=== PATIENT | female | born 1950 | race Caucasian/White ===

== ENCOUNTER → 2017-02-19 | Outpatient (CLI) | payer MEDICARE, OTHER ==
[2017-02-19 11:15] LABS: ALT 27 U/L (9-52); AST 15 U/L (14-36); Alkaline Phosphatase 91 U/L (38-126); Anion Gap 8 mmol/L; Blood Urea Nitrogen 16 mg/dL (7-17); Carbon Dioxide 34 mmol/L (22-30); Chloride 97 mmol/L (98-107); Glucose 130 mg/dL (74-99); Non-African American GFR(MDRD) >60 (>60 ml/min/1.73 sqM); Potassium 4.4 mmol/L (3.5-5.1); Sodium 139 mmol/L (137-145); Total Bilirubin 0.5 mg/dL (0.2-1.3); Total Protein 6.1 g/dL (6.3-8.2)
[2017-02-19 12:09] LABS: Hemoglobin A1C 6.5 % (4.2-6.1)
--- NOTE | 2017-02-19 12:44 | XR ---
EXAMINATION TYPE: XR skull limited DATE OF EXAM ORDERED: 02/19/2017 11:13 AM HISTORY: H05.359 exostosis. COMPARISON: None. FINDINGS: There is a small enthesophyte arising from the occiput at the insertion site of the foundry tender ior longitudinal ligament. There is a 1.7 x 2.6 cm ovoid lesion involving the left occiput. This likely represents an osteoma. T he skull is otherwise normal. 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 A CT SCAN OF THE BRAIN WOULD BE SUGGESTED FOR FURTHER SESSMENT
== END | disposition home or self-care (01) ==
LOC: LABWHC1 10:24
PROVIDERS: ATTEND Family Medicine
DX: M89.9 Disorder of bone, unspecified (principal); E86.0 Dehydration; R53.83 Other fatigue
CPT/HCPCS: 36415; 70250; 80053; 83036

== ENCOUNTER → 2017-03-28 | Outpatient (CLI) | payer MEDICARE, OTHER ==
--- NOTE | 2017-03-30 18:26 | ECHOF ---
Referral Reason:Undiagnosed cardiac Murmurs R01.1 MEASUREMENTS -------- HEIGHT: 162.6 cm WEIGHT: 72.6 kg BP: 135/81 RVIDd: 3.0 cm (< 3.3) IVSd: 1.3 cm (0.6 - 1.1) LVIDd: 3.6 cm (3.9 - 5.3) LVPWd: 1.3 cm (0.6 - 1.1) IVSs: 2.1 cm LVIDs: 1.3 cm LVPWs: 2.0 cm LAESV Index (A-L): 24.20 ml/m Ao Diam: 3.4 cm (2.0 - 3.7) AV Cusp: 1.8 cm (1.5 - 2.6) LA Diam: 4.1 cm (2.7 - 3.8) MV E Dave: 0.93 m/s MV DecT: 417 ms MV A Dave: 1.38 m/s MV E/A Ratio: 0.67 RAP: 5.00 mmHg RVSP: 19.52 mmHg FINDINGS -------- Sinus rhythm. This was a technically adequate study. There is mild concentric left ventricular hypertrophy. Left ventricular systolic function is hyperdynamic with an estimated EF of >70%. The right ventricle is normal in size and function. Normal LA size by volume 22+/-6 ml/m2. The right atrium is normal in size. Aortic valve is trileaflet and is mildly thickened. There is no evidence of aortic regurgitation. There is no evidence of aortic stenosis. The mitral valve leaflets are mildly thickened. Moderate mitral annular calcification present. [id number] mitral regurgitation is present. Trace tricuspid regurgitation present. There is no evidence of pulmonary hypertension. The right ventricular systolic pressure, as measured by Doppler, is 19.52mmHg. The pulmonic valve is normal. The aortic root size is normal. Normal inferior vena cava with normal inspiratory collapse consistent with estimated right atrial pressure of 5 mmHg. The pericardium is normal. There is no pericardial effusion. CONCLUSIONS -------- 1. Sinus rhythm. 2. Trace tricuspid regurgitation present. 3. There is no evidence of pulmonary hypertension. 4. The right ventricular systolic pressure, as measured by Doppler, is 19.52mmHg. 5. The aortic root size is normal. 6. There is no pericardial effusion. 7. This was a technically adequate study. 8. There is mild concentric left ventricular hypertrophy. 9. Left ventricular systolic function is hyperdynamic with an estimated EF of >70%. 10. Normal LA size by volume 22+/-6 ml/m2. 11. Aortic valve is trileaflet and is mildly thickened. 12. The mitral valve leaflets are mildly thickened. 13. Moderate mitral annular calcification present. 14. Nmwu-im-[id number] mitral regurgitation is present. CORE PILER: Rohit Rolle RDCS
== END | disposition home or self-care (01) ==
LOC: RADECHMAIN 15:17
PROVIDERS: ATTEND Family Medicine
DX: I08.3 Combined rheumatic disorders of mitral, aortic and tricuspid valves (principal)
CPT/HCPCS: 93306

== ENCOUNTER → 2017-05-29 | Outpatient (CLI) | payer MEDICARE, OTHER ==
[2017-05-29 11:48] LABS: CH 29.6; CHCM 32.1; HCT 46.3 % (34.0-46.0); HDW 2.31; HGB 15.1 gm/dL (11.4-16.0); MCH 30.1 pg (25.0-35.0); MCHC 32.6 g/dL (31.0-37.0); MCV 92.6 fL (80.0-100.0); Mean Platelet Volume 7.2; RDW 15.7 % (11.5-15.5); WBC 8.3 k/uL (3.8-10.6)
[2017-05-29 12:08] LABS: Anion Gap 8 mmol/L; Blood Urea Nitrogen 15 mg/dL (7-17); Carbon Dioxide 29 mmol/L (22-30); Chloride 103 mmol/L (98-107); Non-African American GFR(MDRD) >60 (>60 ml/min/1.73 sqM); Potassium 4.1 mmol/L (3.5-5.1); Sodium 140 mmol/L (137-145)
== END | disposition home or self-care (01) ==
LOC: LABPAT 11:01
PROVIDERS: ATTEND Internal Medicine Cardiovascular Disease
DX: Z01.812 Encounter for preprocedural laboratory examination (principal); I34.0 Nonrheumatic mitral (valve) insufficiency
CPT/HCPCS: 80051; 82565; 84520; 85027

== ENCOUNTER → 2017-06-03 | Day surgery (SDC) | payer MEDICARE, OTHER ==
[2017-05-29 14:08] VITALS: BMI 25.7
[~2017-06-03] MED LIST: MIDAZOLAM 2 MG/2 ML VIAL IV ONE; SODIUM CHLORIDE 0.9% 1,000 ML IV SCH; SODIUM CHLORIDE 0.9% 250 ML IV ONE; fentaNYL (PF) 50 MCG/ML 2 ML AMP IV ONE
[2017-06-03] MEDS: BENZOCAINE SPRAY 1 SPRAY CAN MUCOUS MEM ONE ×2 (09:10→09:12)
[2017-06-03 09:31] VITALS: RESP 12
--- NOTE | 2017-06-03 09:34 | P.TEE ---
Indications for Procedure(s): Mitral regurgitation Preoperative Diagnosis: Mitral regurgitation Postoperative Diagnosis: Mild mitral regurgitation Procedure(s) Performed: Transesophageal Echocardiogram (FAVIAN) Progress Note: PROCEDURE: Transesophageal echocardiogram. INDICATION: Mitral regurgitation. PROCEDURE NOTE: After obtaining informed consent, transesophageal echocardiogram was performed in the left lateral position using an Omniplane probe. Local and IV sedation were obtained using Xylocaine spray, 2 mg of Versed and 25 mcg of fentanyl. The patient tolerated the procedure well without any obvious immediate complications. Patient's O2 saturations dropped hence we had to terminate the procedure relatively. Patient received conscious sedation total sedation time was 15 minutes. This test was incomplete and suboptimal but we obtained information we will looking far FINDINGS: Mitral valve: [Mild thickening of the mitral valve with mild mitral regurgitation]. Aortic valve: [3 leaflet valve without any evidence of stenosis or regurgitation ]. Tricuspid:valve: [Mild tricuspid regurgitation] Pulmonary valve: []. Left ventricle: [Normal size and systolic function] with an ejection fraction of 60% %. Left atrium: Mildly enlarged Right atrium normal. Left Artial Appendage: Normal Interatrial septum: [There is no evidence of fiege-oj-hqhr shunt by agitated saline contrast study- this was done by 2-D echo as we had to stop the test due to drop in O2 saturations]. Aorta: [Free of aneurysm, dissection or significant atherosclerosis]. CONCLUSIONS: 1. Normal LV function. 2. Mild mitral regurgitation. 3. No evidence of qdgxe-oo-bqud shunt. Description of Procedure(s):
[2017-06-03 10:02] VITALS: TEMP 98.2
[2017-06-03 11:25] VITALS: BP 148/76; PULSE 72
== END ==
LOC: CATHCVL 08:01
PROVIDERS: ATTEND Internal Medicine Cardiovascular Disease
DX: I34.0 Nonrheumatic mitral (valve) insufficiency (principal); I10 Essential (primary) hypertension; F17.210 Nicotine dependence, cigarettes, uncomplicated; R94.31 Abnormal electrocardiogram [ECG] [EKG]
CPT/HCPCS: 93312; 93320; 93325; 99152; J2250; J3010

== ENCOUNTER 2017-11-24 15:25 | Inpatient (IN) | payer MEDICARE, OTHER ==
--- NOTE | 2017-11-24 15:50 | ED ---
Chest Pain HPI - General Stated Complaint: chest/back/arm pain Time Seen by Provider: 11/24/17 15:32 Source: patient, RN notes reviewed Mode of arrival: ambulatory Limitations: no limitations - History of Present Illness Initial Comments: 67-year-old female presents emergency Department with chief complaint of chest pain. Patient states she had 3-4 episodes earlier today where she felt some pain in her lower chest epigastric region and radiated up towards her shoulder into her back. She states currently she is symptom-free she did take aspirin after second episode. She states is a full dose aspirin. She does have a history of mitral valve problems, hypertension. Patient states that she had FAVIAN within last year which forearm mitral valve insufficiency. Patient states that she's had no prior stenting of prior heart attacks. Patient denies any associated shortness of breath other than she does have COPD and current smoker. Patient has fever, chills, headache or dizziness patient has no abdominal pain at this time. - Related Data Home Medications Medication Instructions Recorded Confirmed Carvedilol [Coreg] 12.5 mg PO BID 10/28/14 06/03/17 Losartan Potassium [Cozaar] 100 mg PO DAILY 10/28/14 06/03/17 Focus Select 1 tab PO BID 10/04/15 06/03/17 amLODIPine [Norvasc] 10 mg PO DAILY 10/04/15 06/03/17 Allergies Allergy/AdvReac Type Severity Reaction Status Date / Time tramadol Allergy facial Verified 11/24/17 15:44 drooping Review of Systems ROS Statement: Those systems with pertinent positive or pertinent negative responses have been documented in the HPI. ROS Other: All systems not noted in ROS Statement are negative. 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 Absent: scleral icterus, conjunctival injection, periorbital swelling ENT exam: Present: normal exam, normal oropharynx, mucous membranes moist Neck exam: Present: normal inspection, full ROM. Absent: tenderness, meningismus, lymphadenopathy Respiratory exam: Present: normal lung sounds bilaterally. Absent: respiratory distress, wheezes, rales, rhonchi, stridor, chest wall tenderness Cardiovascular Exam: Present: regular rate, normal rhythm, normal heart sounds. Absent: systolic murmur, diastolic murmur, rubs, gallop, clicks GI/Abdominal exam: Present: soft, normal bowel sounds. Absent: distended, tenderness, guarding, rebound, rigid Course Vital Signs 11/24/17 11/24/17 11/24/17 15:44 16:15 17:15 Temperature 98.4 F Pulse Rate 80 76 76 Respiratory 16 16 18 Rate Blood Pressure 141/79 141/64 141/71 O2 Sat by Pulse 94 L 98 99 Oximetry Disposition Clinical Impression: Chest pain, Cholelithiasis Disposition: ADMITTED IP TO THIS [facility] Condition: Stable Referrals: Saeid Beaver DO [Primary Care Provider] - 1-2 days
[2017-11-24 16:02] LABS: Basophils # (A) 0.1 k/uL (0-0.2); Basophils % (A) 1 %; Eosinophils # (A) 0.4 k/uL (0-0.7); Eosinophils % (A) 4 %; HCT 47.4 % (34.0-46.0); Lymphocytes # (A) 2.9 k/uL (1.0-4.8); Lymphocytes % (A) 28 %; MCH 30.1 pg (25.0-35.0); MCHC 31.5 g/dL (31.0-37.0); MCV 95.7 fL (80.0-100.0); Mean Platelet Volume 7.2; Monocytes # (A) 0.8 k/uL (0-1.0); Monocytes % (A) 7 %; Neutrophils # (A) 6.2 k/uL (1.3-7.7); Neutrophils % (A) 59 %; Platelet Count 285 k/uL (150-450); RBC 4.96 m/uL (3.80-5.40); RDW 12.9 % (11.5-15.5); WBC 10.5 k/uL (3.8-10.6)
[2017-11-24 16:16] LABS: ALT 102 U/L (9-52); AST 242 U/L (14-36); Albumin 4.2 g/dL (3.5-5.0); Alkaline Phosphatase 125 U/L (38-126); Anion Gap 9 mmol/L; Blood Urea Nitrogen 15 mg/dL (7-17); Calcium 9.9 mg/dL (8.4-10.2); Carbon Dioxide 30 mmol/L (22-30); Chloride 102 mmol/L (98-107); Glucose 110 mg/dL (74-99); Lipase 126 U/L (23-300); Potassium 4.3 mmol/L (3.5-5.1); Sodium 141 mmol/L (137-145); Total Bilirubin 0.7 mg/dL (0.2-1.3); Total Protein 6.7 g/dL (6.3-8.2)
--- NOTE | 2017-11-24 16:22 | XR ---
EXAMINATION TYPE: XR chest 2V DATE OF EXAM: 11/24/2017 COMPARISON: Prior chest x-ray 05/12/2011 HISTORY: Chest pain TECHNIQUE: Frontal and lateral views of the chest are obtained. FINDINGS: There is no focal air space opacity, pleural effusion, or pneumothorax seen. The cardiac silhouette size is stable. There are overlying cardiac leads. The osseous structures are intact. IMPRESSION: No acute cardiopulmonary process.
[2017-11-24 16:24] LABS: Creatine Kinase 51 U/L (30-135)
[2017-11-24 16:26] LABS: INR 1.4 (<1.2); Prothrombin Time 13.1 sec (9.0-12.0)
[2017-11-24 16:33] LABS: Creatine Kinase MB 0.6 ng/mL (0.0-2.4)
[2017-11-24 16:37] LABS: Troponin I <0.012 ng/mL (0.000-0.034)
--- NOTE | 2017-11-24 17:26 | US ---
EXAMINATION TYPE: US abdomen limited DATE OF EXAM: 11/24/2017 COMPARISON: NONE CLINICAL HISTORY: Pain/transaminitis. Elevated enzymes, Patient is not NPO EXAM MEASUREMENTS: Liver Length: 15.0 cm Gallbladder Wall: 0.3 cm CHD: 0.3 cm Right Kidney: 11.2 x 3.8 x 4.2 cm Pancreas: Tail obscured by overlying bowel gas. Appears heterogenous. Main pancreatic duct = 1.0 mm Liver: wnl Gallbladder: Appears compacted with stone. Unable to see gallbladder lumen. Evidence for sonographic Hung's sign: neg CBD: Obscured by overlying bowel gas CHD: 0.3 cm Right Kidney: Medial anechoic lesion seen at hilum = 1.1 x 0.3 cm IMPRESSION: Contracted gallbladder with multiple gallstones. No dilated ducts.
[2017-11-24] MEDS ORDERED: HEPARIN SODIUM,PORCINE 5,000 UNIT/ML 1 ML VIAL IV ONE (18:06)
[2017-11-24] MEDS ORDERED: NITROGLYCERIN SL TABS 0.4 MG TAB SUBLINGUAL PRN (18:06)
[2017-11-24] MEDS ORDERED: HEPARIN SOD,PORK IN 0.45% NACL 25,000 UNIT in 0.45% NACL 1 500ML.BAG IV SCH (18:15)
[2017-11-24] MEDS ORDERED: traMADol 50 MG TAB PO PRN (19:51)
[2017-11-24] MEDS ORDERED: MORPHINE ORAL SOLN 10 MG/5 ML CUP PO PRN (19:51)
[2017-11-24] MEDS ORDERED: ONDANSETRON 4 MG/2 ML VIAL IVP PRN (19:51)
[2017-11-24] MEDS ORDERED: NALOXONE 0.4 MG/ML 1 ML VIAL IV PRN (19:51)
[2017-11-24] MEDS ORDERED: IBUPROFEN 400 MG TAB PO PRN (19:51)
--- NOTE | 2017-11-24 20:06 | P.HPIM ---
History of Present Illness H&P Date: 11/24/17 Chief Complaint: Epigastric discomfort Patient is a 67-year-old female with a known history of hypertension, mild to moderate mitral regurgitation, and prediabetes who presented to the ED brought in by her daughters after a one-day history of recurrent episodic epigastric pain radiating down to her abdomen and up to her bilateral shoulders more so on the right side. Patient states this first occurred while she was waiting for the elevator at her apartment, associated with some nausea and fatigue which made it difficult walking back to the apartment after getting off the elevator. These episodes recurred multiple times over the next couple of hours while sitting in a chair. Episodes were relieved on their own, no associated exacerbating factors. No prior history of such pain. Patient had no acute changes noted on ECG, 1 negative troponin. ED sent to the observation unit for chest pain workup. Patient states that she was evaluated last fall by Dr. Grady secondary to newly diagnosed mild to moderate mitral regurgitation, that workup included a pharmacological MPI, patient does not know the exact results but thinks it was normal. Workup in the ED also showed transaminitis and an ultrasound showing cholelithiasis without any ductal dilation. Review of Systems CONSTITUTIONAL: No weight loss, fever, chills HEENT: Eyes: No visual loss, blurred vision, double vision or yellow sclerae. Ears, Nose, Throat: No hearing loss, sneezing, congestion, runny nose or sore throat. SKIN: No rash or itching. CARDIOVASCULAR: No palpitations or edema. RESPIRATORY: No cough or sputum. GASTROINTESTINAL: No anorexia or diarrhea. NEUROLOGICAL: No headache, dizziness, syncope, paralysis, ataxia, numbness or tingling in the extremities. No change in bowel or bladder control. MUSCULOSKELETAL: No muscle, back pain, joint pain or stiffness. HEMATOLOGIC: No anemia, bleeding or bruising. LYMPHATICS: No enlarged nodes. No history of splenectomy. PSYCHIATRIC: No history of depression or anxiety. ENDOCRINOLOGIC: No reports of sweating, cold or heat intolerance. No polyuria or polydipsia. ALLERGIES: No history of asthma, hives, eczema or rhinitis Past Medical History Past Medical History: Eye Disorder, Hypertension, Osteoarthritis (OA) Additional Past Medical History / Comment(s): macular degeneration. 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, left hip replacement Past Anesthesia/Blood Transfusion Reactions: No Reported Reaction Past Psychological History: No Psychological Hx Reported Smoking Status: Light tobacco smoker Past Alcohol Use History: None Reported Past Drug Use History: None Reported - Past Family History Sister(s) Daughter(s) Family Medical History: Cancer Medications and Allergies Home Medications Medication Instructions Recorded Confirmed Type Carvedilol [Coreg] 12.5 mg PO BID 10/28/14 11/24/17 History Losartan Potassium [Cozaar] 100 mg PO DAILY 10/28/14 11/24/17 History amLODIPine [Norvasc] 10 mg PO DAILY 11/24/17 11/24/17 History buPROPion HCL [Wellbutrin SR] 150 mg PO BID 11/24/17 11/24/17 History Allergies Allergy/AdvReac Type Severity Reaction Status Date / Time tramadol Allergy facial Verified 11/24/17 18:43 drooping Physical Exam Vitals: Vital Signs Temp Pulse Pulse Resp BP BP Pulse Ox 11/24/17 19:43 98.3 F 71 18 142/78 92 L 11/24/17 18:48 99.1 F 75 16 134/67 95 11/24/17 17:15 76 18 141/71 99 11/24/17 16:15 76 16 141/64 98 11/24/17 15:44 98.4 F 80 16 141/79 94 L Intake and Output 11/24/17 11/24/17 11/24/17 06:59 14:59 22:59 Other: Weight 75.3 kg Patient Weight 11/25/17 06:59 Weight 75.3 kg GENERAL: Well-developed, well-nourished in no apparent distress. AAOx4 HEENT: Normocephalic and atraumatic. Extraocular muscles are intact. Pupils are equal, round, and reactive to light and accommodation.Mucous membranes are moist NECK: Supple. No JVD LUNGS: Bilateral air entry, no noted wheeze, rhonci. Normal respiratory effort, no accessory muscle use HEART: S1 and S2 of normal intensity, 2/6 systolic ejection murmur ABDOMEN: Soft, nontender, and nondistended. Positive bowel sounds. No hepatosplenomegaly was noted. EXTREMITIES: No noted edema. NEUROLOGIC: Cranial nerves II through XII are grossly intact. PSYCHIATRIC: Denies suicidal or homicidal ideations. Appropriate affect. SKIN: No ulceration noted. No rash noted. Results CBC & Chem 7: 11/24/17 15:40 11/24/17 15:40 Labs: Abnormal Lab Results - Last 24 Hours (Table) 11/24/17 11/24/17 11/24/17 Range/Units 15:40 15:40 15:40 Hct 47.4 H (34.0-46.0) % PT 13.1 H (9.0-12.0) sec INR 1.4 H (<1.2) Glucose 110 H (74-99) mg/dL AST 242 H (14-36) U/L ALT 102 H (9-52) U/L US - abdomen: report reviewed Thrombosis Risk Factor Assmnt - DVT/VTE Prophylaxis DVT/VTE Prophylaxis: Low risk, early ambulation encouraged Assessment and Plan (1) Transaminitis Current Visit: Yes Status: Acute Code(s): R74.0 - NONSPEC ELEV OF LEVELS OF TRANSAMNS & LACTIC ACID DEHYDRGNSE SNOMED Code(s): 385507575 (2) Epigastric pain Current Visit: Yes Status: Acute Code(s): R10.13 - EPIGASTRIC PAIN SNOMED Code(s): 99589653 (3) Cholelithiasis Current Visit: Yes Status: Acute Code(s): K80.20 - CALCULUS OF GALLBLADDER W /O CHOLECYSTITIS W/O OBSTRUCTION SNOMED Code(s): 428519146 Plan: Epigastric pain that radiates downward to abdomen and upper to bilateral shoulders more so on the right. The descending to the observation department for chest pain rule out. 1 negative troponin, we'll trend serial troponins and repeat ECG in the morning. Patient did have an MPI pharmacological stress test in the fall of last year at Dr. Grady's office, will obtain results in the morning. This pain is very atypical for chest pain, if all that is negative would attribute to that is causing the transaminitis. Does have a mild transaminitis with AST of 242 and ALT 102. Ultrasound showing cholelithiasis without distention. We'll trend liver enzymes.
[2017-11-24] MEDS: CARVEDILOL 12.5 MG TAB PO SCH (21:33)
[2017-11-24] MEDS: NICOTINE 14MG/24HR PATCH TRANSDERM SCH (21:33)
[2017-11-24] MEDS: buPROPion SR 150 MG TABLET.ER PO SCH (21:33)
[2017-11-24 22:30] LABS: Creatine Kinase 40 U/L (30-135)
[2017-11-24 22:59] LABS: Troponin I <0.012 ng/mL (0.000-0.034)
[2017-11-24 23:00] LABS: Creatine Kinase MB 0.7 ng/mL (0.0-2.4)
[2017-11-25] MEDS ORDERED: HEPARIN SODIUM,PORCINE 5,000 UNIT/ML 1 ML VIAL IV PRN (02:18)
[2017-11-25 04:05] LABS: ALT 304 U/L (9-52); AST 271 U/L (14-36); Cholesterol 139 mg/dL (<200); HDL Cholesterol 41 mg/dL (40-60); LDL Cholesterol,Calculated 85 mg/dL (0-99); Triglycerides 67 mg/dL (<150)
[2017-11-25 04:13] LABS: Creatine Kinase 35 U/L (30-135)
[2017-11-25 04:25] LABS: Creatine Kinase MB 0.5 ng/mL (0.0-2.4); Troponin I <0.012 ng/mL (0.000-0.034)
[2017-11-25] MEDS: NICOTINE 14MG/24HR PATCH TRANSDERM SCH (08:26)
[2017-11-25] MEDS ORDERED: ASPIRIN 325 MG TAB PO SCH (09:00)
--- NOTE | 2017-11-25 09:56 | P.PN ---
Subjective Progress Note Date: 11/25/17 Principal diagnosis: Biliary colic Patient is a 67-year-old female with a known history of hypertension, mild to moderate mitral regurgitation, and prediabetes who presented to the ED brought in by her daughters after a one-day history of recurrent episodic epigastric pain radiating down to her abdomen and up to her bilateral shoulders more so on the right side. In the ED, workup showed mild elevated transaminitis with an AST of 242 and an ALT of 102, ultrasound showing cholelithiasis without any biliary duct dilation seen, ECG showed no acute changes, troponin negative 1. ED sent the patient to the observation unit as a chest pain workup; overnight also had 2 more negative troponins. Patient reported having a negative pharmacological MPI last fall. Patient reports overnight felt like the abdominal pain was coming on again however never really fully recurred, now seeing this was in her abdomen only. Patient denies any other overnight events. No fever or chills. No shortness of breath or difficulty in breathing. No nausea or vomiting. Objective - Vital Signs Vital signs: Vital Signs Temp 99.1 F 11/25/17 07:33 Pulse 71 11/25/17 07:33 Resp 16 11/25/17 07:33 BP 132/84 11/25/17 07:33 Pulse Ox 92 L 11/25/17 07:33 Intake & Output 11/24/17 11/25/17 11/25/17 18:59 06:59 18:59 Intake Total 932.187 Balance 932.187 Weight 81.647 kg 75.3 kg Intake: IV 400 0.9@20 200 Heparin Sod,Pork in 0.45% 200 NaCl 25,000 unit In 0.45 % NaCl 1 500ml.bag @ 12 UNITS/KG/HR 19.59 mls/hr IV .Q24H HUONG Rx#: [id number] Intake, IV Titration 182.187 Amount Heparin Sod,Pork in 0.45% 182.187 NaCl 25,000 unit In 0.45 % NaCl 1 500ml.bag @ 12 UNITS/KG/HR 19.59 mls/hr IV .Q24H HUONG Rx#: [id number] Oral 350 Other: Voiding Method Toilet Toilet # Voids 3 - Exam GENERAL: Well-developed, well-nourished in no apparent distress. AAOx4 HEENT: Normocephalic and atraumatic. Extraocular muscles are intact. Pupils are equal, round, and reactive to light and accommodation.Mucous membranes are moist NECK: Supple. No JVD LUNGS: Bilateral air entry, no noted wheeze, rhonci. Normal respiratory effort, no accessory muscle use HEART: S1 and S2 of normal intensity, 2/6 systolic ejection murmur ABDOMEN: Soft, nontender, and nondistended. Positive bowel sounds. No hepatosplenomegaly was noted. EXTREMITIES: No noted edema. NEUROLOGIC: Cranial nerves II through XII are grossly intact. PSYCHIATRIC: Denies suicidal or homicidal ideations. Appropriate affect. SKIN: No ulceration noted. No rash noted. - Labs CBC & Chem 7: 11/24/17 15:40 11/24/17 15:40 Labs: Abnormal Lab Results - Last 24 Hours (Table) 11/24/17 11/24/17 11/24/17 Range/Units 15:40 15:40 15:40 Hct 47.4 H (34.0-46.0) % PT 13.1 H (9.0-12.0) sec INR 1.4 H (<1.2) APTT (22.0-30.0) sec Glucose 110 H (74-99) mg/dL AST 242 H (14-36) U/L ALT 102 H (9-52) U/L 11/25/17 11/25/17 Range/Units 03:10 03:10 Hct (34.0-46.0) % PT (9.0-12.0) sec INR (<1.2) APTT 41.6 H (22.0-30.0) sec Glucose (74-99) mg/dL AST 271 H (14-36) U/L ALT 304 H (9-52) U/L Assessment and Plan (1) Transaminitis Current Visit: Yes Status: Acute Code(s): R74.0 - NONSPEC ELEV OF LEVELS OF TRANSAMNS & LACTIC ACID DEHYDRGNSE SNOMED Code(s): 228070761 (2) Biliary colic Current Visit: Yes Status: Acute Code(s): K80.50 - CALCULUS OF BILE DUCT W/ O CHOLANGITIS OR CHOLECYST W/O OBST SNOMED Code(s): 06403532 (3) Cholelithiasis Current Visit: Yes Status: Acute Code(s): K80.20 - CALCULUS OF GALLBLADDER W /O CHOLECYSTITIS W/O OBSTRUCTION SNOMED Code(s): 472876971 Plan: Pain is likely biliary colic in nature. Does have a mild transaminitis with an AST of 242 and ALT of 102 on presentation, increased to 271 and 304 respectively. No other liver enzyme abnormalities noted, normal alkaline phosphatase, normal total and direct bilirubin. Patient reported having some similar symptoms overnight though much less severe. MRCP ordered. Emergency department send the patient to the observation unit for a chest pain workup, however this is not chest pain. Epigastric pain that radiates downward to abdomen and upper to bilateral shoulders more so on the right. Patient has had 3 negative troponins, no ECG changes and a recent negative pharmacological MPI stress test last fall as outpatient. After I saw the patient, apparently she was started on a heparin drip on the ED prior to transfer, discontinue now. Discontinue the cardiology consult.
[2017-11-25] MEDS: LOSARTAN 50 MG TAB PO SCH (10:32)
[2017-11-25] MEDS: CARVEDILOL 12.5 MG TAB PO SCH ×2 (10:33→18:44)
[2017-11-25] MEDS: amLODIPine 10 MG TAB PO SCH (10:33)
[2017-11-25] MEDS: buPROPion SR 150 MG TABLET.ER PO SCH ×2 (10:33→19:54)
--- NOTE | 2017-11-25 18:50 | MR ---
EXAMINATION TYPE: MR MRCP DATE OF EXAM: 11/25/2017 COMPARISON: NONE HISTORY: Biliary colic, transaminitis, gallstones on US Standard multiplanar, multisequence MRI departmental protocol Multiplanar, multisequence images of the were acquired. FINDINGS: Gallbladder appears to be filled with multiple low signal foci consistent with multiple gal lstones.. I see no focal liver defect. Intrahepatic bile ducts are not dilated. There is no evidence of pancreatic mass. Pancreatic duct has normal size. Spleen appears normal. The kidneys show no hydro nephrosis. The common bile duct measures 7 mm. There is incomplete signal within the distal common bile duct. Th is area measures 14 mm in length and appears to be intraluminal multiple filling defects. There is no adrenal mass. IMPRESSION: Multiple gallstones. No dilated ducts. There is incomplete bile signal within the distal common bile duct is suspicious for multiple small common duct stones and choledocholithiasis.
[2017-11-26 07:10] LABS: MCH 30.1 pg (25.0-35.0); MCHC 31.8 g/dL (31.0-37.0); MCV 94.6 fL (80.0-100.0); Mean Platelet Volume 7.8; Platelet Count 269 k/uL (150-450); RBC 4.66 m/uL (3.80-5.40); RDW 13.2 % (11.5-15.5); WBC 6.8 k/uL (3.8-10.6)
[2017-11-26 07:21] LABS: Bilirubin, Delta 0.2 mg/dL (0.0-0.2); Bilirubin,Unconjugated 0.2 mg/dL (0.0-1.1); Total Bilirubin 0.4 mg/dL (0.2-1.3)
[2017-11-26] MEDS: NICOTINE 14MG/24HR PATCH TRANSDERM SCH (07:59)
[2017-11-26] MEDS: CARVEDILOL 12.5 MG TAB PO SCH ×2 (08:00→18:22)
[2017-11-26] MEDS: amLODIPine 10 MG TAB PO SCH (08:00)
[2017-11-26] MEDS: LOSARTAN 50 MG TAB PO SCH (08:00)
--- NOTE | 2017-11-26 11:11 | P.CONS ---
History of Present Illness - Reason for Consult Consult date: 11/26/17 Abdominal pain possible choledocholithiasis Requesting physician: Molina Rodriguez - History of Present Illness 67-year-old female patient of Dr. Serrano with a past medical history of COPD, mitral valve insufficiency, hypertension, macular degeneration, osteoarthritis, and nicotine cigarette dependency. Patient presented with acute onset of epigastric pain radiating to her upper back after eating lunch on Friday associated with nausea. Denies fever chills. Unable to say if she's had changes in the color of urine or stool secondary to her history of macular degeneration. Presently her epigastric chest pain has improved. Ultrasound abdomen gallbladder wall 0.37 L. CBD 0.3 cm. Gallbladder appeared compacted with multiple stones. No dilated ducts. MRCP redemonstrated multiple gallstones no dilated ducts. Incomplete bile signal within the distal common bile duct suspicious for multiple small common bile duct stones choledocholithiasis. White count 10.5. Hemoglobin 15. INR 1.4. Liver function tests have improved since admission. Total bilirubin 0.4-0.7. AST 52-to 42. ALT 102-304. Alkaline phosphatase 117-125. Lipase 126. Review of Systems Constitutional: Denies fever, chills, sweats, weight gain, or loss. HEENT: Negative for migraines, history of macular degeneration, denies earaches , drainage, tinnitus, oral mucosal lesions, dysphagia, or odynophagia. CARDIAC: Mitral valve insufficiency. Negative for chest pain, arrhythmias, or palpitation. RESPIRATORY: COPD. Nicotine cigarette dependency. Negative for shortness of breath, hemoptysis, cough, or sputum production. GI: See HPI for pertinent findings. : Negative for hematuria, urgency, frequency, polyuria, or dysuria. GYNc: Denies possibility of . Negative vaginal discharge. MUSCULOSKELETAL: History of osteoarthritis. Negative for muscle aches, swelling , arthritis, and arthralgias. NEUROLOGIC: Negative for stroke or TIA. ENDOCRINE: Negative for thyroid problems. SKIN: Negative for rash or itching. PSYCHIATRIC: Negative history for depression and anxiety Past Medical History Past Medical History: COPD, Eye Disorder, Hypertension, Osteoarthritis (OA) Additional Past Medical History / Comment(s): macular degeneration, actinic keratosis. 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, left hip replacement, sevral benign moles removed, lisa cataracts, brandon Past Anesthesia/Blood Transfusion Reactions: No Reported Reaction Smoking Status: Current every day smoker - Past Family History Mother Family Medical History: CVA/TIA, Hypertension, Myocardial Infarction (ND) Father Family Medical History: AFIB, Hypertension, Myocardial Infarction (ND) Sister(s) Daughter(s) Family Medical History: Cancer Medications and Allergies Home Medications Medication Instructions Recorded Confirmed Type Carvedilol [Coreg] 12.5 mg PO BID 10/28/14 11/24/17 History Losartan Potassium [Cozaar] 100 mg PO DAILY 10/28/14 11/24/17 History Vit C/E/Zn/Coppr/Lutein/Zeaxan 1 BID 11/24/17 History [Preservision Areds 2 Softgel] amLODIPine [Norvasc] 10 mg PO DAILY 11/24/17 11/24/17 History buPROPion HCL [Wellbutrin SR] 150 mg PO BID 11/24/17 11/24/17 History Allergies Allergy/AdvReac Type Severity Reaction Status Date / Time tramadol Allergy facial Verified 11/24/17 18:43 drooping Physical Exam Vitals: Vital Signs Temp Pulse Resp BP Pulse Ox 11/26/17 06:52 98.2 F 69 16 125/81 93 L 11/26/17 03:42 16 11/25/17 23:57 98.6 F 68 16 125/71 95 11/25/17 23:37 18 11/25/17 19:48 18 11/25/17 19:47 97.7 F 70 18 143/87 91 L 11/25/17 14:57 98.4 F 65 16 135/82 92 L 11/25/17 11:40 99 F 69 16 124/73 92 L Intake and Output 11/25/17 11/26/17 11/26/17 22:59 06:59 14:59 Intake Total 350 300 Balance 350 300 Intake: Oral 350 300 Other: Voiding Method Toilet Toilet Toilet # Voids 2 2 General appearance: The patient is alert, oriented, in no acute distress. HET: Head is normocephalic and atraumatic. Pupils are equal and reactive. Oropharynx is clear without lesions. Neck: Supple without lymphadenopathy. Trachea midline. Heart: S1 S2. Regular rate and rhythm. Lungs: No crackles or wheezes are heard. Abdomen: Soft, mild midepigastric soreness, nondistended with bowel sounds. No peritoneal signs. No palpable organomegaly or masses. Extremities: Normal skin color and turgor. No cyanosis, rash, ulceration, clubbing, or edema. Radial and pedal pulses are 2/4 bilaterally. Neurological: No focal deficits. Strength and sensation are grossly intact. Results CBC & Chem 7: 11/26/17 06:28 11/24/17 15:40 Labs: Abnormal Lab Results - Last 24 Hours (Table) 11/26/17 Range/Units 06:28 AST 52 H (14-36) U/L ALT 170 H (9-52) U/L US - abdomen: report reviewed (Dr. Grady) MRI - abdomen: report reviewed (Dr. Grady) Assessment and Plan (1) Biliary colic Narrative/Plan: 67-year-old female admitted with acute epigastric pain with cholelithiasis. MRCP demonstrated distal common bile duct stones choledocholithiasis with improvement in liver function tests. Current Visit: Yes Status: Acute Code(s): K80.50 - CALCULUS OF BILE DUCT W/ O CHOLANGITIS OR CHOLECYST W/O OBST SNOMED Code(s): 12147080 (2) Choledocholithiasis Current Visit: Yes Status: Acute Code(s): K80.50 - CALCULUS OF BILE DUCT W/ O CHOLANGITIS OR CHOLECYST W/O OBST SNOMED Code(s): 766001537 (3) Transaminitis Current Visit: Yes Status: Acute Code(s): R74.0 - NONSPEC ELEV OF LEVELS OF TRANSAMNS & LACTIC ACID DEHYDRGNSE SNOMED Code(s): 851316830 Plan: 1. Recommend ERCP. Patient ate half a muffin, cup of orange juice and coffee with 4 bites of oatmeal therefore ERCP cannot be performed today. Case was discussed between Dr. Grady and general surgeon Dr. Faye; tentative plans to proceed with laparoscopic cholecystectomy today. Request for intraoperative cholangiogram. 2. Tentative ERCP tomorrow morning; pending surgical intervention and findings. 3. Continue supportive measures. CMP in a.m. Will follow closely with you. The tube closing machine operator has discussed the risks, benefits and alternative therapies for the above-mentioned procedure and for both sedation/analgesia as well as necessary blood product administration, if indicated, as they pertain to this patient. The patient has indicated understanding and acceptance of the risks and procedures discussed. Thank you for this kind referral and the opportunity to participate in the care of your patient. This consultation was discussed with Dr. Grady. The impression and plan of care have been directed as dictated.
--- NOTE | 2017-11-26 11:24 | P.PN ---
Subjective Progress Note Date: 11/26/17 Principal diagnosis: The patient is a 67-year-old female that presented with acute episodes of intermittent biliary colic found to have a transaminitis and ultrasonic evidence of cholelithiasis, MRCP performed consistent with multiple gallstones suggested in the common bile duct Patient feeling good today has been seen by general surgery and GI. Has no acute events transaminitis improving Objective - Vital Signs Vital signs: Vital Signs Temp 98.2 F 11/26/17 06:52 Pulse 69 11/26/17 06:52 Resp 16 11/26/17 06:52 BP 125/81 11/26/17 06:52 Pulse Ox 93 L 11/26/17 06:52 Intake & Output 11/25/17 11/26/17 11/26/17 18:59 06:59 18:59 Intake Total 350 350 300 Balance 350 350 300 Intake: Oral 350 350 300 Other: Voiding Method Toilet Toilet Toilet # Voids 2 2 - Exam Constitutional: No acute distress, conversant, pleasant Eyes: Anicteric sclerae, moist conjunctiva, no lid-lag, PERRLA ENMT: NC/AT,Oropharynx clear, no erythema, exudates Neck:Supple, FROM, no masses, or JVD, No carotid bruits; No thyromegaly Lungs: Clear to auscultation, Clear to percussion, Normal respiratory effort, no accessory muscle use Cardiovascular: Heart regular in rate and rhythm, No murmurs, gallops, or rubs no peripheral edema Abdominal: Negative Hung sign Soft Nontender, non distended, no guarding, no rebound or rigidity, Normoactive bowel sounds No hepatomegaly, No splenomegaly , No palpable mass No abdominal wall hernia noted Skin: Normal temperature, tone, texture, turgor, No induration No subcutaneous nodules, No rash, lesions, No ulcers Extremities:No digital cyanosis No clubbing, Pedal pulses intact and symmetrical Radial pulses intact and symmetrical Normal gait and station, No calf tenderness Psychiatric: Alert and oriented to person, place and time, Appropriate affect Intact judgement Neuro: Muscles Strength 5/5 in all 4 extremities, Sensation to light touch grossly present throughout, Cranial nerves II-XII grossly intact. No focal sensory deficits - Labs CBC & Chem 7: 11/26/17 06:28 11/24/17 15:40 Labs: Abnormal Lab Results - Last 24 Hours (Table) 11/26/17 Range/Units 06:28 AST 52 H (14-36) U/L ALT 170 H (9-52) U/L Assessment and Plan (1) Biliary colic Narrative/Plan: * Patient is improved will stop tramadol as a patient has a listed ALLERGY and will start [place] Current Visit: Yes Status: Acute Code(s): K80.50 - CALCULUS OF BILE DUCT W/ O CHOLANGITIS OR CHOLECYST W/O OBST SNOMED Code(s): 94504531 (2) Choledocholithiasis Narrative/Plan: * GI doctor tomorrow consulted for further recommendations possibly ERCP Current Visit: Yes Status: Acute Code(s): K80.50 - CALCULUS OF BILE DUCT W/ O CHOLANGITIS OR CHOLECYST W/O OBST SNOMED Code(s): 679459671 (3) Cholelithiasis Narrative/Plan: * Gen. surgery consulted to evaluate for lap cholecystectomy Current Visit: Yes Status: Acute Code(s): K80.20 - CALCULUS OF GALLBLADDER W /O CHOLECYSTITIS W/O OBSTRUCTION SNOMED Code(s): 756807752 (4) Transaminitis Current Visit: Yes Status: Acute Code(s): R74.0 - NONSPEC ELEV OF LEVELS OF TRANSAMNS & LACTIC ACID DEHYDRGNSE SNOMED Code(s): 876780885
--- NOTE | 2017-11-26 13:30 | P.GSCN ---
<Yanira Galaviz - Last Filed: 11/26/17 13:13> History of Present Illness Consult date: 11/26/17 Reason for Consult: Abdominal pain History of present illness: 67-year-old female being seen for a surgical eval at the request of the attending. Patient presented on the day of admission with episodes of acute epigastric discomfort radiating to the upper back. Patient stated that she was in her usual state of health until Friday this week after eating lunch developed intractable nausea no emesis no fever chills with epigastric pain that was intolerable radiated to the upper back. Patient stated that she was barely able to make back from the dining area to her room. Patient states she lives at the [facility] assisted[facility]. Patient states she cannot tolerate the pain came into the emergency room to be evaluated for the above- mentioned symptoms. A surgical eval has been requested. An ultrasound of the gallbladder wall appeared compacted with multiple stones no dilated ducts. The common bile duct 0.3 cm. Patient was seen by Dr. Saucedo GI service. Patient did have an MRCP reviewing the report it showed multiple gallstones no dilated ducts. The report indicated there was incomplete bile signal within the distal common bile duct suspicious for multiple small common bile duct stones cholelithiasis currently patient is indicating the epigastric discomfort has improved Currently is nothing by mouth with a tentative plan to have a lap cholecystectomy timing defer to Dr. faye. Patient states that she did have half of a muffin this morning, several bites of oatmeal, small cup of orange juice, a cup of coffee Past medical history COPD, hypertension, osteoarthritis Past surgical history tonsillectomy, right and left hip replacement, tubal ligation bilateral cataracts Review of Systems Essentially unremarkable except as mentioned in the present illness Past Medical History Past Medical History: COPD, Eye Disorder, Hypertension, Osteoarthritis (OA) Additional Past Medical History / Comment(s): macular degeneration, actinic keratosis. 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, left hip replacement, sevral benign moles removed, lisa cataracts, brandon Past Anesthesia/Blood Transfusion Reactions: No Reported Reaction Smoking Status: Current every day smoker - Past Family History Mother Family Medical History: CVA/TIA, Hypertension, Myocardial Infarction ([place]) Father Family Medical History: AFIB, Hypertension, Myocardial Infarction (ME) Sister(s) Daughter(s) Family Medical History: Cancer Medications and Allergies Home Medications Medication Instructions Recorded Confirmed Type Carvedilol [Coreg] 12.5 mg PO BID 10/28/14 11/24/17 History Losartan Potassium [Cozaar] 100 mg PO DAILY 10/28/14 11/24/17 History Vit C/E/Zn/Coppr/Lutein/Zeaxan 1 BID 11/24/17 History [Preservision Areds 2 Softgel] amLODIPine [Norvasc] 10 mg PO DAILY 11/24/17 11/24/17 History buPROPion HCL [Wellbutrin SR] 150 mg PO BID 11/24/17 11/24/17 History Allergies Allergy/AdvReac Type Severity Reaction Status Date / Time tramadol Allergy facial Verified 11/24/17 18:43 drooping Surgical - Exam Vital Signs Temp Pulse Resp BP Pulse Ox 98.4 F 80 16 141/79 94 L 11/24/17 15:44 11/24/17 15:44 11/24/17 15:44 11/24/17 15:44 11/24/17 15:44 GENERAL APPEARANCE: 67-year-old female patient is alert, oriented x 3 , in no acute distress. VITAL SIGNS: Reviewed HEENT: Head is normocephalic and atraumatic. Pupils are equal and reactive. The nares are patent. Oropharynx is clear without lesions. NECK: Supple without lymphadenopathy. Traches midline. HEART: S1, S2. Regular rate and rhythm. No murmur noted LUNGS: No crackles or wheezes are heard. On room air no shortness of breath ABDOMEN: Soft, mild tenderness epigastric area reports no nausea no vomiting nondistended with good bowel sounds. No peritoneal signs. No palpable organomegaly or masses. EXTREMITIES: Normal skin color and turgor. No cyanosis, rash, ulceration, clubbing or edema. Radial pedal pulses are 2/4 bilaterally. NEUROLOGICAL: No focal deficits. Strength and sensation are grossly intact. Results - Labs 11/26/17 06:28 11/24/17 15:40 Abnormal Lab Results - Last 24 Hours (Table) 11/26/17 Range/Units 06:28 AST 52 H (14-36) U/L ALT 170 H (9-52) U/L Diabetes panel 11/26/17 Range/Units 06:28 AST 52 H (14-36) U/L ALT 170 H (9-52) U/L Alkaline Phosphatase 117 (38-126) U/L Adrenal panel 11/26/17 Range/Units 06:28 Total Bilirubin 0.4 (0.2-1.3) mg/dL AST 52 H (14-36) U/L ALT 170 H (9-52) U/L Alkaline Phosphatase 117 (38-126) U/L Assessment and Plan Assessment: Impression Present on admission epigastric pain radiating to the back with cholelithiasis biliary colic Acute elevated transaminitis trending down Current every day smoker MRCP demonstrated distal common bile duct stones cholelithiasis Ultrasound show evidence of cholelithiasis Plan Scheduled today for a lap cholecystectomy per Dr. faye Repeat labs in the morning follow up on results Continue recommendations per gastroenterology service tentatively scheduled for an ERCP tomorrow Further recommendations pending Pain control IV fluid for hydration DVT and GI prophylaxis Will follow with you Surgical consultation note dictated for dr faye The above impression and plan of care have been discussed and directed by signing physician. Yanira Galaviz nurse practitioner acting as scribe for signing physician. <Dawson Faye - Last Filed: 11/26/17 14:41> Surgical - Exam Vital Signs Temp Pulse Resp BP Pulse Ox 98.4 F 80 16 141/79 94 L 11/24/17 15:44 11/24/17 15:44 11/24/17 15:44 11/24/17 15:44 11/24/17 15:44 Results - Labs 11/26/17 06:28 11/24/17 15:40 Abnormal Lab Results - Last 24 Hours (Table) 11/26/17 Range/Units 06:28 AST 52 H (14-36) U/L ALT 170 H (9-52) U/L Diabetes panel 11/26/17 Range/Units 06:28 AST 52 H (14-36) U/L ALT 170 H (9-52) U/L Alkaline Phosphatase 117 (38-126) U/L Adrenal panel 11/26/17 Range/Units 06:28 Total Bilirubin 0.4 (0.2-1.3) mg/dL AST 52 H (14-36) U/L ALT 170 H (9-52) U/L Alkaline Phosphatase 117 (38-126) U/L Assessment and Plan Plan: The MRI was reviewed. The patient may have passed a small common bile duct stone. Her LFTs a decreased this morning. The patient will undergo laparoscopic cholecystectomy with intraoperative cholangiogram.
[2017-11-26] MEDS ORDERED: IV FLUID CONTINUATION 1,000 ML IV ONE (14:59)
[2017-11-26] MEDS ORDERED: HEPARIN SODIUM,PORCINE 5,000 UNIT/ML 1 ML VIAL SQ ONE (15:14)
[2017-11-26] MEDS ORDERED: LIDOCAINE 1% INJ 10MG/ML (20 ML MDV) ONE (15:19)
[2017-11-26] MEDS ORDERED: ROCURONIUM BROMIDE 10 MG/ML 10 ML VIAL IV ONE (15:19)
[2017-11-26] MEDS ORDERED: SUCCINYLCHOLINE CHLORIDE 100 MG/5 ML SYR IV ONE (15:19)
[2017-11-26] MEDS ORDERED: ePHEDrine SULFATE/0.9% NACL/PF 50 MG/5 ML SYRINGE IV ONE (15:19)
[2017-11-26] MEDS ORDERED: fentaNYL (PF) 50 MCG/ML 2 ML AMP ONE (15:19)
[2017-11-26] MEDS ORDERED: NEOSTIGMINE 1 MG/ML 10 ML VIAL ONE (15:19)
[2017-11-26] MEDS ORDERED: SODIUM CHLORIDE 0.9% 50 ML with ceFAZolin 2,000 MG IV ONE ×2 (15:19)
[2017-11-26] MEDS ORDERED: GLYCOPYRROLATE 0.2 MG/ML 2 ML VIAL ONE ×2 (15:19)
[2017-11-26] MEDS ORDERED: MIDAZOLAM 2 MG/2 ML VIAL ONE (15:19)
[2017-11-26] MEDS ORDERED: PROPOFOL 10 MG/ML 20 ML VIAL IV ONE (15:19)
[2017-11-26] MEDS ORDERED: IOHEXOL 350 MG/ML 50ML BOTTLE IRRIGATION ONE ×2 (15:52)
[2017-11-26] MEDS ORDERED: BUPIVACAINE (PF) 0.25% 30 ML VIAL SQ ONE (15:53)
[2017-11-26] MEDS ORDERED: LACTATED RINGERS 1,000 ML IV ONE ×2 (16:32→16:33)
[2017-11-26] MEDS ORDERED: MORPHINE SULFATE 4 MG/ML SYRINGE IVP PRN (16:33)
[2017-11-26] MEDS ORDERED: ACETAMINOPHEN TAB 325 MG TAB PO PRN (16:33)
[2017-11-26] MEDS ORDERED: NALOXONE 0.4 MG/ML 1 ML VIAL IV PRN (16:33)
--- NOTE | 2017-11-26 16:41 | P.OP ---
Date of Procedure: 11/26/17 Preoperative Diagnosis: Cholelithiasis Postoperative Diagnosis: Cholelithiasis Choledocholithiasis Cholecystitis Procedure(s) Performed: Laparoscopic cholecystectomy with intraoperative cholangiogram Anesthesia: LUISA Surgeon: Dawson Faye Estimated Blood Loss (ml): 5 Pathology: other (Gallbladder) Condition: stable Disposition: PACU Indications for Procedure: This is a 67-year-old female with known choledocholithiasis. Patient had ultrasound performed which showed evidence of cholelithiasis, she also and MRCP performed which showed possibility of a common bile duct stone. Patient's pain had resolved and her liver enzymes are improving. Patient was taken the OR for laparoscopic ostectomy with the possibility of postoperative ERCP. Operative Findings: , Bile duct stone Description of Procedure: The patient was placed on the operating table. The patient received a general endotracheal tube anesthesia. The patients abdomen was prepped and draped in the usual sterile fashion. Through an infraumbilical stab incision, the fascia of the anterior abdominal wall was grasped with a pair of Kochers and then the Veress needle was placed in the peritoneal cavity. Position of the Veress needle was confirmed with positive drop test. The abdomen was then insufflated. After adequate insufflation, the 10 mm trocar was placed in the peritoneal cavity. Following this the laparoscope was placed in the peritoneal cavity. The patient was placed in the head-up, right side up position and then a 5 mm trocar was placed in the right lateral and right subcostal position under direct visualization. A 8 mm trocar was placed in the epigastric position. The gallbladder was grasped in the fundus and infundibulum. Traction on the gallbladder was placed in the lateral and the cephalad positions. The triangle of Calot was visualized.. The cystic duct was bluntly dissected until the union of the cystic duct and common bile duct was seen. The gallbladder had a smell opening made just proximal to the cystic duct. The Cholangiocath catheter was then placed in cystic duct. The catheter was clamped in position. And then the cholangiogram was performed. There was contrast seen in the common bile duct. The proximal bile ducts did not visualized. The the contrast was seen entering the duodenum. At the end of the distal common bile duct there appeared to be a filling defect. The cystic duct was then divided and sealed with the Harmonic scissors. A PDS Endoloop was then placed throughout the cystic duct stump. The cystic artery divided and sealed with the Harmonic scissors. The gallbladder was then removed from the liver bed using Harmonic scissors. The gallbladder was then extracted through the epigastric port site. Operative field was checked for any bleeding spots and Harmonic scissors was used to coagulate the liver bed. The abdomen was irrigated. The trocars were removed. The skin was closed using interrupted 3-0 Vicryl suture. Dermabond dressing were applied. The patient tolerated the procedure well.
[2017-11-26] MEDS ORDERED: KETOROLAC 30 MG/ML 1 ML VIAL IVP ONE (17:10)
[2017-11-26] MEDS ORDERED: MORPHINE SULFATE 4 MG/ML SYRINGE IVP ONE ×2 (17:13→17:33)
[2017-11-26] MEDS: DOCUSATE 100 MG CAP PO SCH (21:00)
[2017-11-26] MEDS: buPROPion SR 150 MG TABLET.ER PO SCH (21:00)
[2017-11-26] MEDS: HYDROcodone/APAP 5-325MG 1 EACH TAB PO PRN (21:46)
[2017-11-27 06:01] VITALS: RESP 18
[2017-11-27] MEDS ORDERED: LEVOFLOXACIN 500MG-D5W PMX 500 MG in DEXTROSE/WATER 1 100ML.BAG IVPB ONE (07:00)
[2017-11-27] MEDS ORDERED: INDOMETHACIN 50MG SUPPOSITORY RECTAL ONE (07:00)
[2017-11-27 07:02] LABS: ALT 130 U/L (9-52); AST 47 U/L (14-36); Albumin 3.2 g/dL (3.5-5.0); Alkaline Phosphatase 132 U/L (38-126); Anion Gap 6 mmol/L; Blood Urea Nitrogen 9 mg/dL (7-17); Calcium 8.9 mg/dL (8.4-10.2); Carbon Dioxide 29 mmol/L (22-30); Chloride 103 mmol/L (98-107); Glucose 94 mg/dL (74-99); Sodium 138 mmol/L (137-145); Total Bilirubin 0.5 mg/dL (0.2-1.3); Total Protein 5.4 g/dL (6.3-8.2)
[2017-11-27] MEDS ORDERED: ENOXAPARIN 40 MG/0.4 ML SYRINGE SQ SCH (09:00)
[2017-11-27] MEDS: NICOTINE 14MG/24HR PATCH TRANSDERM SCH (09:02)
[2017-11-27] MEDS: LOSARTAN 50 MG TAB PO SCH (09:02)
[2017-11-27] MEDS: HYDROcodone/APAP 5-325MG 1 EACH TAB PO PRN ×2 (09:03→17:22)
[2017-11-27] MEDS: amLODIPine 10 MG TAB PO SCH (09:03)
[2017-11-27] MEDS: CARVEDILOL 12.5 MG TAB PO SCH ×2 (09:04→17:21)
[2017-11-27] MEDS: DOCUSATE 100 MG CAP PO SCH ×2 (09:04→20:40)
--- NOTE | 2017-11-27 10:03 | FL ---
EXAMINATION TYPE: FL cholangiogram operative DATE OF EXAM: 11/26/2017 COMPARISON: NONE HISTORY: Cholelithiasis, choledocholithiasis Fluoroscopy support supplied to the referring clinician. See dictated report from general surgery, 6 intraoperative images, 11 seconds fluoroscopy time
--- NOTE | 2017-11-27 12:18 | P.PN ---
Subjective Progress Note Date: 11/27/17 Principal diagnosis: Symptomatic cholelithiasis choledocholithiasis Status post laparoscopic cholecystectomy yesterday with intraoperative findings of retained common bile duct stone. ERCP scheduled early this morning however canceled secondary to scheduling error. Presently feels well. Afebrile. LFTs improving. Total bilirubin 0.5. Objective - Vital Signs Vital signs: Vital Signs Temp 98.1 F 11/27/17 08:00 Pulse 71 11/27/17 08:00 Resp 18 11/27/17 08:00 BP 140/79 11/27/17 08:00 Pulse Ox 94 L 11/27/17 08:00 Intake & Output 11/26/17 11/27/17 11/27/17 18:59 06:59 18:59 Intake Total 1650 Output Total 10 Balance 1640 Intake: IV 1350 Oral 300 Output: Estimated Blood Loss 10 Other: Voiding Method Toilet Toilet Toilet - Exam General appearance: The patient is alert, oriented, in no acute distress. HET: Head is normocephalic and atraumatic. Pupils are equal and reactive. Oropharynx is clear without lesions. Neck: Supple without lymphadenopathy. Trachea midline. Heart: S1 S2. Regular rate and rhythm. Lungs: No crackles or wheezes are heard. Abdomen: Soft, nontender, nondistended with bowel sounds. No peritoneal signs. No palpable organomegaly or masses. Extremities: Normal skin color and turgor. No cyanosis, rash, ulceration, clubbing, or edema. Radial and pedal pulses are 2/4 bilaterally. Neurological: No focal deficits. Strength and sensation are grossly intact. - Labs CBC & Chem 7: 11/26/17 06:28 11/27/17 06:20 Labs: Abnormal Lab Results - Last 24 Hours (Table) 11/27/17 Range/Units 06:20 Creatinine 0.50 L (0.52-1.04) mg/dL AST 47 H (14-36) U/L ALT 130 H (9-52) U/L Alkaline Phosphatase 132 H (38-126) U/L Total Protein 5.4 L (6.3-8.2) g/dL Albumin 3.2 L (3.5-5.0) g/dL Assessment and Plan (1) Biliary colic Narrative/Plan: 67-year-old female admitted with acute epigastric pain with cholelithiasis status post laparoscopic cholecystectomy. MRCP and intraoperative findings demonstrated distal common bile duct stones choledocholithiasis with improvement in liver function tests. Current Visit: Yes Status: Acute Code(s): K80.50 - CALCULUS OF BILE DUCT W/ O CHOLANGITIS OR CHOLECYST W/O OBST SNOMED Code(s): 76076419 (2) Choledocholithiasis Current Visit: Yes Status: Acute Code(s): K80.50 - CALCULUS OF BILE DUCT W/ O CHOLANGITIS OR CHOLECYST W/O OBST SNOMED Code(s): 424169350 (3) Transaminitis Narrative/Plan: Improved Current Visit: Yes Status: Acute Code(s): R74.0 - NONSPEC ELEV OF LEVELS OF TRANSAMNS & LACTIC ACID DEHYDRGNSE SNOMED Code(s): 668809630 Plan: 1. ERCP rescheduled 7:30 tomorrow morning. 2. Nothing by mouth after midnight. Full liquid diet today. The balance wheel facer has discussed the risks, benefits and alternative therapies for the above-mentioned procedure and for both sedation/analgesia as well as necessary blood product administration, if indicated, as they pertain to this patient. The patient has indicated understanding and acceptance of the risks and procedures discussed. Assessment and plan a care discussed with Dr. Grady
--- NOTE | 2017-11-27 14:22 | P.PN ---
Subjective Progress Note Date: 11/27/17 67-year-old female being seen and examined this morning. Patient states pain medication effective for pain control. Surgical dressing sites dry. ERCP will be scheduled tomorrow. Patient is postop laparoscopic cholecystectomy with intraoperative findings of a retained common bile duct stone. Liver function test improving. Objective - Vital Signs Vital signs: Vital Signs Temp 98.1 F 11/27/17 08:00 Pulse 71 11/27/17 08:00 Resp 18 11/27/17 08:00 BP 140/79 11/27/17 08:00 Pulse Ox 94 L 11/27/17 08:00 Intake & Output 11/26/17 11/27/17 11/27/17 18:59 06:59 18:59 Intake Total 1650 360 Output Total 10 Balance 1640 360 Intake: IV 1350 Oral 300 360 Output: Estimated Blood Loss 10 Other: Voiding Method Toilet Toilet Toilet - Exam Exam Abdomen soft not distended surgical tenderness appropriate bowel tones present surgical dressing sites dry reports no nausea vomiting states is hungry passing gas no stool - Labs CBC & Chem 7: 11/26/17 06:28 11/27/17 06:20 Labs: Abnormal Lab Results - Last 24 Hours (Table) 11/27/17 Range/Units 06:20 Creatinine 0.50 L (0.52-1.04) mg/dL AST 47 H (14-36) U/L ALT 130 H (9-52) U/L Alkaline Phosphatase 132 H (38-126) U/L Total Protein 5.4 L (6.3-8.2) g/dL Albumin 3.2 L (3.5-5.0) g/dL Assessment and Plan Assessment: Impression Present on admission epigastric pain radiating to the back with cholelithiasis biliary colic Acute elevated transaminitis trending down Current every day smoker MRCP demonstrated distal common bile duct stones cholelithiasis Ultrasound show evidence of cholelithiasis Postop November 26 laparoscopic cholecystectomy intraoperative retained common bile duct stone Plan Scheduled ERCP tomorrow Dr. Trang Saucedo Repeat labs in the morning follow up on results Lovenox held Pain control IV fluid for hydration DVT and GI prophylaxis Will follow with you Surgical consultation note dictated for dr carlson The above impression and plan of care have been discussed and directed by signing physician. Yanira Gaalviz nurse practitioner acting as scribe for signing physician.
--- NOTE | 2017-11-27 14:36 | P.PN ---
Subjective Progress Note Date: 11/27/17 Principal diagnosis: The patient is a 67-year-old female that presented with acute episodes of intermittent biliary colic found to have a transaminitis and ultrasonic evidence of cholelithiasis, MRCP performed consistent with multiple gallstones suggested in the common bile duct Patient feeling good today has been seen by general surgery and GI. Has no acute events transaminitis improving. Patient had laparoscopic cholecystectomy yesterday by Dr. Faye. Patient doing well tolerating clear liquids, was supposed to have her ERCP done this morning however there is been some issue issues with scheduling and is been pushed back till tomorrow Objective - Vital Signs Vital signs: Vital Signs Temp 98.1 F 11/27/17 08:00 Pulse 71 11/27/17 08:00 Resp 18 11/27/17 08:00 BP 140/79 11/27/17 08:00 Pulse Ox 94 L 11/27/17 08:00 Intake & Output 11/26/17 11/27/17 11/27/17 18:59 06:59 18:59 Intake Total 1650 360 Output Total 10 Balance 1640 360 Intake: IV 1350 Oral 300 360 Output: Estimated Blood Loss 10 Other: Voiding Method Toilet Toilet Toilet - Exam Constitutional: No acute distress, conversant, pleasant Eyes: Anicteric sclerae, moist conjunctiva, no lid-lag, PERRLA ENMT: NC/AT,Oropharynx clear, no erythema, exudates Neck:Supple, FROM, no masses, or JVD, No carotid bruits; No thyromegaly Lungs: Clear to auscultation, Clear to percussion, Normal respiratory effort, no accessory muscle use Cardiovascular: Heart regular in rate and rhythm, No murmurs, gallops, or rubs no peripheral edema Abdominal: Negative Hung sign Soft Nontender, non distended, no guarding, no rebound or rigidity, Normoactive bowel sounds No hepatomegaly, No splenomegaly , No palpable mass No abdominal wall hernia noted Skin: Normal temperature, tone, texture, turgor, No induration No subcutaneous nodules, No rash, lesions, No ulcers Extremities:No digital cyanosis No clubbing, Pedal pulses intact and symmetrical Radial pulses intact and symmetrical Normal gait and station, No calf tenderness Psychiatric: Alert and oriented to person, place and time, Appropriate affect Intact judgement Neuro: Muscles Strength 5/5 in all 4 extremities, Sensation to light touch grossly present throughout, Cranial nerves II-XII grossly intact. No focal sensory deficits - Labs CBC & Chem 7: 11/26/17 06:28 11/27/17 06:20 Labs: Abnormal Lab Results - Last 24 Hours (Table) 11/27/17 Range/Units 06:20 Creatinine 0.50 L (0.52-1.04) mg/dL AST 47 H (14-36) U/L ALT 130 H (9-52) U/L Alkaline Phosphatase 132 H (38-126) U/L Total Protein 5.4 L (6.3-8.2) g/dL Albumin 3.2 L (3.5-5.0) g/dL Assessment and Plan (1) Biliary colic Narrative/Plan: * Continue with Cashion for pain * POD #1 s/p laparoscopic cystectomy Current Visit: Yes Status: Acute Code(s): K80.50 - CALCULUS OF BILE DUCT W/ O CHOLANGITIS OR CHOLECYST W/O OBST SNOMED Code(s): 82260147 (2) Choledocholithiasis Narrative/Plan: * Dr. ramirez scheduled to perform ERCP tomorrow Current Visit: Yes Status: Acute Code(s): K80.50 - CALCULUS OF BILE DUCT W/ O CHOLANGITIS OR CHOLECYST W/O OBST SNOMED Code(s): 476846781 (3) Cholelithiasis Narrative/Plan: * POD #1 s/p laparoscopic cystectomy with intraoperative findings of retained common bile duct stone. Current Visit: Yes Status: Acute Code(s): K80.20 - CALCULUS OF GALLBLADDER W /O CHOLECYSTITIS W/O OBSTRUCTION SNOMED Code(s): 704107385 (4) Transaminitis Current Visit: Yes Status: Acute Code(s): R74.0 - NONSPEC ELEV OF LEVELS OF TRANSAMNS & LACTIC ACID DEHYDRGNSE SNOMED Code(s): 163126415
[2017-11-27] MEDS: buPROPion SR 150 MG TABLET.ER PO SCH (20:40)
[2017-11-28] MEDS ORDERED: LEVOFLOXACIN 500MG-D5W PMX 500 MG in DEXTROSE/WATER 1 100ML.BAG IVPB ONE (06:30)
[2017-11-28] MEDS ORDERED: INDOMETHACIN 50MG SUPPOSITORY RECTAL ONE (06:30)
[2017-11-28] MEDS ORDERED: IV FLUID CONTINUATION 1,000 ML IV ONE (07:15)
[2017-11-28] MEDS ORDERED: PROPOFOL 10 MG/ML 20 ML VIAL IV ONE (07:24)
[2017-11-28] MEDS ORDERED: MIDAZOLAM 2 MG/2 ML VIAL ONE (07:24)
[2017-11-28] MEDS ORDERED: GLUCAGON 1 MG/ML VIAL ONE (07:24)
[2017-11-28] MEDS ORDERED: fentaNYL (PF) 50 MCG/ML 2 ML AMP ONE (07:24)
[2017-11-28 07:34] LABS: ALT 140 U/L (9-52); AST 53 U/L (14-36); Albumin 3.4 g/dL (3.5-5.0); Alkaline Phosphatase 175 U/L (38-126); Anion Gap 7 mmol/L; Blood Urea Nitrogen 6 mg/dL (7-17); Calcium 9.2 mg/dL (8.4-10.2); Carbon Dioxide 33 mmol/L (22-30); Chloride 101 mmol/L (98-107); Glucose 94 mg/dL (74-99); Potassium 4.1 mmol/L (3.5-5.1); Sodium 141 mmol/L (137-145); Total Bilirubin 0.3 mg/dL (0.2-1.3); Total Protein 5.7 g/dL (6.3-8.2)
[2017-11-28] MEDS ORDERED: IOHEXOL 300 MG/ML 50 ML BOTTLE MISCELLANE ONE (07:56)
--- NOTE | 2017-11-28 08:01 | P.PCN ---
Date of Procedure: 11/28/17 Procedure(s) Performed: Brief history: Patient is a 67 year-old pleasant lady scheduled for an ERCP as part of evaluation of abdominal pain and elevated serum transaminases for the last 2 days' duration. She was noted to have symptomatic gallstones also and underwent a cholecystectomy 2 days ago and an intraoperative cholangiogram revealed a CBD stone. Procedure performed: ERCP with biliary sphincterotomy and balloon stone extraction Preoperative diagnoses: Abdominal pain, elevated LFTs, and intraoperative cholangiogram showing CBD stone IV sedation per anesthesia: Procedure: After informed consent was obtained from the patient and after the risks benefits and complications including bleeding perforation and pancreatitis explained in detail the patient was brought into the endoscopy unit. The patient was placed in prone position and IV conscious sedation was administered by anesthesia under continuous monitoring. The Olympus side-viewing duodenoscope was then inserted into the mouth and esophagus intubated without any difficulty. The scope was gradually advanced into the stomach and duodenum. The major papilla was identified without any difficulty. Initial cannulation resulted in opacification of the common bile duct that appeared dilated measuring 1 cm in size with a 5-6 mm filling defect noted in the distal common bile duct. There was another filling defect noted in the proximal CBD. At this time the catheter was exchanged over a guidewire with a biliary sphincterotome and a biliary sphincterotomy was performed at 12 o'clock position and was extended to 1 cm. Following this a 9 mm balloon was passed over the guidewire into the proximal CBD and gently inflated and withdrawn. 2 stones were seen exiting the ampulla age measuring about 5-6 mm in size. The maneuver was repeated 2 more times and no other stones were seen exiting the ampulla. At this time an occlusion cholangiogram was performed and no other filling defects were identified. Procedure was terminated and the patient tolerated the procedure well. Pancreatic duct was intentionally not cannulated during the entire procedure. Impression: Dilated common bile duct with 2 filling defects age measuring 5 mm in size, status post biliary sphincterotomy and balloon stone extraction as described above Pancreatic duct intentionally not cannulated Recommendations: The findings of this examination were discussed with the patient.. She will be started on clear liquid diet today. She can be discharged home later today, if she remains symptomatic with a follow-up in 2 weeks in the office.
--- NOTE | 2017-11-28 08:45 | FL ---
EXAMINATION TYPE: FL ERCP biliary duct only DATE OF EXAM: 11/28/2017 HISTORY: Flouroscopy time 23 seconds of fluoroscopy provided. IMPRESSION: 1. Fluoroscopy time.
--- NOTE | 2017-11-28 09:50 | P.PN ---
Subjective Progress Note Date: 11/28/17 67-year-old female seen and examined. Patient just returned from having an ERCP with biliary sphincterotomy balloon stone extraction Reports no nausea vomiting denying abdominal pain surgical incision sites soft nondistended. Patient is asking for a couple coffee. Objective - Vital Signs Vital signs: Vital Signs Temp 97.8 F 11/28/17 08:15 Pulse 66 11/28/17 08:15 Resp 18 11/28/17 08:15 BP 177/86 11/28/17 08:15 Pulse Ox 94 L 11/28/17 08:15 Intake & Output 11/27/17 11/28/17 11/28/17 18:59 06:59 18:59 Intake Total 480 200 Balance 480 200 Intake: IV 200 Oral 480 Other: Voiding Method Toilet Toilet Toilet - Exam Exam Abdomen soft not distended surgical tenderness appropriate bowel tones present surgical dressing sites dry reports no nausea vomiting states is hungry passing gas no stool - Labs CBC & Chem 7: 11/26/17 06:28 11/28/17 06:25 Labs: Abnormal Lab Results - Last 24 Hours (Table) 11/28/17 Range/Units 06:25 Carbon Dioxide 33 H (22-30) mmol/L BUN 6 L (7-17) mg/dL AST 53 H (14-36) U/L ALT 140 H (9-52) U/L Alkaline Phosphatase 175 H (38-126) U/L Total Protein 5.7 L (6.3-8.2) g/dL Albumin 3.4 L (3.5-5.0) g/dL Assessment and Plan Assessment: Impression Present on admission epigastric pain radiating to the back with cholelithiasis biliary colic Acute elevated transaminitis trending down Current every day smoker MRCP demonstrated distal common bile duct stones cholelithiasis Ultrasound show evidence of cholelithiasis Postop November 26 laparoscopic cholecystectomy intraoperative retained common bile duct stone ERCP with biliary sphincterotomy and balloon stone extraction Plan From a surgical perspective patient is okay to be discharged defer to the timing of the discharge to the attendin Pain control IV fluid for hydration DVT and GI prophylaxis We'll sign off re-eval as needed progress note dictated for dr carlson The above impression and plan of care have been discussed and directed by signing physician. Yanira Galaviz nurse practitioner acting as scribe for signing physician.
[2017-11-28] MEDS: amLODIPine 10 MG TAB PO SCH (11:31)
[2017-11-28] MEDS: CARVEDILOL 12.5 MG TAB PO SCH (11:31)
[2017-11-28] MEDS: LOSARTAN 50 MG TAB PO SCH (11:32)
[2017-11-28] MEDS: DOCUSATE 100 MG CAP PO SCH (11:32)
[2017-11-28] MEDS: NICOTINE 14MG/24HR PATCH TRANSDERM SCH (11:32)
[2017-11-28 11:51] VITALS: BP 140/77; PULSE 69; TEMP 98.4
--- NOTE | 2017-11-28 12:25 | P.DS ---
Providers Date of admission: 11/27/17 07:48 Expected date of discharge: 11/28/17 Attending physician: Popeye Abad MD Consults: 11/26/17 07:39 Consult Physician Routine Consulting Provider: Bianca Grady Consult Reason/Comments: Choledocholiathiais Do you want consulting provider notified?: Yes 11/26/17 07:40 Consult Physician Routine Consulting Provider: Dawson Faye Consult Reason/Comments: eval for lap cholecystectomy Do you want consulting provider notified?: Yes Primary care physician: Saeid Beaver - Discharge Diagnosis(es) (1) Biliary colic Current Visit: Yes Status: Acute (2) Choledocholithiasis Current Visit: Yes Status: Acute (3) Cholelithiasis Current Visit: Yes Status: Acute (4) Transaminitis Current Visit: Yes Status: Acute Hospital Course: The patient is a 67-year-old female that was admitted for acute recurrent episodes of biliary colic after she presented with right upper quadrant pain with extension into her right shoulder, workup with a right upper quadrant ultrasound suggestive of contracted gallbladder with multiple gallstones contributing to her transaminitis on presentation. Subsequent MRCP suggested incomplete signal in the common bile duct suggestive of multiple small common duct stones and choledocholithiasis. Gen. surgery was consulted and Dr. Bourne performed an uncomplicated laparoscopic cholecystectomy. Dr. Grady GI was consulted for ERCP that showed Dilated common bile duct with 2 filling defects age measuring 5 mm in size, requiring biliary sphincterotomy and balloon stone extraction. The patient tolerated the procedure well and her diet was advanced to a regular diet by time of discharge. She was subsequently sent home with plans to follow-up with Dr. Faye in 1 week. This discharge process took approximately 30 minutes Patient Condition at Discharge: Stable Plan - Discharge Summary Discharge Rx Participant: Yes New Discharge Prescriptions: Continue Carvedilol [Coreg] 12.5 mg PO BID Losartan Potassium [Cozaar] 100 mg PO DAILY amLODIPine [Norvasc] 10 mg PO DAILY buPROPion HCL [Wellbutrin SR] 150 mg PO BID Vit C/E/Zn/Coppr/Lutein/Zeaxan [Preservision Areds 2 Softgel] 1 BID Discharge Medication List Carvedilol [Coreg] 12.5 mg PO BID 10/28/14 [History] Losartan Potassium [Cozaar] 100 mg PO DAILY 10/28/14 [History] Vit C/E/Zn/Coppr/Lutein/Zeaxan [Preservision Areds 2 Softgel] 1 BID 11/24/17 [ History] amLODIPine [Norvasc] 10 mg PO DAILY 11/24/17 [History] buPROPion HCL [Wellbutrin SR] 150 mg PO BID 11/24/17 [History] Follow up Appointment(s)/Referral(s): Saeid Beaver DO [Primary Care Provider] - 1-2 days Dawson Faye MD [STAFF PHYSICIAN] - 1 Week Activity/Diet/Wound Care/Special Instructions: No tub bath for six weeks. Shower daily. No lifting over 4 pounds for the next 6 weeks. May use ice packs to surgical site. No driving while taking narcotic for pain. Discharge Disposition: HOME SELF-CARE
== END 2017-11-28 13:10 | disposition home or self-care (01) | DRG 419 ==
LOC: EC 15:25 → 3OBS 18:10 → OBSVTOIN 11-27 07:48
PROVIDERS: ADMIT Internal Medicine; ATTEND Internal Medicine
PROC: BF141ZZ Fluoroscopy of Gallbladder, Bile Ducts and Pancreatic Ducts using Low Osmolar Contrast (ICD-10-PCS; 2017-11-26)
PROC: 0FT44ZZ Resection of Gallbladder, Percutaneous Endoscopic Approach (ICD-10-PCS; principal; 2017-11-26 11:00)
PROC: 0FC98ZZ Extirpation of Matter from Common Bile Duct, Via Natural or Artificial Opening Endoscopic (ICD-10-PCS; 2017-11-28 07:30)
DX: K80.64 Calculus of gallbladder and bile duct with chronic cholecystitis without obstruction (principal); J44.9 Chronic obstructive pulmonary disease, unspecified; F17.210 Nicotine dependence, cigarettes, uncomplicated; H26.9 Unspecified cataract; I34.0 Nonrheumatic mitral (valve) insufficiency; I10 Essential (primary) hypertension; R10.13 Epigastric pain; R73.03 Prediabetes; R74.0 Nonspecific elevation of levels of transaminase and lactic acid dehydrogenase [LDH]; M19.90 Unspecified osteoarthritis, unspecified site; R01.1 Cardiac murmur, unspecified; H35.30 Unspecified macular degeneration; Z96.643 Presence of artificial hip joint, bilateral; Z79.899 Other long term (current) drug therapy; Z90.49 Acquired absence of other specified parts of digestive tract; Z90.89 Acquired absence of other organs; Z80.9 Family history of malignant neoplasm, unspecified; Z88.8 Allergy status to other drugs, medicaments and biological substances; Z98.41 Cataract extraction status, right eye; Z98.42 Cataract extraction status, left eye; Z82.49 Family history of ischemic heart disease and other diseases of the circulatory system; Z98.51 Tubal ligation status
CPT/HCPCS: 36415; 43262; 43264; 43277; 71046; 74181; 74300; 74328; 76705; 80053; 80061; 82248; 82550; 82553; 83690; 83735; 84075; 84450; 84460; 84484; 85025; 85027; 85610; 85730; 88304; 93005; 96374; 99285

== ENCOUNTER 2019-02-13 11:57 | Emergency (ER) | payer MEDICARE, OTHER ==
[2019-02-13 12:29] VITALS: RESP 18; TEMP 98.2
--- NOTE | 2019-02-13 12:35 | ED ---
Fall HPI - General Chief Complaint: Fall Stated Complaint: Fall, hip and arm pain Time Seen by Provider: 02/13/19 12:31 Source: patient Mode of arrival: ambulatory - History of Present Illness Initial Comments: 68-year-old female presenting today for chief complaint fall, 3 days. Patient states she has pain in the muscle of her shoulders neck and right hip pain. Patient states she has had an on-and-off headache. Patient states yesterday as she was getting off an elevator she did not see a large she is legally blind. She states she stepped out with her right foot stumbled into an atrium-like structure grabbed a rail with both shoulders, she states she hit the atrium with her right hip, then slid down to the ground. Patient denies any back pain. Patient states she has had a mild headache since the fall. She states she did hit the right side of here face on the glass atrium. She denies loss of consciousness. Patient denies any nausea vomiting speech changes ambulatory changes she is able to weight-bear. Patient denies any muscle weakness of the upper or lower extremities. Patient states she has a history of frozen shoulder and has tension in her shoulders bilaterally from grabbing onto the rails. Patient denies any limitations in range of motion at the shoulders elbows or wrists. Patient denies any numbness tingling of the upper or lower extremities. Patient denies any bruising PATIENT has history of bilateral hip replacements. When patient was more sore today she presents emergency department for evaluation. Upon arrival patient's Mary Kay George she appears on the signs of acute distress. Pt states she has had a cough and congestion for the past week and her brother has pneumonia, pt denies SOB, or chest pain. Pt requesting CXR. Patient denies any recent fever, chills, upper or lower back pain, abdominal pain, nausea or vomiting, dysuria or hematuria, constipation or diarrhea, headaches or visual changes, or any other complaints. - Related Data Home Medications Medication Instructions Recorded Confirmed Carvedilol [Coreg] 12.5 mg PO BID 10/28/14 11/24/17 Losartan Potassium [Cozaar] 100 mg PO DAILY 10/28/14 11/24/17 Vit C/E/Zn/Coppr/Lutein/Zeaxan 1 BID 11/24/17 [Preservision Areds 2 Softgel] amLODIPine [Norvasc] 10 mg PO DAILY 11/24/17 11/24/17 buPROPion HCL [Wellbutrin SR] 150 mg PO BID 11/24/17 11/24/17 Previous Rx's Medication Instructions Recorded Cyclobenzaprine [Flexeril] 10 mg PO BID PRN 7 Days #14 tab 02/13/19 Allergies Allergy/AdvReac Type Severity Reaction Status Date / Time tramadol Allergy facial Verified 02/13/19 12:29 drooping Review of Systems ROS Statement: Those systems with pertinent positive or pertinent negative responses have been documented in the HPI. ROS Other: All systems not noted in ROS Statement are negative. Past Medical History Past Medical History: COPD, Eye Disorder, Hypertension, Osteoarthritis (OA) Additional Past Medical History / Comment(s): macular degeneration, actinic keratosis. 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, left hip replacement, sevral benign moles removed, lisa cataracts, brandon Past Anesthesia/Blood Transfusion Reactions: No Reported Reaction Past Psychological History: No Psychological Hx Reported Smoking Status: Current every day smoker Past Alcohol Use History: Rare Past Drug Use History: None Reported - Past Family History Mother Family Medical History: CVA/TIA, Hypertension, Myocardial Infarction ([place]) Father Family Medical History: AFIB, Hypertension, Myocardial Infarction ([place]) Sister(s) Daughter(s) Family Medical History: Cancer General Exam - General Exam Comments Initial Comments: General: The patient is awake and alert, in no distress, and does not appear acutely ill. Eye: Pupils are equal, round and reactive to light, extra-ocular movements are intact. No nystagmus. There is normal conjunctiva bilaterally. No signs of icterus. Ears, nose, mouth and throat: There are moist mucous membranes and no oral lesions. Neck: The neck is supple, there is no tenderness or JVD. Cardiovascular: There is a regular rate and rhythm. No murmur, rub or gallop is appreciated. Respiratory: Lungs are clear to auscultation, respirations are non-labored, breath sounds are equal. No wheezes, stridor, rales, or rhonchi. Gastrointestinal: [Soft, non-distended, non-tender abdomen without masses or organomegaly noted. There is no rebound or guarding present. No CVA tenderness. Bowel sounds are unremarkable.] Musculoskeletal: Normal ROM, no tenderness. Strength 5/5. Sensation intact. Pulses equal bilaterally 2+. Neurological: A&O x 3. CN II-XII intact, There are no obvious motor or sensory deficits. Coordination appears grossly intact. Speech is normal. Skin: Skin is warm and dry and no rashes or lesions are noted. Psychiatric: Cooperative, appropriate mood & affect, normal judgment. Limitations: no limitations Course Vital Signs 02/13/19 02/13/19 12:24 14:24 Temperature 98.2 F Pulse Rate 85 77 Respiratory 18 18 Rate Blood Pressure 153/93 134/96 O2 Sat by Pulse 92 L 92 L Oximetry Medical Decision Making - Medical Decision Making 68-year-old female presented for follow-up. Patient states she has a slight headache and mostly right hip pain. Patient states she does have some tenderness of the shoulders. She states it feels like she strained the muscles. Upon examination there is no limitations in range of motion or point localized tenderness of the shoulders. Patient does not complain of significant pain she states she does not feel they're broken. She states it feels muscular. Patient does have paravertebral cervical spine tenderness. There is no midline tenderness to palpation of the cervical spine. Patient is able to fully range at the right hip. I'm able to logroll extend and flex at the hips. Patient is neurovascularly intact. Patient is no tenderness along the mandible or maxilla. There is no swelling or evidence of injury to the facial bones. Patient is able to open and close the jaw without any difficulty. At this time feel patient's pain is most likely muscular, there is no evidence of osseous injury on imaging studies. No intracranial process. Patient may have concussion. Which protocols were discussed. I did recommend follow-up with primary care provider one to 2 days as well as use of Flexeril for muscle tension. Patient is to apply heat to be tense areas including the shoulders for 20 minutes 3 times a day for symptomatically relief. Patient is agreeable to this care plan as well as discharged today she appears well is ambulatory. Discussed case attending provider Dr. Morel prior to discharge Disposition Clinical Impression: Fall, Right hip pain, Cervical strain, Sprain of shoulder Disposition: HOME SELF-CARE Instructions (If sedation given, give patient instructions): Cervical Strain (ED) Additional Instructions: Please use medication as discussed. Please follow-up with family doctor in the next 2 days of symptoms have not improved. Please return to emergency room if the symptoms increase or worsen or for any other concerns. Prescriptions: Cyclobenzaprine [Flexeril] 10 mg PO BID PRN 7 Days #14 tab PRN Reason: Muscle Spasm Is patient prescribed a controlled substance at d/c from ED?: No Referrals: Saeid Beaver DO [Primary Care Provider] - 1-2 days Time of Disposition: 14:19
--- NOTE | 2019-02-13 13:34 | XR ---
EXAMINATION TYPE: XR chest 2V DATE OF EXAM: 02/13/2019 HISTORY: Pain. REFERENCE: Previous study dated 11/18 03/06.. FINDINGS: Lung volumes are prominent. Heart size upper limits of normal. The lungs are clear. Pleural spaces are clear. Heart size is upper limits of normal. Bony structures appear unremarkable. IMPRESSION: 1. PLEASE CORRELATE FOR COPD. 2. BORDERLINE CARDIOMEGALY.
--- NOTE | 2019-02-13 13:35 | XR ---
EXAMINATION TYPE: XR Hip RT and AP Pelvis , 3 VIEWS DATE OF EXAM ORDERED: 02/13/2019 HISTORY: Pain. COMPARISON: None. FINDINGS: Bilateral hip prostheses are in place. Prosthetic elements appear in good position. There are degenerative changes in the lower lumbar spine. Bony structures about the pelvis are unremarkable . No hip fracture is seen. No dislocation is identified. IMPRESSION: 1. NO ACUTE OSSEOUS LESION. 2. STATUS POST BILATERAL HIP PROSTHESES. 3. DEGENERATIVE CHANGE IN THE LUMBAR SPINE
--- NOTE | 2019-02-13 14:14 | CT ---
EXAMINATION TYPE: CT brain jillian tucker con DATE OF EXAM: 02/13/2019 COMPARISON: NONE HISTORY: Fall. Confusion. CT DLP: 1284.2 mGycm Automated exposure control for dose reduction was used. TECHNIQUE: CT scan of the head and cervical spine are performed without contrast. FINDINGS: BRAIN:Midline structures are midline. There is no evidence of hydrocephalus. No acute focal lesion, m ass effect or midline shift is seen. I do not see evidence of intracranial blood. There are vascular calcifications. There is a left occipital osteoma present. The bony calvarium is otherwise intact. There is chronic, bilateral ethmoidal and right maxillary sinus mucosal disease. IMPRESSION: 1. NO ACUTE INTRACRANIAL ABNORMALITY. 2. CHRONIC SINUS MUCOSAL DISEASE. 3. LEFT OCCIPITAL OSTEOMA. CERVICAL SPINE: There are mild emphysematous changes throughout the visualized portion of the lungs. There is some nonspecific adenopathy in the deep cervical triangle. None of these appear pathological ly enlarged. There is a mild reversal of the normal cervical lordosis. Alignment is normal. Atlantoaxial relations hips are normal. There is hypertrophic spondylosis and degenerative disc disease present at C4-5, C5-6 and C6-7 is unc overtebral joint disease present at these levels. There is facet arthropathy present on the left at C 2-3 and bilaterally at C3-4 no definite protrusion is seen. No fracture is seen. IMPRESSION: 1. NO ACUTE OSSEOUS LESION. 2. DEGENERATIVE CHANGE. 3. EMPHYSEMATOUS CHANGE. 4. NONSPECIFIC ADENOPATHY.
[2019-02-13 14:26] VITALS: BP 134/96; PULSE 77
== END 2019-02-13 14:39 | disposition home or self-care (01) ==
LOC: EC 11:57
DX: S16.1XXA Strain of muscle, fascia and tendon at neck level, initial encounter (principal); S43.401A Unspecified sprain of right shoulder joint, initial encounter; S43.402A Unspecified sprain of left shoulder joint, initial encounter; M25.551 Pain in right hip; R51 Headache; R05 Cough; R09.89 Other specified symptoms and signs involving the circulatory and respiratory systems; H54.8 Legal blindness, as defined in USA; I10 Essential (primary) hypertension; M19.90 Unspecified osteoarthritis, unspecified site; F17.200 Nicotine dependence, unspecified, uncomplicated; Z88.5 Allergy status to narcotic agent; Z79.899 Other long term (current) drug therapy; Z96.643 Presence of artificial hip joint, bilateral; Z98.890 Other specified postprocedural states; W01.198A Fall on same level from slipping, tripping and stumbling with subsequent striking against other object, initial encounter; Y93.89 Activity, other specified
CPT/HCPCS: 70450; 71046; 72125; 73502; 99284

== ENCOUNTER 2019-02-27 15:01 | Inpatient (IN) | payer MEDICARE, OTHER ==
[2019-02-27] MEDS ORDERED: IPRATROPIUM-ALBUTEROL 3 ML NEB INHALATION STA (15:13)
[2019-02-27] MEDS ORDERED: SODIUM CHLORIDE 0.9% 1,000 ML IV STA (15:13)
[2019-02-27] MEDS ORDERED: methylPREDNISolone SOD SUCCI 125 MG/2 ML VIAL IV STA (15:13)
--- NOTE | 2019-02-27 15:14 | ED ---
SOB HPI - General Chief Complaint: Shortness of Breath Stated Complaint: pneumonia Time Seen by Provider: 02/27/19 15:12 Source: patient, RN notes reviewed, old records reviewed Mode of arrival: ambulatory Limitations: no limitations - History of Present Illness Initial Comments: This is a 68-year-old female the ER for evaluation of shortness of breath and difficulty catching her breath, patient states pain is have increased cough and is occasionally coughing up blood. Patient has no prior history of similar significant disease but is recently diagnosed with pneumonia. Denies current chest pain. No recent travel history no known sick contacts. 's family is at bedside and states patient's been coughing up blood as well as having low oxygen levels at home MD Complaint: shortness of breath, cough -: days(s) Severity: mild Severity scale (1-10): 3 Consistency: constant Improves With: nothing Worsens With: nothing Known History Of: COPD, recurrent pneumonia Context: recent URI Associated Symptoms: fever, cough, sputum production - Related Data Home Medications Medication Instructions Recorded Confirmed Carvedilol [Coreg] 12.5 mg PO BID 10/28/14 02/27/19 Losartan Potassium [Cozaar] 100 mg PO DAILY 10/28/14 02/27/19 Vit C/E/Zn/Coppr/Lutein/Zeaxan 1 cap PO BID 11/24/17 02/27/19 [Preservision Areds 2 Softgel] amLODIPine [Norvasc] 10 mg PO DAILY 11/24/17 02/27/19 Albuterol Inhaler [Ventolin Hfa 1 - 2 puff INHALATION RT-Q6H PRN 02/27/19 02/27/19 Inhaler] Doxycycline Hyclate 100 mg PO BID 02/27/19 02/27/19 methylPREDNISolone [Medrol Dose See Taper PO DIRECTED 02/27/19 02/27/19 Pack] Allergies Allergy/AdvReac Type Severity Reaction Status Date / Time tramadol Allergy facial Verified 02/27/19 16:07 drooping Review of Systems ROS Statement: Those systems with pertinent positive or pertinent negative responses have been documented in the HPI. ROS Other: All systems not noted in ROS Statement are negative. Past Medical History Past Medical History: COPD, Eye Disorder, Hypertension, Osteoarthritis (OA) Additional Past Medical History / Comment(s): macular degeneration, actinic keratosis. 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, left hip replacement, sevral benign moles removed, lisa cataracts, brandon Past Anesthesia/Blood Transfusion Reactions: No Reported Reaction Past Psychological History: No Psychological Hx Reported Smoking Status: Current every day smoker Past Alcohol Use History: Rare Past Drug Use History: None Reported - Past Family History Mother Family Medical History: CVA/TIA, Hypertension, Myocardial Infarction (MS) Father Family Medical History: AFIB, Hypertension, Myocardial Infarction (MS) Sister(s) Daughter(s) Family Medical History: Cancer General Exam Limitations: no limitations General appearance: alert, in no apparent distress Head exam: Present: atraumatic, normocephalic, normal inspection Eye exam: Present: normal appearance, PERRL, EOMI. Absent: scleral icterus, conjunctival injection, periorbital swelling ENT exam: Present: normal exam, mucous membranes moist Neck exam: Present: normal inspection. Absent: tenderness, meningismus, lymphadenopathy Respiratory exam: Present: wheezes, accessory muscle use, decreased breath sounds, prolonged expiratory. Absent: respiratory distress, rales, rhonchi, stridor Cardiovascular Exam: Present: regular rate, normal rhythm, normal heart sounds. Absent: systolic murmur, diastolic murmur, rubs, gallop, clicks GI/Abdominal exam: Present: soft, normal bowel sounds. Absent: distended, tenderness, guarding, rebound, rigid Extremities exam: Present: normal inspection, full ROM, normal capillary refill. Absent: tenderness, pedal edema, joint swelling, calf tenderness Back exam: Present: normal inspection Neurological exam: Present: alert, oriented X3, CN II-XII intact Psychiatric exam: Present: normal affect, normal mood Skin exam: Present: warm, dry, intact, normal color. Absent: rash Course Vital Signs 02/27/19 02/27/19 02/27/19 15:08 15:37 15:40 Temperature 98.0 F Pulse Rate 84 Respiratory 18 22 22 Rate Blood Pressure 128/82 138/87 O2 Sat by Pulse 93 L 93 L Oximetry 02/27/19 02/27/19 02/27/19 16:32 16:41 17:33 Temperature Pulse Rate 80 88 88 Respiratory 16 14 22 Rate Blood Pressure 140/93 O2 Sat by Pulse 91 L Oximetry 02/27/19 02/27/19 02/27/19 19:38 20:06 20:15 Temperature Pulse Rate 85 80 84 Respiratory 16 16 Rate Blood Pressure 157/87 O2 Sat by Pulse 91 L Oximetry - Reevaluation(s) Reevaluation #1: Medical records reviewed Patient is improvement with breathing treatments here in the ER and placed on oxygen, oxygen still hovering low around 91% 90% Medical Decision Making - Medical Decision Making 68 female the ER for evaluation. Patient has recent diagnosis of pneumonia but severely short of breath hypoxia, pulse ox in the 70s at home 80s. Patient be admitted for monitoring of pulmonary status treatment of community acquired pneumonia - Lab Data Result diagrams: 02/27/19 15:51 02/27/19 15:51 Lab Results 02/27/19 02/27/19 02/27/19 Range/Units 15:51 15:51 15:51 WBC 15.4 H (3.8-10.6) k/uL RBC 4.53 (3.80-5.40) m/uL Hgb 13.1 (11.4-16.0) gm/dL Hct 41.9 (34.0-46.0) % MCV 92.5 (80.0-100.0) fL MCH 28.9 (25.0-35.0) pg MCHC 31.3 (31.0-37.0) g/dL RDW 13.9 (11.5-15.5) % Plt Count 527 H (150-450) k/uL Neutrophils % 85 % Lymphocytes % 7 % Monocytes % 5 % Eosinophils % 1 % Basophils % 0 % Neutrophils # 13.0 H (1.3-7.7) k/uL Lymphocytes # 1.1 (1.0-4.8) k/uL Monocytes # 0.8 (0-1.0) k/uL Eosinophils # 0.2 (0-0.7) k/uL Basophils # 0.1 (0-0.2) k/uL PT (9.0-12.0) sec INR (<1.2) APTT (22.0-30.0) sec Sodium 133 L (137-145) mmol/L Potassium 4.4 (3.5-5.1) mmol/L Chloride 97 L (98-107) mmol/L Carbon Dioxide 28 (22-30) mmol/L Anion Gap 8 mmol/L BUN 19 H (7-17) mg/dL Creatinine 0.52 (0.52-1.04) mg/dL Est GFR (CKD-EPI)AfAm >90 (>60 ml/min/1.73 sqM) Est GFR (CKD-EPI)NonAf >90 (>60 ml/min/1.73 sqM) Glucose 137 H (74-99) mg/dL Calcium 9.3 (8.4-10.2) mg/dL Magnesium 2.0 (1.6-2.3) mg/dL Total Bilirubin 0.4 (0.2-1.3) mg/dL AST 21 (14-36) U/L ALT 15 (9-52) U/L Alkaline Phosphatase 100 (38-126) U/L Troponin I (0.000-0.034) ng/mL NT-Pro-B Natriuret Pep 702 pg/mL Total Protein 6.1 L (6.3-8.2) g/dL Albumin 3.3 L (3.5-5.0) g/dL 02/27/19 02/27/19 Range/Units 15:51 15:51 WBC (3.8-10.6) k/uL RBC (3.80-5.40) m/uL Hgb (11.4-16.0) gm/dL Hct (34.0-46.0) % MCV (80.0-100.0) fL MCH (25.0-35.0) pg MCHC (31.0-37.0) g/dL RDW (11.5-15.5) % Plt Count (150-450) k/uL Neutrophils % % Lymphocytes % % Monocytes % % Eosinophils % % Basophils % % Neutrophils # (1.3-7.7) k/uL Lymphocytes # (1.0-4.8) k/uL Monocytes # (0-1.0) k/uL Eosinophils # (0-0.7) k/uL Basophils # (0-0.2) k/uL PT 13.1 H (9.0-12.0) sec INR 1.3 H (<1.2) APTT 24.9 (22.0-30.0) sec Sodium (137-145) mmol/L Potassium (3.5-5.1) mmol/L Chloride (98-107) mmol/L Carbon Dioxide (22-30) mmol/L Anion Gap mmol/L BUN (7-17) mg/dL Creatinine (0.52-1.04) mg/dL Est GFR (CKD-EPI)AfAm (>60 ml/min/1.73 sqM) Est GFR (CKD-EPI)NonAf (>60 ml/min/1.73 sqM) Glucose (74-99) mg/dL Calcium (8.4-10.2) mg/dL Magnesium (1.6-2.3) mg/dL Total Bilirubin (0.2-1.3) mg/dL AST (14-36) U/L ALT (9-52) U/L Alkaline Phosphatase (38-126) U/L Troponin I <0.012 (0.000-0.034) ng/mL NT-Pro-B Natriuret Pep pg/mL Total Protein (6.3-8.2) g/dL Albumin (3.5-5.0) g/dL - EKG Data -: EKG Interpreted by Me (EKG shows sinus rhythm rate of 79, TN 160, QRS 80, QTC 438) - Radiology Data Radiology results: report reviewed (Chest x-rays positive for pneumonia), image reviewed Critical Care Time Critical Care Time: Yes Total Critical Care Time: 31 Disposition Clinical Impression: Community acquired pneumonia, Acute exacerbation of chronic obstructive airways disease, Hypoxia Disposition: ADMITTED IP TO THIS HOSP Condition: Fair Is patient prescribed a controlled substance at d/c from ED?: No
[2019-02-27 16:04] LABS: Basophils # (A) 0.1 k/uL (0-0.2); Basophils % (A) 0 %; Eosinophils # (A) 0.2 k/uL (0-0.7); Eosinophils % (A) 1 %; HCT 41.9 % (34.0-46.0); HGB 13.1 gm/dL (11.4-16.0); Lymphocytes # (A) 1.1 k/uL (1.0-4.8); Lymphocytes % (A) 7 %; MCH 28.9 pg (25.0-35.0); MCHC 31.3 g/dL (31.0-37.0); MCV 92.5 fL (80.0-100.0); Monocytes # (A) 0.8 k/uL (0-1.0); Monocytes % (A) 5 %; Neutrophils % (A) 85 %; Platelet Count 527 k/uL (150-450); RBC 4.53 m/uL (3.80-5.40); RDW 13.9 % (11.5-15.5); WBC 15.4 k/uL (3.8-10.6)
[2019-02-27 16:11] LABS: ALT 15 U/L (9-52); AST 21 U/L (14-36); Albumin 3.3 g/dL (3.5-5.0); Alkaline Phosphatase 100 U/L (38-126); Anion Gap 8 mmol/L; Blood Urea Nitrogen 19 mg/dL (7-17); Calcium 9.3 mg/dL (8.4-10.2); Carbon Dioxide 28 mmol/L (22-30); Chloride 97 mmol/L (98-107); Glucose 137 mg/dL (74-99); Potassium 4.4 mmol/L (3.5-5.1); Sodium 133 mmol/L (137-145); Total Bilirubin 0.4 mg/dL (0.2-1.3); Total Protein 6.1 g/dL (6.3-8.2)
[2019-02-27 16:16] LABS: INR 1.3 (<1.2); Partial Thromboplastin Time 24.9 sec (22.0-30.0); Prothrombin Time 13.1 sec (9.0-12.0)
--- NOTE | 2019-02-27 16:23 | XR ---
EXAMINATION TYPE: XR chest 2V DATE OF EXAM: 02/27/2019 COMPARISON: Chest x-ray February 13, 2019. HISTORY: Cough, congestion, shortness of breath TECHNIQUE: Frontal and lateral views of the chest are obtained. FINDINGS: There is chronic parenchymal change with new small to tiny right pleural effusion as there is blunting of the posterior lateral costophrenic angle. Left lung remains clear. The cardiac silhou ette size is stable and upper limits of normal with atherosclerotic aorta. The osseous structures a re intact. IMPRESSION: Chronic changes with new small to tiny right pleural effusion.
--- NOTE | 2019-02-27 18:17 | CT ---
EXAMINATION TYPE: CT angio chest DATE OF EXAM: 02/27/2019 COMPARISON: Same day chest x-ray. HISTORY: Difficulty breathing. CT DLP: 303.6 mGycm. Automated Exposure Control for Dose Reduction was Utilized. CONTRAST: CTA scan of the thorax is performed with IV Contrast, patient injected with 68ml mL of Isovue 370, pu lmonary embolism protocol. MIP Images are created on CT scanner and reviewed. FINDINGS: LUNGS: Right basilar opacity corresponds to infiltrate and/or atelectasis just above the diaphragm. N o right-sided effusion is seen. There is lateral left basilar linear scarring and/or atelectasis. The re is mild central peribronchial wall thickening bilaterally. No left-sided effusion. No pneumothorax . No suspicious nodules or masses MEDIASTINUM: There is satisfactory enhancement of the pulmonary artery and its branches, there is no CT evidence for pulmonary embolism. There are no greater than 1 cm hilar or mediastinal lymph nodes. No cardiomegaly or pericardial effusion is seen. Main pulmonary artery measures 3.2 cm at bifurcat ion image 57, CT findings suggesting underlying pulmonary artery hypertension. Adjacent aorta measure s up to 4.0 cm in diameter. OTHER: There is multilevel moderate spurring in the thoracic spine with multilevel disc space narrowi ng and vacuum disc phenomenon. Underlying dextroconvex scoliosis is redemonstrated. IMPRESSION: 1. No CT evidence for acute pulmonary embolism. 2. New patchy right basilar atelectasis and/or infiltrate, correlate clinically.
[2019-02-27] MEDS ORDERED: diphenhydrAMINE 50 MG/ML 1 ML VIAL IVP PRN (18:44)
[2019-02-27] MEDS ORDERED: ALBUTEROL NEBULIZED 2.5 MG/3 ML INHALATION PRN (18:44)
[2019-02-27] MEDS ORDERED: MORPHINE SULFATE 4 MG/ML SYRINGE IV PRN (18:44)
[2019-02-27] MEDS ORDERED: HYDROmorphone 1 MG/ML 1 ML SYRINGE IVP STA (18:44)
[2019-02-27] MEDS ORDERED: HYDROmorphone 1 MG/ML 1 ML SYRINGE IVP PRN (18:44)
[2019-02-27] MEDS ORDERED: NICOTINE POLACRILEX 2 MG GUM BUCCAL PRN (18:44)
[2019-02-27] MEDS ORDERED: AZITHROMYCIN 500 MG in SODIUM CHLORIDE 0.9% 250 ML IVPB STA (18:59)
[2019-02-27] MEDS: SODIUM CHLORIDE 0.9% 1,000 ML IV SCH (19:24)
[2019-02-27] MEDS: IPRATROPIUM-ALBUTEROL 3 ML NEB INHALATION SCH (20:04)
[2019-02-27 22:43] VITALS: BMI 28.3
--- NOTE | 2019-02-27 22:47 | P.HPIM ---
History of Present Illness H&P Date: 02/27/19 Chief Complaint: Hypoxemia and shortness of breath 68-year-old female with history of COPD, hypertension, legally blind due to macular degeneration. Jemma lives in independent [facility] with medical [place]. She doesn't use any home oxygen. Over the past week she's been having upper respiratory infection like symptoms with runny nose and ear fullness and coughing productive of whitish sputum daughter also noticed streaks of blood. She also notices that her mother's oxygen has been dropping with the home pulse ox and she's been having generalized weakness and fatigue with shortness of breath on walking short distances which normally she is able to manage. She went and saw her primary care doctor who gave her a tapering dose of steroids and doxycycline however patient didn't notice any benefit from this still reports subjective fevers and chills and her oxygen continued to be dropping today she with the setting down to the low 70s at home she was getting more shortness of breath worsening of her coughing and decided to come to the hospital for further care based on her PCP recommendations. She denies any associated chest pain she denies any sick contacts or recent traveling. She denies using home oxygen. She denies any history of intubation. She doesn't use any inhalers at home but she's been using the nebulizer that her daughter has for her kids. With no much benefit. Otherwise she denies any urinary symptoms or bowel changes denies any abdominal pain nausea vomiting denies any chest pain. In the ER chest x-ray showed chronic changes with new small right pleural effusion CT angios the chest showed no PE but did suggest right lower lobe inf iltrates. Patient with diagnosed with pneumonia and admitted for treatment of acute COPD exacerbation secondary to community-acquired pneumonia failed outpatient therapy Past Medical History Past Medical History: COPD, Eye Disorder, Hypertension, Osteoarthritis (OA) Additional Past Medical History / Comment(s): macular degeneration, actinic keratosis. 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, left hip replacement, sevral benign moles removed, lisa cataracts, brandon Past Anesthesia/Blood Transfusion Reactions: No Reported Reaction Past Psychological History: No Psychological Hx Reported Smoking Status: Current every day smoker Past Alcohol Use History: Rare Past Drug Use History: None Reported - Past Family History Mother Family Medical History: CVA/TIA, Hypertension, Myocardial Infarction (ME) Father Family Medical History: AFIB, Hypertension, Myocardial Infarction (ME) Sister(s) Daughter(s) Family Medical History: Cancer Medications and Allergies Home Medications Medication Instructions Recorded Confirmed Type Carvedilol [Coreg] 12.5 mg PO BID 10/28/14 02/27/19 History Losartan Potassium [Cozaar] 100 mg PO DAILY 10/28/14 02/27/19 History Vit C/E/Zn/Coppr/Lutein/Zeaxan 1 cap PO BID 11/24/17 02/27/19 History [Preservision Areds 2 Softgel] amLODIPine [Norvasc] 10 mg PO DAILY 11/24/17 02/27/19 History Albuterol Inhaler [Ventolin Hfa 1 - 2 puff INHALATION RT-Q6H PRN 02/27/1910/17 History Inhaler] Doxycycline Hyclate 100 mg PO BID 02/27/19 02/27/19 History methylPREDNISolone [Medrol Dose See Taper PO DIRECTED 02/27/19 02/27/19 History Pack] Allergies Allergy/AdvReac Type Severity Reaction Status Date / Time tramadol Allergy facial Verified 02/27/19 16:07 drooping Physical Exam Vitals: Vital Signs Temp Pulse Resp BP Pulse Ox 02/27/19 17:33 88 22 140/93 91 L 02/27/19 16:41 88 14 02/27/19 16:32 80 16 02/27/19 15:40 22 138/87 93 L 02/27/19 15:37 22 02/27/19 15:08 98.0 F 84 18 128/82 93 L Intake and Output 02/27/19 02/27/19 02/27/19 06:59 14:59 22:59 Other: Weight 77.111 kg Results CBC & Chem 7: 02/27/19 15:51 02/27/19 15:51 Labs: Abnormal Lab Results - Last 24 Hours (Table) 02/27/19 02/27/19 02/27/19 Range/Units 15:51 15:51 15:51 WBC 15.4 H (3.8-10.6) k/uL Plt Count 527 H (150-450) k/uL Neutrophils # 13.0 H (1.3-7.7) k/uL PT 13.1 H (9.0-12.0) sec INR 1.3 H (<1.2) Sodium 133 L (137-145) mmol/L Chloride 97 L (98-107) mmol/L BUN 19 H (7-17) mg/dL Glucose 137 H (74-99) mg/dL Total Protein 6.1 L (6.3-8.2) g/dL Albumin 3.3 L (3.5-5.0) g/dL Assessment and Plan Assessment: 68 year old fmale with history of COPD, and hypertension admitted as inpatient with anticipated length of stay >48 hours for acute copd exacerbation secondary to community acquired pneumonia failed outpatient therapy Plan: acute copd exacerbation secondary to pneumonia community acquired pneumonia failed outpatient therapy hypertension Plan Patient started on IV steroids Insulin sliding scale due to history of borderline prediabetes DuoNeb's when necessary Assess home oxygen prior to discharge Azithromycin and Rocephin Supportive care IV fluid hydration Counseled to quit smoking, nicotine replacement therapy offered Continue home blood pressure meds Heparin subcu 3 times a day for DVT prophylaxis Surrogate decision-maker: Patient daughter CODE STATUS: Full code Discussed with: Patient, ER, Anticipated discharge: 48-[address]: Home A total of 60 minutes was spent on the care of this complex patient more than 50% of the time was spent in counseling and care coordination.
[2019-02-27] MEDS: methylPREDNISolone SOD SUCCI 125 MG/2 ML VIAL IV SCH (23:00)
[2019-02-27] MEDS: NICOTINE 21MG/24HR PATCH TRANSDERM SCH (23:01)
[2019-02-27] MEDS: HEPARIN SODIUM,PORCINE 5,000 UNIT/ML 1 ML VIAL SQ SCH (23:01)
[2019-02-27] MEDS: CARVEDILOL 12.5 MG TAB PO SCH (23:01)
[2019-02-27] MEDS: HYDROcodone/APAP 5-325MG 1 EACH TAB PO PRN (23:07)
[2019-02-28] MEDS: methylPREDNISolone SOD SUCCI 125 MG/2 ML VIAL IV SCH ×3 (05:12→17:52)
[2019-02-28 08:06] LABS: Basophils # (A) 0.1 k/uL (0-0.2); Basophils % (A) 0 %; Eosinophils # (A) 0.1 k/uL (0-0.7); Eosinophils % (A) 1 %; HCT 39.3 % (34.0-46.0); HGB 12.4 gm/dL (11.4-16.0); Lymphocytes # (A) 1.1 k/uL (1.0-4.8); Lymphocytes % (A) 8 %; MCH 29.6 pg (25.0-35.0); MCHC 31.6 g/dL (31.0-37.0); MCV 93.5 fL (80.0-100.0); Mean Platelet Volume 7.3; Monocytes # (A) 0.2 k/uL (0-1.0); Monocytes % (A) 1 %; Neutrophils # (A) 11.5 k/uL (1.3-7.7); Neutrophils % (A) 88 %; Platelet Count 497 k/uL (150-450); RDW 14.3 % (11.5-15.5)
[2019-02-28] MEDS: INSULIN ASPART (NovoLOG) 100 UNIT/ML VIAL SQ SCH ×4 (08:08→20:53)
[2019-02-28 08:14] LABS: Anion Gap 8 mmol/L; Blood Urea Nitrogen 13 mg/dL (7-17); Calcium 8.8 mg/dL (8.4-10.2); Carbon Dioxide 30 mmol/L (22-30); Chloride 102 mmol/L (98-107); Glucose 174 mg/dL (74-99); Potassium 4.1 mmol/L (3.5-5.1); Sodium 140 mmol/L (137-145)
[2019-02-28] MEDS: CARVEDILOL 12.5 MG TAB PO SCH ×2 (08:15→17:22)
[2019-02-28] MEDS: HEPARIN SODIUM,PORCINE 5,000 UNIT/ML 1 ML VIAL SQ SCH ×2 (08:15→17:22)
[2019-02-28] MEDS: NICOTINE 21MG/24HR PATCH TRANSDERM SCH (08:15)
[2019-02-28] MEDS: amLODIPine 10 MG TAB PO SCH (08:15)
[2019-02-28] MEDS: LOSARTAN 50 MG TAB PO SCH (08:15)
[2019-02-28] MEDS: HYDROcodone/APAP 5-325MG 1 EACH TAB PO PRN ×3 (08:20→19:46)
[2019-02-28] MEDS: VIT A,C & E-LUTEIN-MINERALS 1 EACH TAB PO SCH ×2 (08:47→20:53)
[2019-02-28] MEDS: IPRATROPIUM-ALBUTEROL 3 ML NEB INHALATION SCH ×4 (08:53→20:23)
[2019-02-28] MEDS ORDERED: AZITHROMYCIN 500 MG in SODIUM CHLORIDE 0.9% 250 ML IVPB SCH (09:00)
[2019-02-28] MEDS ORDERED: ASPIRIN 325 MG TAB PO SCH (09:00)
[2019-02-28] MEDS: SODIUM CHLORIDE 0.9% 1,000 ML IV SCH ×3 (10:10→20:52)
[2019-02-28 11:21] LABS: Glucose,Whole Blood 153 mg/dL (75-99)
[2019-02-28] MEDS ORDERED: IPRATROPIUM-ALBUTEROL 3 ML NEB INHALATION PRN (11:32)
--- NOTE | 2019-02-28 11:52 | P.PN ---
Subjective Progress Note Date: 02/28/19 Principal diagnosis: COPD exacerbation Patient was seen and examined. No acute events overnight. Patient reports significant improvement in her breathing since admission. Continues to complain of cough, productive of sputum which she is unable to describe. Currently on 2 L nasal cannula saturating low 90s. She denies any chest pain or palpitations. No nausea or vomiting. No fever or chills. Objective - Vital Signs Vital signs: Vital Signs Temp 97.4 F L 02/28/19 04:26 Pulse 80 02/28/19 09:04 Resp 16 02/28/19 04:26 BP 149/81 02/28/19 04:26 Pulse Ox 94 L 02/28/19 04:26 Intake & Output 02/27/19 02/28/19 02/28/19 18:59 06:59 18:59 Weight 77.111 kg Other: Voiding Method Toilet Toilet # Voids 1 2 - Exam General: [non toxic], [no distress], [appears at stated age] Derm: [warm], [dry] Head: [atraumatic], [normocephalic], [symmetric] Eyes: [EOMI], [no lid lag], [anicteric sclera] Mouth: [no lip lesion], [mucus membranes moist] Cardiovascular: [S1S2 reg], [no murmur], [positive posterior tibial pulse bilateral], Lungs: [Decreased breath sounds bilateral], [end expiratory wheezing] , [no accessory muscle use] Abdominal: [soft], [ nontender to palpation], [no guarding], [no appreciable organomegaly] Ext: [no gross muscle atrophy], [no edema], [no contractures] Neuro: [no focal neuro deficits] Psych: [Alert], [oriented], [appropriate affect] - Labs CBC & Chem 7: 02/28/19 07:50 02/28/19 07:50 Labs: Abnormal Lab Results - Last 24 Hours (Table) 02/27/19 02/27/19 02/27/19 Range/Units 15:51 15:51 15:51 WBC 15.4 H (3.8-10.6) k/uL Plt Count 527 H (150-450) k/uL Neutrophils # 13.0 H (1.3-7.7) k/uL PT 13.1 H (9.0-12.0) sec INR 1.3 H (<1.2) Sodium 133 L (137-145) mmol/L Chloride 97 L (98-107) mmol/L BUN 19 H (7-17) mg/dL Creatinine (0.52-1.04) mg/dL Glucose 137 H (74-99) mg/dL POC Glucose (mg/dL) (75-99) mg/dL Total Protein 6.1 L (6.3-8.2) g/dL Albumin 3.3 L (3.5-5.0) g/dL 02/28/19 02/28/19 02/28/19 Range/Units 07:50 07:50 11:20 WBC 13.0 H (3.8-10.6) k/uL Plt Count 497 H (150-450) k/uL Neutrophils # 11.5 H (1.3-7.7) k/uL PT (9.0-12.0) sec INR (<1.2) Sodium (137-145) mmol/L Chloride (98-107) mmol/L BUN (7-17) mg/dL Creatinine 0.49 L (0.52-1.04) mg/dL Glucose 174 H (74-99) mg/dL POC Glucose (mg/dL) 153 H (75-99) mg/dL Total Protein (6.3-8.2) g/dL Albumin (3.5-5.0) g/dL Assessment and Plan Assessment: Assessment and Plan Acute COPD exacerbation secondary to community acquired pneumonia Community acquired pneumonia, failed outpatient therapy Hypertension Likely secondary to CAP. Patient is afebrile with leukocytosis of 15.4. Chest x-ray showing chronic changes with small to tiny right pleural effusion. Chest CTA excluded PE but shows right basilar infiltrate. Plans: Continue IV antibiotics. DuoNeb every 4 hours scheduled and as needed for shortness of breath and wheezing. Continue Solu-Medrol. O2 per NC to maintain O2 saturation greater than 92%. As seen on chest x-ray. As seen on CTA chest. Plans: Continue Rocephin IV and azithromycin by mouth. Treatment as above. Follow sputum culture. Follow blood culture. BP 149/81. Plans: Continue amlodipine, Coreg, losartan. Monitor vitals, adjust medications as necessary. Patient admitted for acute COPD exacerbation secondary to community-acquired pneumonia. She is pending clinical improvement. Likely DC in 2-3 days.
[2019-02-28] MEDS ORDERED: diphenhydrAMINE 25 MG CAP PO PRN (13:20)
[2019-02-28 17:15] LABS: Glucose,Whole Blood 166 mg/dL (75-99)
[2019-02-28 20:22] LABS: Glucose,Whole Blood 202 mg/dL (75-99)
[2019-03-01] MEDS: HEPARIN SODIUM,PORCINE 5,000 UNIT/ML 1 ML VIAL SQ SCH ×3 (00:09→16:52)
[2019-03-01] MEDS: methylPREDNISolone SOD SUCCI 125 MG/2 ML VIAL IV SCH ×4 (00:09→17:39)
[2019-03-01] MEDS: HYDROcodone/APAP 5-325MG 1 EACH TAB PO PRN ×2 (00:21→22:02)
[2019-03-01 06:46] LABS: Glucose,Whole Blood 139 mg/dL (75-99)
[2019-03-01] MEDS: NICOTINE 21MG/24HR PATCH TRANSDERM SCH (07:42)
[2019-03-01] MEDS: CARVEDILOL 12.5 MG TAB PO SCH ×2 (07:42→17:38)
[2019-03-01] MEDS: INSULIN ASPART (NovoLOG) 100 UNIT/ML VIAL SQ SCH ×4 (07:43→22:02)
[2019-03-01] MEDS: amLODIPine 10 MG TAB PO SCH (07:44)
[2019-03-01] MEDS: AZITHROMYCIN 500 MG TAB PO SCH (07:44)
[2019-03-01] MEDS: LOSARTAN 50 MG TAB PO SCH (07:45)
[2019-03-01] MEDS: CEFDINIR 300 MG CAP PO SCH ×2 (07:45→22:03)
[2019-03-01] MEDS: VIT A,C & E-LUTEIN-MINERALS 1 EACH TAB PO SCH ×2 (07:47→22:03)
--- NOTE | 2019-03-01 08:28 | P.PN ---
Subjective Progress Note Date: 03/01/19 Principal diagnosis: COPD exacerbation, community-acquired pneumonia Patient was seen and examined. No acute events overnight. Patient continues to saturate low 90s on 3 L nasal cannula. Patient reports significant improvement in her breathing but continues to complain of shortness of breath especially with exertion. She denies any chest pain or palpitations. No nausea or vomiting. No fever or chills. Objective - Vital Signs Vital signs: Vital Signs Temp 97.8 F 03/01/19 06:05 Pulse 66 03/01/19 06:05 Resp 16 03/01/19 06:05 BP 145/74 03/01/19 06:05 Pulse Ox 90 L 03/01/19 06:05 Intake & Output 02/28/19 03/01/19 03/01/19 18:59 06:59 18:59 Intake Total 1150 400 Balance 1150 400 Intake: Intake, IV Titration 1150 50 Amount Azithromycin 500 mg In 250 Sodium Chloride 0.9% 250 ml @ 250 mls/hr IVPB DAILY HUONG Rx#:[id number] Sodium Chloride 0.9% 1, 800 000 ml @ 100 mls/hr IV . Q10H [facility] Rx#:[id number] cefTRIAXone 1 gm In 100 50 Sodium Chloride 0.9% 50 ml @ 100 mls/hr IVPB Q24HR [facility]ONG Rx#:[id number] Oral 350 Other: Voiding Method Toilet Toilet # Voids 2 1 - Exam General: [non toxic], [no distress], [appears at stated age] Derm: [warm], [dry] Head: [atraumatic], [normocephalic], [symmetric] Eyes: [EOMI], [no lid lag], [anicteric sclera] Mouth: [no lip lesion], [mucus membranes moist] Cardiovascular: [S1S2 reg], [no murmur], [positive posterior tibial pulse bilateral], Lungs: [Decreased breath sounds bilateral], [no wheezing] , [no accessory muscle use] Abdominal: [soft], [ nontender to palpation], [no guarding], [no appreciable organomegaly] Ext: [no gross muscle atrophy], [no edema], [no contractures] Neuro: [no focal neuro deficits] Psych: [Alert], [oriented], [appropriate affect] - Labs CBC & Chem 7: 02/28/19 07:50 02/28/19 07:50 Labs: Abnormal Lab Results - Last 24 Hours (Table) 02/28/19 02/28/19 02/28/19 Range/Units 07:50 07:50 11:20 WBC 13.0 H (3.8-10.6) k/uL Plt Count 497 H (150-450) k/uL Neutrophils # 11.5 H (1.3-7.7) k/uL Creatinine 0.49 L (0.52-1.04) mg/dL Glucose 174 H (74-99) mg/dL POC Glucose (mg/dL) 153 H (75-99) mg/dL 02/28/19 02/28/19 03/01/19 Range/Units 17:14 20:20 06:44 WBC (3.8-10.6) k/uL Plt Count (150-450) k/uL Neutrophils # (1.3-7.7) k/uL Creatinine (0.52-1.04) mg/dL Glucose (74-99) mg/dL POC Glucose (mg/dL) 166 H 202 H 139 H (75-99) mg/dL Microbiology - Last 24 Hours (Table) 02/28/19 14:20 Gram Stain - Preliminary Sputum 02/27/19 15:51 Blood Culture - Preliminary Blood No Growth after 24 hours Assessment and Plan Assessment: Assessment and Plan Acute COPD exacerbation secondary to community acquired pneumonia Community acquired pneumonia, failed outpatient therapy Hypertension Likely secondary to CAP. Patient is afebrile with leukocytosis of 15.4. Chest x-ray showing chronic changes with small to tiny right pleural effusion. Chest CTA excluded PE but shows right basilar infiltrate. Plans: Continue IV antibiotics. DuoNeb every 4 hours scheduled and as needed for shortness of breath and wheezing. Continue Solu-Medrol. O2 per NC to maintain O2 saturation greater than 92%. Follow chest x-ray in the morning. As seen on chest x-ray. As seen on CTA chest. Sputum culture prelim negative. Blood culture preliminary negative at 24 hours. Plans: Continue Rocephin IV and azithromycin by mouth. Treatment as above. Follow sputum culture. Follow bloo d culture. Follow chest x-ray in the morning. BP 145/74. Plans: Continue amlodipine, Coreg, losartan. Monitor vitals, adjust medications as necessary. Patient admitted for acute COPD exacerbation secondary to community-acquired pneumonia. She is pending clinical improvement. Attempt to wean down oxygen. Likely DC in 2-3 days.
[2019-03-01] MEDS: IPRATROPIUM-ALBUTEROL 3 ML NEB INHALATION SCH ×4 (08:38→19:28)
[2019-03-01 11:18] LABS: Glucose,Whole Blood 157 mg/dL (75-99)
[2019-03-01] MEDS: SODIUM CHLORIDE 0.9% 1,000 ML IV SCH ×2 (14:01→22:03)
[2019-03-01] MEDS ORDERED: ACETAMINOPHEN TAB 325 MG TAB PO PRN (16:16)
[2019-03-01 17:01] LABS: Glucose,Whole Blood 158 mg/dL (75-99)
[2019-03-01 20:23] LABS: Glucose,Whole Blood 260 mg/dL (75-99)
[2019-03-02] MEDS: methylPREDNISolone SOD SUCCI 125 MG/2 ML VIAL IV SCH ×2 (00:10→06:19)
[2019-03-02] MEDS: HEPARIN SODIUM,PORCINE 5,000 UNIT/ML 1 ML VIAL SQ SCH ×4 (00:11→23:20)
[2019-03-02] MEDS: SODIUM CHLORIDE 0.9% 1,000 ML IV SCH (06:21)
[2019-03-02 06:54] LABS: Glucose,Whole Blood 141 mg/dL (75-99)
[2019-03-02] MEDS: IPRATROPIUM-ALBUTEROL 3 ML NEB INHALATION SCH ×4 (07:12→19:24)
--- NOTE | 2019-03-02 08:00 | P.PN ---
Subjective Progress Note Date: 03/02/19 Principal diagnosis: Pneumonia Patient was seen and examined. No acute events overnight. Patient reports improvement in her breathing but short of breath with exertion. Per RN, patient needs 2-3 L at rest to saturating over 90%. She desaturates into the 80s without any oxygen with exertion. Patient complains of right upper quadrant pain, cramping in nature, worsened with movement. She has a history cholecystectomy in the past. She denies any chest pain or palpitations. No fever or chills. No nausea or vomiting. Objective - Vital Signs Vital signs: Vital Signs Temp 97.7 F 03/02/19 04:01 Pulse 84 03/02/19 07:26 Resp 16 03/02/19 04:01 BP 157/84 03/02/19 04:01 Pulse Ox 98 03/02/19 07:13 Intake & Output 03/01/19 03/02/19 03/02/19 18:59 06:59 18:59 Intake Total 700 1490 Balance 700 1490 Intake: Intake, IV Titration 700 900 Amount Sodium Chloride 0.9% 1, 700 900 000 ml @ 100 mls/hr IV . Q10H [facility] Rx#:[id number] Oral 590 Other: Voiding Method Toilet Toilet # Voids 1 1 - Exam General: [non toxic], [no distress], [appears at stated age] Derm: [warm], [dry] Head: [atraumatic], [normocephalic], [symmetric] Eyes: [EOMI], [no lid lag], [anicteric sclera] Mouth: [no lip lesion], [mucus membranes moist] Cardiovascular: [S1S2 reg], [no murmur], [positive posterior tibial pulse bilateral], Lungs: [End expiratory wheezing bilaterally], [no rales or rhonchi] , [no accessory muscle use] Abdominal: [soft], [ nontender to palpation], [no guarding], [no appreciable organomegaly] Ext: [no gross muscle atrophy], [no edema], [no contractures] Neuro: [no focal neuro deficits] Psych: [Alert], [oriented], [appropriate affect] - Labs CBC & Chem 7: 02/28/19 07:50 02/28/19 07:50 Labs: Abnormal Lab Results - Last 24 Hours (Table) 03/01/19 03/01/19 03/01/19 Range/Units 11:15 16:59 20:21 POC Glucose (mg/dL) 157 H 158 H 260 H (75-99) mg/dL 03/02/19 Range/Units 06:53 POC Glucose (mg/dL) 141 H (75-99) mg/dL Microbiology - Last 24 Hours (Table) 02/27/19 15:51 Blood Culture - Preliminary Blood No Growth after 48 hours 02/28/19 14:20 Gram Stain - Preliminary Sputum Assessment and Plan Assessment: Assessment and Plan Acute COPD exacerbation secondary to community acquired pneumonia Right upper quadrant pain Community acquired pneumonia, failed outpatient therapy Hypertension Likely secondary to CAP. Patient is afebrile with leukocytosis of 15.4. Chest x-ray showing chronic changes with small to tiny right pleural effusion. Chest CTA excluded PE but shows right basilar infiltrate. Plans: Continue IV antibiotics. DuoNeb every 4 hours scheduled and as needed for shortness of breath and wheezing. Change Solu-Medrol to prednisone. O2 per NC to maintain O2 saturation greater than 92%. Follow chest x-ray in the morning. History of cholecystectomy. Likely muscular skeletal. Plans: Follow abdominal ultrasound. As seen on chest x-ray. As seen on CTA chest. Sputum culture prelim negative. Blood culture preliminary negative at 48 hours. Plans: Continue Rocephin IV and azithromycin by mouth. Treatment as above. Follow sputum culture. Follow blood culture. Follow chest x-ray in the morning. BP 157/84. Plans: Continue amlodipine, Coreg, losartan. Monitor vitals, adjust medications as necessary. Patient admitted for acute COPD exacerbation secondary to community-acquired pneumonia. She is pending clinical improvement. Attempt to wean down oxygen. Likely DC in 2 days.
[2019-03-02 08:46] LABS: Anion Gap 6 mmol/L; Blood Urea Nitrogen 13 mg/dL (7-17); Calcium 8.6 mg/dL (8.4-10.2); Carbon Dioxide 35 mmol/L (22-30); Chloride 98 mmol/L (98-107); Glucose 155 mg/dL (74-99); Potassium 3.8 mmol/L (3.5-5.1); Sodium 139 mmol/L (137-145)
[2019-03-02 08:55] LABS: HCT 43.6 % (34.0-46.0); HGB 13.4 gm/dL (11.4-16.0); MCH 28.5 pg (25.0-35.0); MCHC 30.6 g/dL (31.0-37.0); Mean Platelet Volume 7.2; Platelet Count 615 k/uL (150-450); RBC 4.69 m/uL (3.80-5.40); RDW 14.3 % (11.5-15.5); WBC 21.1 k/uL (3.8-10.6)
--- NOTE | 2019-03-02 08:57 | XR ---
EXAMINATION TYPE: XR chest 2V DATE OF EXAM: 03/02/2019 COMPARISON: 02/27/2019 TECHNIQUE: PA and lateral views submitted. HISTORY: Shortness of breath FINDINGS: Bilateral consolidation and pleural effusion. Atherosclerotic change aorta. Arthropathy of the should ers. IMPRESSION: 1. Bilateral consolidation and small effusion. Correlate for pneumonia otherwise consider mild centra l venous congestion.
[2019-03-02] MEDS: CARVEDILOL 12.5 MG TAB PO SCH ×2 (09:23→18:18)
[2019-03-02] MEDS: INSULIN ASPART (NovoLOG) 100 UNIT/ML VIAL SQ SCH ×4 (09:23→21:12)
[2019-03-02] MEDS: CEFDINIR 300 MG CAP PO SCH ×2 (09:24→21:12)
[2019-03-02] MEDS: amLODIPine 10 MG TAB PO SCH (09:24)
[2019-03-02] MEDS: AZITHROMYCIN 500 MG TAB PO SCH (09:24)
[2019-03-02] MEDS: VIT A,C & E-LUTEIN-MINERALS 1 EACH TAB PO SCH ×2 (09:25→23:19)
[2019-03-02] MEDS: LOSARTAN 50 MG TAB PO SCH (09:25)
[2019-03-02] MEDS: NICOTINE 21MG/24HR PATCH TRANSDERM SCH (09:33)
[2019-03-02 11:14] LABS: Glucose,Whole Blood 171 mg/dL (75-99)
--- NOTE | 2019-03-02 11:26 | US ---
EXAMINATION TYPE: US abdomen limited DATE OF EXAM: 03/02/2019 COMPARISON: NONE CLINICAL HISTORY: gall bladder and liver eval. Abdominal pain, cholecystectomy EXAM MEASUREMENTS: Liver Length: 13.8 cm Gallbladder Wall: Surgically absent CBD: 0.5 cm Right Kidney: 13.0 x 4.3 x 5.2 cm Pancreas: Tail obscured by overlying bowel gas, appears heterogeneous Liver: appears wnl Gallbladder: Surgically absent Evidence for sonographic Hung's sign: no CBD: visualized portion appears wnl Right Kidney: no evidence of hydronephrosis IMPRESSION: 1. Pancreas is limited assessment appears somewhat heterogeneous as visualized. Correlate with pancre atic enzymes to assess for pancreatitis. 2. Postcholecystectomy changes.
[2019-03-02 17:04] LABS: Glucose,Whole Blood 118 mg/dL (75-99)
[2019-03-02 20:07] LABS: Glucose,Whole Blood 197 mg/dL (75-99)
[2019-03-02] MEDS: HYDROcodone/APAP 5-325MG 1 EACH TAB PO PRN (21:12)
[2019-03-03 07:01] LABS: Glucose,Whole Blood 99 mg/dL (75-99)
--- NOTE | 2019-03-03 08:11 | P.PN ---
Subjective Progress Note Date: 03/03/19 Principal diagnosis: Pneumonia, COPD exacerbation Patient reports improvement in her breathing. She denies any cough today. She denies any chest pain or palpitations. Saturating 89% on room air, low 90s on 2 L nasal cannula. Objective - Vital Signs Vital signs: Vital Signs Temp 98.0 F 03/03/19 04:54 Pulse 85 03/03/19 04:54 Resp 16 03/03/19 04:54 BP 147/86 03/03/19 04:54 Pulse Ox 91 L 03/03/19 04:54 Intake & Output 03/02/19 03/03/19 03/03/19 18:59 06:59 18:59 Intake Total 590 Balance 590 Intake: Oral 590 Other: Voiding Method Toilet Toilet # Voids 2 2 - Exam General: [non toxic], [no distress], [appears at stated age] Derm: [warm], [dry] Head: [atraumatic], [normocephalic], [symmetric] Eyes: [EOMI], [no lid lag], [anicteric sclera] Mouth: [no lip lesion], [mucus membranes moist] Cardiovascular: [S1S2 reg], [tachycardia], [positive DP pulse bilateral] Lungs: [End expiratory wheezing bilaterally with good air entry], [no rales or rhonchi] , [no accessory muscle use] Abdominal: [soft], [ nontender to palpation], [no guarding], [no appreciable organomegaly] Ext: [no gross muscle atrophy], [no edema], [no contractures] Neuro: [no focal neuro deficits] Psych: [Alert], [oriented], [appropriate affect] - Labs CBC & Chem 7: 03/02/19 08:20 03/02/19 08:20 Labs: Abnormal Lab Results - Last 24 Hours (Table) 03/02/19 03/02/19 03/02/19 Range/Units 08:20 08:20 11:13 WBC 21.1 H (3.8-10.6) k/uL MCHC 30.6 L (31.0-37.0) g/dL Plt Count 615 H (150-450) k/uL Carbon Dioxide 35 H (22-30) mmol/L Creatinine 0.44 L (0.52-1.04) mg/dL Glucose 155 H (74-99) mg/dL POC Glucose (mg/dL) 171 H (75-99) mg/dL 03/02/19 03/02/19 Range/Units 17:02 20:05 WBC (3.8-10.6) k/uL MCHC (31.0-37.0) g/dL Plt Count (150-450) k/uL Carbon Dioxide (22-30) mmol/L Creatinine (0.52-1.04) mg/dL Glucose (74-99) mg/dL POC Glucose (mg/dL) 118 H 197 H (75-99) mg/dL Microbiology - Last 24 Hours (Table) 02/27/19 15:51 Blood Culture - Preliminary Blood No Growth after 72 hours 02/28/19 14:20 Gram Stain - Final Sputum Sputum Culture - Final Mona albicans Assessment and Plan Assessment: Assessment and Plan 1. Acute COPD exacerbation secondary to community acquired pneumonia 2. Leukocytosis 3. Right upper quadrant pain 4. Community acquired pneumonia, failed outpatient therapy 5. Hypertension 1. Likely secondary to CAP. Patient is afebrile with leukocytosis of 21.1. Chest x-ray showing chronic changes with small to tiny right pleural effusion. Chest CTA excluded PE but shows right basilar infiltrate. Plans: Continue IV antibiotics. DuoNeb every 4 hours scheduled and as needed for shortness of breath and wheezing. Change Solu-Medrol to prednisone. O2 per NC to maintain O2 saturation greater than 92%. Follow echocardiogram to evaluate cardiac function. 2. Increasing leukocytosis of 21.1. Likely secondary to steroids. Plan: Daily CBC. 3. History of cholecystectomy. Likely muscular skeletal. Abdominal ultrasound is within normal limits. Plans: Adequate pain management. 4. As seen on chest x-ray. Repeat chest x-ray shows bilateral consolidation. As seen on CTA chest. Sputum culture shows Mona albicans, likely colonization. Blood culture preliminary negative at 72 hours. Plans: Continue Rocephin IV and azithromycin by mouth. Treatment as above. Follow blood cultur e. Follow chest x-ray in the morning. Add Robitussin. 5. BP 157/84. Plans: Continue amlodipine, Coreg, losartan. Monitor vitals, adjust medications as necessary. Patient admitted for acute COPD exacerbation secondary to community-acquired pneumonia. She is pending clinical improvement. Chest x-ray tomorrow, 89% on room air at rest today, follow 6 minute walk test tomorrow. Likely DC in 1-2 days.
[2019-03-03] MEDS: LOSARTAN 50 MG TAB PO SCH (08:26)
[2019-03-03] MEDS: NICOTINE 21MG/24HR PATCH TRANSDERM SCH (08:27)
[2019-03-03] MEDS: CARVEDILOL 12.5 MG TAB PO SCH ×2 (08:27→17:57)
[2019-03-03] MEDS: amLODIPine 10 MG TAB PO SCH (08:27)
[2019-03-03] MEDS: predniSONE 20 MG TAB PO SCH (08:27)
[2019-03-03] MEDS: IPRATROPIUM-ALBUTEROL 3 ML NEB INHALATION SCH ×4 (08:27→20:06)
[2019-03-03] MEDS: HEPARIN SODIUM,PORCINE 5,000 UNIT/ML 1 ML VIAL SQ SCH ×3 (08:27→23:36)
[2019-03-03] MEDS: INSULIN ASPART (NovoLOG) 100 UNIT/ML VIAL SQ SCH ×4 (08:28→22:03)
[2019-03-03] MEDS: CEFDINIR 300 MG CAP PO SCH ×2 (08:29→22:02)
[2019-03-03] MEDS: AZITHROMYCIN 500 MG TAB PO SCH (08:29)
[2019-03-03] MEDS: VIT A,C & E-LUTEIN-MINERALS 1 EACH TAB PO SCH ×2 (08:30→22:02)
[2019-03-03] MEDS: guaiFENesin 600 MG TABLET.ER PO SCH ×2 (08:32→22:02)
[2019-03-03 11:20] LABS: Glucose,Whole Blood 105 mg/dL (75-99)
[2019-03-03 17:08] LABS: Glucose,Whole Blood 173 mg/dL (75-99)
[2019-03-03 17:47] LABS: Glucose,Whole Blood 163 mg/dL (75-99)
[2019-03-03 20:43] LABS: Glucose,Whole Blood 149 mg/dL (75-99)
[2019-03-04 06:55] LABS: Glucose,Whole Blood 100 mg/dL (75-99)
[2019-03-04] MEDS: INSULIN ASPART (NovoLOG) 100 UNIT/ML VIAL SQ SCH ×2 (06:58→12:53)
[2019-03-04] MEDS: IPRATROPIUM-ALBUTEROL 3 ML NEB INHALATION SCH ×3 (07:43→15:59)
[2019-03-04 08:21] LABS: HCT 45.5 % (34.0-46.0); HGB 14.4 gm/dL (11.4-16.0); MCH 29.1 pg (25.0-35.0); MCHC 31.7 g/dL (31.0-37.0); MCV 91.9 fL (80.0-100.0); Platelet Count 572 k/uL (150-450); RBC 4.95 m/uL (3.80-5.40); RDW 14.7 % (11.5-15.5); WBC 22.9 k/uL (3.8-10.6)
[2019-03-04 08:23] LABS: Blood Urea Nitrogen 15 mg/dL (7-17); Calcium 8.3 mg/dL (8.4-10.2); Chloride 94 mmol/L (98-107); Glucose 95 mg/dL (74-99); Potassium 4.1 mmol/L (3.5-5.1); Sodium 137 mmol/L (137-145)
[2019-03-04 08:30] LABS: Anion Gap 0 mmol/L
[2019-03-04 08:34] LABS: Carbon Dioxide 43 mmol/L (22-30)
--- NOTE | 2019-03-04 08:46 | XR ---
EXAMINATION TYPE: XR chest 2V DATE OF EXAM: 03/04/2019 COMPARISON: 03/02/2019 TECHNIQUE: PA and lateral views submitted. HISTORY: Follow-up pneumonia FINDINGS: Hyperinflation lungs. Hypertrophic and degenerative change of the spine. Chronic arthropathy of the s houlders greater on the left. Bilateral consolidation and pleural effusion is stable. Atherosclerotic change aorta. Heart size stable. Underlying CHF not excluded. IMPRESSION: Persistent bilateral consolidation and pleural effusion are stable and unchanged from the prior exam.
[2019-03-04] MEDS: NICOTINE 21MG/24HR PATCH TRANSDERM SCH ×2 (10:04→10:07)
[2019-03-04] MEDS: AZITHROMYCIN 500 MG TAB PO SCH (10:05)
[2019-03-04] MEDS: CARVEDILOL 12.5 MG TAB PO SCH ×2 (10:05→16:31)
[2019-03-04] MEDS: HEPARIN SODIUM,PORCINE 5,000 UNIT/ML 1 ML VIAL SQ SCH ×2 (10:05→15:32)
[2019-03-04] MEDS: amLODIPine 10 MG TAB PO SCH (10:05)
--- NOTE | 2019-03-04 10:05 | ECHOF ---
Referral Reason:SOB MEASUREMENTS -------- HEIGHT: 165.1 cm WEIGHT: 77.1 kg BP: 147/86 RVIDd: 3.1 cm (< 3.3) IVSd: 1.5 cm (0.6 - 1.1) LVIDd: 3.0 cm (3.9 - 5.3) LVPWd: 1.4 cm (0.6 - 1.1) IVSs: 1.4 cm LVIDs: 1.9 cm LVPWs: 1.3 cm LAESV Index (A-L): 27.65 ml/m Ao Diam: 3.5 cm (2.0 - 3.7) AV Cusp: 1.8 cm (1.5 - 2.6) LA Diam: 4.7 cm (2.7 - 3.8) MV E Dave: 0.48 m/s MV DecT: 214 ms MV A Dave: 1.22 m/s MV E/A Ratio: 0.39 RAP: 5.00 mmHg RVSP: 28.32 mmHg MV EF SLOPE: 0.00 mm/s (70 - 150) MV EXCURSION: 1.29 cm (> 18.000) FINDINGS -------- Sinus rhythm with extra systolic beats. This was a technically difficult study with suboptimal views. The left ventricular size is normal. There is moderate concentric left ventricular hypertrophy. O verall left ventricular systolic function is normal with, an EF between 55 - 60 %. The right ventricle is normal in size. Left atrium is normal size by volume. The right atrial size is normal. Lumason used Interatrial and interventricular septum intact. Aortic valve is trileaflet and is mildly thickened. There is moderate aortic valve sclerosis withou t stenosis. The mitral valve leaflets are mildly thickened. Moderate mitral annular calcification present. Mi ld mitral regurgitation is present. Mild tricuspid regurgitation present. There is no evidence of pulmonary hypertension. The right v entricular systolic pressure, as measured by Doppler, is 28.32mmHg. There is no pulmonic regurgitation present. The aortic root size is normal. The inferior vena cava was not well visualized. Echo free space may represent effusion or a pericardial fat pad. CONCLUSIONS -------- 1. Sinus rhythm with extra systolic beats. 2. This was a technically difficult study with suboptimal views. 3. The left ventricular size is normal. 4. There is moderate concentric left ventricular hypertrophy. 5. Overall left ventricular systolic function is normal with, an EF between 55 - 60 %. 6. The right ventricle is normal in size. 7. Left atrium is normal size by volume. 8. The right atrial size is normal. 9. Lumason used 10. Interatrial and interventricular septum intact. 11. Aortic valve is trileaflet and is mildly thickened. 12. There is moderate aortic valve sclerosis without stenosis. 13. The mitral valve leaflets are mildly thickened. 14. Moderate mitral annular calcification present. 15. Mild mitral regurgitation is present. 16. Mild tricuspid regurgitation present. 17. There is no evidence of pulmonary hypertension. 18. The right ventricular systolic pressure, as measured by Doppler, is 28.32mmHg. 19. There is no pulmonic regurgitation present. 20. The aortic root size is normal. 21. The inferior vena cava was not well visualized. 22. Echo free space may represent effusion or a pericardial fat pad. PANTOGRAPH SETTER: Yola Mascorro RDCS
[2019-03-04] MEDS: VIT A,C & E-LUTEIN-MINERALS 1 EACH TAB PO SCH (10:06)
[2019-03-04] MEDS: LOSARTAN 50 MG TAB PO SCH (10:06)
[2019-03-04] MEDS: CEFDINIR 300 MG CAP PO SCH (10:06)
[2019-03-04] MEDS: predniSONE 20 MG TAB PO SCH (10:06)
[2019-03-04] MEDS: guaiFENesin 600 MG TABLET.ER PO SCH (10:06)
[2019-03-04 11:22] LABS: Glucose,Whole Blood 101 mg/dL (75-99)
[2019-03-04 12:16] VITALS: BP 131/87; RESP 17; TEMP 98
--- NOTE | 2019-03-04 14:41 | P.DS ---
Providers Date of admission: 02/27/19 18:46 Expected date of discharge: 03/04/19 Attending physician: Steve Diaz MD Primary care physician: Saeid Beaver [facility] Course: Discharge Diagnosis: Community-acquired pneumonia, failed outpatient treatment Probable COPD with acute exacerbation Acute hypoxic respiratory failure Leukocytosis, due to IV steroids Right upper quadrant pain, resolved Hypertension Macular degeneration with legal blindness Hyponatremia Clinical dehydration Thrombocytosis Hospital Course: Patient is a 68-year-old female with a past medical history of hypertension, osteoarthritis, mitral regurgitation, and tobacco abuse who presented to the emergency department secondary to low oxygen at home. She initially had gone her PCPs office and was diagnosed with COPD exacerbation, probable and this was a new diagnosis as well as community-acquired pneumonia. She was started on doxycycline and is tapering dose of steroids. When her oxygen remained low he directed her to come to the ER. On arrival to the emergency department her vital signs were within normal limits. Initial laboratory analysis showed an elevated white blood cell count at 15.4, mild dehydration with a sodium of 133, an elevated glucose of 137. She was started on Rocephin, Zithromax, and IV Solu-Medrol. She was admitted for further monitoring. She progressed well. Her hospitalization. She underwent a CTA of the chest which showed right-sided infiltrate or atelectasis but no signs of pulmonary embolism. Chest x-ray showed probable fluid that was not confirmed on CTA. Her white blood cell count elevated but she is afebrile. This was felt to be secondary to IV steroids. She underwent an echocardiogram which showed preserved ejection fraction with ejection fraction 55-60%, moderate LVH, and no significant pulmonary hypertension. She was found to have moderate mitral annular calcification with mild mitral regurg. She underwent an abdominal ultrasound which showed heterogeneous pancreas but no other abnormalities. She was evaluated for home oxygen. Her oxygen at rest was 93% on 2 L. Her room air post exercise was 89%, and her room air with exercise was 88%. She will therefore be discharged with 2 L of oxygen. She will complete a steroid course as well as a seven-day course of Zithromax and Vantin. This course was extended from 5 days as she had some complications of COPD and failed outpatient treatment with Doxy. She was offered home health, however declined she will go home with her daughter. [facility] will follow-up with Dr. Serrano in 1-2 days, consider pulmonology evaluation as outpatient, and have repeat chest x-ray completed after course of antibiotics. Recommend repeat CBC when see by Dr. Serrano to ensure WBC decreasing Patient seen and examined at bedside. Feeling better, shortness of breath resolved, cough much improved. Vital signs reviewed and stable. General: non toxic, no distress, appears at stated age Derm: warm, dry Head: atraumatic, normocephalic, symmetric Eyes: EOMI, no lid lag, anicteric sclera Mouth: no lip lesion, mucus membranes moist Cardiovascular: S1S2 reg, no murmur, positive posterior tibial pulse bilateral, Lungs: CTA bilateral, no rhonchi, no rales , no accessory muscle use Abdominal: soft, nontender to palpation, no guarding, no appreciable organomegaly Ext: no gross muscle atrophy, no edema, no contractures Neuro: CN II-XI grossly intact, no focal neuro deficits Psych: Alert, oriented, appropriate affect A total of 37 minutes of time were spent preparing this complex discharge summary . Pertinent Studies: Echo-ejection fraction 55-60%, moderate LVH CTA [id number] infiltrate versus atelectasis, no pulmonary embolism Chest x-ray-right sided infiltrate with possible pleural effusion Abdominal ultrasound-heterogeneous pancreas Patient Condition at Discharge: Stable Plan - Discharge Summary Discharge Rx Participant: Yes New Discharge Prescriptions: New guaiFENesin [Mucinex] 600 mg PO Q12HR PRN #30 tablet.er PRN Reason: Cough Cefdinir [Omnicef] 300 mg PO BID #6 cap predniSONE 40 mg PO DAILY #8 tab Azithromycin [Zithromax] 500 mg PO DAILY #3 tab Continue Carvedilol [Coreg] 12.5 mg PO BID Losartan Potassium [Cozaar] 100 mg PO DAILY amLODIPine [Norvasc] 10 mg PO DAILY Vit C/E/Zn/Coppr/Lutein/Zeaxan [Preservision Areds 2 Softgel] 1 cap PO BID Albuterol Inhaler [Ventolin Hfa Inhaler] 1 - 2 puff INHALATION RT-Q6H PRN PRN Reason: Shortness Of Breath Discontinued methylPREDNISolone [Medrol Dose Pack] See Taper PO DIRECTED Doxycycline Hyclate 100 mg PO BID Discharge Medication List Carvedilol [Coreg] 12.5 mg PO BID 10/28/14 [History] Losartan Potassium [Cozaar] 100 mg PO DAILY 10/28/14 [History] Vit C/E/Zn/Coppr/Lutein/Zeaxan [Preservision Areds 2 Softgel] 1 cap PO BID 11/24/17 [History] amLODIPine [Norvasc] 10 mg PO DAILY 11/24/17 [History] Albuterol Inhaler [Ventolin Hfa Inhaler] 1 - 2 puff INHALATION RT-Q6H PRN 02/27/19 [History] Azithromycin [Zithromax] 500 mg PO DAILY #3 tab 03/04/19 [Rx] Cefdinir [Omnicef] 300 mg PO BID #6 cap 03/04/19 [Rx] guaiFENesin [Mucinex] 600 mg PO Q12HR PRN #30 tablet.er 03/04/19 [Rx] predniSONE 40 mg PO DAILY #8 tab 03/04/19 [Rx] Follow up Appointment(s)/Referral(s): [facility] [NON-STAFF] - 1 Week Saeid Beaver DO [Primary Care Provider] - 1-2 days Activity/Diet/Wound Care/Special Instructions: pt will be sent home with oxygen s/t COPD
[2019-03-04 15:27] VITALS: PULSE 80
== END 2019-03-04 17:15 | disposition home or self-care (01) | DRG 193 ==
LOC: EC 15:01 → 3NMEDONC 18:46
PROVIDERS: ADMIT Internal Medicine; ATTEND Internal Medicine
DX: J18.9 Pneumonia, unspecified organism (principal); J96.01 Acute respiratory failure with hypoxia; J44.0 Chronic obstructive pulmonary disease with (acute) lower respiratory infection; J44.1 Chronic obstructive pulmonary disease with (acute) exacerbation; J98.11 Atelectasis; E87.1 Hypo-osmolality and hyponatremia; T38.0X5A Adverse effect of glucocorticoids and synthetic analogues, initial encounter; Z79.899 Other long term (current) drug therapy; I34.0 Nonrheumatic mitral (valve) insufficiency; Z82.49 Family history of ischemic heart disease and other diseases of the circulatory system; E86.0 Dehydration; F17.210 Nicotine dependence, cigarettes, uncomplicated; H35.30 Unspecified macular degeneration; H54.8 Legal blindness, as defined in USA; I10 Essential (primary) hypertension; Z87.01 Personal history of pneumonia (recurrent); Z90.49 Acquired absence of other specified parts of digestive tract; Z96.643 Presence of artificial hip joint, bilateral; Z99.81 Dependence on supplemental oxygen; D69.6 Thrombocytopenia, unspecified; D72.829 Elevated white blood cell count, unspecified; R10.11 Right upper quadrant pain; Z82.3 Family history of stroke; Z80.9 Family history of malignant neoplasm, unspecified
CPT/HCPCS: 36415; 71046; 71275; 76705; 80048; 80053; 83735; 83880; 84484; 85025; 85027; 85610; 85730; 87040; 87070; 87205; 93005; 93306; 94640; 94760; 96361; 96365; 96375; 99291

== ENCOUNTER 2020-06-28 17:35 | Emergency (ER) | payer MEDICARE, OTHER ==
[2020-06-28 17:46] VITALS: BP 128/81; PULSE 90; RESP 16; TEMP 98.7
[2020-06-28] MEDS ORDERED: LIDOCAINE 1% INJ 10MG/ML (20 ML MDV) SQ ONE (18:07)
--- NOTE | 2020-06-28 18:08 | ED ---
ENT HPI - General Chief complaint: Dental/Oral Stated complaint: dental pain Time Seen by Provider: 06/28/20 17:46 Source: patient, family Mode of arrival: ambulatory Limitations: no limitations - History of Present Illness Initial comments: Patient is 69-year-old female presenting to the emergency department with a chief complaint of a dental abscess. Patient states 2 days ago she was seen at another facility and had a CT of the face performed after she developed right- sided facial swelling and pain. Patient was started on Augmentin. So far she took 4 doses of the Augmentin and still has 16 doses left. Patient reports the swelling is decreased and today she went to her primary care physician who told her that she has a dental abscess and she needs to have incision and drainage. Patient was able to make an appointment with the dentist but it was not until next week. Since starting the medication, patient does report improvement in her symptoms and swelling in the face. She denies any night sweats fevers or chills. - Related Data Home Medications Medication Instructions Recorded Confirmed Carvedilol [Coreg] 12.5 mg PO BID 10/28/14 02/27/19 Losartan Potassium [Cozaar] 100 mg PO DAILY 10/28/14 02/27/19 Vit C/E/Zn/Coppr/Lutein/Zeaxan 1 cap PO BID 11/24/17 02/27/19 [Preservision Areds 2 Softgel] amLODIPine [Norvasc] 10 mg PO DAILY 11/24/17 02/27/19 Albuterol Inhaler (Mhu) [Ventolin 1 - 2 puff INHALATION RT-Q6H PRN 02/27/19 02/27/19 Hfa Inhaler (Mhu)] Previous Rx's Medication Instructions Recorded Azithromycin [Zithromax] 500 mg PO DAILY #3 tab 03/04/19 Cefdinir [Omnicef] 300 mg PO BID #6 cap 03/04/19 Fluticasone/Salmeterol [Advair 1 inhalation PO BID #1 inhaler 03/04/19 250-50 Diskus] guaiFENesin [Mucinex] 600 mg PO Q12HR PRN #30 tablet.er 03/04/19 predniSONE [Deltasone] 40 mg PO DAILY #8 tab 03/04/19 Allergies Allergy/AdvReac Type Severity Reaction Status Date / Time Iodinated Contrast Media Allergy Rash/Hives Verified 06/28/20 17:40 tramadol Allergy facial Verified 06/28/20 17:40 drooping Review of Systems ROS Statement: Those systems with pertinent positive or pertinent negative responses have been documented in the HPI. ROS Other: All systems not noted in ROS Statement are negative. Past Medical History Past Medical History: COPD, Eye Disorder, Hypertension, Osteoarthritis (OA) Additional Past Medical History / Comment(s): macular degeneration, actinic keratosis. 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, left hip replacement, sevral benign moles removed, lisa cataracts, brandon Past Anesthesia/Blood Transfusion Reactions: No Reported Reaction Past Psychological History: No Psychological Hx Reported Smoking Status: Former smoker Past Alcohol Use History: Rare Past Drug Use History: None Reported - Past Family History Mother Family Medical History: CVA/TIA, Hypertension, Myocardial Infarction ([place]) Father Family Medical History: AFIB, Hypertension, Myocardial Infarction ([place]) Sister(s) Daughter(s) Family Medical History: Cancer General Exam Limitations: no limitations General appearance: alert, in no apparent distress, obese Head exam: Present: atraumatic, normocephalic, normal inspection Eye exam: Present: normal appearance, PERRL, EOMI Pupils: Present: normal accommodation ENT exam: Present: normal exam, mucous membranes moist. Absent: normal oropharynx (Periapical abscess noted near tooth #3.) Neck exam: Present: normal inspection, full ROM. Absent: tenderness Respiratory exam: Present: normal lung sounds bilaterally. Absent: respiratory distress Cardiovascular Exam: Present: regular rate, normal rhythm, normal heart sounds Extremities exam: Present: normal inspection, full ROM, normal capillary refill. Absent: tenderness Back exam: Present: normal inspection, full ROM. Absent: tenderness, CVA tenderness (R), CVA tenderness (L) Neurological exam: Present: alert, oriented X3, normal gait Psychiatric exam: Present: normal affect, normal mood Skin exam: Present: warm, dry, intact, normal color Course Vital Signs 06/28/20 17:41 Temperature 98.7 F Pulse Rate 90 Respiratory 16 Rate Blood Pressure 128/81 O2 Sat by Pulse 95 Oximetry Procedures - Incision & Drainage Consent Obtained: verbal consent Indication: Periapical abscess Site: oral Size (cm): 1 Anesthetic Used: lidocaine 1% Amount (mLs): 1 Needle Aspiration Performed?: Yes Irrigation Performed?: No I&D Drainage Obtained: Pus, Blood Culture Obtained?: No Complications: pain, bleeding Patient Tolerated Procedure: well, no complications Medical Decision Making - Medical Decision Making patient is 69-year-old female presenting to the emergency department with chief complaint of dental abscess. On physical examination, patient does have a periapical abscess near tooth #3. Incision and drainage was performed. Patient tolerated the procedure well. Patient has a days left of the Augmentin. Advised to continue taking the medication. Her vitals are stable. She has an appointment with the dentist next week. No signs of Lauro's angina Strict return parameters were thoroughly discussed the patient was or standing agreeable. Case discussed with physician. Disposition Clinical Impression: Dental abscess, Pain, dental Disposition: HOME SELF-CARE Condition: Stable Instructions (If sedation given, give patient instructions): Dental Abscess (ED) Additional Instructions: Continue taking Augmentin. Return to emergency department if symptoms worsen. Is patient prescribed a controlled substance at d/c from ED?: No Referrals: Saeid Beaver DO [Primary Care Provider] - 1-2 days Time of Disposition: 18:21
== END 2020-06-28 18:26 | disposition home or self-care (01) ==
LOC: EC 17:35
DX: K04.7 Periapical abscess without sinus (principal); K08.89 Other specified disorders of teeth and supporting structures; I10 Essential (primary) hypertension; J44.9 Chronic obstructive pulmonary disease, unspecified; M19.90 Unspecified osteoarthritis, unspecified site; Z79.02 Long term (current) use of antithrombotics/antiplatelets; Z79.899 Other long term (current) drug therapy; Z88.5 Allergy status to narcotic agent; Z91.041 Radiographic dye allergy status; Z96.643 Presence of artificial hip joint, bilateral; Z87.891 Personal history of nicotine dependence
CPT/HCPCS: 99282; 41800; J2001

== ENCOUNTER 2024-07-14 02:14 | Inpatient (IN) | payer MEDICARE, OTHER ==
[2024-07-14 02:46] LABS: Basophils % (A) 0 %; Eosinophils # (A) 0.7 k/uL (0-0.7); Eosinophils % (A) 6 %; HCT 38.4 % (34.0-46.0); Hypochromasia Slight; Lymphocytes # (A) 2.6 k/uL (1.0-4.8); Lymphocytes % (A) 23 %; MCH 28.3 pg (25.0-35.0); MCHC 31.2 g/dL (31.0-37.0); MCV 90.8 fL (80.0-100.0); Mean Platelet Volume 7.6; Monocytes # (A) 0.7 k/uL (0-1.0); Monocytes % (A) 6 %; Neutrophils % (A) 63 %; Platelet Count 355 k/uL (150-450); RBC 4.23 m/uL (3.80-5.40); RDW 15.4 % (11.5-15.5); WBC 11.2 k/uL (3.8-10.6)
[2024-07-14 02:54] LABS: INR 1.3 (<1.2); Partial Thromboplastin Time 25.4 sec (22.0-30.0); Prothrombin Time 13.9 sec (10.0-12.5)
[2024-07-14 02:56] LABS: ALT 16 U/L (4-34); AST 20 U/L (14-36); African American GFR (CKD) >90 (>60 ml/min/1.73 sqM); Albumin 3.4 g/dL (3.5-5.0); Alkaline Phosphatase 92 U/L (38-126); Anion Gap 2 mmol/L; Blood Urea Nitrogen 19 mg/dL (7-17); Calcium 9.2 mg/dL (8.4-10.2); Carbon Dioxide 31 mmol/L (22-30); Chloride 105 mmol/L (98-107); Glucose 122 mg/dL (74-99); Magnesium 1.9 mg/dL (1.6-2.3); Non-African American GFR(CKD) >90 (>60 ml/min/1.73 sqM); Potassium 4.3 mmol/L (3.5-5.1); Sodium 138 mmol/L (137-145); Total Bilirubin 0.5 mg/dL (0.2-1.3); Total Protein 5.7 g/dL (6.3-8.2)
--- NOTE | 2024-07-14 03:02 | ED ---
General Adult HPI - General Chief complaint: Chest Pain Stated complaint: Neck Pain Time Seen by Provider: 07/14/24 02:16 Source: patient, RN notes reviewed, old records reviewed Mode of arrival: EMS Limitations: no limitations - History of Present Illness Initial comments: 73-year-old female presenting for evaluation of jaw pain, and dyspnea. patient s ymptoms began just prior to arrival. Patient was concerned because she felt that this pain may have traveled into her chest. She has a history of COPD. No known history of CAD. She denied associated vomiting or diaphoresis. She states she does have some upper shoulder pain which she admits is chronic in nature. no Central chest pain. - Related Data Home Medications Medication Instructions Recorded Confirmed Carvedilol [Coreg] 12.5 mg PO BID 10/28/14 02/27/19 Losartan Potassium [Cozaar] 100 mg PO DAILY 10/28/14 02/27/19 Vit C/E/Zn/Coppr/Lutein/Zeaxan 1 cap PO BID 11/24/17 02/27/19 [Preservision Areds 2 Softgel] amLODIPine [Norvasc] 10 mg PO DAILY 11/24/17 02/27/19 Albuterol Inhaler [Ventolin Hfa 1 - 2 puff INHALATION RT-Q6H PRN 02/27/19 02/27/19 Inhaler] Previous Rx's Medication Instructions Recorded Azithromycin [Zithromax] 500 mg PO DAILY #3 tab 03/04/19 Cefdinir [Omnicef] 300 mg PO BID #6 cap 03/04/19 Fluticasone Propion/Salmeterol 1 inhalation PO BID #1 inhaler 03/04/19 [Advair 250-50 Diskus] guaiFENesin [Mucinex] 600 mg PO Q12HR PRN #30 tablet.er 03/04/19 predniSONE [Deltasone] 40 mg PO DAILY #8 tab 03/04/19 Allergies Allergy/AdvReac Type Severity Reaction Status Date / Time Iodinated Contrast Media Allergy Rash/Hives Verified 07/14/24 02:28 tramadol Allergy facial Verified 07/14/24 02:28 drooping Review of Systems ROS Statement: Those systems with pertinent positive or pertinent negative responses have been documented in the HPI. ROS Other: All systems not noted in ROS Statement are negative. Past Medical History Past Medical History: COPD, Eye Disorder, Hypertension, Osteoarthritis (OA) Additional Past Medical History / Comment(s): macular degeneration, actinic keratosis. 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, left hip replacement, sevral benign moles removed, lisa cataracts, brandon Past Anesthesia/Blood Transfusion Reactions: No Reported Reaction Past Psychological History: No Psychological Hx Reported Smoking Status: Former smoker Past Alcohol Use History: Rare Past Drug Use History: None Reported - Past Family History Mother Family Medical History: CVA/TIA, Hypertension, Myocardial Infarction ([place]) Father Family Medical History: AFIB, Hypertension, Myocardial Infarction ([place]) Sister(s) Daughter(s) Family Medical History: Cancer General Exam Limitations: no limitations General appearance: alert, in no apparent distress Head exam: Present: atraumatic, normocephalic Eye exam: Present: normal appearance, PERRL ENT exam: Present: normal exam Neck exam: Present: normal inspection Respiratory exam: Present: rales, decreased breath sounds. Absent: respiratory distress, wheezes Cardiovascular Exam: Present: regular rate, normal rhythm GI/Abdominal exam: Present: soft. Absent: distended, tenderness, guarding Extremities exam: Present: normal inspection, normal capillary refill. Absent: calf tenderness Neurological exam: Present: alert, oriented X3 Psychiatric exam: Present: normal affect, normal mood Skin exam: Present: warm, dry, intact Course Vital Signs 07/14/24 02:21 Temperature 97.6 F Pulse Rate 62 Respiratory 18 Rate Blood Pressure 129/63 O2 Sat by Pulse 94 L Oximetry Medical Decision Making - Medical Decision Making Was pt. sent in by a medical professional or institution (, PA, PUBLIC POLICY MANAGER, urgent care, hospital, or shelter...) When possible be specific @ -No Did you speak to anyone other than the patient for history (EMS, parent, family, police, friend...)? What history was obtained from this source @ -No Did you review nursing and triage notes (agree or disagree)? Why? @ -I reviewed and agree with nursing and triage notes Were old charts reviewed (outside hosp., previous admission, EMS record, old EKG, old radiological studies, urgent care reports/EKG's, shelter records)? Report findings @ -No old charts were reviewed Differential Chest Pain: Stable Angina, Unstable Angina, STEMI, NSTEMI Aortic Dissection, Pneumothorax, Musculoskeletal, Esophageal Spasm GERD, Cholecystitis, Pancreatitis, Zoster, this is not meant to be an all-inclusive list. EKG interpreted by me (3pts min.). @Sinus rhythm rate of 64, MN interval 176, QRS duration 94, QTc [address] segment elevation. X-rays interpreted by me (1pt min.). @ -Chest x-ray showing cardiomegaly and pulmonary vascular congestion CT interpreted by me (1pt min.). @ -None done U/S interpreted by me (1pt. min.). @ -None done What testing was considered but not performed or refused? (CT, X-rays, U/S, labs)? Why? @ -None What meds were considered but not given or refused? Why? @ -None Did you discuss the management of the patient with other professionals (professionals i.e. , PA, PUBLIC POLICY MANAGER, lab, RT, psych nurse, school social worker, die storage worker, teacher, nursing officer, child welfare caseworker)? Give summary @EM Was smoking cessation discussed for >3mins.? @ -No Was critical care preformed (if so, how long)? @ -No Were there social determinants of health that impacted care today? How? (Homelessness, low income, unemployed, alcoholism, drug addiction, transportation, low edu. Level, literacy, decrease access to med. care, care home, rehab)? @ -No Was there de-escalation of care discussed even if they declined (Discuss DNR or withdrawal of care, Hospice)? DNR status @ -No What co-morbidities impacted this encounter? (DM, HTN, Smoking, COPD, CAD, Cancer, CVA, ARF, Chemo, Hep., AIDS, mental health diagnosis, sleep apnea, morbid obesity)? @ -COPD Was patient admitted / discharged? Hospital course, mention meds given and route, prescriptions, significant lab abnormalities, going to OR and other pertinent info. @ -23-year-old female with jaw pain, dyspnea. Concern for anginal equivalent. Chest x-ray showing cardiomegaly and pulmonary vascular congestion. Initial laboratory testing is unremarkable. Including negative troponin. Patient will be observed for diuresis, serial cardiac enzymes, echocardiogram. Cardiology will be placed on consult. Undiagnosed new problem with uncertain prognosis? @ -No Drug Therapy requiring intensive monitoring for toxicity (Heparin, Nitro, Insulin, Cardizem)? @ -No Were any procedures done? @ -No Diagnosis/symptom? @CHF, possible anginal equivalent Acute, or Chronic, or Acute on Chronic? @ -Acute Uncomplicated (without systemic symptoms) or Complicated (systemic symptoms)? @ -Default Side effects of treatment? @ -No Exacerbation, Progression, or Severe Exacerbation? @ -No Poses a threat to life or bodily function? How? (Chest pain, [place], [place], pneumonia, PE, COPD, DKA, ARF, appy, cholecystitis, CVA, Diverticulitis, Homicidal, Suicidal, threat to staff... and all critical care pts) @ -Yes, CHF, ACS - Lab Data Result diagrams: 07/14/24 02:31 07/14/24 02:31 Lab Results 07/14/24 07/14/24 07/14/24 Range/Units 02:31 02:31 02:31 WBC 11.2 H (3.8-10.6) k/uL RBC 4.23 (3.80-5.40) m/uL Hgb 12.0 (11.4-16.0) gm/dL Hct 38.4 (34.0-46.0) % MCV 90.8 (80.0-100.0) fL MCH 28.3 (25.0-35.0) pg MCHC 31.2 (31.0-37.0) g/dL RDW 15.4 (11.5-15.5) % Plt Count 355 (150-450) k/uL MPV 7.6 Neutrophils % 63 % Lymphocytes % 23 % Monocytes % 6 % Eosinophils % 6 % Basophils % 0 % Neutrophils # 7.0 (1.3-7.7) k/uL Lymphocytes # 2.6 (1.0-4.8) k/uL Monocytes # 0.7 (0-1.0) k/uL Eosinophils # 0.7 (0-0.7) k/uL Basophils # 0.0 (0-0.2) k/uL Hypochromasia Slight PT 13.9 H (10.0-12.5) sec INR 1.3 H (<1.2) APTT 25.4 (22.0-30.0) sec Sodium 138 (137-145) mmol/L Potassium 4.3 (3.5-5.1) mmol/L Chloride 105 (98-107) mmol/L Carbon Dioxide 31 H (22-30) mmol/L Anion Gap 2 mmol/L BUN 19 H (7-17) mg/dL Creatinine 0.50 L (0.52-1.04) mg/dL Est GFR (CKD-EPI)AfAm >90 (>60 ml/min/1.73 sqM) Est GFR (CKD-EPI)NonAf >90 (>60 ml/min/1.73 sqM) Glucose 122 H (74-99) mg/dL Calcium 9.2 (8.4-10.2) mg/dL Magnesium 1.9 (1.6-2.3) mg/dL Total Bilirubin 0.5 (0.2-1.3) mg/dL AST 20 (14-36) U/L ALT 16 (4-34) U/L Alkaline Phosphatase 92 (38-126) U/L Troponin I (0.000-0.034) ng/mL NT-Pro-B Natriuret Pep pg/mL Total Protein 5.7 L (6.3-8.2) g/dL Albumin 3.4 L (3.5-5.0) g/dL 07/14/24 07/14/24 Range/Units 02:31 02:38 WBC (3.8-10.6) k/uL RBC (3.80-5.40) m/uL Hgb (11.4-16.0) gm/dL Hct (34.0-46.0) % MCV (80.0-100.0) fL MCH (25.0-35.0) pg MCHC (31.0-37.0) g/dL RDW (11.5-15.5) % Plt Count (150-450) k/uL MPV Neutrophils % % Lymphocytes % % Monocytes % % Eosinophils % % Basophils % % Neutrophils # (1.3-7.7) k/uL Lymphocytes # (1.0-4.8) k/uL Monocytes # (0-1.0) k/uL Eosinophils # (0-0.7) k/uL Basophils # (0-0.2) k/uL Hypochromasia PT (10.0-12.5) sec INR (<1.2) APTT (22.0-30.0) sec Sodium (137-145) mmol/L Potassium (3.5-5.1) mmol/L Chloride (98-107) mmol/L Carbon Dioxide (22-30) mmol/L Anion Gap mmol/L BUN (7-17) mg/dL Creatinine (0.52-1.04) mg/dL Est GFR (CKD-EPI)AfAm (>60 ml/min/1.73 sqM) Est GFR (CKD-EPI)NonAf (>60 ml/min/1.73 sqM) Glucose (74-99) mg/dL Calcium (8.4-10.2) mg/dL Magnesium (1.6-2.3) mg/dL Total Bilirubin (0.2-1.3) mg/dL AST (14-36) U/L ALT (4-34) U/L Alkaline Phosphatase (38-126) U/L Troponin I <0.012 (0.000-0.034) ng/mL NT-Pro-B Natriuret Pep 730 pg/mL Total Protein (6.3-8.2) g/dL Albumin (3.5-5.0) g/dL Disposition Clinical Impression: Chest pain, CHF (congestive heart failure) Disposition: ADMITTED IP TO THIS HOSP Condition: Stable Is patient prescribed a controlled substance at d/c from ED?: No Referrals: Saeid Beaver DO [Primary Care Provider] - 1-2 days Time of Disposition: 03:35
--- NOTE | 2024-07-14 03:21 | XR ---
EXAM: XR Chest, 2 Views CLINICAL HISTORY: Chest Pain TECHNIQUE: Frontal and lateral views of the chest. COMPARISON: 03/04/19 FINDINGS: Lungs: Mild diffuse interstitial opacities in both lungs. Lungs are slightly underinflated. Pleural space: Unremarkable. Heart: Cardiomegaly. Mediastinum: Unremarkable. Normal mediastinal contour. Bones/joints: No acute findings. IMPRESSION: Suspect mild CHF
[2024-07-14] MEDS: ASPIRIN 325 MG TAB PO STA (03:24)
[2024-07-14] MEDS: MORPHINE SULFATE 2 MG/ML SYRINGE IVP STA (03:28)
[2024-07-14] MEDS: FUROSEMIDE 10 MG/ML 2 ML VIAL IV STA (03:30)
[2024-07-14] MEDS ORDERED: ONDANSETRON 4 MG/2 ML VIAL IVP PRN (03:31)
[2024-07-14] MEDS ORDERED: NALOXONE 0.4 MG/ML 1 ML VIAL IV PRN (03:31)
[2024-07-14] MEDS: ACETAMINOPHEN TAB 325 MG TAB PO PRN (04:56)
[2024-07-14] MEDS: NAPROXEN 250 MG TAB PO PRN (08:48)
[2024-07-14] MEDS: MORPHINE SULFATE 4 MG/ML SYRINGE IV PRN (08:51)
[2024-07-14] MEDS: GABAPENTIN 300 MG CAP PO SCH (08:51)
[2024-07-14] MEDS: carvediloL 12.5 MG TAB PO SCH (08:51)
[2024-07-14] MEDS: FUROSEMIDE 10 MG/ML 2 ML VIAL IV SCH (08:52)
--- NOTE | 2024-07-14 08:53 | P.HPIM ---
History of Present Illness Chief complaint: Dyspnea History of present illness; 73-year-old female with a past medical history of hypertension, type 2 diabetes, COPD, and diastolic CHF presents with complaints of jaw pain and dyspnea. Patient reports yesterday she went to bed and woke up around 1 AM to go to the bathroom which she reports is normal for her. She reports when she mated to the bathroom she started having bilateral jaw pain that radiated down the neck and into the chest. At this point time patient was very scared and decided to call EMS. Patient characterizes the chest pain as more so pressure but denies it being dull or sharp. Patient reports nothing seems to worsen the pain but the morphine she received when she arrived to the hospital helped the pain. Initial lab work from the ER was significant for WBC 11.2, hemoglobin 12, MCV 90.8, PT 13.9, INR 1.3, sodium 138, potassium 4.3, creatinine 0.5, glucose 122, troponin less than 0.012, BNP 730. EKG done in the ER showed heart rate of 64 bpm, no ST segment elevation or de pression seen, no T-wave inversions seen. Sinus rhythm with sinus arrhythmia ER CXR: Suspect mild CHF Patient admitted to internal medicine service REVIEW OF SYSTEMS: CONSTITUTIONAL: No fever, no malaise, no fatigue. HEENT: No recent visual problems or hearing problems. Denied any sore throat. CARDIOVASCULAR: No chest pain, orthopnea, PND, no palpitations, no syncope. PULMONARY: No shortness of breath, no cough, no hemoptysis. GASTROINTESTINAL: No diarrhea, no nausea, no vomiting, no abdominal pain. NEUROLOGICAL: No headaches, no weakness, no numbness. HEMATOLOGICAL: Denies any bleeding or petechiae. GENITOURINARY: Denies any burning micturition, frequency, or urgency. MUSCULOSKELETAL/RHEUMATOLOGICAL: Denies any joint pain, swelling, or any muscle pain. ENDOCRINE: Denies any polyuria or polydipsia. The rest of the 14-point review of systems is negative. PHYSICAL EXAMINATION: GENERAL: The patient is alert and oriented x3, not in any acute distress. Well developed, well nourished. HEENT: Pupils are round and equally reacting to light. EOMI. No scleral icterus. No conjunctival pallor. Normocephalic, atraumatic. No pharyngeal erythema. No thyromegaly. CARDIOVASCULAR: S1 and S2 present. No murmurs, rubs, or gallops. PULMONARY: Chest is clear to auscultation b/l, no wheezing or crackles. ABDOMEN: Soft, nontender, nondistended, normoactive bowel sounds. No palpable or ganomegaly. MUSCULOSKELETAL: No joint swelling or deformity. EXTREMITIES: No cyanosis, clubbing, or pedal edema. NEUROLOGICAL: Gross neurological examination did not reveal any focal deficits. SKIN: No rashes. Assessment & Plan: Acute: #Dyspnea/diastolic CHF exacerbation: Started on Lasix 20 mg IV twice daily Cardio on consult, appreciate further recommendations Echo from 2019 shows EF between 55 to 60% with normal left ventricular systolic function Repeat echo ordered Pending results of stress test Chronic: #Type 2 diabetes: Continued home metformin 500 mg p.o. with dinner #Hypertension: Continued home carvedilol 12.5 mg p.o. twice daily #Diabetic neuropathy: Continued home gabapentin 30 mg p.o. 3 times daily #COPD F: None E: None N: Heart healthy diet A: Normally ambulates at home unassisted DVT ppx: Lovenox 40 SQ daily GI ppx: Protonix 40 mg p.o. daily Dispo: Pending clinical course Vaughn Flower MD PGY-1 FM Dictation was produced using [email or web address] dictation software. please excuse any grammatical, word or spelling errors. Past Medical History Past Medical History: COPD, Eye Disorder, Hypertension, Osteoarthritis (OA) Additional Past Medical History / Comment(s): macular degeneration, actinic keratosis. 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 patient states she quit smoing 3-4 years ago. Past Drug Use History: None Reported - Past Family History Mother Family Medical History: CVA/TIA, Hypertension, Myocardial Infarction ([place]) Father Family Medical History: AFIB, Hypertension, Myocardial Infarction ([place]) Sister(s) Daughter(s) Family Medical History: Cancer Medications and Allergies Home Medications Medication Instructions Recorded Confirmed Type Carvedilol [Coreg] 12.5 mg PO BID 10/28/14 07/14/24 History Vit C/E/Zn/Coppr/Lutein/Zeaxan 1 cap PO BID 11/24/17 07/14/24 History [Preservision Areds 2 Softgel] Gabapentin [Neurontin] 300 mg PO TID 07/14/24 07/14/24 History Naproxen Sodium [Aleve] 220 mg PO BID PRN 07/14/24 07/14/24 History metFORMIN HCL 500 mg PO W/SUPPER 07/14/24 07/14/24 History Allergies Allergy/AdvReac Type Severity Reaction Status Date / Time Iodinated Contrast Media Allergy Rash/Hives Verified 07/14/24 07:41 tramadol AdvReac facial Verified 07/14/24 07:41 drooping Physical Exam Vitals: Vital Signs Temp Pulse Pulse Resp BP BP Pulse Ox 07/14/24 07:00 97.8 F 63 15 132/77 84 L 07/14/24 04:14 97.7 F 62 18 112/63 95 07/14/24 03:59 67 18 131/80 93 L 07/14/24 02:21 97.6 F 62 18 129/63 94 L Intake and Output 07/13/24 07/14/24 07/14/24 22:59 06:59 14:59 Other: # Voids 0 Weight 90.718 kg Results CBC & Chem 7: 07/14/24 02:31 07/14/24 02:31 Labs: Abnormal Lab Results - Last 24 Hours (Table) 07/14/24 07/14/24 07/14/24 Range/Units 02:31 02:31 02:31 WBC 11.2 H (3.8-10.6) k/uL PT 13.9 H (10.0-12.5) sec INR 1.3 H (<1.2) Carbon Dioxide 31 H (22-30) mmol/L BUN 19 H (7-17) mg/dL Creatinine 0.50 L (0.52-1.04) mg/dL Glucose 122 H (74-99) mg/dL Total Protein 5.7 L (6.3-8.2) g/dL Albumin 3.4 L (3.5-5.0) g/dL
[2024-07-14] MEDS ORDERED: AMINOPHYLLINE 500 MG/20 ML VIAL IV PRN (10:03)
[2024-07-14] MEDS ORDERED: CAFFEINE CITRATE 60 MG/3 ML VIAL IV PRN (10:03)
[2024-07-14] MEDS ORDERED: REGADENOSON 0.4 MG/5 ML SYRINGE IV PRN (10:03)
--- NOTE | 2024-07-14 12:04 | P.CRDCN ---
History of Present Illness Consult date: 07/14/24 Reason for Consult (text): CHF and CP History of present illness: This is a 73-year-old female patient of Dr. Gwendolyn Grady with past medical history of hypertension, pre-diabetes, mild COPD, mitral regurgitation, macular degneration, remote history of smoking. We have been asked to evaluate the patient for CHF and chest pain. Patient states that she developed jaw aching that went into her neck and her head was throbbing. It was sudden onset and lasted all night until this morning. She received morphine which seemed to help a little bit but only temporarily. She received nitroglycerin by EMS which did not help. She states she was a little nauseated with a headache. No fever or chills, no cough, no sweats, no shortness of breath. Patient was last seen in the office on 06/09/2024 and patient was started on amlodipine and losartan was discontinued. Blood pressure 132/77, heart rate 63. Patient has been started on IV Lasix 20 mg every 12 hours and morphine as needed. She states t her neck pain is starting to hurt. She denies any difficulty swallowing. Discussed recommendations of stress testing which patient is agreeable to move forward with today. EKG: Sinus rhythm, sinus arrhythmia no acute ST-T wave changes. Chest x-ray: Suspected mild heart failure Laboratory studies: WBC 11.2, hemoglobin 12. BUN 19 creatinine 0.5. Potassium 4.3. Troponin negative x 2. proBNP 730. Home cardiac medications: Coreg 12.5 mg twice daily. Echocardiogram performed 2018 revealed EF of 55 to 60%, moderate concentric left ventricular hypertrophy, moderate aortic valve sclerosis without stenosis, mild MR, mild TR, no pulmonary hypertension. Lexiscan Cardiolite stress test performed in the office in 2016 was a negative stress test by EKG criteria and normal myocardial perfusion and function. BRANDON performed 06/03/2017 to evaluate mitral regurgitation revealed normal LV function, mild MR, no evidence of [id number] shunt. Review Of Systems: At the time of my exam: CONSTITUTIONAL: Denies fever or chills. HEENT: Denies blurred vision, vision changes, or eye pain. Denies hemoptysis CARDIOVASCULAR: Reports chest pain. Denies orthopnea. Denies PND. Denies palpitations RESPIRATORY: Denies shortness of breath. GASTROINTESTINAL: Denies abdominal pain. Denies nausea or vomiting. HEMATOLOGIC: Denies bleeding disorders. GENITOURINARY: Denies any blood in urine. SKIN: Denies puritis. Denies rash. Physical examination: Gen: This is a 73-year-old female in no acute distress VS: reviewed HEENT: Head is atraumatic, normocephalic. Pupils equal, round. Sclerae is anicteric. NECK: Supple. No JVD. LUNGS: Clear to auscultation. No wheezes or rhonchi. No intercostal retractions. HEART: Regular rate and rhythm. No murmur. ABDOMEN: Soft No tenderness. EXTREMITIES: No pedal edema. No calf tenderness. NEUROLOGICAL: Patient is awake, alert and oriented x3. Assessment: Neck pain, acute coronary syndrome ruled out Hypertension Prediabetes COPD Mitral regurgitation Macular degeneration Remote history of tobacco use Plan: Resume patient's home cardiac medications Schedule patient for Lexiscan stress test today Obtain 2-D echocardiogram and Doppler study to assess cardiac structure and function If testing is unremarkable, patient is cleared for discharge from cardiology and may follow-up with Dr. Gwendolyn Grady in 2 weeks. Thank you kindly for this consultation. Nurse practitioner note has been reviewed, I agree with documented findings and plan of care. Patient was seen and examined. Past Medical History Past Medical History: COPD, Eye Disorder, Hypertension, Osteoarthritis (OA) Additional Past Medical History / Comment(s): macular degeneration, actinic keratosis. 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 patient states she quit smoing 3-4 years ago. Past Drug Use History: None Reported - Past Family History Mother Family Medical History: CVA/TIA, Hypertension, Myocardial Infarction ([place]) Father Family Medical History: AFIB, Hypertension, Myocardial Infarction ([place]) Sister(s) Daughter(s) Family Medical History: Cancer Medications and Allergies Home Medications Medication Instructions Recorded Confirmed Type Carvedilol [Coreg] 12.5 mg PO BID 10/28/14 07/14/24 History Vit C/E/Zn/Coppr/Lutein/Zeaxan 1 cap PO BID 11/24/17 07/14/24 History [Preservision Areds 2 Softgel] Gabapentin [Neurontin] 300 mg PO TID 07/14/24 07/14/24 History Naproxen Sodium [Aleve] 220 mg PO BID PRN 07/14/24 07/14/24 History metFORMIN HCL 500 mg PO W/SUPPER 07/14/24 07/14/24 History Allergies Allergy/AdvReac Type Severity Reaction Status Date / Time Iodinated Contrast Media Allergy Rash/Hives Verified 07/14/24 07:41 tramadol AdvReac facial Verified 07/14/24 07:41 drooping Physical Exam Vitals: Vital Signs Temp Pulse Pulse Resp BP BP Pulse Ox 07/14/24 07:00 97.8 F 63 15 132/77 84 L 07/14/24 04:14 97.7 F 62 18 112/63 95 07/14/24 03:59 67 18 131/80 93 L 07/14/24 02:21 97.6 F 62 18 129/63 94 L Intake and Output 07/13/24 07/14/24 07/14/24 22:59 06:59 14:59 Other: # Voids 0 Weight 90.718 kg Results 07/14/24 02:31 07/14/24 02:31 Cardiac Enzymes 07/14/24 07/14/24 07/14/24 Range/Units 02:31 02:31 04:27 AST 20 (14-36) U/L Troponin I <0.012 <0.012 (0.000-0.034) ng/mL Coagulation 07/14/24 Range/Units 02:31 PT 13.9 H (10.0-12.5) sec APTT 25.4 (22.0-30.0) sec CBC 07/14/24 Range/Units 02:31 WBC 11.2 H (3.8-10.6) k/uL RBC 4.23 (3.80-5.40) m/uL Hgb 12.0 (11.4-16.0) gm/dL Hct 38.4 (34.0-46.0) % Plt Count 355 (150-450) k/uL Comprehensive Metabolic Panel 07/14/24 Range/Units 02:31 Sodium 138 (137-145) mmol/L Potassium 4.3 (3.5-5.1) mmol/L Chloride 105 (98-107) mmol/L Carbon Dioxide 31 H (22-30) mmol/L BUN 19 H (7-17) mg/dL Creatinine 0.50 L (0.52-1.04) mg/dL Glucose 122 H (74-99) mg/dL Calcium 9.2 (8.4-10.2) mg/dL AST 20 (14-36) U/L ALT 16 (4-34) U/L Alkaline Phosphatase 92 (38-126) U/L Total Protein 5.7 L (6.3-8.2) g/dL Albumin 3.4 L (3.5-5.0) g/dL Current Medications Generic Name Dose Route Start Last Admin Trade Name Freq PRN Reason Stop Dose Admin Acetaminophen 650 mg 07/14/24 03:31 07/14/24 04:56 Acetaminophen Tab 325 Mg Tab PO 650 mg Q6HR PRN Administration Mild Pain or Fever > 100.5 Furosemide 20 mg 07/14/24 09:00 Furosemide 10 Mg/Ml 2 Ml Vial IV Q12HR HUONG Morphine Sulfate 4 mg 07/14/24 03:31 Morphine Sulfate 4 Mg/Ml Syringe IV Q4HR PRN Severe Pain (Scale 7 to 10) Naloxone HCl 0.2 mg 07/14/24 03:31 Naloxone 0.4 Mg/Ml 1 Ml Vial IV Q2M PRN Opioid Reversal Ondansetron HCl 4 mg 07/14/24 03:31 Ondansetron 4 Mg/2 Ml Vial IVP Q8HR PRN Nausea And Vomiting Intake and Output 07/13/24 07/14/24 07/14/24 22:59 06:59 14:59 Other: # Voids 0 Weight 90.718 kg 07/14/24 02:31 07/14/24 02:31
--- NOTE | 2024-07-14 12:50 | CA ---
Lexiscan Nuclear Stress Test Report Name: Jemma Izaguirre Exam Date: 07/14/2024 11:39 Exam Location: [facility] Stress Ht (in): 65 Wt (lb): 200 BSA: 1.98 Ordering Phys: Eliana Kessler Referring Phys: MYRON Technologist: Saeid Thomas Age: 73 Gender: F : 1950 Procedure CPT: Indications: Reflex order-Stress test ICD-10 Codes: Patient History: Medications: SEE CHART Meds past 24 hrs: Pretest Chest Pain: STRESS TEST Lexiscan Protocol Exercise Duration (min:sec): 01:[address] Depressions (mm): Angina Score: Villeda Score: Resting HR (bpm): 65 Peak HR (bpm): 88 Resting BP (mmHg): 113 / 69 Peak BP (mmHg): 116 / 70 MPHR: 146 Target HR: 124 % MPHR: 60 METS: 1.0 Total Dose: Peak Dose: Atropine: Double Product: 91196 BP Response: Stress Termination: INFUSION COMPLETE Stress Symptoms: NAUSEA Stress Summary: ECG ANALYSIS Resting ECG: Stress ECG: CONCLUSIONS At baseline EKG showed normal sinus rhythm, normal axis, no significant ST or T wave abnormalities. Patient recieved IV infusion of Lexiscan 0.4mg and at peak infusion EKG showed no significant change from baseline. Conclusions: 1. Normal EKG response to Lexiscan infusion 2. Nuclear imaging to be reported separately. Dr. Chano Erwin DO (Electronically Signed) Final Date: 14 July 2024 12:49
--- NOTE | 2024-07-14 13:07 | NM ---
EXAMINATION TYPE: NM stress lexiscan cardiolite DATE OF EXAM: 07/14/2024 COMPARISON: NONE CLINICAL INDICATION: Female, 73 years old with history of neck and jaw pain, chest pain; TECHNIQUE: After the intravenous administration of 10.8 mCi Tc 99m Sestamibi - Cardiolite resting SP ECT images acquired 45 minutes post injection. The patient received 0.4mg Lexiscan, 24.2 mCi Tc 99m Sestamibi - Stress images obtained [address] injection FINDINGS: Review of stress and rest SPECT images demonstrates no distinct perfusion abnormality. Gated analysi s shows reduced wall motion involving the apex and myocardium septum on gated rest image. I possibly artifactual. Estimated left ventricular ejection fraction of 65 %. IMPRESSION: No scintigraphic evidence for reversible ischemia. [facility], , 07/14/2024 1:05 PM
[2024-07-14] MEDS: VIT A,C & E-LUTEIN-MINERALS 1 EACH TAB PO SCH (13:15)
[2024-07-14] MEDS: ENOXAPARIN 40 MG/0.4 ML SYRINGE SQ SCH (13:51)
[2024-07-14] MEDS: PANTOPRAZOLE 40 MG TABLET PO SCH (17:55)
[2024-07-14] MEDS: metFORMIN 500 MG TAB PO SCH (17:55)
[2024-07-14] MEDS ORDERED: ALBUTEROL NEBULIZED 2.5 MG/3 ML INHALATION PRN (19:52)
[2024-07-14] MEDS: IPRATROPIUM 0.5 MG/2.5 ML NEBU INHALATION SCH (20:14)
[2024-07-14] MEDS: SYMBICORT 160-4.5 MCG INHALER INHALATION SCH (20:14)
[2024-07-15 08:41] LABS: ALT 14 U/L (8-44); AST 10 U/L (13-35); Albumin 3.6 g/dL (3.8-4.9); Albumin/Globulin Ratio 1.89 Ratio (1.60-3.17); Alkaline Phosphatase 80 U/L (41-126); BUN/Creat Ratio 23.91 Ratio (12.00-20.00); Blood Urea Nitrogen 26.3 mg/dL (9.0-27.0); Calcium 8.8 mg/dL (8.7-10.3); Carbon Dioxide 30.1 mmol/L (21.6-31.8); Chloride 102 mmol/L (96-109); Globulin 1.9 g/dL (1.6-3.3); Glucose 158 mg/dL (70-110); Potassium 4.5 mmol/L (3.5-5.5); Sodium 140 mmol/L (135-145); Total Bilirubin 0.3 mg/dL (0.3-1.2); Total Protein 5.5 g/dL (6.2-8.2)
[2024-07-15 08:45] LABS: HCT 36.4 % (37.2-46.3); HGB 11.1 g/dL (12.0-15.0); MCH 27.8 pg (27.0-32.0); MCHC 30.5 g/dL (32.0-37.0); MCV 91.2 FL (80.0-97.0); Mean Platelet Volume 10.8 FL (9.5-12.2); NRBC Per 100 WBC 0 X 10*3/uL (0.00-0.01); Platelet Count 312 X 10*3/uL (140-440); RBC 3.99 X 10*6/uL (4.10-5.20); RDW 16.2 % (11.5-14.5); WBC 12.46 X 10*3/uL (4.50-10.00)
[2024-07-15 09:41] LABS: Basophils # (A) 0.06 X 10*3/uL (0.00-0.10); Basophils % (A) 0.5 %; Eosinophils # (A) 0.24 X 10*3/uL (0.04-0.35); Eosinophils % (A) 1.9 %; Lymphocytes # (A) 2.06 X 10*3/uL (0.90-5.00); Lymphocytes % (A) 16.5 %; Monocytes # (A) 1.51 X 10*3/uL (0.20-1.00); Monocytes % (A) 12.1 %; Neutrophils # (A) 8.52 X 10*3/uL (1.80-7.70); Neutrophils % (A) 68.4 %
--- NOTE | 2024-07-15 10:05 | P.PN ---
Subjective This is a 73-year-old female patient of Dr. Gwendolyn Grady with past medical history of hypertension, pre-diabetes, mild COPD, mitral regurgitation, macular degneration, remote history of smoking. We have been asked to evaluate the patient for CHF and chest pain. Patient states that she developed jaw aching that went into her neck and her head was throbbing. It was sudden onset and lasted all night until this morning. She received morphine which seemed to help a little bit but only temporarily. She received nitroglycerin by EMS which did not help. She states she was a little nauseated with a headache. No fever or chills, no cough, no sweats, no shortness of breath. Patient was last seen in the office on 06/09/2024 and patient was started on amlodipine and losartan was discontinued. Blood pressure 132/77, heart rate 63. Patient has been started on IV Lasix 20 mg every 12 hours and morphine as needed. She states t her neck pain is starting to hurt. She denies any difficulty swallowing. Discussed recommendations of stress testing which patient is agreeable to move forward with today. EKG: Sinus rhythm, sinus arrhythmia no acute ST-T wave changes. Chest x-ray: Suspected mild heart failure Laboratory studies: WBC 11.2, hemoglobin 12. BUN 19 creatinine 0.5. Potassium 4.3. Troponin negative x 2. proBNP 730. Home cardiac medications: Coreg 12.5 mg twice daily. Echocardiogram performed 2018 revealed EF of 55 to 60%, moderate concentric left ventricular hypertrophy, moderate aortic valve sclerosis without stenosis, mild MR, mild TR, no pulmonary hypertension. Lexiscan Cardiolite stress test performed in the office in 2016 was a negative stress test by EKG criteria and normal myocardial perfusion and function. FAVIAN performed 06/03/2017 to evaluate mitral regurgitation revealed normal LV function, mild MR, no evidence of grsnu-rn-kuvn shunt. 07/15 Patient has been doing fairly well. She denies any further chest pain or neck pain. Lexiscan stress test performed which showed no inducible ischemia. Echo showed EF 55% with mild aortic stenosis and mild mitral regurgitation. Low- grade fever 100.2. Physical examination: Gen: This is a 73-year-old female in no acute distress VS: reviewed HEENT: Head is atraumatic, normocephalic. Pupils equal, round. Sclerae is anicteric. NECK: Supple. No JVD. LUNGS: Clear to auscultation. No wheezes or rhonchi. No intercostal retractions. HEART: Regular rate and rhythm. No murmur. ABDOMEN: Soft No tenderness. EXTREMITIES: No pedal edema. No calf tenderness. NEUROLOGICAL: Patient is awake, alert and oriented x3. Assessment: Neck pain, acute coronary syndrome ruled out Hypertension Prediabetes COPD Mitral regurgitation Macular degeneration Remote history of tobacco use Plan: Lexiscan stress that show no inducible ischemia and echo unrevealing. Symptoms have improved. Continue current regimen and stable for discharge home with outpatient follow-up. Objective - Vital Signs Vital signs: Vital Signs Temp 97.6 F 07/15/24 06:27 Pulse 84 07/15/24 08:33 Resp 18 07/15/24 08:00 BP 109/64 07/15/24 06:27 Pulse Ox 92 L 07/15/24 08:25 FiO2 Intake & Output 07/14/24 07/15/24 07/15/24 18:59 06:59 18:59 Intake Total 240 100 Balance 240 100 Intake: Oral 240 100 Other: Voiding Method Toilet Toilet # Voids 0 1 # Bowel Movements 0 - Labs CBC & Chem 7: 07/15/24 05:05 07/15/24 05:05 Labs: Abnormal Lab Results - Last 24 Hours (Table) 07/15/24 07/15/24 Range/Units 05:05 05:05 WBC 12.46 H (4.50-10.00) X 10*3/uL RBC 3.99 L (4.10-5.20) X 10*6/uL Hgb 11.1 L (12.0-15.0) g/dL Hct 36.4 L (37.2-46.3) % MCHC 30.5 L (32.0-37.0) g/dL RDW 16.2 H (11.5-14.5) % Immature Gran # 0.07 H (0.00-0.04) X 10*3/uL Neutrophils # 8.52 H (1.80-7.70) X 10*3/uL Monocytes # 1.51 H (0.20-1.00) X 10*3/uL Est GFR (CKD-EPI) 53 L (>=60) BUN/Creatinine Ratio 23.91 H (12.00-20.00) Ratio Glucose 158 H (70-110) mg/dL AST 10 L (13-35) U/L Total Protein 5.5 L (6.2-8.2) g/dL Albumin 3.6 L (3.8-4.9) g/dL
--- NOTE | 2024-07-15 11:13 | XR ---
EXAMINATION TYPE: XR chest 1V portable DATE OF EXAM: 07/15/2024 COMPARISON: 1016 HISTORY: Shortness of breath TECHNIQUE: Single frontal view of the chest is obtained. FINDINGS: The heart is enlarged and there is ectasia or aneurysmal dilation thoracic aorta. Tiny lisa ateral effusion and subsegmental basilar atelectasis. Arthropathy of the shoulders, diffuse osteopeni a and curvature of the spine with degenerative change. No pneumothorax cannot excluded some 1 cm nodu le along the medial margin of the left lung apex. IMPRESSION: 1. Basilar atelectasis versus early infiltrate. Tiny right effusion. 2. Question a 1 cm medial left upper lobe lung nodule. Recommend follow-up PA and lateral views of th e chest. [facility], , 07/15/2024 11:10 AM
[2024-07-15] MEDS: diphenhydrAMINE 50 MG/ML 1 ML VIAL IVP ONE (12:49)
[2024-07-15] MEDS: methylPREDNISolone SOD SUCCI 125 MG/2 ML VIAL IV ONE (12:49)
[2024-07-15] MEDS: FAMOTIDINE 20 MG/2 ML VIAL IV ONE (12:52)
[2024-07-15 14:11] VITALS: TEMP 98.4
--- NOTE | 2024-07-15 14:14 | CA ---
Transthoracic Echo Report Name: Jemma Izaguirre Age: 73 Gender: F : 1950 Exam Date: 07/14/2024 11:53 Exam Location: [facility] Ht (in): 64 Wt (lb): 200 Ordering Physician: Wei Tsang MD Attending/Referring Phys: [id number], Sharan Programmer Analyst Consultant Yola Mascorro RDCS Procedure CPT: Indications: chf Cardiac Hx: Technical Quality: Fair Contrast 1: Total Dose (mL): Contrast 2: Total Dose (mL): MEASUREMENTS (Male / Female) Normal Values 2D ECHO LV Diastolic Diameter PLAX 3.8 cm 4.2 - 5.9 / 3.9 - 5.3 cm LV Systolic Diameter PLAX 2.6 cm IVS Diastolic Thickness 1.3 cm 0.6 - 1.0 / 0.6 - 0.9 cm LVPW Diastolic Thickness 1.2 cm 0.6 - 1.0 / 0.6 - 0.9 cm LV Relative Wall Thickness 0.7 RV Internal Dim ED PLAX 3.0 cm LA Volume 104.2 cm??? 18 - 58 / 22 - 52 cm??? LA Volume Index 50.5 cm???/m??? 16 - 28 cm???/m??? M-MODE Aortic Root Diameter MM 3.6 cm LA Systolic Diameter MM 5.1 cm LA Ao Ratio MM 1.4 AV Cusp Separation MM 1.9 cm DOPPLER AV Peak Velocity 201.3 cm/s AV Peak Gradient 16.2 mmHg AV Mean Velocity 142.0 cm/s AV Mean Gradient 9.1 mmHg AV Velocity Time Integral 38.4 cm LVOT Peak Velocity 220.8 cm/s LVOT Peak Gradient 19.5 mmHg LVOT Velocity Time Integral 42.7 cm MV Peak Velocity 175.4 cm/s MV Peak Gradient 12.3 mmHg MV Mean Velocity 95.3 cm/s MV Mean Gradient 4.1 mmHg MV Velocity Time Integral 42.4 cm MV Area PHT 1.7 cm??? Mitral E Point Velocity 92.7 cm/s Mitral A Point Velocity 151.7 cm/s Mitral E to A Ratio 0.6 MV Deceleration Time 452.9 ms TR Peak Velocity 329.2 cm/s TR Peak Gradient 43.3 mmHg Right Ventricular Systolic Press 48.3 mmHg FINDINGS Left Ventricle Moderately increased left ventricular wall thickness. Left ventricular cavity size normal. Normal left ventricular systolic function with no obvious regional wall motion abnormalities. Left ventricular ejection fraction is estimated at 60-65 %. Right Ventricle Normal right ventricular size and function. Moderate pulmonary hypertension. Right Atrium Normal right atrial size. Left Atrium Severely increased left atrial volume. Mildly increased left atrial area. Mitral Valve Mitral valve thickened. Moderate mitral annular calcification. Mild mitral stenosis. Mild mitral regurgitation. Aortic Valve Mild aortic stenosis with a peak gradient of 16 mmHg and a mean gradient of 9 mmHg. No aortic regurgitation. LVOT obstruction noted LVOT peak velocity 2 m/s with valsalva increased to 3 m/s. Tricuspid Valve Structurally normal tricuspid valve. [id number] tricuspid regurgitation. Pulmonic Valve Structurally normal pulmonic valve. Pericardium No pericardial effusion. Aorta Normal size aortic root and proximal ascending aorta. CONCLUSIONS Left ventricular ejection fraction 60-65% Moderate increased left ventricular wall thickness RVSP 48 Moderately dilated left atrium Moderate mitral annular calcification Mild mitral regurgitation Mild aortic stenosis Mild LVOT gradient Mild to moderate tricuspid regurgitation Previewed by: Dr. Chano Erwin DO (Electronically Signed) Final Date: 15 July 2024 14:13
--- NOTE | 2024-07-15 14:56 | CT ---
EXAMINATION TYPE: CT chest angio for PE CT DLP: 493.30 mGycm, Automated exposure control for dose reduction was used. DATE OF EXAM: 07/15/2024 1:36 PM COMPARISON: . Chest radiograph from same day. CTA chest 02/27/2019. CLINICAL INDICATION:Female, 73 years old with history of Dyspnea; Dyspnea r/o PE/ TECHNIQUE/CONTRAST: CTA scan of the thorax is performed with IV Contrast, patient injected with 68ml mL of Isovue 370, pu lmonary embolism protocol. MIP images are created and reviewed. FINDINGS: Pulmonary Artery: There is no evidence for a central filling defect within the pulmonary vasculature to suggest acute pulmonary embolism. Limited evaluation of the segmental and subsegmental branches se condary to bolus timing. The pulmonary artery is of normal size. Reflux of contrast into the IVC and hepatic veins. Lungs/Pleura: No pleural effusion or pneumothorax. Scattered regions of linear atelectasis. No suspic ious pulmonary nodule or mass. No significant focal consolidation. Airway: Large airways are patent. Heart: Mildly enlarged. Trace pericardial effusion. Moderate coronary arterial calcification. Small a ortic valvular calcification. Mitral annulus calcification. Vasculature: Conventional three-vessel aortic arch. Ascending thoracic aortic aneurysm beginning at t he aortic root with peripheral low density heterogenous eccentric attenuation. Measures up to 4.9 cm (series 4, image 72). There is increased density along the anterior aspect of the aorta extending int o this low density (series 4, image 73). This is most consistent with intramural hematoma extends to the level of the mid descending thoracic aorta. Appears to begin near the origin of the right coronar y artery. Moderate atherosclerotic calcification of the aorta and its branches. The descending thorac ic aorta measures up to 3.2 cm in diameter. Mediastinum: No gross evidence of adenopathy. Musculoskeletal: No acute osseous abnormalities. Multilevel degenerative disc disease. Bilateral shou lder arthropathy. Bilateral shoulder bursal distention with the right containing calcification. Soft Tissues: Unremarkable. Lower neck: No significant findings. Upper Abdomen: No significant findings. IMPRESSION: 1. Ascending thoracic aortic aneurysm with acute intramural hematoma beginning at the aortic root and extending to the mid descending thoracic aorta with active bleeding into the hematoma. Vascular surg ical consultation is recommended. 2. No evidence of central pulmonary embolism. Limited evaluation of the segmental and subsegmental br anches. Findings called to and discussed with Dr. Vaughn Flower at 1:53 PM on 07/15/2024. [facility], , 07/15/2024 1:54 PM
[2024-07-15 16:29] VITALS: BP 142/75; PULSE 80; RESP 16
--- NOTE | 2024-07-15 17:53 | P.DS ---
Providers Date of admission: 07/14/24 03:31 Attending physician: William Gates Consults: 07/14/24 03:31 Consult Physician Routine Consulting Provider: Skyler Grady Consult Reason/Comments: CHF, CP Do you want consulting provider notified?: Yes Primary care physician: Saeid [facility] Course: Discharge Diagnosis: Hypertension Prediabetes COPD Mitral regurgitation Macular degeneration Remote history of tobacco use Diastolic CHF Type 2 diabetes Hospital Course: Chief complaint: Dyspnea History of present illness; 73-year-old female with a past medical history of hypertension, type 2 diabetes, COPD, and diastolic CHF presents with complaints of jaw pain and dyspnea. Patient reports yesterday she went to bed and woke up around 1 AM to go to the bathroom which she reports is normal for her. She reports when she mated to the bathroom she started having bilateral jaw pain that radiated down the neck and into the chest. At this point time patient was very scared and decided to call EMS. Patient characterizes the chest pain as more so pressure but denies it being dull or sharp. Patient reports nothing seems to worsen the pain but the morphine she received when she arrived to the hospital helped the pain. Initial lab work from the ER was significant for WBC 11.2, hemoglobin 12, MCV 90.8, PT 13.9, INR 1.3, sodium 138, potassium 4.3, creatinine 0.5, glucose 122, troponin less than 0.012, BNP 730. EKG done in the ER showed heart rate of 64 bpm, no ST segment elevation or depression seen, no T-wave inversions seen. Sinus rhythm with sinus arrhythmia. ER CXR: Suspect mild CHF While admitted to the hospital the patient was seen by cardiology who performed a Lexiscan stress test which showed no scintigraphic evidence of reversible ischemia. Patient also underwent a stress test which showed a normal EKG response to Lexiscan infusion. Patient also received an echocardiogram Doppler which showed left ventricular ejection fraction of 60 to 65%, moderate increased left ventricular wall thickness, RVSP 48, moderately dilated left atrium, moderate mitral annular calcification, mild mitral regurgitation, mild aortic stenosis, mild LVOT gradient, and mild to moderate tricuspid regurgitation. Patient was requiring 3 L of oxygen while inpatient, that paired with a one-time low-grade fever prompted us to get a D-dimer to rule out PE. The D-dimer was elevated so a chest CTA was ordered which did not show a PE but did reveal an ascending thoracic aortic aneurysm with acute intramural hematoma beginning at the aortic root and extending to the mid descending thoracic aorta with active bleeding into the hematoma. At this time CT surgery was consulted at [facility], they declined the case after seeing the imaging and recommended transferring to a different hospital. You will them was contacted and the cardiothoracic fellow there accepted the patient as a transfer. Vitals at time of transfer included heart rate 80, respiratory rate 16, blood pressure 142/75, and O2 saturation of 94 on 3 L nasal cannula. After procurement of a bed at [facility] the patient was helicoptered to the facility from [facility]. Pt seen and examined at bedside: Patient did not report any jaw pain and dyspnea when she was seen in the morning. Vital signs reveiwed and stable: General: non toxic, no distress, appears at stated age, normal weight Derm: no unusual rashes/lesions, warm Head: atraumatic, normocephalic, symmetric Eyes: EOMI, no lid lag, anicteric sclera, pupils equal round reactive to light ENT: Nose and ears atraumatic Neck: No cervical lymphadenopathy, trachea midline, supple Mouth: no lip lesion, mucus membranes moist Cardiovascular: S1S2 reg, no murmur, positive dorsalis pedis pulse bilateral, no edema Lungs: Decreased air entry bilaterally, no rhonchi, no rales, no accessory muscle use Abdominal: soft, nontender to palpation, no guarding Ext: muscle strength 5 out of 5 in all 4 extremities grossly, no gross muscle atrophy, no contractures, Neuro: CN II-XI grossly intact, no gross focal neuro deficits Psych: Alert, oriented, appropriate affect A total of greater than 30 minutes were spent preparing this complex discarge summary. Patient was discharged on []. Patient Condition at Discharge: Stable Plan - Discharge Summary Discharge Rx Participant: No New Discharge Prescriptions: No Action Carvedilol [Coreg] 12.5 mg PO BID Vit C/E/Zn/Coppr/Lutein/Zeaxan [Preservision Areds 2 Softgel] 1 cap PO BID Naproxen Sodium [Aleve] 220 mg PO BID PRN PRN Reason: Pain metFORMIN HCL 500 mg PO W/SUPPER Gabapentin [Neurontin] 300 mg PO TID Discharge Medication List Carvedilol [Coreg] 12.5 mg PO BID 10/28/14 [History] Vit C/E/Zn/Coppr/Lutein/Zeaxan [Preservision Areds 2 Softgel] 1 cap PO BID 11/24/17 [History] Gabapentin [Neurontin] 300 mg PO TID 07/14/24 [History] Naproxen Sodium [Aleve] 220 mg PO BID PRN 07/14/24 [History] metFORMIN HCL 500 mg PO W/SUPPER 07/14/24 [History] Follow up Appointment(s)/Referral(s): Saeid Beaver DO [Primary Care Provider] - 1-2 days Skyler Grady MD [STAFF PHYSICIAN] - 2 Weeks
[2024-07-15 18:19] LABS: Appearance,Urine Cloudy (Clear); Bacteria,Urine Occasional /hpf; Bilirubin,Urine Negative (Negative); Blood,Urine Negative (Negative); Color,Urine Yellow; Glucose,Urine (UA) Negative (Negative); Hyaline Casts,Urine 45 /lpf (0-2); Ketones,Urine Negative (Negative); Leukocyte Esterase,Urine Trace (Negative); Mucus,Urine Occasional /hpf; Nitrite,Urine Negative (Negative); Protein,Urine Trace (Negative); RBC,Urine 1 /hpf (0-5); Specific Gravity,Urine 1.026 (1.001-1.035); Squamous Epithelial Cell,Urine 3 /hpf (0-4); Urobilinogen,Urine <2.0 mg/dL (<2.0); WBC,Urine 6 /hpf (0-5)
== END 2024-07-15 17:58 | disposition short-term general hospital (02) | DRG 291 ==
LOC: EC 02:14 → OBSVTOIN 03:31 → 6NMEDSUR 03:31
PROVIDERS: ADMIT Hospitalist; ATTEND Hospitalist
DX: I11.0 Hypertensive heart disease with heart failure (principal); I50.33 Acute on chronic diastolic (congestive) heart failure; I74.11 Embolism and thrombosis of thoracic aorta; J44.9 Chronic obstructive pulmonary disease, unspecified; I71.21 Aneurysm of the ascending aorta, without rupture; E11.40 Type 2 diabetes mellitus with diabetic neuropathy, unspecified; Z79.4 Long term (current) use of insulin; I08.3 Combined rheumatic disorders of mitral, aortic and tricuspid valves; H35.30 Unspecified macular degeneration; H54.8 Legal blindness, as defined in USA; Z96.643 Presence of artificial hip joint, bilateral; Z79.84 Long term (current) use of oral hypoglycemic drugs; Z79.899 Other long term (current) drug therapy; Z87.891 Personal history of nicotine dependence; Z82.49 Family history of ischemic heart disease and other diseases of the circulatory system
CPT/HCPCS: 36415; 71045; 71046; 71275; 78452; 80053; 81001; 83735; 83880; 84145; 84484; 85025; 85379; 85610; 85730; 87086; 87636; 93005; 93017; 93306; 94640; 94760; 96374; 96375; 99285

== ENCOUNTER 2024-10-26 02:20 | Inpatient (IN) | payer MEDICARE, OTHER ==
--- NOTE | 2024-10-26 02:50 | ED ---
General Adult HPI - General Chief complaint: Chest Pain Stated complaint: Chest Pain/Heart burn Time Seen by Provider: 10/26/24 02:22 Source: patient, EMS, RN notes reviewed, old records reviewed Mode of arrival: EMS - History of Present Illness Initial comments: 74-year-old female presenting for evaluation of heartburn. Symptom began just prior to arrival. Patient states that she had lower chest and upper abdominal heartburn which was relieved by sitting up. This occurred while she was sleeping. No increased dyspnea from baseline. Patient wears 4 L normally. Patient had aortic dissection in June 2024. Patient denies any current chest or back pain. No neck pain. She denies prior history of CAD. - Related Data Home Medications Medication Instructions Recorded Confirmed Carvedilol [Coreg] 12.5 mg PO BID 10/28/14 07/14/24 Vit C/E/Zn/Coppr/Lutein/Zeaxan 1 cap PO BID 11/24/17 07/14/24 [Preservision Areds 2 Softgel] Gabapentin [Neurontin] 300 mg PO TID 07/14/24 07/14/24 Naproxen Sodium [Aleve] 220 mg PO BID PRN 07/14/24 07/14/24 metFORMIN HCL 500 mg PO W/SUPPER 07/14/24 07/14/24 Allergies Allergy/AdvReac Type Severity Reaction Status Date / Time Iodinated Contrast Media Allergy Rash/Hives Verified 07/14/24 07:41 lidocaine Allergy Itching Verified 10/26/24 02:29 Penicillins Allergy Rash/Hives Verified 10/26/24 02:29 tramadol AdvReac facial Verified 07/14/24 07:41 drooping Review of Systems ROS Statement: Those systems with pertinent positive or pertinent negative responses have been documented in the HPI. ROS Other: All systems not noted in ROS Statement are negative. Past Medical History Past Medical History: COPD, Eye Disorder, Hypertension, Osteoarthritis (OA) Additional Past Medical History / Comment(s): macular degeneration, actinic keratosis. 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, left hip replacement, sevral benign moles removed, lisa cataracts, brandon Past Anesthesia/Blood Transfusion Reactions: No Reported Reaction Past Psychological History: No Psychological Hx Reported Smoking Status: Former smoker Past Alcohol Use History: Rare Past Drug Use History: None Reported - Past Family History Mother Family Medical History: CVA/TIA, Hypertension, Myocardial Infarction ([place]) Father Family Medical History: AFIB, Hypertension, Myocardial Infarction ([place]) Sister(s) Daughter(s) Family Medical History: Cancer General Exam General appearance: alert, in no apparent distress Head exam: Present: atraumatic, normocephalic Eye exam: Present: normal appearance, PERRL ENT exam: Present: normal exam Neck exam: Present: normal inspection. Absent: tenderness, meningismus Respiratory exam: Present: rhonchi, decreased breath sounds. Absent: respirator y distress Cardiovascular Exam: Present: regular rate, normal rhythm, systolic murmur GI/Abdominal exam: Present: soft. Absent: distended, tenderness, guarding Extremities exam: Present: normal inspection, normal capillary refill Neurological exam: Present: alert, oriented X3 Psychiatric exam: Present: normal affect, normal mood Skin exam: Present: warm, dry, intact Course Vital Signs 10/26/24 10/26/24 02:22 04:28 Temperature 97.8 F Pulse Rate 67 71 Respiratory 16 18 Rate Blood Pressure 134/69 134/70 O2 Sat by Pulse 94 L 95 Oximetry Medical Decision Making - Medical Decision Making Was pt. sent in by a medical professional or institution (Dr. PA, MULTI SITE LEASING CONSULTANT, urgent care, hospital, or snf...) When possible be specific @ -No Did you speak to anyone other than the patient for history (EMS, parent, family, police, friend...)? What history was obtained from this source @ -No Did you review nursing and triage notes (agree or disagree)? Why? @ -I reviewed and agree with nursing and triage notes Were old charts reviewed (outside hosp., previous admission, EMS record, old EKG, old radiological studies, urgent care reports/EKG's, snf records)? Report findings @ -No old charts were reviewed Differential Diagnosis (chest pain, altered mental status, abdominal pain women, abdominal pain men, vaginal bleeding, weakness, fever, dyspnea, syncope, headache, dizziness, GI bleed, back pain, seizure, CVA, palpatations, mental health, musculoskeletal)? @ -Not applicable EKG interpreted by me (3pts min.). @ -[Sinus rhythm with left bundle branch block, rate of 67, TN interval 198, QRS duration 162, QTc 494 X-rays interpreted by me (1pt min.). @ -Chest x-ray showing possible left lower lobe infiltrate. CT interpreted by me (1pt min.). @ -[None done U/S interpreted by me (1pt. min.). @ -None done What testing was considered but not performed or refused? (CT, X-rays, U/S, labs)? Why? @ -None What meds were considered but not given or refused? Why? @ -None Did you discuss the management of the patient with other professionals (professionals i.e. , PA, MULTI SITE LEASING CONSULTANT, lab, RT, psych nurse, social media community manager, book publisher, teacher, conservation enforcement officer, case technician)? Give summary @[facility] Was smoking cessation discussed for >3mins.? @ -No Was critical care preformed (if so, how long)? @ -No Were there social determinants of health that impacted care today? How? (Homelessness, low income, unemployed, alcoholism, drug addiction, transportation, low edu. Level, literacy, decrease access to med. care, fpc, rehab)? @ -No Was there de-escalation of care discussed even if they declined (Discuss DNR or withdrawal of care, Hospice)? DNR status @ -No What co-morbidities impacted this encounter? (DM, HTN, Smoking, COPD, CAD, Cancer, CVA, ARF, Chemo, Hep., AIDS, mental health diagnosis, sleep apnea, morbid obesity)? @ -[Oxygen dependent COPD, history of aortic dissection status post repair Was patient admitted / discharged? Hospital course, mention meds given and route, prescriptions, significant lab abnormalities, going to OR and other pertinent info. @74-year-old female with an episode of heartburn which was resolved at the time of arrival. Patient had taken aspirin prior to arrival. She had recent history of aortic dissection status postrepair. She did not have any persistent chest pain or back pain. Patient is not hypertensive upon arrival. Her EKG shows a left bundle branch block. She has chronic stable lab abnormalities. Negative troponin. Patient will be observed, repeat cardiac enzymes have been ordered. Undiagnosed new problem with uncertain prognosis? @ -No Drug Therapy requiring intensive monitoring for toxicity (Heparin, Nitro, Insulin, Cardizem)? @ -No Were any procedures done? @ -No Diagnosis/symptom? @ -[Chest pain rule out Acute, or Chronic, or Acute on Chronic? @ -Acute Uncomplicated (without systemic symptoms) or Complicated (systemic symptoms)? @ -[default Side effects of treatment? @ -No Exacerbation, Progression, or Severe Exacerbation? @ -No Poses a threat to life or bodily function? How? (Chest pain, [place], [place], pneumonia, PE, COPD, DKA, ARF, appy, cholecystitis, CVA, Diverticulitis, Homicidal, Suicidal, threat to staff... and all critical care pts) @ -[Yes, chest pain, ACS - Lab Data Result diagrams: 10/26/24 02:55 10/26/24 02:55 Lab Results 10/26/24 10/26/24 10/26/24 Range/Units 02:55 02:55 02:55 WBC 12.0 H (3.8-10.6) k/uL RBC 3.53 L (3.80-5.40) m/uL Hgb 10.2 L (11.4-16.0) gm/dL Hct 32.3 L (34.0-46.0) % MCV 91.6 (80.0-100.0) fL MCH 28.9 (25.0-35.0) pg MCHC 31.6 (31.0-37.0) g/dL RDW 15.7 H (11.5-15.5) % Plt Count 264 (150-450) k/uL MPV 7.2 Neutrophils % 80 % Lymphocytes % 14 % Monocytes % 5 % Eosinophils % 1 % Basophils % 0 % Neutrophils # 9.6 H (1.3-7.7) k/uL Lymphocytes # 1.6 (1.0-4.8) k/uL Monocytes # 0.5 (0-1.0) k/uL Eosinophils # 0.1 (0-0.7) k/uL Basophils # 0.0 (0-0.2) k/uL Hypochromasia Moderate PT 14.3 H (10.0-12.5) sec INR 1.4 H (<1.2) APTT 25.7 (22.0-30.0) sec Sodium 135 L (137-145) mmol/L Potassium 3.7 (3.5-5.1) mmol/L Chloride 94 L (98-107) mmol/L Carbon Dioxide 39 H (22-30) mmol/L Anion Gap 2 mmol/L BUN 32 H (7-17) mg/dL Creatinine 0.81 (0.52-1.04) mg/dL Est GFR (CKD-EPI)AfAm 83 (>60 ml/min/1.73 sqM) Est GFR (CKD-EPI)NonAf 72 (>60 ml/min/1.73 sqM) Glucose 158 H (74-99) mg/dL Calcium 8.4 (8.4-10.2) mg/dL Magnesium 2.1 (1.6-2.3) mg/dL Total Bilirubin 0.4 (0.2-1.3) mg/dL AST 15 (14-36) U/L ALT 20 (4-34) U/L Alkaline Phosphatase 82 (38-126) U/L Troponin I (0.000-0.034) ng/mL Total Protein 4.8 L (6.3-8.2) g/dL Albumin 2.6 L (3.5-5.0) g/dL 10/26/24 Range/Units 02:55 WBC (3.8-10.6) k/uL RBC (3.80-5.40) m/uL Hgb (11.4-16.0) gm/dL Hct (34.0-46.0) % MCV (80.0-100.0) fL MCH (25.0-35.0) pg MCHC (31.0-37.0) g/dL RDW (11.5-15.5) % Plt Count (150-450) k/uL MPV Neutrophils % % Lymphocytes % % Monocytes % % Eosinophils % % Basophils % % Neutrophils # (1.3-7.7) k/uL Lymphocytes # (1.0-4.8) k/uL Monocytes # (0-1.0) k/uL Eosinophils # (0-0.7) k/uL Basophils # (0-0.2) k/uL Hypochromasia PT (10.0-12.5) sec INR (<1.2) APTT (22.0-30.0) sec Sodium (137-145) mmol/L Potassium (3.5-5.1) mmol/L Chloride (98-107) mmol/L Carbon Dioxide (22-30) mmol/L Anion Gap mmol/L BUN (7-17) mg/dL Creatinine (0.52-1.04) mg/dL Est GFR (CKD-EPI)AfAm (>60 ml/min/1.73 sqM) Est GFR (CKD-EPI)NonAf (>60 ml/min/1.73 sqM) Glucose (74-99) mg/dL Calcium (8.4-10.2) mg/dL Magnesium (1.6-2.3) mg/dL Total Bilirubin (0.2-1.3) mg/dL AST (14-36) U/L ALT (4-34) U/L Alkaline Phosphatase (38-126) U/L Troponin I 0.025 (0.000-0.034) ng/mL Total Protein (6.3-8.2) g/dL Albumin (3.5-5.0) g/dL Disposition Clinical Impression: Chest pain Disposition: ADMITTED IP TO THIS HOSP Condition: Stable Is patient prescribed a controlled substance at d/c from ED?: No Referrals: Saeid Beaver DO [Primary Care Provider] - 1-2 days Time of Disposition: 05:14
[2024-10-26 03:21] LABS: Basophils % (A) 0 %; Eosinophils # (A) 0.1 k/uL (0-0.7); Eosinophils % (A) 1 %; HCT 32.3 % (34.0-46.0); HGB 10.2 gm/dL (11.4-16.0); Hypochromasia Moderate; Lymphocytes # (A) 1.6 k/uL (1.0-4.8); Lymphocytes % (A) 14 %; MCH 28.9 pg (25.0-35.0); MCHC 31.6 g/dL (31.0-37.0); MCV 91.6 fL (80.0-100.0); Mean Platelet Volume 7.2; Monocytes # (A) 0.5 k/uL (0-1.0); Monocytes % (A) 5 %; Neutrophils # (A) 9.6 k/uL (1.3-7.7); Neutrophils % (A) 80 %; Platelet Count 264 k/uL (150-450); RBC 3.53 m/uL (3.80-5.40); RDW 15.7 % (11.5-15.5)
[2024-10-26 03:27] LABS: INR 1.4 (<1.2); Partial Thromboplastin Time 25.7 sec (22.0-30.0); Prothrombin Time 14.3 sec (10.0-12.5)
[2024-10-26 03:44] LABS: ALT 20 U/L (4-34); AST 15 U/L (14-36); African American GFR (CKD) 83 (>60 ml/min/1.73 sqM); Albumin 2.6 g/dL (3.5-5.0); Alkaline Phosphatase 82 U/L (38-126); Blood Urea Nitrogen 32 mg/dL (7-17); Calcium 8.4 mg/dL (8.4-10.2); Chloride 94 mmol/L (98-107); Glucose 158 mg/dL (74-99); Magnesium 2.1 mg/dL (1.6-2.3); Non-African American GFR(CKD) 72 (>60 ml/min/1.73 sqM); Potassium 3.7 mmol/L (3.5-5.1); Sodium 135 mmol/L (137-145); Total Bilirubin 0.4 mg/dL (0.2-1.3); Total Protein 4.8 g/dL (6.3-8.2)
[2024-10-26 03:50] LABS: Anion Gap 2 mmol/L
[2024-10-26 03:52] LABS: Carbon Dioxide 39 mmol/L (22-30)
--- NOTE | 2024-10-26 04:10 | XR ---
EXAM: XR Chest, 2 Views CLINICAL HISTORY: ITS.REASON XR Reason: Chest Pain TECHNIQUE: Frontal and lateral views of the chest. COMPARISON: No relevant prior studies available. FINDINGS: Lungs: Confluent left lower lobe airspace opacity. The right lung is clear. Elevation the right hemidiaphragm. Pleural space: Unremarkable. No pneumothorax. Heart: Moderate enlargement of the cardiac silhouette. Mediastinum: Unremarkable. Normal mediastinal contour. Bones/joints: Sternotomy wires are in place. Degenerative changes are seen in the spine and shoulders. No acute fracture. Vasculature: Calcifications overlie the aorta. IMPRESSION: Left lower lobe pneumonia.
[2024-10-26] MEDS ORDERED: NALOXONE 0.4 MG/ML 1 ML VIAL IV PRN (05:09)
[2024-10-26] MEDS ORDERED: ACETAMINOPHEN TAB 325 MG TAB PO PRN (05:09)
[2024-10-26] MEDS: FUROSEMIDE 20 MG TAB PO SCH (09:35)
[2024-10-26] MEDS: carvediloL 12.5 MG TAB PO SCH (09:36)
[2024-10-26] MEDS: APIXABAN 5 MG TAB PO SCH (09:37)
[2024-10-26] MEDS ORDERED: CALCIUM CARBONATE 500 MG CHEWABLE PO PRN (11:26)
--- NOTE | 2024-10-26 11:38 | P.CRDCN ---
History of Present Illness History of present illness: HISTORY OF PRESENT ILLNESS: This is a 74-year-old female with a past medical history significant for atrial fibrillation, hypertension, COPD with home oxygen use, and thoracic aortic diss ection status post surgery [facility]. Patient follows in the office with Dr. Grady. We have been asked to see the patient in consultation for chest pain. Patient examined at the bedside in the emergency room. [facility]-up appointment. Patient states she was feeling well at the time and had no symptoms. She states yesterday evening after eating dinner she began to feel congested. She reports having some wheezing as well. She reports shortness of breath when she was laying flat. She currently denies having any chest pain or pressure. DIAGNOSTICS: - EKG reveals sinus mechanism with left bundle branch block. - Chest xray left lower lobe pneumonia - Laboratory data: WBC 12.0. Hemoglobin 10.2. Platelet count 264. Sodium 135. Potassium 3.7. BUN 32. Creatinine 0.81. Troponin negative x 3. - Current home cardiac medications include amiodarone 200 mg daily, carvedilol 25 mg twice a day, Lasix 20 mg daily, Eliquis 5 mg twice a day. - Most recent echocardiogram obtained in June 2024 revealed ejection fraction 60 to 65%, mild MR, mild aortic stenosis, mild LVOT gradient, mild to moderate tricuspid regurgitation - Patient underwent Lexiscan stress test in June 2024 which was negative for ischemia - Cardiac catheterization history: Unknown REVIEW OF SYSTEMS: At the time of my exam: CONSTITUTIONAL: Denies fever or chills. HEENT: Denies blurred vision, vision changes, or eye pain. Denies hemoptysis CARDIOVASCULAR: Denies chest pain. Denies orthopnea. Denies PND. Denies palpitations RESPIRATORY: Denies shortness of breath. GASTROINTESTINAL: Denies abdominal pain. Denies nausea or vomiting. HEMATOLOGIC: Denies bleeding disorders. GENITOURINARY: Denies any blood in urine. SKIN: Denies pruitis. Denies rash. PHYSICAL EXAM: VITAL SIGNS: Reviewed. GENERAL: Well-developed in no acute distress. HEENT: Head is normocephalic. Pupils are equal, round. Sclerae anicteric. Mucous membranes of the mouth are moist. Neck supple. No JVD or thyromegaly LUNGS: Respirations even and unlabored. Lungs essentially clear to auscultation bilaterally. HEART: Regular rate and rhythm. S1 and S2 heard. ABDOMEN: Soft. Nondistended. Nontender. EXTREMITIES: Normal range of motion. No clubbing or cyanosis. Peripheral pulses intact. No lower extremity edema NEUROLOGIC: Awake and alert. Oriented x 3. ASSESSMENT: Left lower lobe pneumonia, per chest x-ray Leukocytosis Chest pain, ruled out, patient denies having chest pain or pressure Paroxysmal atrial fibrillation History of thoracic aortic dissection status post surgery [facility] Chronic hypoxic respiratory failure on home oxygen COPD Hypertension Obesity: BMI 32.3 PLAN: An acute coronary but has been ruled out Resume home cardiac medications Add BNP Obtain records from previous hospitalization at [facility] No plans for stress testing or cardiac catheterization Patient to follow-up postdischarge with Dr. Grady Nurse practitioner note has been reviewed by physician. Signing provider agrees with the documented findings, assessment, and plan of care documented by MILKING SYSTEM INSTALLER as a scribe. Past Medical History Past Medical History: COPD, Eye Disorder, Hypertension, Osteoarthritis (OA) Additional Past Medical History / Comment(s): macular degeneration, actinic keratosis. 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, left hip replacement, sevral benign moles removed, lisa cataracts, brandon Past Anesthesia/Blood Transfusion Reactions: No Reported Reaction Past Psychological History: No Psychological Hx Reported Smoking Status: Former smoker Past Alcohol Use History: Rare Past Drug Use History: None Reported - Past Family History Mother Family Medical History: CVA/TIA, Hypertension, Myocardial Infarction ([place]) Father Family Medical History: AFIB, Hypertension, Myocardial Infarction ([place]) Sister(s) Daughter(s) Family Medical History: Cancer Medications and Allergies Home Medications Medication Instructions Recorded Confirmed Type Vit C/E/Zn/Coppr/Lutein/Zeaxan 1 cap PO BID 11/24/17 10/26/24 History [Preservision Areds 2 Softgel] Naproxen Sodium [Aleve] 220 mg PO BID PRN 07/14/24 10/26/24 History Amiodarone [Cordarone] 200 mg PO DAILY 10/26/24 10/26/24 History Apixaban [Eliquis] 5 mg PO BID 10/26/24 10/26/24 History Budesonide [Pulmicort] 0.5 mg INHALATION RT-BID 10/26/24 10/26/24 History Calcium Carb-Vit D 500Mg-5Mcg 1 tab PO TID 10/26/24 10/26/24 History [Oscal 500+D 5 Mcg (200 Iu)] Folic Acid 1 mg PO DAILY 10/26/24 10/26/24 History Furosemide [Lasix] 20 mg PO DAILY 10/26/24 10/26/24 History Gabapentin [Neurontin] 100 mg PO TID 10/26/24 10/26/24 History HYDROcodone/APAP 5-325MG [Pioneer 1 tab PO Q6HR PRN 10/26/24 10/26/24 History 5-325] Ipratropium-Albuterol Nebulize 3 ml INHALATION RT-Q6H PRN 10/26/24 10/26/24 History [Duoneb 0.5 mg-3 mg/3 ml Soln] Levothyroxine Sodium [Synthroid] 50 mcg PO DAILY 10/26/24 10/26/24 History Magnesium Glycinate 325 mg PO HS 10/26/24 10/26/24 History Multivitamins, Thera [Multivitamin 1 tab PO DAILY 10/26/24 10/26/24 History (formulary)] Oxybutynin Xl [Ditropan XL] 5 mg PO HS 10/26/24 10/26/24 History Pantoprazole Sodium [Protonix] 40 mg PO DAILY 10/26/24 10/26/24 History Potassium Chloride [Klor-Con M10] 10 meq PO DAILY 10/26/24 10/26/24 History Thiamine [Vitamin B-1] 100 mg PO DAILY 10/26/24 10/26/24 History carvediloL [Coreg] 25 mg PO BID 10/26/24 10/26/24 History predniSONE [Deltasone] 20 mg PO BID 10/26/24 10/26/24 History Allergies Allergy/AdvReac Type Severity Reaction Status Date / Time Iodinated Contrast Media Allergy Rash/Hives Verified 10/26/24 09:18 lidocaine Allergy Itching Verified 10/26/24 09:18 Penicillins Allergy Rash/Hives Verified 10/26/24 09:18 tramadol AdvReac facial Verified 10/26/24 09:18 drooping Physical Exam Vitals: Vital Signs Temp Pulse Resp BP Pulse Ox 10/26/24 08:00 20 10/26/24 07:02 67 18 114/74 97 10/26/24 05:24 68 18 132/78 100 10/26/24 04:28 71 18 134/70 95 10/26/24 02:22 97.8 F 67 16 134/69 94 L Intake and Output 10/25/24 10/26/24 10/26/24 22:59 06:59 14:59 Other: Weight 87.997 kg Results 10/26/24 02:55 10/26/24 02:55 Cardiac Enzymes 10/26/24 10/26/24 10/26/24 Range/Units 02:55 02:55 07:39 AST 15 (14-36) U/L Troponin I 0.025 0.023 (0.000-0.034) ng/mL 10/26/24 Range/Units 10:15 AST (14-36) U/L Troponin I 0.020 (0.000-0.034) ng/mL Coagulation 10/26/24 Range/Units 02:55 PT 14.3 H (10.0-12.5) sec APTT 25.7 (22.0-30.0) sec CBC 10/26/24 Range/Units 02:55 WBC 12.0 H (3.8-10.6) k/uL RBC 3.53 L (3.80-5.40) m/uL Hgb 10.2 L (11.4-16.0) gm/dL Hct 32.3 L (34.0-46.0) % Plt Count 264 (150-450) k/uL Comprehensive Metabolic Panel 10/26/24 Range/Units 02:55 Sodium 135 L (137-145) mmol/L Potassium 3.7 (3.5-5.1) mmol/L Chloride 94 L (98-107) mmol/L Carbon Dioxide 39 H (22-30) mmol/L BUN 32 H (7-17) mg/dL Creatinine 0.81 (0.52-1.04) mg/dL Glucose 158 H (74-99) mg/dL Calcium 8.4 (8.4-10.2) mg/dL AST 15 (14-36) U/L ALT 20 (4-34) U/L Alkaline Phosphatase 82 (38-126) U/L Total Protein 4.8 L (6.3-8.2) g/dL Albumin 2.6 L (3.5-5.0) g/dL Current Medications Generic Name Dose Route Start Last Admin Trade Name Freq PRN Reason Stop Dose Admin Acetaminophen 650 mg 10/26/24 05:09 Acetaminophen Tab 325 Mg Tab PO Q6HR PRN Mild Pain or Fever > 100.5 Amiodarone HCl 200 mg 10/27/24 09:00 Amiodarone 200 Mg Tab PO DAILY HUONG Apixaban 5 mg 10/26/24 09:30 10/26/24 09:37 Apixaban 5 Mg Tab PO 5 mg BID HUONG Administration Protocol Calcium Carbonate/Glycine 1,000 mg 10/26/24 11:26 Calcium Carbonate 500 Mg Chewable PO QID PRN Heartburn Calcium Carbonate/Glycine 1,000 mg 10/26/24 11:33 Calcium Carbonate 500 Mg Chewable PO 10/26/24 11:34 ONCE ONE Carvedilol 25 mg 10/26/24 09:30 10/26/24 09:36 Carvedilol 12.5 Mg Tab PO 25 mg BID-W/MEALS HUONG Administration Furosemide 20 mg 10/26/24 09:30 10/26/24 09:35 Furosemide 20 Mg Tab PO 20 mg DAILY HUONG Administration Naloxone HCl 0.2 mg 10/26/24 05:09 Naloxone 0.4 Mg/Ml 1 Ml Vial IV Q2M PRN Opioid Reversal Pantoprazole Sodium 40 mg 10/26/24 11:30 Pantoprazole 40 Mg/10 Ml Vial IVP BID HUONG Intake and Output 10/25/24 10/26/24 10/26/24 22:59 06:59 14:59 Other: Weight 87.997 kg 10/26/24 02:55 10/26/24 02:55
--- NOTE | 2024-10-26 11:41 | P.HPIM ---
History of Present Illness This is a pleasant 74 years old female. PCP is Dr. Carrizales Presents because of indigestion and heartburn started yesterday. Also been complaining from bilateral shoulder pain that started last night, pain radiating to the neck stating it is about 10/10, nonspecific in character with no known precipitating or relieving factors felt like squeezing No new weakness tingling or numbness but she has limitation of moving her arms above her head because of her shoulder pain Patient also complaining from indigestion and heartburn started yesterday. [place] better after she ate food Today However patient denies dyspnea or coughing. Abdominal pain vomiting or diarrhea Patient complains from frequent urination but no dysuria. No abdominal pain She denies dizziness. She had headache earlier but is gone now. She denies specific weakness or numbness She denies smoking alcohol or illicit drugs. Patient is afebrile, vitals look stable CBC is reviewed, WBC is 12 but patient has chronic mild leukocytosis Hemoglobin 10.2, which is close to baseline between 8.8-11 over the last few months. Before 06/2024 her hemoglobin was 12-15 Rest of BMP, LFT, INR were unremarkable Troponin x 3 is -0.0 25, 0.0 23, 0.0 20 Chest x-ray showing left lower lobe pneumonia per radiologist EKG showing sinus rhythm with no significant ST-T changes Review of Systems Review of systems CONSTITUTIONAL: No fever, no malaise, no fatigue. HEENT: No recent visual problems or hearing problems. Denied any sore throat. CARDIOVASCULAR: No orthopnea, PND, no palpitations, no syncope. PULMONARY: No shortness of breath, no cough, no hemoptysis. GASTROINTESTINAL: No diarrhea, no nausea, no vomiting, no abdominal pain. N ormoactive bowel sounds. NEUROLOGICAL: No headaches, no weakness, no numbness. HEMATOLOGICAL: Denies any bleeding or petechiae. GENITOURINARY: Denies any burning micturition, frequency, or urgency. MUSCULOSKELETAL/RHEUMATOLOGICAL: Denies any joint pain, swelling, or any muscle pain. ENDOCRINE: Denies any polyuria or polydipsia. Past Medical History Past Medical History: COPD, Eye Disorder, Hypertension, Osteoarthritis (OA) Additional Past Medical History / Comment(s): macular degeneration, actinic keratosis. 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, left hip replacement, sevral benign moles removed, lisa cataracts, brandon Past Anesthesia/Blood Transfusion Reactions: No Reported Reaction Past Psychological History: No Psychological Hx Reported Smoking Status: Former smoker Past Alcohol Use History: Rare Past Drug Use History: None Reported - Past Family History Mother Family Medical History: CVA/TIA, Hypertension, Myocardial Infarction ([place]) Father Family Medical History: AFIB, Hypertension, Myocardial Infarction ([place]) Sister(s) Daughter(s) Family Medical History: Cancer Medications and Allergies Home Medications Medication Instructions Recorded Confirmed Type Vit C/E/Zn/Coppr/Lutein/Zeaxan 1 cap PO BID 11/24/17 10/26/24 History [Preservision Areds 2 Softgel] Naproxen Sodium [Aleve] 220 mg PO BID PRN 07/14/24 10/26/24 History Amiodarone [Cordarone] 200 mg PO DAILY 10/26/24 10/26/24 History Apixaban [Eliquis] 5 mg PO BID 10/26/24 10/26/24 History Budesonide [Pulmicort] 0.5 mg INHALATION RT-BID 10/26/24 10/26/24 History Calcium Carb-Vit D 500Mg-5Mcg 1 tab PO TID 10/26/24 10/26/24 History [Oscal 500+D 5 Mcg (200 Iu)] Folic Acid 1 mg PO DAILY 10/26/24 10/26/24 History Furosemide [Lasix] 20 mg PO DAILY 10/26/24 10/26/24 History Gabapentin [Neurontin] 100 mg PO TID 10/26/24 10/26/24 History HYDROcodone/APAP 5-325MG [[place] 1 tab PO Q6HR PRN 10/26/24 10/26/24 History 5-325] Ipratropium-Albuterol Nebulize 3 ml INHALATION RT-Q6H PRN 10/26/24 10/26/24 History [Duoneb 0.5 mg-3 mg/3 ml Soln] Levothyroxine Sodium [Synthroid] 50 mcg PO DAILY 10/26/24 10/26/24 History Magnesium Glycinate 325 mg PO HS 10/26/24 10/26/24 History Multivitamins, Thera [Multivitamin 1 tab PO DAILY 10/26/24 10/26/24 History (formulary)] Oxybutynin Xl [Ditropan XL] 5 mg PO HS 10/26/24 10/26/24 History Pantoprazole Sodium [Protonix] 40 mg PO DAILY 10/26/24 10/26/24 History Potassium Chloride [Klor-Con M10] 10 meq PO DAILY 10/26/24 10/26/24 History Thiamine [Vitamin B-1] 100 mg PO DAILY 10/26/24 10/26/24 History carvediloL [Coreg] 25 mg PO BID 10/26/24 10/26/24 History predniSONE [Deltasone] 20 mg PO BID 10/26/24 10/26/24 History Allergies Allergy/AdvReac Type Severity Reaction Status Date / Time Iodinated Contrast Media Allergy Rash/Hives Verified 10/26/24 09:18 lidocaine Allergy Itching Verified 10/26/24 09:18 Penicillins Allergy Rash/Hives Verified 10/26/24 09:18 tramadol AdvReac facial Verified 10/26/24 09:18 drooping Physical Exam Vitals: Vital Signs Temp Pulse Resp BP Pulse Ox 10/26/24 08:00 20 10/26/24 07:02 67 18 114/74 97 10/26/24 05:24 68 18 132/78 100 10/26/24 04:28 71 18 134/70 95 10/26/24 02:22 97.8 F 67 16 134/69 94 L Intake and Output 10/25/24 10/26/24 10/26/24 22:59 06:59 14:59 Other: Weight 87.997 kg -GENERAL: The patient is alert and oriented x3, n patient is in distress due to pain in her both shoulders. Well developed, well nourished. HEENT: Pupils are round and equally reacting to light. EOMI. No scleral icterus. No conjunctival pallor. Normocephalic, atraumatic. No pharyngeal erythema. No thyromegaly. CARDIOVASCULAR: S1 and S2 present. No murmurs, rubs, or gallops. PULMONARY: Chest is clear to auscultation, no wheezing , no crackles. ABDOMEN: Soft, nontender, nondistended, normoactive bowel sounds. No palpable organomegaly. -MUSCULOSKELETAL: No joint swelling or deformity. Patient complains from bilateral shoulder and neck pain, tenderness is minimal, however patient has limitation in moving her arms above her head bilaterally EXTREMITIES: No cyanosis, clubbing, or pedal edema. NEUROLOGICAL: Gross neurological examination did not reveal any focal deficits. SKIN: No rashes. no petechiae. Results CBC & Chem 7: 10/26/24 02:55 10/26/24 02:55 Labs: Abnormal Lab Results - Last 24 Hours (Table) 10/26/24 10/26/24 10/26/24 Range/Units 02:55 02:55 02:55 WBC 12.0 H (3.8-10.6) k/uL RBC 3.53 L (3.80-5.40) m/uL Hgb 10.2 L (11.4-16.0) gm/dL Hct 32.3 L (34.0-46.0) % RDW 15.7 H (11.5-15.5) % Neutrophils # 9.6 H (1.3-7.7) k/uL PT 14.3 H (10.0-12.5) sec INR 1.4 H (<1.2) Sodium 135 L (137-145) mmol/L Chloride 94 L (98-107) mmol/L Carbon Dioxide 39 H (22-30) mmol/L BUN 32 H (7-17) mg/dL Glucose 158 H (74-99) mg/dL Total Protein 4.8 L (6.3-8.2) g/dL Albumin 2.6 L (3.5-5.0) g/dL Assessment and Plan Assessment: Indigestion, with bilateral shoulder pain. Differential diagnosis cardiac. Versus GI. Rule out spine disease Left lower lobe pneumonia on the chest x-ray. Patient has no fever or leukocytosis Increased frequency of urination, rule out UTI. Patient already on antibiotic Obesity with BMI of 32.36 Plan: Patient continued on home dose of Eliquis We will add Augmentin for possible pneumonia and check pro- Calcitonin. If negative antibiotic may be discontinued Will add IV Protonix Check urine analysis Check cervical spine x-ray and call orthopedic consult Cardiology team already on the case Pain management Labs and medication were reviewed.. Continue same treatment. Continue with symptomatic treatment. Resume home medication. Monitor labs and vitals. DVT and GI prophylaxis. Further recommendations as per clinical course of the patient DVT prophylaxis: Eliquis GI Prophylaxis: Ppi PT/OT: Pending Prognosis is guarded
--- NOTE | 2024-10-26 11:53 | XR ---
EXAMINATION TYPE: XR cervical spine limited DATE OF EXAM: 10/26/2024 11:48 AM INDICATION: Patient age:Female; 74 years old; Reason for study: neck and b/l shoulder pain; PHH, pain COMPARISON: CT brain C-spine 02/13/2019 TECHNIQUE: The cervical spine was imaged in AP, lateral, and odontoid projections. FINDINGS: No acute fracture. Reversal of normal cervical lordosis. Minimal grade 1 anterolisthesis of C3 on C4 and C4 on C5. There are osteophytes noted throughout the cervical spine on the anterior and lateral a spects of the vertebral bodies. Multilevel endplate sclerosis with disc space narrowing. Facet arthro asia at C3-C4 and C4-C5. Pedicles are intact. Partial visualization of sternotomy wires. Soft tissu es are within normal limits. The odontoid appears intact. IMPRESSION: 1. No fracture or dislocation. 2. Moderate to severe degenerative disc disease changes of the cervical spine. [facility], , 10/26/2024 11:50 AM
[2024-10-26] MEDS: AMOXIC-POT CLAV 875-125MG 1 EACH TAB PO SCH (12:26)
[2024-10-26] MEDS: CALCIUM CARBONATE 500 MG CHEWABLE PO ONE (12:27)
[2024-10-26] MEDS: PANTOPRAZOLE 40 MG/10 ML VIAL IVP SCH (12:27)
[2024-10-26] MEDS: HYDROcodone/APAP 5-325MG 1 EACH TAB PO STA (12:28)
--- NOTE | 2024-10-26 13:14 | P.CNOR ---
History of Present Illness - [facility] Consult date: 10/26/24 Consult reason: other (Neck/shoulder pain) History of present illness: Patient is a 74-year-old female who presented to [facility] with regards to heartburn/chest pain type symptoms. Patient has a relatively detailed cardiac history. During the admission, she complained of pain that radiated up into her shoulders and also her neck. Patient is being followed by internal medicine and cardiology at this time. Our orthopedic team was also consulted. At bedside in the ER today, patient is resting comfortably, she appears to be in no acute distress. Currently she is having no pain in the shoulders or neck. Patient denies any numbness or tingling to the bilateral upper or lower extremities, she denies any diego loss of strength in the bilateral upper or lower extremities. She denies any loss of bowel or bladder function at this time. She denies any genital or perineal numbness or tingling. Patient has history of bilateral total hip arthroplasties. She denies any previous surgery to the bilateral shoulders or cervical spine. Patient denies any acute trauma, this to include falls over the last few weeks. Patient normally utilizes a walker for ambulation. She does live with a daughter and her grandsons. Patient states that she is not very active, she spends a lot of her time resting in the chair. Like stated above, her cardiothoracic history is quite detailed, she has a his tory of both COPD and congestive heart failure. Patient was diagnosed and underwent surgery for a thoracic aortic dissection in June 2024 at the [facility]. Patient does follow with the cardiology group in [facility]. Patient did have notes present at bedside today that was a detailed history of present illness and her medical history. It did state that she presented with similar symptoms back in June when she was diagnosed with the thoracic aortic dissection. Review of Systems Constitutional: Reports as per HPI Past Medical History Past Medical History: COPD, Eye Disorder, Hypertension, Osteoarthritis (OA) Additional Past Medical History / Comment(s): macular degeneration, actinic keratosis. 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, left hip replacement, sevral benign moles removed, lisa cataracts, brandon Past Anesthesia/Blood Transfusion Reactions: No Reported Reaction Past Psychological History: No Psychological Hx Reported Smoking Status: Former smoker Past Alcohol Use History: Rare Past Drug Use History: None Reported - Past Family History Mother Family Medical History: CVA/TIA, Hypertension, Myocardial Infarction ([place]) Father Family Medical History: AFIB, Hypertension, Myocardial Infarction ([place]) Sister(s) Daughter(s) Family Medical History: Cancer Medications and Allergies Home Medications Medication Instructions Recorded Confirmed Type Vit C/E/Zn/Coppr/Lutein/Zeaxan 1 cap PO BID 11/24/17 10/26/24 History [Preservision Areds 2 Softgel] Naproxen Sodium [Aleve] 220 mg PO BID PRN 07/14/24 10/26/24 History Amiodarone [Cordarone] 200 mg PO DAILY 10/26/24 10/26/24 History Apixaban [Eliquis] 5 mg PO BID 10/26/24 10/26/24 History Budesonide [Pulmicort] 0.5 mg INHALATION RT-BID 10/26/24 10/26/24 History Calcium Carb-Vit D 500Mg-5Mcg 1 tab PO TID 10/26/24 10/26/24 History [Oscal 500+D 5 Mcg (200 Iu)] Folic Acid 1 mg PO DAILY 10/26/24 10/26/24 History Furosemide [Lasix] 20 mg PO DAILY 10/26/24 10/26/24 History Gabapentin [Neurontin] 100 mg PO TID 10/26/24 10/26/24 History HYDROcodone/APAP 5-325MG [[place] 1 tab PO Q6HR PRN 10/26/24 10/26/24 History 5-325] Ipratropium-Albuterol Nebulize 3 ml INHALATION RT-Q6H PRN 10/26/24 10/26/24 History [Duoneb 0.5 mg-3 mg/3 ml Soln] Levothyroxine Sodium [Synthroid] 50 mcg PO DAILY 10/26/24 10/26/24 History Magnesium Glycinate 325 mg PO HS 10/26/24 10/26/24 History Multivitamins, Thera [Multivitamin 1 tab PO DAILY 10/26/24 10/26/24 History (formulary)] Oxybutynin Xl [Ditropan XL] 5 mg PO HS 10/26/24 10/26/24 History Pantoprazole Sodium [Protonix] 40 mg PO DAILY 10/26/24 10/26/24 History Potassium Chloride [Klor-Con M10] 10 meq PO DAILY 10/26/24 10/26/24 History Thiamine [Vitamin B-1] 100 mg PO DAILY 10/26/24 10/26/24 History carvediloL [Coreg] 25 mg PO BID 10/26/24 10/26/24 History predniSONE [Deltasone] 20 mg PO BID 10/26/24 10/26/24 History Allergies Allergy/AdvReac Type Severity Reaction Status Date / Time Iodinated Contrast Media Allergy Rash/Hives Verified 10/26/24 09:18 lidocaine Allergy Itching Verified 10/26/24 09:18 Penicillins Allergy Rash/Hives Verified 10/26/24 09:18 tramadol AdvReac facial Verified 10/26/24 09:18 drooping Physical Examination Gen: AOx3, NAD VSS stable at this time Integument: No open lesions or sores are visualized throughout the cervical, thoracic or lumbar spine Palpation: Patient is nontender with palpation to the paraspinal and midline cervical spine. She demonstrates no generalized pain with palpation to the bilateral shoulders ROM: Adequate range of motion in all major muscle groups of the bilateral upper and lower extremities, there are no focal deficits present Sensory Exam: Senory exam to light touch is intact C5-T1 Senosry exam to light touch is intact L2-S1 Motor: 4+/5 strength appreciated the bilateral upper extremities with shoulder elevation, shoulder abduction, elbow extension, elbow flexion, wrist extension, wrist flexion, director of sales marketing 4+/5 strength appreciated the bilateral lower extremities with hip flexion, knee extension, knee flexion, plantarflexion, dorsiflexion, EHL, FHL Reflexes: 2/4 in all UE and LE Negative Marie's bilaterally Clonus bilaterally Results - Labs Labs: Abnormal Lab Results - Last 24 Hours (Table) 10/26/24 10/26/24 10/26/24 Range/Units 02:55 02:55 02:55 WBC 12.0 H (3.8-10.6) k/uL RBC 3.53 L (3.80-5.40) m/uL Hgb 10.2 L (11.4-16.0) gm/dL Hct 32.3 L (34.0-46.0) % RDW 15.7 H (11.5-15.5) % Neutrophils # 9.6 H (1.3-7.7) k/uL PT 14.3 H (10.0-12.5) sec INR 1.4 H (<1.2) Sodium 135 L (137-145) mmol/L Chloride 94 L (98-107) mmol/L Carbon Dioxide 39 H (22-30) mmol/L BUN 32 H (7-17) mg/dL Glucose 158 H (74-99) mg/dL Total Protein 4.8 L (6.3-8.2) g/dL Albumin 2.6 L (3.5-5.0) g/dL H & H 10/26/24 Range/Units 02:55 Hgb 10.2 L (11.4-16.0) gm/dL Hct 32.3 L (34.0-46.0) % Coagulation 10/26/24 Range/Units 02:55 INR 1.4 H (<1.2) Result Diagrams: 10/26/24 02:55 10/26/24 02:55 - Diagnostic results Cervical AP/lateral x-ray: report reviewed, image reviewed (3 views of the cervical spine were reviewed, along with reports. No acute fractures or dislocations present. There is multilevel cervical spondylosis with varying degrees of facet arthropathy) Assessment and Plan Assessment: Neck pain Bilateral shoulder pain Multilevel cervical spondylosis Multiple medical comorbidities Plan: I will review the case, this to include physical exam findings and imaging studies my attending Dr. Ch. No emergent orthopedic spine surgery recommended at this time Patient seems very stable at bedside currently. When asking her more about her symptoms, she states that she feels when she becomes anxious or flustered that the symptoms do present. When she is able to calm down, the pain does subside. She is demonstrated no acute neuropathic signs at this time Conservative measures to consider for generalized discomfort, Tylenol and anti- inflammatories. Patient already takes [place] and gabapentin GI DVT prophylaxis per primary medical service Other medical specialty recommendations appreciated Will follow-up with patient during hospital stay Time with Patient: Less than 30
[2024-10-26 21:10] LABS: Appearance,Urine Cloudy (Clear); Bacteria,Urine Many /hpf; Bilirubin,Urine Negative (Negative); Blood,Urine Negative (Negative); Color,Urine Yellow; Glucose,Urine (UA) Negative (Negative); Ketones,Urine Negative (Negative); Leukocyte Esterase,Urine Large (Negative); Mucus,Urine Occasional /hpf; Nitrite,Urine Positive (Negative); PH, Urine 5.5 (5.0-8.0); Protein,Urine Trace (Negative); RBC,Urine 9 /hpf (0-5); Specific Gravity,Urine 1.016 (1.001-1.035); Squamous Epithelial Cell,Urine 5 /hpf (0-4); Urobilinogen,Urine <2.0 mg/dL (<2.0); WBC,Urine >182 /hpf (0-5)
--- NOTE | 2024-10-27 09:03 | CA ---
Transthoracic Echo Report Name: Jemma Izaguirre Age: 74 Gender: F : 1950 Exam Date: 10/26/2024 14:30 Exam Location: [facility] Ht (in): 65 Wt (lb): 194 Ordering Physician: Mi Tiwari Attending/Referring Phys: [id number], Karie Hose Stripper Rachna Boyle RDCS Procedure CPT: Indications: LV function, SOB Cardiac Hx: Technical Quality: Good Contrast 1: Total Dose (mL): Contrast 2: Total Dose (mL): MEASUREMENTS (Male / Female) Normal Values 2D ECHO LV Diastolic Diameter PLAX 4.0 cm 4.2 - 5.9 / 3.9 - 5.3 cm LV Systolic Diameter PLAX 3.1 cm IVS Diastolic Thickness 1.8 cm 0.6 - 1.0 / 0.6 - 0.9 cm LVPW Diastolic Thickness 1.2 cm 0.6 - 1.0 / 0.6 - 0.9 cm LV Relative Wall Thickness 0.8 RV Internal Dim ED PLAX 3.4 cm LA Systolic Diameter LX 4.3 cm 3.0 - 4.0 / 2.7 - 3.8 cm LV Diastolic Volume MOD BP 101.6 cm??? 67 - 155 / 56 - 104 cm??? LV Systolic Volume MOD BP 33.3 cm??? 22 - 58 / 19 - 49 cm??? LV Ejection Fraction MOD BP 67.2 % >= 55 % LV Cardiac Index MOD BP 2209.7 cm???/min???m??? LV Diastolic Volume MOD 4C 100.5 cm??? LV Systolic Volume MOD 4C 37.2 cm??? LV Ejection Fraction MOD 4C 63.0 % LV Cardiac Index MOD 4C 2047.6 cm???/min???m??? LV Diastolic Length 4C 8.8 cm LV Systolic Length 4C 7.1 cm LV Diastolic Volume MOD 2C 81.5 cm??? LV Systolic Volume MOD 2C 29.7 cm??? LV Ejection Fraction MOD 2C 63.6 % LV Cardiac Index MOD 2C 1675.8 cm???/min???m??? LV Diastolic Length 2C 7.9 cm LV Systolic Length 2C 6.9 cm LA Volume 69.4 cm??? 18 - 58 / 22 - 52 cm??? LA Volume Index 34.0 cm???/m??? 16 - 28 cm???/m??? DOPPLER AV Peak Velocity 187.9 cm/s AV Peak Gradient 14.1 mmHg AV Mean Velocity 127.7 cm/s AV Mean Gradient 7.4 mmHg AV Velocity Time Integral 34.0 cm LVOT Peak Velocity 128.9 cm/s LVOT Peak Gradient 6.6 mmHg LVOT Velocity Time Integral 28.9 cm MV Area PHT 2.7 cm??? Mitral E Point Velocity 97.1 cm/s Mitral A Point Velocity 111.6 cm/s Mitral E to A Ratio 0.9 MV Deceleration Time 278.0 ms TR Peak Velocity 211.7 cm/s TR Peak Gradient 17.9 mmHg FINDINGS Left Ventricle Left ventricular ejection fraction is estimated at 55-60 %. Severely increased septal wall thickness. Mildly increased posterior wall thickness. No obvious regional wall motion abnormalities. Right Ventricle Mild right ventricular dilatation. Right ventricular systolic pressure within normal limits. Right Atrium Normal right atrial size. Left Atrium Moderately increased left atrial diameter. Moderately increased left atrial volume. Mildly increased left atrial area. Mitral Valve Moderate mitral annular calcification. No mitral stenosis. Trace mitral regurgitation. Aortic Valve Trileaflet aortic valve. Aortic valve sclerosis. No aortic stenosis. No aortic regurgitation. Tricuspid Valve Structurally normal tricuspid valve. Trace tricuspid regurgitation. Pulmonic Valve Structurally normal pulmonic valve. Trace pulmonic regurgitation. Pericardium Trace pericardial or No pleural effusion. Aorta Aortic root repair evident mild dilatation of proximal ascending aorta CONCLUSIONS Normal LV size and systolic function with concentric LVH. Enlarged left atrium. Atypical septal motion noted. Mild mitral regurgitation. Aortic valve has sclerosis mild calcification stable no significant regurgitation. Aortic root repair is evident slightly prominent. Trace pericardial effusion Previewed by: Dr. Helen Mendez MD (Electronically Signed) Final Date: 27 October 2024 09:02
[2024-10-27] MEDS: DAPAGLIFLOZIN PROPANEDIOL 5 MG TABLET PO SCH (09:16)
[2024-10-27] MEDS: AMIODARONE 200 MG TAB PO SCH (09:17)
--- NOTE | 2024-10-27 09:46 | P.PN ---
Subjective Progress Note Date: 10/27/24 Principal diagnosis: Cervical pain Bilateral shoulder pain Patient seen and examined this morning. Patient is sitting up in chair at bedside. She currently denies any neck or shoulder pain. She continues to deny any numbness or tingling to the upper extremities. Discussed cervical x-ray results with patient, she verbalizes understanding. Informed patient that we will place our office information in the discharge plan for follow-up as needed. Patient is cleared from a orthopedic standpoint for discharge, no further recommendations. Objective - Vital Signs Vital signs: Vital Signs Temp 98 F 10/27/24 07:00 Pulse 69 10/27/24 07:00 Resp 16 10/27/24 07:00 BP 118/68 10/27/24 07:00 Pulse Ox 98 10/27/24 07:00 FiO2 Intake & Output 10/26/24 10/27/24 10/27/24 18:59 06:59 18:59 Intake Total 118 Balance 118 Weight 87.997 kg Intake: Oral 118 Other: # Voids 2 - Exam Physical Examination General: The patient is awake and alert, in no acute distress Skin: Skin is warm and dry with no obvious rashes or lesions. Neck: The neck is supple, there is no tenderness and ROM intact. Respiratory: Respirations are non-labored, breath sounds are equal. Gastrointestinal: Soft, non-distended, non-tender abdomen. Back: There is no tenderness to palpation in the midline, paralumbar, parathora cic or buttocks region. There is no obvious deformity . Musculoskeletal: FROM Right: Shoulder abduction 4/5, elbow flexors 4/5, wrist dorsiflexors 4+/5. finger abductor 4/5, med dir 4/5, hip flexor 5/5, knee flexor 5/5, ankle dorsiflexor 5/5, ankle plantarflexion 5/5 and extensor hallucis 5/5. Left: Shoulder abduction 4/5, elbow flexors 4/5, wrist dorsiflexors 4+/5. finger abductor 4/5, med dir 4/5, hip flexor 5/5, knee flexor 5/5, ankle dorsiflexor 5/5, ankle plantarflexion 5/5 and extensor hallucis 5/5. Neurological: CN 2-12 intact. There are no obvious motor or sensory deficits. Movement and coordination equal and intact. Sensory exam to light touch intact C5-T1 and intact from L2-S1. Reflexes 2/4 in bilateral upper and lower extremiti es. Negative Hoffmans, babinski, and clonus signs. Psychiatric: Cooperative, appropriate mood & affect, normal judgment. - Labs CBC & Chem 7: 10/26/24 02:55 10/26/24 02:55 Labs: Abnormal Lab Results - Last 24 Hours (Table) 10/26/24 10/26/24 Range/Units 10:15 20:46 NT-Pro-B Natriuret Pep 1432 H (0-450) pg/mL Urine Appearance Cloudy H (Clear) Urine Protein Trace H (Negative) Urine Nitrite Positive H (Negative) Ur Leukocyte Esterase Large H (Negative) Urine RBC 9 H (0-5) /hpf Urine WBC >182 H (0-5) /hpf Urine WBC Clumps Many H (None) /hpf Ur Squamous Epith Cells 5 H (0-4) /hpf Urine Bacteria Many H (None) /hpf Urine Mucus Occasional H (None) /hpf Assessment and Plan Assessment: Cervical spondylosis with stenosis Cervicalgia Bilateral shoulder pain Plan: -Appreciate interventional sale consultant and team management. -Activity: Ambulate QID, OOB all meals, up and about, limit lifting bending twisting to less than 5 lbs. Use walker or cane if needed for stability. -Daily PT/OT, increase ambulation strength and balance. -Encourage IS 10x/hr -Dispo: Patient is cleared from an orthopedic standpoint for discharge, no further recommendations. Patient may follow-up in our office as needed. *I reviewed and discussed this case with my attending Dr. Ch, whom has reviewed this chart and films and is in agreement with assessment and plan of care as outlined above. I have personally seen and examined the patient, performed the documentation and the assessment and plan as written. Number of minutes spent on the visit: 15m.
--- NOTE | 2024-10-27 10:45 | P.PN ---
Subjective HISTORY OF PRESENT ILLNESS: This is a 74-year-old female with a past medical history significant for atrial fibrillation, hypertension, COPD with home oxygen use, and thoracic aortic dissection status post surgery [facility]. Patient follows in the office with Dr. Grady. We have been asked to see the patient in consultation for chest pain. Patient examined at the bedside in the emergency room. [facility] a [facility]-up appointment. Patient states she was feeling well at the time and had no symptoms. She states yesterday evening after eating dinner she began to feel congested. She reports having some wheezing as well. She reports shortness of breath when she was laying flat. She currently denies having any chest pain or pressure. DIAGNOSTICS: - EKG reveals sinus mechanism with left bundle branch block. - Chest xray left lower lobe pneumonia - Laboratory data: WBC 12.0. Hemoglobin 10.2. Platelet count 264. Sodium 135. Potassium 3.7. BUN 32. Creatinine 0.81. Troponin negative x 3. - Current home cardiac medications include amiodarone 200 mg daily, carvedilol 2 5 mg twice a day, Lasix 20 mg daily, Eliquis 5 mg twice a day. - Most recent echocardiogram obtained in June 2024 revealed ejection fraction 60 to 65%, mild MR, mild aortic stenosis, mild LVOT gradient, mild to moderate tricuspid regurgitation - Patient underwent Lexiscan stress test in June 2024 which was negative for ischemia - Cardiac catheterization history: Unknown 10/27/2024 Patient examined this morning at the bedside. Patient currently denies chest pain or pressure. She reports improvement in her shortness of breath. Vital signs are stable. proBNP resulted at 1432. Procalcitonin 0.06. Vital signs are stable. PHYSICAL EXAM: VITAL SIGNS: Reviewed. GENERAL: Well-developed in no acute distress. HEENT: Head is normocephalic. Pupils are equal, round. Sclerae anicteric. Mucous membranes of the mouth are moist. Neck supple. No JVD or thyromegaly LUNGS: Respirations even and unlabored. Lungs essentially clear to auscultation bilaterally. HEART: Regular rate and rhythm. S1 and S2 heard. ABDOMEN: Soft. Nondistended. Nontender. EXTREMITIES: Normal range of motion. No clubbing or cyanosis. Peripheral pulses intact. No lower extremity edema NEUROLOGIC: Awake and alert. Oriented x 3. ASSESSMENT: Left lower lobe pneumonia, per chest x-ray, procalcitonin normal Leukocytosis Chest pain, ruled out, patient denies having chest pain or pressure Paroxysmal atrial fibrillation History of thoracic aortic dissection status post surgery [facility] Chronic hypoxic respiratory failure on home oxygen COPD Hypertension Obesity: BMI 32.3 PLAN: An acute coronary event has been ruled out Continue current cardiac medications Add Farxiga [address] Mendez, consult pulmonary for evaluation No plans for stress testing or cardiac catheterization Patient is currently stable from a cardiac perspective Patient to follow-up postdischarge with Dr. Grady Nurse practitioner note has been reviewed by physician. Signing provider agrees with the documented findings, assessment, and plan of care documented by [employer] as a scribe. Objective - Vital Signs Vital signs: Vital Signs Temp 98 F 10/27/24 07:00 Pulse 69 10/27/24 07:00 Resp 16 10/27/24 07:00 BP 118/68 10/27/24 07:00 Pulse Ox 98 10/27/24 07:00 FiO2 Intake & Output 10/26/24 10/27/24 10/27/24 18:59 06:59 18:59 Intake Total 118 Balance 118 Weight 87.997 kg Intake: Oral 118 Other: # Voids 2 - Labs CBC & Chem 7: 10/26/24 02:55 10/26/24 02:55 Labs: Abnormal Lab Results - Last 24 Hours (Table) 10/26/24 10/26/24 Range/Units 10:15 20:46 NT-Pro-B Natriuret Pep 1432 H (0-450) pg/mL Urine Appearance Cloudy H (Clear) Urine Protein Trace H (Negative) Urine Nitrite Positive H (Negative) Ur Leukocyte Esterase Large H (Negative) Urine RBC 9 H (0-5) /hpf Urine WBC >182 H (0-5) /hpf Urine WBC Clumps Many H (None) /hpf Ur Squamous Epith Cells 5 H (0-4) /hpf Urine Bacteria Many H (None) /hpf Urine Mucus Occasional H (None) /hpf
[2024-10-27] MEDS ORDERED: IPRATROPIUM-ALBUTEROL 3 ML NEB INHALATION PRN (12:15)
[2024-10-27] MEDS: methylPREDNISolone SOD SUCCI 125 MG/2 ML VIAL IV SCH (13:31)
[2024-10-27] MEDS: IPRATROPIUM-ALBUTEROL 3 ML NEB INHALATION SCH (15:17)
[2024-10-27] MEDS: HYDROcodone/APAP 5-325MG 1 EACH TAB PO PRN (18:02)
--- NOTE | 2024-10-27 18:41 | P.CNPUL ---
History of Present Illness Consult date: 10/27/24 Reason for consult: dyspnea History of present illness: This is a 74-year-old female patient who is being seen for shortness of breath. The patient is known to have COPD with home O2 dependence for several years. The patient also has a thoracic aortic dissection for which she has undergone surgery at [facility]. She is known to have chronic A-fib and hypertension. Her EKG showing a normal sinus mechanism. Chest x-ray shows no acute abnormalities. Her most recent cardiac stress test from June 2024 was within normal limits. She is a previous smoker. Body mass index is 32.3. The white cell count of 12 with a heme of 10.2 and a platelet count of 264. BUN 32 with a creatinine of 0.8 and sodium levels at 135. UA is abnormal. proBNP level is 1432. 3 sets of troponins are negative. Echocardiogram was done on 10/26/2024 that showed normal LV function, concentric LVH, mild mitral regurgitation, aortic root repair is evident and is slightly prominent. Review of Systems All systems: negative (Shortness of breath) Past Medical History Past Medical History: COPD, Eye Disorder, Hypertension, Osteoarthritis (OA) Additional Past Medical History / Comment(s): macular degeneration, actinic keratosis. Mild to moderate mitral regurgitation, murmur, legally blind. 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 no driving d/t vision Smoking Status: Former smoker Past Alcohol Use History: Rare Additional Past Alcohol Use History / Comment(s): started smoking at age 21 smokes 1/2 ppd. patient states she quit smoing 3-4 years ago. Past Drug Use History: None Reported - Past Family History Mother Family Medical History: CVA/TIA, Hypertension, Myocardial Infarction (AL) Father Family Medical History: AFIB, Hypertension, Myocardial Infarction (AL) Sister(s) Daughter(s) Family Medical History: Cancer Medications and Allergies Home Medications Medication Instructions Recorded Confirmed Type Vit C/E/Zn/Coppr/Lutein/Zeaxan 1 cap PO BID 11/24/17 10/26/24 History [Preservision Areds 2 Softgel] Naproxen Sodium [Aleve] 220 mg PO BID PRN 07/14/24 10/26/24 History Amiodarone [Cordarone] 200 mg PO DAILY 10/26/24 10/26/24 History Apixaban [Eliquis] 5 mg PO BID 10/26/24 10/26/24 History Budesonide [Pulmicort] 0.5 mg INHALATION RT-BID 10/26/24 10/26/24 History Calcium Carb-Vit D 500Mg-5Mcg 1 tab PO TID 10/26/24 10/26/24 History [Oscal 500+D 5 Mcg (200 Iu)] Folic Acid 1 mg PO DAILY 10/26/24 10/26/24 History Furosemide [Lasix] 20 mg PO DAILY 10/26/24 10/26/24 History Gabapentin [Neurontin] 100 mg PO TID 10/26/24 10/26/24 History HYDROcodone/APAP 5-325MG [Bayard 1 tab PO Q6HR PRN 10/26/24 10/26/24 History 5-325] Ipratropium-Albuterol Nebulize 3 ml INHALATION RT-Q6H PRN 10/26/24 10/26/24 History [Duoneb 0.5 mg-3 mg/3 ml Soln] Levothyroxine Sodium [Synthroid] 50 mcg PO DAILY 10/26/24 10/26/24 History Magnesium Glycinate 325 mg PO HS 10/26/24 10/26/24 History Multivitamins, Thera [Multivitamin 1 tab PO DAILY 10/26/24 10/26/24 History (formulary)] Oxybutynin Xl [Ditropan XL] 5 mg PO HS 10/26/24 10/26/24 History Pantoprazole Sodium [Protonix] 40 mg PO DAILY 10/26/24 10/26/24 History Potassium Chloride [Klor-Con M10] 10 meq PO DAILY 10/26/24 10/26/24 History Thiamine [Vitamin B-1] 100 mg PO DAILY 10/26/24 10/26/24 History carvediloL [Coreg] 25 mg PO BID 10/26/24 10/26/24 History predniSONE [Deltasone] 20 mg PO BID 10/26/24 10/26/24 History Allergies Allergy/AdvReac Type Severity Reaction Status Date / Time Iodinated Contrast Media Allergy Rash/Hives Verified 10/26/24 09:18 lidocaine Allergy Itching Verified 10/26/24 09:18 Penicillins Allergy Rash/Hives Verified 10/26/24 09:18 tramadol AdvReac facial Verified 10/26/24 09:18 drooping Physical Exam Vitals: Vital Signs Temp Pulse Pulse Resp BP BP Pulse Ox 10/27/24 07:00 98 F 69 16 118/68 98 10/27/24 02:00 20 10/27/24 01:03 97.7 F 71 18 143/79 97 10/26/24 20:00 20 10/26/24 19:42 97.5 F L 66 16 135/79 97 10/26/24 19:30 105/68 10/26/24 19:00 63 12 97 10/26/24 18:30 68 16 144/80 98 10/26/24 18:00 67 19 98 10/26/24 17:30 68 12 98 10/26/24 17:09 68 14 123/72 96 Intake and Output 10/26/24 10/27/24 10/27/24 22:59 06:59 14:59 Intake Total 118 Balance 118 Intake: Oral 118 Other: Voiding Method Toilet # Voids 2 Weight 87.997 kg The patient appeared well nourished and normally developed. Vital signs as documented. Head exam is unremarkable. No scleral icterus or corneal arcus noted. Neck is without jugular venous distension, thyromegaly, or carotid bruits. Carotid upstrokes are brisk bilaterally. Lungs are diminished breath sounds along with scattered expiratory wheezes throughout the lung calderon bilaterally. Cardiac exam reveals the PMI to be normally sized and situated. Rhythm is regular. First and second heart sounds normal. No murmurs, rubs or gallops. Abdominal exam reveals normal bowel sounds, no masses, no organomegaly and no aortic enlargement. Extremities are nonedematous and both femoral and pedal pulses are normal. Examination of the skin revealed no evidence of significant rashes, suspicious appearing nevi or other concerning lesions. Neurologically, the patient is awake and alert and the patient does not have any focal neurological deficit. Cranial nerves are essentially intact. Results - Laboratory Findings CBC and BMP: 10/26/24 02:55 10/26/24 02:55 PT/INR, D-dimer PT 14.3 sec (10.0-12.5) H 10/26/24 02:55 INR 1.4 (<1.2) H 10/26/24 02:55 Abnormal lab findings: Abnormal Labs 10/26/24 10/26/24 10/26/24 02:55 02:55 02:55 WBC 12.0 H RBC 3.53 L Hgb 10.2 L Hct 32.3 L RDW 15.7 H Neutrophils # 9.6 H PT 14.3 H INR 1.4 H Sodium 135 L Chloride 94 L Carbon Dioxide 39 H BUN 32 H Glucose 158 H NT-Pro-B Natriuret Pep Total Protein 4.8 L Albumin 2.6 L Urine Appearance Urine Protein Urine Nitrite Ur Leukocyte Esterase Urine RBC Urine WBC Urine WBC Clumps Ur Squamous Epith Cells Urine Bacteria Urine Mucus 10/26/24 10/26/24 10:15 20:46 WBC RBC Hgb Hct RDW Neutrophils # PT INR Sodium Chloride Carbon Dioxide BUN Glucose NT-Pro-B Natriuret Pep 1432 H Total Protein Albumin Urine Appearance Cloudy H Urine Protein Trace H Urine Nitrite Positive H Ur Leukocyte Esterase Large H Urine RBC 9 H Urine WBC >182 H Urine WBC Clumps Many H Ur Squamous Epith Cells 5 H Urine Bacteria Many H Urine Mucus Occasional H Assessment and Plan Plan: Dyspnea, multifactorial, with an obvious contribution from underlying COPD. Chest x-ray was reviewed and shows no evidence of any acute pneumonia. COPD with chronic hypoxic respiratory failure, maintained on oxygen at 2 to 4 L/min nasal cannula on outpatient basis. History of aortic dissection involving the thoracic aorta for which the patient has undergone surgical repair 3 [facility]. Atrial fibrillation, paroxysm,, current rhythm is sinus with a left bundle branch block pattern and maintained on a combination of Coreg, amiodarone and anticoagulation with Eliquis. Macular degeneration Hypertension Osteoarthritis Obesity with a BMI of 32.3 Plan Start the patient on DuoNeb nebulized treatments 4 times a day Will start the patient IV Solu-Medrol Titrate O2 Cardiology consultation has been appreciated Echocardiogram noted Will continue to follow
--- NOTE | 2024-10-28 01:39 | P.PN ---
Subjective Progress Note Date: 10/27/24 This is a pleasant 74 years old female. PCP is Dr. Beaver Presents because of indigestion and heartburn started yesterday. Also been complaining from bilateral shoulder pain that started last night, pain radiating to the neck stating it is about 10/10, nonspecific in character with no known precipitating or relieving factors felt like squeezing No new weakness tingling or numbness but she has limitation of moving her arms above her head because of her shoulder pain Patient also complaining from indigestion and heartburn started yesterday. [place] better after she ate food Today However patient denies dyspnea or coughing. Abdominal pain vomiting or diarrhea Patient complains from frequent urination but no dysuria. No abdominal pain She denies dizziness. She had headache earlier but is gone now. She denies specific weakness or numbness She denies smoking alcohol or illicit drugs. Patient is afebrile, vitals look stable CBC is reviewed, WBC is 12 but patient has chronic mild leukocytosis Hemoglobin 10.2, which is close to baseline between 8.8-11 over the last few months. Before 06/2024 her hemoglobin was 12-15 Rest of BMP, LFT, INR were unremarkable Troponin x 3 is -0.0 25, 0.0 23, 0.0 20 Chest x-ray showing left lower lobe pneumonia per radiologist EKG showing sinus rhythm with no significant ST-T changes 10/27/2024 Patient is seen in follow-up today with cardiology following and has cleared the patient for discharge recommending outpatient follow-up. Patient was started on Augmentin pending procalcitonin which was negative and will discontinue as there is no obvious sign of pneumonia. Likely acute COPD exacerbation and will initiate breathing treatments. Pulmonary has been consulted and pending. Patient is afebrile reports to feeling unwell with generalized weakness with multiple complaints including frequency of urination at night with no pain or dysuria, upper back and shoulder pain which was evaluated by orthopedics and cleared for discharge and intermittent chest pain which was also evaluated by cardiology and discharge. Patient will likely be monitored overnight and appreciate input recommendations from pulmonary. Patient chronically wears oxygen outpatient and is maintained on her 2 L via nasal cannula. Review of systems: Constitutional: reports of fatigue, fever, or chills Cardiovascular: No reports of chest pain or palpitations Respiratory: reports of shortness of breath with occasional cough GI: No reports of nausea, vomiting, or diarrhea : No reports of dysuria or retention, reports frequency of urination at night with no burning or pain Neurovascular: No reports of weakness or numbness All medications have been reviewed Physical exam: GENERAL: The patient is alert and oriented x3, anxious, elderly appearing, obese. Well developed, well nourished. Ill-appearing HEENT: Pupils are round and equally reacting to light. EOMI. No scleral icterus. No conjunctival pallor. Normocephalic, atraumatic. No pharyngeal erythema. No thyromegaly. CARDIOVASCULAR: S1 and S2 present. No murmurs, rubs, or gallops. PULMONARY: Diminished breath sounds bilaterally with some expiratory wheezing noted at the bases ABDOMEN: Soft, nontender, nondistended, normoactive bowel sounds. No palpable organomegaly. MUSCULOSKELETAL: No joint swelling or deformity. Patient complains from bilateral shoulder and neck pain, tenderness is minimal, however patient has limitation in moving her arms above her head bilaterally, showing some improvem ents in shoulder pain EXTREMITIES: No cyanosis, clubbing, or pedal edema. NEUROLOGICAL: Gross neurological examination did not reveal any focal deficits. Diffusely weak SKIN: No rashes. no petechiae. Assessment: Indigestion, secondary to dyspepsia Bilateral shoulder pain, nonspecific, orthopedics evaluated recommending outpatient follow-up as needed, improved Chest pain, ruled out ACS, noncardiac in nature per cardiology and has cleared for discharge Hypertension history Chronic hypoxic respiratory failure secondary to COPD COPD, acute exacerbation Possible left lower lobe pneumonia on the chest x-ray. Ruled out. Procalcitonin 0.07. Patient has no fever or leukocytosis Increased frequency of urination, ruled out UTI. Patient denies any pain with urination History of aortic dissection involving the thoracic aorta status post surgical intervention at [facility] History of A-fib, paroxysmal Obesity with BMI of 32.36 GI prophylaxis DVT prophylaxis Full code Plan: Patient continued on home dose of Eliquis and other home medications reviewed and resumed as appropriate Procalcitonin negative with no obvious signs of pneumonia. Will discontinue antibiotic Patient is reporting frequency of urination at night and up at least every hour, no signs of infection and patient denies any burning or pain with urination. Will refer to urology outpatient Patient evaluated by orthopedics for bilateral upper shoulder pain which has improved recommending conservative management and outpatient follow-up as needed Patient was evaluated by cardiology recommending to continue with current regimen and outpatient follow-up. Signing off Pulmonary evaluated the patient with concerns of COPD exacerbation, starting steroids along with DuoNebs recommend monitoring over the next 24 hours Reevaluation in the a.m. and consider possible discharge planning in 24 hours The impression and plan of care has been dictated by Beatrice Eli, Nurse Practitioner as directed. Dr. Tania MD I have performed a history and examination and MDM of this patient, discussed t he same with the dictator, and agree with the dictator's assessment and plan as written ,documented as a scribe. Based on total visit time, I have performed more than 50% of the visit. Objective - Vital Signs Vital signs: Vital Signs Temp 98 F 10/27/24 07:00 Pulse 69 10/27/24 07:00 Resp 16 10/27/24 07:00 BP 118/68 10/27/24 07:00 Pulse Ox 98 10/27/24 07:00 FiO2 Intake & Output 10/26/24 10/27/24 10/27/24 18:59 06:59 18:59 Intake Total 118 Balance 118 Weight 87.997 kg Intake: Oral 118 Other: # Voids 2 - Labs CBC & Chem 7: 10/26/24 02:55 10/26/24 02:55 Labs: Abnormal Lab Results - Last 24 Hours (Table) 10/26/24 10/26/24 Range/Units 10:15 20:46 NT-Pro-B Natriuret Pep 1432 H (0-450) pg/mL Urine Appearance Cloudy H (Clear) Urine Protein Trace H (Negative) Urine Nitrite Positive H (Negative) Ur Leukocyte Esterase Large H (Negative) Urine RBC 9 H (0-5) /hpf Urine WBC >182 H (0-5) /hpf Urine WBC Clumps Many H (None) /hpf Ur Squamous Epith Cells 5 H (0-4) /hpf Urine Bacteria Many H (None) /hpf Urine Mucus Occasional H (None) /hpf
[2024-10-28 06:55] VITALS: BP 177/88; RESP 17; TEMP 98.4
[2024-10-28 12:19] VITALS: PULSE 80
== END 2024-10-28 15:10 | disposition home health service (06) | DRG 191 ==
LOC: EC 02:20 → 6NMEDSUR 05:11 → OBSVTOIN 10-28 06:42
PROVIDERS: ADMIT Hospitalist; ATTEND Hospitalist
DX: J44.1 Chronic obstructive pulmonary disease with (acute) exacerbation (principal); J96.11 Chronic respiratory failure with hypoxia; I11.0 Hypertensive heart disease with heart failure; I50.9 Heart failure, unspecified; E66.9 Obesity, unspecified; I34.0 Nonrheumatic mitral (valve) insufficiency; M19.90 Unspecified osteoarthritis, unspecified site; M25.512 Pain in left shoulder; M25.511 Pain in right shoulder; M48.02 Spinal stenosis, cervical region; M47.892 Other spondylosis, cervical region; Z99.81 Dependence on supplemental oxygen; I48.0 Paroxysmal atrial fibrillation; H54.8 Legal blindness, as defined in USA; I44.7 Left bundle-branch block, unspecified; M47.812 Spondylosis without myelopathy or radiculopathy, cervical region; Z68.32 Body mass index [BMI] 32.0-32.9, adult; Z79.01 Long term (current) use of anticoagulants; Z79.84 Long term (current) use of oral hypoglycemic drugs; Z79.890 Hormone replacement therapy; Z79.899 Other long term (current) drug therapy; Z82.49 Family history of ischemic heart disease and other diseases of the circulatory system; Z87.891 Personal history of nicotine dependence; Z96.643 Presence of artificial hip joint, bilateral; Z88.0 Allergy status to penicillin; Z91.041 Radiographic dye allergy status; Z88.5 Allergy status to narcotic agent
CPT/HCPCS: 36415; 71046; 72040; 80053; 81001; 83735; 83880; 84145; 84484; 85025; 85610; 85730; 93005; 93306; 94640; 96374; 99285

== ENCOUNTER 2024-12-08 04:52 | Inpatient (IN) | payer MEDICARE, OTHER ==
--- NOTE | 2024-12-08 04:59 | ED ---
SOB HPI - General Stated Complaint: SOB Time Seen by Provider: 12/08/24 04:57 Source: RN notes reviewed, old records reviewed Mode of arrival: EMS Limitations: no limitations - History of Present Illness Initial Comments: This is a 74-year-old female to the ER for evaluation of shortness of breath from [facility] with significant low oxygenation. Oxygenation in the 70s, supposed to wear CPAP not wearing CPAP at night. Weakness no chest pain history of COPD no history of CHF history of hypertension again no chest pain. No known fevers cough or congestion currently MD Complaint: shortness of breath, "asthma attack" -: hour(s) Severity: severe Severity scale (1-10): 10 Quality: aching Consistency: constant Improves With: oxygen, rest, bronchodilators Worsens With: exertion, movement Known History Of: COPD, congestive heart failure, recurrent pneumonia Context: recent URI, anxiety, recent illness - Related Data Home Medications Medication Instructions Recorded Confirmed Amiodarone [Cordarone] 200 mg PO DAILY 10/26/24 12/08/24 Apixaban [Eliquis] 5 mg PO BID 10/26/24 12/08/24 Folic Acid 1 mg PO DAILY 10/26/24 12/08/24 Gabapentin [Neurontin] 100 mg PO TID 10/26/24 12/08/24 Ipratropium-Albuterol Nebulize 3 ml INHALATION RT-Q6H PRN 10/26/24 12/08/24 [Duoneb 0.5 mg-3 mg/3 ml Soln] Multivitamins, Thera [Multivitamin 1 tab PO DAILY 10/26/24 12/08/24 (formulary)] Pantoprazole Sodium [Protonix] 40 mg PO DAILY 10/26/24 12/08/24 Thiamine [Vitamin B-1] 100 mg PO DAILY 10/26/24 12/08/24 carvediloL [Coreg] 25 mg PO BID 10/26/24 12/08/24 Calcium Carbonate [Tums] 500 mg PO Q6H PRN 12/08/24 12/08/24 Calcium Carbonate/Vitamin D3 1 tab PO DAILY 12/08/24 12/08/24 [Calcium 600 mg-Vit D3 10 mcg (400 Unit)] Dextrose Gel [Glucose Gel] 13 ml PO Q15M PRN 12/08/24 12/08/24 Docusate [Colace] 100 mg PO BID 12/08/24 12/08/24 Empagliflozin [Jardiance] 10 mg PO DAILY 12/08/24 12/08/24 Ferrous Sulfate [Iron (65 MG 325 mg PO DAILY 12/08/24 12/08/24 Elemental)] Furosemide [Lasix] 40 mg PO BID@0800,1400 12/08/24 12/08/24 Glucagon Emergency Kit 1 mg SQ DIRECTED PRN 12/08/24 12/08/24 INSULIN LISPRO (humaLOG) [humaLOG] See Protocol SQ ACHS 12/08/24 12/08/24 Levothyroxine Sodium [Synthroid] 112 mcg PO DAILY 12/08/24 12/08/24 Losartan Potassium [Cozaar] 100 mg PO DAILY 12/08/24 12/08/24 Ondansetron [Zofran] 4 mg PO Q6H PRN 12/08/24 12/08/24 Sennosides [Senokot] 8.6 mg PO DAILY PRN 12/08/24 12/08/24 polyethylene glycoL 3350 [Miralax] 17 gm PO Q24H PRN 12/08/24 12/08/24 Previous Rx's Medication Instructions Recorded Acetaminophen Tab [Tylenol] 650 mg PO Q6HR PRN tab 10/28/24 Atorvastatin [Lipitor] 40 mg PO HS tab 12/11/24 Budesonide [Pulmicort] 1 mg INHALATION RT-BID ml 12/11/24 Formoterol Fumarate [Perforomist] 20 mcg INHALATION RT-BID ml 12/11/24 predniSONE 10 mg PO DIRECTED 6 Days #18 tab 12/11/24 Allergies Allergy/AdvReac Type Severity Reaction Status Date / Time Iodinated Contrast Media Allergy Rash/Hives Verified 12/08/24 07:37 lidocaine Allergy Itching Verified 12/08/24 07:37 Penicillins Allergy Rash/Hives Verified 12/08/24 07:37 tramadol AdvReac facial Verified 12/08/24 07:37 drooping Review of Systems ROS Statement: Those systems with pertinent positive or pertinent negative responses have been documented in the HPI. ROS Other: All systems not noted in ROS Statement are negative. Past Medical History Past Medical History: COPD, Eye Disorder, Hypertension, Osteoarthritis (OA) Additional Past Medical History / Comment(s): macular degeneration, actinic k eratosis. Mild to moderate mitral regurgitation, murmur, legally blind. 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 no driving d/t vision Smoking Status: Former smoker Past Alcohol Use History: Rare Additional Past Alcohol Use History / Comment(s): started smoking at age 21 smokes 1/2 ppd. patient states she quit smoing 3-4 years ago. Past Drug Use History: None Reported - Past Family History Mother Family Medical History: CVA/TIA, Hypertension, Myocardial Infarction (RI) Father Family Medical History: AFIB, Hypertension, Myocardial Infarction (RI) Sister(s) Daughter(s) Family Medical History: Cancer General Exam General appearance: alert, anxious Head exam: Present: atraumatic, normocephalic, normal inspection Eye exam: Present: normal appearance, PERRL, EOMI. Absent: scleral icterus, conjunctival injection, periorbital swelling ENT exam: Present: normal exam, mucous membranes moist Neck exam: Present: normal inspection. Absent: tenderness, meningismus, lymphad enopathy Respiratory exam: Present: respiratory distress, wheezes, rhonchi, decreased breath sounds, prolonged expiratory. Absent: rales, stridor Cardiovascular Exam: Present: normal rhythm, tachycardia, normal heart sounds. Absent: systolic murmur, diastolic murmur, rubs, gallop, clicks GI/Abdominal exam: Present: soft, normal bowel sounds. Absent: distended, tenderness, guarding, rebound, rigid Extremities exam: Present: normal inspection, full ROM, normal capillary refill. Absent: tenderness, pedal edema, joint swelling, calf tenderness Back exam: Present: normal inspection Neurological exam: Present: alert, oriented X3, CN II-XII intact Psychiatric exam: Present: normal affect, normal mood Skin exam: Present: warm, dry, intact, normal color. Absent: rash Course Vital Signs 12/08/24 12/08/24 12/08/24 04:55 05:09 05:18 Temperature 98.7 F Pulse Rate 105 H 103 H Pulse Rate [ Pulse Oximetery ] Respiratory 22 Rate Blood Pressure 129/78 Blood Pressure [Right Arm] O2 Sat by Pulse 75 L 95 Oximetry 12/08/24 12/08/24 12/08/24 05:30 05:34 06:17 Temperature Pulse Rate 95 102 H 101 H Pulse Rate [ Pulse Oximetery ] Respiratory 18 20 Rate Blood Pressure 129/70 140/78 Blood Pressure [Right Arm] O2 Sat by Pulse 99 90 L Oximetry 12/08/24 07:00 Temperature 98.9 F Pulse Rate Pulse Rate [ 94 Pulse Oximetery ] Respiratory 18 Rate Blood Pressure Blood Pressure 123/73 [Right Arm] O2 Sat by Pulse 92 L Oximetry - Reevaluation(s) Reevaluation #1: Records reviewed Reevaluation #2: Patient symptoms unchanged here in the ER Patient showing mild improvement in oxygenation with nasal cannula Breathing treatments and helping work of breathing Reevaluation #3: Patient for results questions answered Reevaluation #4: Was pt. sent in by a medical professional or institution (, PA, SPORTS TEAM MARKETING INTERN, urgent care, hospital, or correction...) When possible be specific @ -no Did you speak to anyone other than the patient for history (EMS, parent, family, police, friend...)? What history was obtained from this source @ -no Did you review nursing and triage notes (agree or disagree)? Why? @ -agree Are old charts reviewed (outside hosp., previous admission, EMS record, old EKG, old radiological studies, urgent care reports/EKG's, correction records)? Report findings @ -yes Differential Diagnosis (chest pain, altered mental status, abdominal pain women, abdominal pain men, vaginal bleeding, weakness, fever, dyspnea, syncope, headache, dizziness, GI bleed, back pain, seizure, CVA, palpatations, mental health, musculoskeletal)? @ -prior EKG interpreted by me (3pts min.). @ -yes X-rays interpreted by me (1pt min.). @ -yes for CHF CT interpreted by me (1pt min.). @ -no U/S interpreted by me (1pt. min.). @ -no What testing was considered but not performed or refused? (CT, X-rays, U/S, labs)? Why? @ -none What meds were considered but not given or refused? Why? @ -none Did you discuss the management of the patient with other professionals (professionals i.e. , PA, SPORTS TEAM MARKETING INTERN, lab, RT, psych nurse, social media project manager, body finisher, teacher, protective officer, clinical case manager)? Give summary @ -no Was smoking cessation discussed for >3mins.? @ -no Was critical care preformed (if so, how long)? @ -yes31 Were there social determinants of health that impacted care today? How? (Homeles sness, low income, unemployed, alcoholism, drug addiction, transportation, low edu. Level, literacy, decrease access to med. care, penitentiary, rehab)? @ -none Was there de-escalation of care discussed even if they declined (Discuss DNR or withdrawal of care, Hospice)? DNR status @ -no What co-morbidities impacted this encounter? (DM, HTN, Smoking, COPD, CAD, Cancer, CVA, ARF, Chemo, Hep., AIDS, mental health diagnosis, sleep apnea, morbid obesity)? @ -none Was patient admitted / discharged? Hospital course, mention meds given and route, prescriptions, significant lab abnormalities, going to OR and other pertinent info. @ - 74 female to be admitted for CHF pulmonary edema COPD exacerbation with hypoxia Admitted Undiagnosed new problem with uncertain prognosis? @ -no Drug Therapy requiring intensive monitoring for toxicity (Heparin, Nitro, Insulin, Cardizem)? @ -no Were any procedures done? @ -no Diagnosis/symptom? @ -Hypoxic respiratory failure CHF and COPD Acute, or Chronic, or Acute on Chronic? @ -Acute Uncomplicated (without systemic symptoms) or Complicated (systemic symptoms)? @ -Complicated Side effects of treatment? @ -no Exacerbation, Progression, or Severe Exacerbation? @ -exacerbation Poses a threat to life or bodily function? How? (Chest pain, [place], [place], pneumonia, PE, COPD, DKA, ARF, appy, cholecystitis, CVA, Diverticulitis, Homicidal, Suicidal, threat to staff... and all critical care pts) @ -yes hypoxic respiratory failure Reevaluation #5: Differential Dyspnea: Coronary syndrome, arrhythmia, tamponade, asthma, COPD, pulmonary embolism, pneumonia, pneumothorax, pulmonary effusion, anaphylaxis, diabetic ketoacidosis, flailed chest, pulmonary contusion, diaphragmatic rupture, anemia, neuromuscular, this is not meant to be an all-inclusive list. Medical Decision Making - Medical Decision Making 74 female to be admitted for CHF pulmonary edema COPD exacerbation with hypoxia - Lab Data Result diagrams: 12/09/24 07:40 12/11/24 03:21 Lab Results 12/08/24 12/08/24 12/08/24 Range/Units 05:07 05:08 05:08 WBC 20.4 H (3.8-10.6) k/uL RBC 3.62 L (3.80-5.40) m/uL Hgb 10.1 L (11.4-16.0) gm/dL Hct 34.5 (34.0-46.0) % MCV 95.5 (80.0-100.0) fL MCH 27.8 (25.0-35.0) pg MCHC 29.1 L (31.0-37.0) g/dL RDW 17.8 H (11.5-15.5) % Plt Count 260 (150-450) k/uL MPV 7.4 Neutrophils % 87 % Lymphocytes % 6 % Monocytes % 4 % Eosinophils % 2 % Basophils % 0 % Neutrophils # 17.8 H (1.3-7.7) k/uL Lymphocytes # 1.3 (1.0-4.8) k/uL Monocytes # 0.9 (0-1.0) k/uL Eosinophils # 0.3 (0-0.7) k/uL Basophils # 0.0 (0-0.2) k/uL Hypochromasia Marked Anisocytosis Slight Macrocytosis Slight PT 13.5 H (10.0-12.5) sec INR 1.3 H (<1.2) APTT 23.3 (22.0-30.0) sec Sample Site ABG pH (7.35-7.45) ABG pCO2 (35-45) mmHg ABG pO2 (83-108) mmHg ABG HCO3 (21-25) mmol/L ABG Total CO2 (19-24) mmol/L ABG O2 Saturation (94-97) % ABG Base Excess mmol/L Chauncey Test VBG pH 7.35 (7.31-7.41) VBG pCO2 83 H* (37-51) mmHg VBG HCO3 46 H (24-28) mmol/L Hemoglobin (11.4-16.0) gm/dL FiO2 % Sodium (137-145) mmol/L Potassium (3.5-5.1) mmol/L Chloride (98-107) mmol/L Carbon Dioxide (22-30) mmol/L Anion Gap mmol/L BUN (7-17) mg/dL Creatinine (0.52-1.04) mg/dL Est GFR (CKD-EPI)AfAm (>60 ml/min/1.73 sqM) Est GFR (CKD-EPI)NonAf (>60 ml/min/1.73 sqM) Glucose (74-99) mg/dL POC Glucose (mg/dL) (70-110) mg/dL POC Glu Crab Fisherman ID Plasma Lactic Acid Garret (0.7-2.0) mmol/L Calcium (8.4-10.2) mg/dL Magnesium (1.6-2.3) mg/dL Total Bilirubin (0.2-1.3) mg/dL AST (14-36) U/L ALT (4-34) U/L Alkaline Phosphatase (38-126) U/L Troponin I (0.000-0.034) ng/mL NT-Pro-B Natriuret Pep pg/mL Total Protein (6.3-8.2) g/dL Albumin (3.5-5.0) g/dL Influenza Type A (PCR) (Not Detectd) Influenza Type B (PCR) (Not Detectd) RSV (PCR) (Not Detectd) SARS-CoV-2 (PCR) (Not Detectd) 12/08/24 12/08/24 12/08/24 Range/Units 05:08 05:08 05:08 WBC (3.8-10.6) k/uL RBC (3.80-5.40) m/uL Hgb (11.4-16.0) gm/dL Hct (34.0-46.0) % MCV (80.0-100.0) fL MCH (25.0-35.0) pg MCHC (31.0-37.0) g/dL RDW (11.5-15.5) % Plt Count (150-450) k/uL MPV Neutrophils % % Lymphocytes % % Monocytes % % Eosinophils % % Basophils % % Neutrophils # (1.3-7.7) k/uL Lymphocytes # (1.0-4.8) k/uL Monocytes # (0-1.0) k/uL Eosinophils # (0-0.7) k/uL Basophils # (0-0.2) k/uL Hypochromasia Anisocytosis Macrocytosis PT (10.0-12.5) sec INR (<1.2) APTT (22.0-30.0) sec Sample Site ABG pH (7.35-7.45) ABG pCO2 (35-45) mmHg ABG pO2 (83-108) mmHg ABG HCO3 (21-25) mmol/L ABG Total CO2 (19-24) mmol/L ABG O2 Saturation (94-97) % ABG Base Excess mmol/L Chauncey Test VBG pH (7.31-7.41) VBG pCO2 (37-51) mmHg VBG HCO3 (24-28) mmol/L Hemoglobin (11.4-16.0) gm/dL FiO2 % Sodium 136 L (137-145) mmol/L Potassium 3.9 (3.5-5.1) mmol/L Chloride 89 L (98-107) mmol/L Carbon Dioxide 44 H* (22-30) mmol/L Anion Gap 3 mmol/L BUN 30 H (7-17) mg/dL Creatinine 0.95 (0.52-1.04) mg/dL Est GFR (CKD-EPI)AfAm 68 (>60 ml/min/1.73 sqM) Est GFR (CKD-EPI)NonAf 59 (>60 ml/min/1.73 sqM) Glucose 139 H (74-99) mg/dL POC Glucose (mg/dL) (70-110) mg/dL POC Glu Crab Fisherman ID Plasma Lactic Acid Garret 1.2 (0.7-2.0) mmol/L Calcium 8.3 L (8.4-10.2) mg/dL Magnesium 1.9 (1.6-2.3) mg/dL Total Bilirubin 0.8 (0.2-1.3) mg/dL AST 20 (14-36) U/L ALT 25 (4-34) U/L Alkaline Phosphatase 90 (38-126) U/L Troponin I 0.027 (0.000-0.034) ng/mL NT-Pro-B Natriuret Pep 2230 pg/mL Total Protein 5.3 L (6.3-8.2) g/dL Albumin 3.0 L (3.5-5.0) g/dL Influenza Type A (PCR) (Not Detectd) Influenza Type B (PCR) (Not Detectd) RSV (PCR) (Not Detectd) SARS-CoV-2 (PCR) (Not Detectd) 12/08/24 12/08/24 12/08/24 Range/Units 07:48 08:17 08:37 WBC (3.8-10.6) k/uL RBC (3.80-5.40) m/uL Hgb (11.4-16.0) gm/dL Hct (34.0-46.0) % MCV (80.0-100.0) fL MCH (25.0-35.0) pg MCHC (31.0-37.0) g/dL RDW (11.5-15.5) % Plt Count (150-450) k/uL MPV Neutrophils % % Lymphocytes % % Monocytes % % Eosinophils % % Basophils % % Neutrophils # (1.3-7.7) k/uL Lymphocytes # (1.0-4.8) k/uL Monocytes # (0-1.0) k/uL Eosinophils # (0-0.7) k/uL Basophils # (0-0.2) k/uL Hypochromasia Anisocytosis Macrocytosis PT (10.0-12.5) sec INR (<1.2) APTT (22.0-30.0) sec Sample Site Left Radial ABG pH 7.38 (7.35-7.45) ABG pCO2 75 H* (35-45) mmHg ABG pO2 49 L* (83-108) mmHg ABG HCO3 44 H* (21-25) mmol/L ABG Total CO2 46 H (19-24) mmol/L ABG O2 Saturation 81.9 L (94-97) % ABG Base Excess 16.2 mmol/L Chauncey Test Yes VBG pH (7.31-7.41) VBG pCO2 (37-51) mmHg VBG HCO3 (24-28) mmol/L Hemoglobin 9.4 L (11.4-16.0) gm/dL FiO2 35 % Sodium (137-145) mmol/L Potassium (3.5-5.1) mmol/L Chloride (98-107) mmol/L Carbon Dioxide (22-30) mmol/L Anion Gap mmol/L BUN (7-17) mg/dL Creatinine (0.52-1.04) mg/dL Est GFR (CKD-EPI)AfAm (>60 ml/min/1.73 sqM) Est GFR (CKD-EPI)NonAf (>60 ml/min/1.73 sqM) Glucose (74-99) mg/dL POC Glucose (mg/dL) (70-110) mg/dL POC Glu Crab Fisherman ID Plasma Lactic Acid Garret (0.7-2.0) mmol/L Calcium (8.4-10.2) mg/dL Magnesium (1.6-2.3) mg/dL Total Bilirubin (0.2-1.3) mg/dL AST (14-36) U/L ALT (4-34) U/L Alkaline Phosphatase (38-126) U/L Troponin I 0.044 H* (0.000-0.034) ng/mL NT-Pro-B Natriuret Pep pg/mL Total Protein (6.3-8.2) g/dL Albumin (3.5-5.0) g/dL Influenza Type A (PCR) Not Detected (Not Detectd) Influenza Type B (PCR) Not Detected (Not Detectd) RSV (PCR) Not Detected (Not Detectd) SARS-CoV-2 (PCR) Not Detected (Not Detectd) 12/08/24 12/08/24 12/08/24 Range/Units 12:16 16:45 20:26 WBC (3.8-10.6) k/uL RBC (3.80-5.40) m/uL Hgb (11.4-16.0) gm/dL Hct (34.0-46.0) % MCV (80.0-100.0) fL MCH (25.0-35.0) pg MCHC (31.0-37.0) g/dL RDW (11.5-15.5) % Plt Count (150-450) k/uL MPV Neutrophils % % Lymphocytes % % Monocytes % % Eosinophils % % Basophils % % Neutrophils # (1.3-7.7) k/uL Lymphocytes # (1.0-4.8) k/uL Monocytes # (0-1.0) k/uL Eosinophils # (0-0.7) k/uL Basophils # (0-0.2) k/uL Hypochromasia Anisocytosis Macrocytosis PT (10.0-12.5) sec INR (<1.2) APTT (22.0-30.0) sec Sample Site ABG pH (7.35-7.45) ABG pCO2 (35-45) mmHg ABG pO2 (83-108) mmHg ABG HCO3 (21-25) mmol/L ABG Total CO2 (19-24) mmol/L ABG O2 Saturation (94-97) % ABG Base Excess mmol/L Chauncey Test VBG pH (7.31-7.41) VBG pCO2 (37-51) mmHg VBG HCO3 (24-28) mmol/L Hemoglobin (11.4-16.0) gm/dL FiO2 % Sodium (137-145) mmol/L Potassium (3.5-5.1) mmol/L Chloride (98-107) mmol/L Carbon Dioxide (22-30) mmol/L Anion Gap mmol/L BUN (7-17) mg/dL Creatinine (0.52-1.04) mg/dL Est GFR (CKD-EPI)AfAm (>60 ml/min/1.73 sqM) Est GFR (CKD-EPI)NonAf (>60 ml/min/1.73 sqM) Glucose (74-99) mg/dL POC Glucose (mg/dL) 202 H 161 H 220 H (70-110) mg/dL POC Glu Crab Fisherman ID Kurt Armendariz [facility] Plasma Lactic Acid Garret (0.7-2.0) mmol/L Calcium (8.4-10.2) mg/dL Magnesium (1.6-2.3) mg/dL Total Bilirubin (0.2-1.3) mg/dL AST (14-36) U/L ALT (4-34) U/L Alkaline Phosphatase (38-126) U/L Troponin I (0.000-0.034) ng/mL NT-Pro-B Natriuret Pep pg/mL Total Protein (6.3-8.2) g/dL Albumin (3.5-5.0) g/dL Influenza Type A (PCR) (Not Detectd) Influenza Type B (PCR) (Not Detectd) RSV (PCR) (Not Detectd) SARS-CoV-2 (PCR) (Not Detectd) 12/09/24 12/09/24 12/09/24 Range/Units 05:29 06:32 07:40 WBC (3.8-10.6) k/uL RBC (3.80-5.40) m/uL Hgb (11.4-16.0) gm/dL Hct (34.0-46.0) % MCV (80.0-100.0) fL MCH (25.0-35.0) pg MCHC (31.0-37.0) g/dL RDW (11.5-15.5) % Plt Count (150-450) k/uL MPV Neutrophils % % Lymphocytes % % Monocytes % % Eosinophils % % Basophils % % Neutrophils # (1.3-7.7) k/uL Lymphocytes # (1.0-4.8) k/uL Monocytes # (0-1.0) k/uL Eosinophils # (0-0.7) k/uL Basophils # (0-0.2) k/uL Hypochromasia Anisocytosis Macrocytosis PT (10.0-12.5) sec INR (<1.2) APTT (22.0-30.0) sec Sample Site lrad ABG pH 7.46 H (7.35-7.45) ABG pCO2 65 H (35-45) mmHg ABG pO2 52 L* (83-108) mmHg ABG HCO3 46 H* (21-25) mmol/L ABG Total CO2 48 H (19-24) mmol/L ABG O2 Saturation 88.4 L (94-97) % ABG Base Excess 19.6 mmol/L Chauncey Test Yes VBG pH (7.31-7.41) VBG pCO2 (37-51) mmHg VBG HCO3 (24-28) mmol/L Hemoglobin 8.4 L (11.4-16.0) gm/dL FiO2 35 % Sodium 136 L (137-145) mmol/L Potassium 4.0 (3.5-5.1) mmol/L Chloride 89 L (98-107) mmol/L Carbon Dioxide 46 H* (22-30) mmol/L Anion Gap 1 mmol/L BUN 37 H (7-17) mg/dL Creatinine 1.00 (0.52-1.04) mg/dL Est GFR (CKD-EPI)AfAm 64 (>60 ml/min/1.73 sqM) Est GFR (CKD-EPI)NonAf 56 (>60 ml/min/1.73 sqM) Glucose 273 H (74-99) mg/dL POC Glucose (mg/dL) 265 H (70-110) mg/dL POC Glu Crab Fisherman ID Karen Trejo Plasma Lactic Acid Garret (0.7-2.0) mmol/L Calcium 8.0 L (8.4-10.2) mg/dL Magnesium 2.2 (1.6-2.3) mg/dL Total Bilirubin (0.2-1.3) mg/dL AST (14-36) U/L ALT (4-34) U/L Alkaline Phosphatase (38-126) U/L Troponin I (0.000-0.034) ng/mL NT-Pro-B Natriuret Pep pg/mL Total Protein (6.3-8.2) g/dL Albumin (3.5-5.0) g/dL Influenza Type A (PCR) (Not Detectd) Influenza Type B (PCR) (Not Detectd) RSV (PCR) (Not Detectd) SARS-CoV-2 (PCR) (Not Detectd) 12/09/24 12/09/24 12/09/24 Range/Units 07:40 11:19 16:14 WBC 9.9 (3.8-10.6) k/uL RBC 3.12 L (3.80-5.40) m/uL Hgb 9.1 L (11.4-16.0) gm/dL Hct 30.5 L (34.0-46.0) % MCV 97.8 (80.0-100.0) fL MCH 29.2 (25.0-35.0) pg MCHC 29.8 L (31.0-37.0) g/dL RDW 17.6 H (11.5-15.5) % Plt Count 193 (150-450) k/uL MPV 7.7 Neutrophils % % Lymphocytes % % Monocytes % % Eosinophils % % Basophils % % Neutrophils # (1.3-7.7) k/uL Lymphocytes # (1.0-4.8) k/uL Monocytes # (0-1.0) k/uL Eosinophils # (0-0.7) k/uL Basophils # (0-0.2) k/uL Hypochromasia Marked Anisocytosis Slight Macrocytosis Slight PT (10.0-12.5) sec INR (<1.2) APTT (22.0-30.0) sec Sample Site ABG pH (7.35-7.45) ABG pCO2 (35-45) mmHg ABG pO2 (83-108) mmHg ABG HCO3 (21-25) mmol/L ABG Total CO2 (19-24) mmol/L ABG O2 Saturation (94-97) % ABG Base Excess mmol/L Chauncey Test VBG pH (7.31-7.41) VBG pCO2 (37-51) mmHg VBG HCO3 (24-28) mmol/L Hemoglobin (11.4-16.0) gm/dL FiO2 % Sodium (137-145) mmol/L Potassium (3.5-5.1) mmol/L Chloride (98-107) mmol/L Carbon Dioxide (22-30) mmol/L Anion Gap mmol/L BUN (7-17) mg/dL Creatinine (0.52-1.04) mg/dL Est GFR (CKD-EPI)AfAm (>60 ml/min/1.73 sqM) Est GFR (CKD-EPI)NonAf (>60 ml/min/1.73 sqM) Glucose (74-99) mg/dL POC Glucose (mg/dL) 240 H 214 H (70-110) mg/dL POC Glu Crab Fisherman ID [facility] Plasma Lactic Acid Garret (0.7-2.0) mmol/L Calcium (8.4-10.2) mg/dL Magnesium (1.6-2.3) mg/dL Total Bilirubin (0.2-1.3) mg/dL AST (14-36) U/L ALT (4-34) U/L Alkaline Phosphatase (38-126) U/L Troponin I (0.000-0.034) ng/mL NT-Pro-B Natriuret Pep pg/mL Total Protein (6.3-8.2) g/dL Albumin (3.5-5.0) g/dL Influenza Type A (PCR) (Not Detectd) Influenza Type B (PCR) (Not Detectd) RSV (PCR) (Not Detectd) SARS-CoV-2 (PCR) (Not Detectd) 12/09/24 12/10/24 12/10/24 Range/Units 20:49 06:12 07:04 WBC (3.8-10.6) k/uL RBC (3.80-5.40) m/uL Hgb (11.4-16.0) gm/dL Hct (34.0-46.0) % MCV (80.0-100.0) fL MCH (25.0-35.0) pg MCHC (31.0-37.0) g/dL RDW (11.5-15.5) % Plt Count (150-450) k/uL MPV Neutrophils % % Lymphocytes % % Monocytes % % Eosinophils % % Basophils % % Neutrophils # (1.3-7.7) k/uL Lymphocytes # (1.0-4.8) k/uL Monocytes # (0-1.0) k/uL Eosinophils # (0-0.7) k/uL Basophils # (0-0.2) k/uL Hypochromasia Anisocytosis Macrocytosis PT (10.0-12.5) sec INR (<1.2) APTT (22.0-30.0) sec Sample Site ABG pH (7.35-7.45) ABG pCO2 (35-45) mmHg ABG pO2 (83-108) mmHg ABG HCO3 (21-25) mmol/L ABG Total CO2 (19-24) mmol/L ABG O2 Saturation (94-97) % ABG Base Excess mmol/L Chauncey Test VBG pH (7.31-7.41) VBG pCO2 (37-51) mmHg VBG HCO3 (24-28) mmol/L Hemoglobin (11.4-16.0) gm/dL FiO2 % Sodium 136 L (137-145) mmol/L Potassium 4.4 (3.5-5.1) mmol/L Chloride 89 L (98-107) mmol/L Carbon Dioxide 44 H* (22-30) mmol/L Anion Gap 3 mmol/L BUN 35 H (7-17) mg/dL Creatinine 1.08 H (0.52-1.04) mg/dL Est GFR (CKD-EPI)AfAm 58 (>60 ml/min/1.73 sqM) Est GFR (CKD-EPI)NonAf 50 (>60 ml/min/1.73 sqM) Glucose 206 H (74-99) mg/dL POC Glucose (mg/dL) 224 H 217 H (70-110) mg/dL POC Glu Crab Fisherman ID Bryce Murphy Plasma Lactic Acid Garret (0.7-2.0) mmol/L Calcium 8.4 (8.4-10.2) mg/dL Magnesium (1.6-2.3) mg/dL Total Bilirubin (0.2-1.3) mg/dL AST (14-36) U/L ALT (4-34) U/L Alkaline Phosphatase (38-126) U/L Troponin I (0.000-0.034) ng/mL NT-Pro-B Natriuret Pep pg/mL Total Protein (6.3-8.2) g/dL Albumin (3.5-5.0) g/dL Influenza Type A (PCR) (Not Detectd) Influenza Type B (PCR) (Not Detectd) RSV (PCR) (Not Detectd) SARS-CoV-2 (PCR) (Not Detectd) - EKG Data -: EKG Interpreted by Me (EKG is sinus tachycardia 104 AR 161 QRS 165 QTc 461) - Radiology Data Radiology results: report reviewed (Chest x-ray positive CHF), image reviewed Critical Care Time Critical Care Time: Yes Total Critical Care Time: 31 Disposition Clinical Impression: Community acquired pneumonia, Acute exacerbation of chronic obstructive airways disease, Chest pain, CHF (congestive heart failure), Transaminitis, Status post hip replacement, Hypoxia, Acute exacerbation of chronic obstructive pulmonary disease, Acute pulmonary edema Disposition: ADMITTED IP TO THIS HOSP Condition: Serious Is patient prescribed a controlled substance at d/c from ED?: No Time of Disposition: 05:00
[2024-12-08] MEDS: IPRATROPIUM-ALBUTEROL 3 ML NEB INHALATION STA (05:14)
[2024-12-08 05:22] LABS: Anisocytosis Slight; Basophils % (A) 0 %; Eosinophils # (A) 0.3 k/uL (0-0.7); Eosinophils % (A) 2 %; HCT 34.5 % (34.0-46.0); HGB 10.1 gm/dL (11.4-16.0); Hypochromasia Marked; Lymphocytes # (A) 1.3 k/uL (1.0-4.8); Lymphocytes % (A) 6 %; MCH 27.8 pg (25.0-35.0); MCHC 29.1 g/dL (31.0-37.0); MCV 95.5 fL (80.0-100.0); Macrocytosis Slight; Mean Platelet Volume 7.4; Monocytes # (A) 0.9 k/uL (0-1.0); Monocytes % (A) 4 %; Neutrophils # (A) 17.8 k/uL (1.3-7.7); Neutrophils % (A) 87 %; Platelet Count 260 k/uL (150-450); RBC 3.62 m/uL (3.80-5.40); RDW 17.8 % (11.5-15.5); WBC 20.4 k/uL (3.8-10.6)
[2024-12-08] MEDS: SODIUM CHLORIDE 0.9% 1,000 ML IV ONE (05:32)
[2024-12-08 05:33] LABS: ALT 25 U/L (4-34); AST 20 U/L (14-36); African American GFR (CKD) 68 (>60 ml/min/1.73 sqM); Alkaline Phosphatase 90 U/L (38-126); Blood Urea Nitrogen 30 mg/dL (7-17); Calcium 8.3 mg/dL (8.4-10.2); Chloride 89 mmol/L (98-107); Glucose 139 mg/dL (74-99); Magnesium 1.9 mg/dL (1.6-2.3); Non-African American GFR(CKD) 59 (>60 ml/min/1.73 sqM); Potassium 3.9 mmol/L (3.5-5.1); Sodium 136 mmol/L (137-145); Total Bilirubin 0.8 mg/dL (0.2-1.3); Total Protein 5.3 g/dL (6.3-8.2)
[2024-12-08] MEDS: methylPREDNISolone SOD SUCCI 125 MG/2 ML VIAL IV STA (05:33)
[2024-12-08 05:39] LABS: Anion Gap 3 mmol/L
[2024-12-08 05:42] LABS: NT-Pro-B-Type Natriuretic Pept 2230 pg/mL
--- NOTE | 2024-12-08 05:43 | XR ---
EXAMINATION TYPE: XR chest 1V portable DATE OF EXAM: 12/08/2024 COMPARISON: Chest x-ray October 18, 2024 CLINICAL INDICATION: Female, 74 years old with history of sob; TECHNIQUE: Single frontal view of the chest is obtained. FINDINGS: Redemonstration of overlying sternal wires and left atrial appendage. Persistent cardiomeg domingo with central vascular congestion and likely small bilateral pleural effusions. Osseous structures are intact.. IMPRESSION: Findings consistent with CHF exacerbation/fluid overload state. [facility], , 12/08/2024 5:41 AM
[2024-12-08 05:45] LABS: VBG PH 7.35 (7.31-7.41)
[2024-12-08 05:49] LABS: Carbon Dioxide 44 mmol/L (22-30)
[2024-12-08] MEDS ORDERED: NALOXONE 0.4 MG/ML 1 ML VIAL IVP PRN (05:53)
[2024-12-08] MEDS: methylPREDNISolone SOD SUCCI 125 MG/2 ML VIAL IV SCH (06:06)
[2024-12-08] MEDS: FUROSEMIDE 10 MG/ML 4 ML VIAL IV SCH (06:10)
[2024-12-08] MEDS: NITROGLYCERIN OINT 1 INCH/GM PACKET TOPICAL SCH (06:10)
[2024-12-08 06:35] LABS: INR 1.3 (<1.2); Partial Thromboplastin Time 23.3 sec (22.0-30.0); Prothrombin Time 13.5 sec (10.0-12.5)
--- NOTE | 2024-12-08 07:18 | P.CNPUL ---
History of Present Illness Consult date: 12/08/24 Requesting physician: Martin Martínez Reason for consult: COPD Chief complaint: Shortness of breath History of present illness: Patient is a 74-year-old female with past medical history significant for oxygen dependant COPD, thoracic aortic dissection with repair, atrial fibrillation, hypertension, hypothyroidism, heart failure, pleural effusion with previous thoracentesis. Patient brought in by EMS from [facility] for increased work of breathing over the last 24 to 48 hours. Workup in the emergency department occluding a chest x-ray showing cardiomegaly, with central vascular congestion. NT proBNP elevated 2230. Echocardiogram from 10/26/2024 estimating preserved left ventricular ejection fraction of 55 to 60%. Started on IV Lasix 40 mg twice daily. CBC: WBC count 20.4, hemoglobin 10.1, platelets 260. CMP: Sodium 136, potassium 3.9, chloride 80, serum bicarb 44, BUN 30, creatinine 0.95, glucose 139. Lactic 1.2. Troponin 0.027. Patient currently being evalu ated emergency department, currently on 6 L high flow nasal cannula. Breathing is nonlabored. SpO2 reading 99%. VBG done earlier with a pCO2 of 83 and pH of 7.35. Lethargic, but does awaken and answer questions appropriately. She is oriented x 3. She has had increased oxygen demands, with associated lower extremity swelling at the correction. Denies any chest pain. Denies any infectious symptoms. Her daughter and designated power of spiral tube winder helper is present at bedside. States that her mother has been in and out of hospitals and nursing homes since June, after having a repair of a thoracic aortic aneurysm dissection at [facility]. Actually, was just recently discharged from [facility] on Friday to [facility]. She was hospitalized for heart failure exacerbation per the daughter. Review of Systems Constitutional: Reports fatigue, Reports weakness, Reports weight gain, Denies chills, Denies fever, Denies poor appetite, Denies sweats, Denies weight loss Ears, nose, mouth and throat: Denies headache, Denies nasal congestion, Denies nasal discharge, Denies post-nasal drip, Denies sinus pain, Denies sinus pressure, Denies sore throat Cardiovascular: Reports dyspnea on exertion, Reports leg edema, Reports orthopnea, Denies chest pain, Denies lightheadedness, Denies palpitations, Denies paroxysmal nocturnal dyspnea, Denies shortness of breath, Denies syncope Respiratory: Reports congestion, Reports cough, Reports dyspnea, Reports home oxygen, Reports wheezing, Denies cough with sputum, Denies hemoptysis, Denies pain on inspiration Gastrointestinal: Denies abdominal pain, Denies change in bowel habits, Denies diarrhea, Denies nausea, Denies vomiting Genitourinary: Denies dysuria Musculoskeletal: Denies limitation of motion Integumentary: Denies rash Neurological: Reports confusion, Denies head injury, Denies seizures, Denies syncope Psychiatric: Denies anxiety, Denies depression Past Medical History Past Medical History: COPD, Eye Disorder, Hypertension, Osteoarthritis (OA) Additional Past Medical History / Comment(s): macular degeneration, actinic keratosis. Mild to moderate mitral regurgitation, murmur, legally blind. 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 no driving d/t vision Smoking Status: Former smoker Past Alcohol Use History: Rare Additional Past Alcohol Use History / Comment(s): started smoking at age 21 smokes 1/2 ppd. patient states she quit smoing 3-4 years ago. Past Drug Use History: None Reported - Past Family History Mother Family Medical History: CVA/TIA, Hypertension, Myocardial Infarction ([place]) Father Family Medical History: AFIB, Hypertension, Myocardial Infarction ([place]) Sister(s) Daughter(s) Family Medical History: Cancer Medications and Allergies Home Medications Medication Instructions Recorded Confirmed Type Amiodarone [Cordarone] 200 mg PO DAILY 10/26/24 12/08/24 History Apixaban [Eliquis] 5 mg PO BID 10/26/24 12/08/24 History Budesonide [Pulmicort] 0.5 mg INHALATION RT-BID 10/26/24 12/08/24 History Folic Acid 1 mg PO DAILY 10/26/24 12/08/24 History Gabapentin [Neurontin] 100 mg PO TID 10/26/24 12/08/24 History Ipratropium-Albuterol Nebulize 3 ml INHALATION RT-Q6H PRN 10/26/24 12/08/24 History [Duoneb 0.5 mg-3 mg/3 ml Soln] Multivitamins, Thera [Multivitamin 1 tab PO DAILY 10/26/24 12/08/24 History (formulary)] Pantoprazole Sodium [Protonix] 40 mg PO DAILY 10/26/24 12/08/24 History Thiamine [Vitamin B-1] 100 mg PO DAILY 10/26/24 12/08/24 History carvediloL [Coreg] 25 mg PO BID 10/26/24 12/08/24 History Acetaminophen Tab [Tylenol] 650 mg PO Q6HR PRN tab 10/28/24 12/08/24 Rx Calcium Carbonate [Tums] 500 mg PO Q6H PRN 12/08/24 12/08/24 History Calcium Carbonate/Vitamin D3 1 tab PO DAILY 12/08/24 12/08/24 History [Calcium 600 mg-Vit D3 10 mcg (400 Unit)] Dextrose Gel [Glucose Gel] 13 ml PO Q15M PRN 12/08/24 12/08/24 History Docusate [Colace] 100 mg PO BID 12/08/24 12/08/24 History Empagliflozin [Jardiance] 10 mg PO DAILY 12/08/24 12/08/24 History Ferrous Sulfate [Feosol] 325 mg PO DAILY 12/08/24 12/08/24 History Furosemide [Lasix] 40 mg PO BID@0800,1400 12/08/24 12/08/24 History Glucagon Emergency Kit 1 mg SQ DIRECTED PRN 12/08/24 12/08/24 History INSULIN LISPRO (humaLOG) [humaLOG] See Protocol SQ ACHS 12/08/24 12/08/24 His tory Levothyroxine Sodium [Synthroid] 112 mcg PO DAILY 12/08/24 12/08/24 History Losartan Potassium [Cozaar] 100 mg PO DAILY 12/08/24 12/08/24 History Ondansetron [Zofran] 4 mg PO Q6H PRN 12/08/24 12/08/24 History Sennosides [Senokot] 8.6 mg PO DAILY PRN 12/08/24 12/08/24 History polyethylene glycoL 3350 [Miralax] 17 gm PO Q24H PRN 12/08/24 12/08/24 History predniSONE See Taper PO DIRECTED 12/08/24 12/08/24 History Allergies Allergy/AdvReac Type Severity Reaction Status Date / Time Iodinated Contrast Media Allergy Rash/Hives Verified 12/08/24 07:37 lidocaine Allergy Itching Verified 12/08/24 07:37 Penicillins Allergy Rash/Hives Verified 12/08/24 07:37 tramadol AdvReac facial Verified 12/08/24 07:37 drooping Physical Exam Vitals: Vital Signs Temp Pulse Resp BP Pulse Ox 12/08/24 05:34 102 H 18 129/70 99 12/08/24 05:30 95 12/08/24 05:18 103 H 12/08/24 05:09 95 12/08/24 04:55 98.7 F 105 H 22 129/78 75 L Intake and Output 12/07/24 12/07/24 12/08/24 14:59 22:59 06:59 Other: Weight 90.718 kg GENERAL EXAM: Lethargic, 74-year-old female, awakens and answers questions appropriately, then falls back asleep. On 6 L/min nasal cannula. HEAD: Normocephalic and atraumatic EYES: Normal reaction of pupils, equal size. NOSE: Clear with pink turbinates. THROAT: No erythema or exudates. NECK: No masses, no JVD. CHEST: No chest wall deformity. Approximated former midline sternotomy incision LUNGS: Equal air entry with inspiratory bibasilar crackles and scattered rhonchi. On 6 L/min nasal cannula. SpO2 reading 97%. No conversational dyspnea or accessory muscle use.. CVS: S1 and S2 normal with no audible murmur, regular rhythm. No extra heart sounds ABDOMEN: No hepatosplenomegaly, active bowel sounds, no guarding or rigidity. SPINE: No scoliosis or deformity SKIN: No rashes CENTRAL NERVOUS SYSTEM: No focal deficits, tone is normal in all 4 extremities. EXTREMITIES: There is bilateral lower extremity 2-3+ pitting edema. No clubbing or cyanosis. Peripheral pulses are intact. Results - Laboratory Findings CBC and BMP: 12/08/24 05:08 12/08/24 05:08 Abnormal lab findings: Abnormal Labs 12/08/24 12/08/24 12/08/24 05:07 05:08 05:08 WBC 20.4 H RBC 3.62 L Hgb 10.1 L MCHC 29.1 L RDW 17.8 H Neutrophils # 17.8 H VBG pCO2 83 H* VBG HCO3 46 H Sodium 136 L Chloride 89 L Carbon Dioxide 44 H* BUN 30 H Glucose 139 H Calcium 8.3 L Total Protein 5.3 L Albumin 3.0 L - Diagnostic Findings Chest x-ray: image reviewed Assessment and Plan Assessment: Acute on chronic hypoxemic and hypercapnic respiratory failure, likely secondary to combination of acute COPD exacerbation and exacerbation of diastolic congestive heart failure. Chest x-ray shows cardiomegaly with central vascular congestion. NT proBNP 2230. Leukocytosis Chronic obstructive pulmonary disease, normally oxygen dependent on 2 L/min nasal cannula History of aortic dissection involving the thoracic aorta for which the patient has undergone surgical repair at the [facility]. History of paroxysmal atrial fibrillation, maintained on a combination of Coreg, amiodarone and anticoagulation with Eliquis, current rhythm is sinus tachycardia History of heart failure with preserved ejection fraction, recent echocardiogram from on 10/26/2024 estimating preserved left ventricular ejection fraction 55 to 60%. History of hypothyroidism Hypertension Osteoarthritis Obesity with a BMI of 33.3 kg/m Macular degeneration Plan Continue supplemental oxygen maintain oxygen saturation between 88 and 92% Monitor for CO2 narcosis Continue DuoNebs [id number] Continue IV Solu-Medrol Add budesonide and formoterol inhalations Obtain viral 4 Plex Continue Lasix 40 mg twice daily Cardiology is consulted We will also continue to follow I have personally seen and examined the patient, performed the documentation and the assessment and plan as written. Number of minutes spent on the visit:20 This is a joint evaluation that was done along with a nurse practitioner. This evaluation was done and 31 minutes. The patient has a very complicated history of aortic dissection for which she has undergone major surgical repair at [facility]. Since then, the patient has been having ongoing respiratory insufficiency with recurrent hospitalization for COPD and acute hypoxic and hypercapnic respiratory failure. Her last hospitalization was at [facility] and following that the patient was discharged to [facility] where she was also given an noninvasive positive pressure ventilator. She has oxygen dependent COPD. She has chronic A-fib, hypertension hypothyroidism and previous history of pleural effusion that required thoracentesis. She has been followed up by Dr. JONAH Mendez on an outpatient basis. The patient came in to our hospital with increased work of breathing and worsening shortness of breath and hypoxemia. Chest x-ray is consistent with CHF and cardiomegaly and pulm vascular congestion. proBNP level was elevated. Her previous echocardiogram from 10/26/2024 showed a preserved LV function with an ejection fraction of 55 to 60%. The patient has CHF with preserved LV function. She was started on IV Lasix. She is producing adequate amount of urine output. Blood gas was done and showed compensated chronic hypercapnic and hypoxic respiratory failure. The pH was at 7.38 with a pCO2 of 75 and pO2 of 49 and this was an FiO2 of 35%. At this point, the patient is on a BiPAP at a pressure of 10 over 5 cm of water with an FiO2 of 40%. She is generating adequate tidal volumes. She seems to be much more comfortable on the BiPAP and she is gradually arousing. Troponins at 0.04. Viral screen was essentially negative. She has chronic metabolic alkalosis secondary to chronic hypercapnic respiratory failure. Renal function is currently stable. Patient was also started on DuoNeb nebulized treatments [id number] and IV Solu-Medrol. Cardiology has been consulted. The plan is to continue the treatment for now. Repeat chest x-ray in a.m. Repeat blood gas in a.m. The patient will be transferred to telemetry unit for further monitoring. Will continue to follow. The case was discussed with the daughter at the bedside. The patient will likely need a noninvasive positive pressure ventilation on a permanent basis pending a sleep study. Time with Patient: Greater than 30
[2024-12-08 08:42] LABS: ABG Base Excess 16.2 mmol/L; ABG Oxygen Saturation 81.9 % (94-97); ABG PH 7.38 (7.35-7.45); ABG TCO2 46 mmol/L (19-24); Allen Test Performed? Yes
[2024-12-08] MEDS: IPRATROPIUM-ALBUTEROL 3 ML NEB INHALATION SCH (08:51)
[2024-12-08] MEDS: BUDESONIDE 1 MG/2 ML NEBU INHALATION SCH (08:52)
[2024-12-08] MEDS: FORMOTEROL FUMARATE 20 MCG/2 ML NEBU INHALATION SCH (08:52)
[2024-12-08 08:55] LABS: ABG HCO3 44 mmol/L (21-25); ABG PCO2 75 mmHg (35-45); ABG PO2 49 mmHg (83-108)
[2024-12-08 09:56] LABS: Influenza A Not Detected (Not Detectd); Influenza B Not Detected (Not Detectd); RSV Not Detected (Not Detectd)
[2024-12-08] MEDS: carvediloL 12.5 MG TAB PO SCH (10:11)
[2024-12-08] MEDS: LOSARTAN 50 MG TAB PO SCH (10:11)
[2024-12-08] MEDS: APIXABAN 5 MG TAB PO SCH (10:12)
[2024-12-08] MEDS: AMIODARONE 200 MG TAB PO SCH (10:12)
[2024-12-08] MEDS: DAPAGLIFLOZIN PROPANEDIOL 5 MG TABLET PO SCH (10:12)
--- NOTE | 2024-12-08 10:17 | P.CRDCN ---
History of Present Illness History of present illness: HISTORY OF PRESENT ILLNESS: This is a 74-year-old female with a past medical history significant for atrial fibrillation, congestive heart failure, hypertension, diabetes, COPD, and thora cic aortic dissection s/p surgical repair at [facility]. Patient follows in the office with Dr. Grady. We have been asked to see the patient in consultation for congestive heart failure. Patient examined at the bedside. Patient's family is at the bedside and providing majority of HPI. Patient was brought from [facility] due to hypoxia with O2 saturations in the 50s. Patient's feeling of her states that she was recently at [facility] and discharged recently secondary to congestive heart failure. Patient is lethargic at the time of examination although she is arousable to verbal stimuli. She currently reports shortness of breath. She denies any chest pain or pressure. DIAGNOSTICS: - EKG reveals sinus tachycardia with left bundle branch block. Baseline artifa ct. - Chest xray findings consistent with CHF exacerbation/fluid overload state. - Laboratory data: WBC 20.4. Hemoglobin 10.1. Platelet count 260. Sodium 136. Potassium 3.9. BUN 30. Creatinine 0.95. Lactic acid 1.2. Troponin 0.027. - Current home cardiac medications include Lasix 40 mg twice a day, Eliquis 5 mg twice a day, carvedilol 25 mg twice a day, losartan 100 mg daily, Jardiance 10 mg daily, amiodarone 200 mg daily. - Most recent echocardiogram obtained in September 2024 revealed ejection fraction 55 to 60%, no wall motion abnormalities, mild MR, trace pericardial effusion - Patient underwent Lexiscan stress test in June 2024 which was negative for ischemia REVIEW OF SYSTEMS: At the time of my exam: CONSTITUTIONAL: Denies fever or chills. HEENT: Denies blurred vision, vision changes, or eye pain. Denies hemoptysis CARDIOVASCULAR: Denies chest pain. Denies orthopnea. Denies PND. Denies palpitations RESPIRATORY: Reports shortness of breath. GASTROINTESTINAL: Denies abdominal pain. Denies nausea or vomiting. HEMATOLOGIC: Denies bleeding disorders. GENITOURINARY: Denies any blood in urine. SKIN: Denies pruitis. Denies rash. PHYSICAL EXAM: VITAL SIGNS: Reviewed. GENERAL: Well-developed in no acute distress. HEENT: Head is normocephalic. Pupils are equal, round. Sclerae anicteric. Mucous membranes of the mouth are moist. Neck supple. No JVD or thyromegaly LUNGS: Respirations even and unlabored. Lungs with bibasilar crackles and rhonchi HEART: Regular rate and rhythm. S1 and S2 heard. Systolic murmur noted. ABDOMEN: Soft. Nondistended. Nontender. EXTREMITIES: Normal range of motion. No clubbing or cyanosis. Peripheral pulses intact. Trace bilateral lower extremity edema NEUROLOGIC: Lethargic. Awakens to verbal stimulation. ASSESSMENT: Shortness of breath Acute on chronic heart failure with preserved EF, 55 to 60% Acute hypoxic and hypercapnic respiratory failure Altered mental status, likely secondary to hypercapnia, CO2 75 Minimally elevated troponin, likely type II [place] secondary to oxygen supply/demand mismatch Paroxysmal atrial fibrillation Hypertension Diabetes COPD PLAN: No need to repeat echocardiogram as this was performed in September 2024 Resume home cardiac medications including Eliquis, carvedilol, losartan, Jardiance, and amiodarone Add atorvastatin 40 mg at night Continue IV Lasix 40 mg every 12 hours Daily weights, accurate intake and output, monitoring of kidney function Pulmonary on consult. Await evaluation further recommendations. Patient likely to be started on BiPAP. Further recommendations pending patient course Nurse practitioner note has been reviewed by physician. Signing provider agrees with the documented findings, assessment, and plan of care documented by JOURNEYMAN PLUMBER as a scribe. Past Medical History Past Medical History: COPD, Eye Disorder, Hypertension, Osteoarthritis (OA) Additional Past Medical History / Comment(s): macular degeneration, actinic keratosis. Mild to moderate mitral regurgitation, murmur, legally blind. 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 no driving d/t vision Smoking Status: Former smoker Past Alcohol Use History: Rare Additional Past Alcohol Use History / Comment(s): started smoking at age 21 smokes 1/2 ppd. patient states she quit smoing 3-4 years ago. Past Drug Use History: None Reported - Past Family History Mother Family Medical History: CVA/TIA, Hypertension, Myocardial Infarction ([place]) Father Family Medical History: AFIB, Hypertension, Myocardial Infarction ([place]) Sister(s) Daughter(s) Family Medical History: Cancer Medications and Allergies Home Medications Medication Instructions Recorded Confirmed Type Amiodarone [Cordarone] 200 mg PO DAILY 10/26/24 12/08/24 History Apixaban [Eliquis] 5 mg PO BID 10/26/24 12/08/24 History Budesonide [Pulmicort] 0.5 mg INHALATION RT-BID 10/26/24 12/08/24 History Folic Acid 1 mg PO DAILY 10/26/24 12/08/24 History Gabapentin [Neurontin] 100 mg PO TID 10/26/24 12/08/24 History Ipratropium-Albuterol Nebulize 3 ml INHALATION RT-Q6H PRN 10/26/24 12/08/24 History [Duoneb 0.5 mg-3 mg/3 ml Soln] Multivitamins, Thera [Multivitamin 1 tab PO DAILY 10/26/24 12/08/24 History (formulary)] Pantoprazole Sodium [Protonix] 40 mg PO DAILY 10/26/24 12/08/24 History Thiamine [Vitamin B-1] 100 mg PO DAILY 10/26/24 12/08/24 History carvediloL [Coreg] 25 mg PO BID 10/26/24 12/08/24 History Acetaminophen Tab [Tylenol] 650 mg PO Q6HR PRN tab 10/28/24 12/08/24 Rx Calcium Carbonate [Tums] 500 mg PO Q6H PRN 12/08/24 12/08/24 History Calcium Carbonate/Vitamin D3 1 tab PO DAILY 12/08/24 12/08/24 History [Calcium 600 mg-Vit D3 10 mcg (400 Unit)] Dextrose Gel [Glucose Gel] 13 ml PO Q15M PRN 12/08/24 12/08/24 History Docusate [Colace] 100 mg PO BID 12/08/24 12/08/24 History Empagliflozin [Jardiance] 10 mg PO DAILY 12/08/24 12/08/24 History Ferrous Sulfate [Feosol] 325 mg PO DAILY 12/08/24 12/08/24 History Furosemide [Lasix] 40 mg PO BID@0800,1400 12/08/24 12/08/24 History Glucagon Emergency Kit 1 mg SQ DIRECTED PRN 12/08/24 12/08/24 History INSULIN LISPRO (humaLOG) [humaLOG] See Protocol SQ ACHS 12/08/24 12/08/24 History Levothyroxine Sodium [Synthroid] 112 mcg PO DAILY 12/08/24 12/08/24 History Losartan Potassium [Cozaar] 100 mg PO DAILY 12/08/24 12/08/24 History Ondansetron [Zofran] 4 mg PO Q6H PRN 12/08/24 12/08/24 History Sennosides [Senokot] 8.6 mg PO DAILY PRN 12/08/24 12/08/24 History polyethylene glycoL 3350 [Miralax] 17 gm PO Q24H PRN 12/08/24 12/08/24 History predniSONE See Taper PO DIRECTED 12/08/24 12/08/24 History Allergies Allergy/AdvReac Type Severity Reaction Status Date / Time Iodinated Contrast Media Allergy Rash/Hives Verified 12/08/24 07:37 lidocaine Allergy Itching Verified 12/08/24 07:37 Penicillins Allergy Rash/Hives Verified 12/08/24 07:37 tramadol AdvReac facial Verified 12/08/24 07:37 drooping Physical Exam Vitals: Vital Signs Temp Pulse Pulse Resp BP BP Pulse Ox 12/08/24 09:26 90 12/08/24 09:15 88 12/08/24 09:02 89 L 12/08/24 08:56 85 12/08/24 07:00 98.9 F 94 18 123/73 92 L 12/08/24 06:17 101 H 20 140/78 90 L 12/08/24 05:34 102 H 18 129/70 99 12/08/24 05:30 95 12/08/24 05:18 103 H 12/08/24 05:09 95 12/08/24 04:55 98.7 F 105 H 22 129/78 75 L Intake and Output 12/07/24 12/08/24 12/08/24 22:59 06:59 14:59 Other: Weight 90.718 kg 90.718 kg Results 03/12/25 05:08 12/08/24 05:08 Cardiac Enzymes 12/08/24 12/08/24 12/08/24 Range/Units 05:08 05:08 07:48 AST 20 (14-36) U/L Troponin I 0.027 0.044 H* (0.000-0.034) ng/mL Coagulation 12/08/24 Range/Units 05:08 PT 13.5 H (10.0-12.5) sec APTT 23.3 (22.0-30.0) sec CBC 12/08/24 Range/Units 05:08 WBC 20.4 H (3.8-10.6) k/uL RBC 3.62 L (3.80-5.40) m/uL Hgb 10.1 L (11.4-16.0) gm/dL Hct 34.5 (34.0-46.0) % Plt Count 260 (150-450) k/uL Comprehensive Metabolic Panel 12/08/24 Range/Units 05:08 Sodium 136 L (137-145) mmol/L Potassium 3.9 (3.5-5.1) mmol/L Chloride 89 L (98-107) mmol/L Carbon Dioxide 44 H* (22-30) mmol/L BUN 30 H (7-17) mg/dL Creatinine 0.95 (0.52-1.04) mg/dL Glucose 139 H (74-99) mg/dL Calcium 8.3 L (8.4-10.2) mg/dL AST 20 (14-36) U/L ALT 25 (4-34) U/L Alkaline Phosphatase 90 (38-126) U/L Total Protein 5.3 L (6.3-8.2) g/dL Albumin 3.0 L (3.5-5.0) g/dL Current Medications Generic Name Dose Route Start Last Admin Trade Name Freq PRN Reason Stop Dose Admin Albuterol/Ipratropium 3 ml 12/08/24 08:00 12/08/24 08:51 Ipratropium-Albuterol 3 Ml Neb INHALATION 3 ml RT-QID HUONG Administration Amiodarone HCl 200 mg 12/08/24 09:00 Amiodarone 200 Mg Tab PO DAILY HUONG Apixaban 5 mg 12/08/24 09:00 Apixaban 5 Mg Tab PO BID [facility] Protocol Atorvastatin Calcium 80 mg 12/08/24 21:00 Atorvastatin 80 Mg Tab PO HS HUONG Budesonide 1 mg 12/08/24 08:00 12/08/24 08:52 Budesonide 1 Mg/2 Ml Nebu INHALATION 1 mg RT-BID HUONG Administration Carvedilol 25 mg 12/08/24 09:00 Carvedilol 12.5 Mg Tab PO BID-W/MEALS [facility] Dapagliflozin 5 mg 12/08/24 09:00 Dapagliflozin Propanediol 5 Mg Tablet PO DAILY [facility] Formoterol Fumarate 20 mcg 12/08/24 08:00 12/08/24 08:52 Formoterol Fumarate 20 Mcg/2 Ml Nebu INHALATION 20 mcg RT-BID HUONG Administration Furosemide 40 mg 12/08/24 06:00 12/08/24 06:10 Furosemide 10 Mg/Ml 4 Ml Vial IV 40 mg Q12H HUONG Administration Losartan Potassium 100 mg 12/08/24 09:00 Losartan 50 Mg Tab PO DAILY [facility] Methylprednisolone Sodium Succinate 60 mg 12/08/24 06:00 12/08/24 06:06 Methylprednisolone Sod Succi 125 Mg/2 Ml Vial IV Not Given Q6HR [facility] Naloxone HCl 0.2 mg 12/08/24 05:53 Naloxone 0.4 Mg/Ml 1 Ml Vial IVP Q2M PRN Opioid Reversal Intake and Output 12/07/24 12/08/24 12/08/24 22:59 06:59 14:59 Other: Weight 90.718 kg 90.718 kg Patient Weight 12/09/24 06:59 Weight 90.718 kg 12/08/24 05:08 12/08/24 05:08
[2024-12-08] MEDS ORDERED: SENNOSIDES 8.6 MG TAB PO PRN (12:11)
[2024-12-08] MEDS ORDERED: ACETAMINOPHEN TAB 325 MG TAB PO PRN (12:11)
[2024-12-08] MEDS ORDERED: polyethylene glycoL 3350 17 GM POWD.PACK PO PRN (12:11)
[2024-12-08] MEDS ORDERED: CALCIUM CARBONATE 500 MG CHEWABLE PO PRN (12:11)
--- NOTE | 2024-12-08 12:15 | P.HPIM ---
History of Present Illness Patient is a pleasant 74-year-old female well-known to me from her previous hospitalization does have history of COPD, oxygen dependent about 2 to 3 L was recently discharged from inpatient rehab to subacute rehabilitation. Patient wa s found to be severely hypoxic was sent in here found to be hypercapnic here patient does have history of COPD and sleep apnea and is is supposed to use CPAP machine at nighttime which has not been wearing and she takes it off often at subacute rehabilitation facility. Patient is presently on 6 L initially when she came in she was on BiPAP patient was started on systemic steroids inhalational treatments chest x-ray showed some pulm edema with BNP of 2200 patient does have history of diastolic dysfunction in the past and does take 40 mg twice a day of oral Lasix. Patient was eval by pulmonary and cardiology patient has mild elevated troponin there is 0.044 which is considered secondary to hypoxemia. REVIEW OF SYSTEMS: All other systems are negative except those mentioned in the HPI PHYSICAL EXAMINATION: GENERAL: The patient is alert and oriented x3, not in any acute distress. Well developed, well nourished. HEENT: Pupils are round and equally reacting to light. EOMI. No scleral icterus. No conjunctival pallor. Normocephalic, atraumatic. No pharyngeal erythema. No thyromegaly. CARDIOVASCULAR: S1 and S2 present. No murmurs, rubs, or gallops. PULMONARY mild expiratory wheezing and bilateral crackles on exam ABDOMEN: Soft, nontender, nondistended, normoactive bowel sounds. No palpable organomegaly. MUSCULOSKELETAL: No joint swelling or deformity. EXTREMITIES: No cyanosis, clubbing, or significant pedal edema NEUROLOGICAL: Gross neurological examination did not reveal any focal deficits. SKIN: No rashes. Assessment and plan -Acute on chronic hypoxic as well as hypercapnic respiratory failure secondary to congestive heart failure as well as COPD exacerbation respectively. Patient will be continued on BiPAP at nighttime presently on 6 L. -There is heart failure chronic diastolic function with mild acute exacerbation continue with IV Lasix today possibly can be switched to oral tomorrow -COPD with acute exacerbation -Paroxysmal atrial fibrillation patient is on Eliquis, Coreg amiodarone which will be continued -Hypothyroidism -Hypertension -Macular degeneration and patient is legally blind -Leukocytosis reactive without any evidence of pneumonia at this time or any other infection -Generalized deconditioning physical therapy and Occupational Therapy evaluation DVT prophylaxis: On anticoagulation Past Medical History Past Medical History: COPD, Eye Disorder, Hypertension, Osteoarthritis (OA) Additional Past Medical History / Comment(s): macular degeneration, actinic ke ratosis. Mild to moderate mitral regurgitation, murmur, legally blind. 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 no driving d/t vision Smoking Status: Former smoker Past Alcohol Use History: Rare Additional Past Alcohol Use History / Comment(s): started smoking at age 21 smokes 1/2 ppd. patient states she quit smoing 3-4 years ago. Past Drug Use History: None Reported - Past Family History Mother Family Medical History: CVA/TIA, Hypertension, Myocardial Infarction ([place]) Father Family Medical History: AFIB, Hypertension, Myocardial Infarction ([place]) Sister(s) Daughter(s) Family Medical History: Cancer Medications and Allergies Home Medications Medication Instructions Recorded Confirmed Type Amiodarone [Cordarone] 200 mg PO DAILY 10/26/24 12/08/24 History Apixaban [Eliquis] 5 mg PO BID 10/26/24 12/08/24 History Budesonide [Pulmicort] 0.5 mg INHALATION RT-BID 10/26/24 12/08/24 History Folic Acid 1 mg PO DAILY 10/26/24 12/08/24 History Gabapentin [Neurontin] 100 mg PO TID 10/26/24 12/08/24 History Ipratropium-Albuterol Nebulize 3 ml INHALATION RT-Q6H PRN 10/26/24 12/08/24 History [Duoneb 0.5 mg-3 mg/3 ml Soln] Multivitamins, Thera [Multivitamin 1 tab PO DAILY 10/26/24 12/08/24 History (formulary)] Pantoprazole Sodium [Protonix] 40 mg PO DAILY 10/26/24 12/08/24 History Thiamine [Vitamin B-1] 100 mg PO DAILY 10/26/24 12/08/24 History carvediloL [Coreg] 25 mg PO BID 10/26/24 12/08/24 History Acetaminophen Tab [Tylenol] 650 mg PO Q6HR PRN tab 10/28/24 12/08/24 Rx Calcium Carbonate [Tums] 500 mg PO Q6H PRN 12/08/24 12/08/24 History Calcium Carbonate/Vitamin D3 1 tab PO DAILY 12/08/24 12/08/24 History [Calcium 600 mg-Vit D3 10 mcg (400 Unit)] Dextrose Gel [Glucose Gel] 13 ml PO Q15M PRN 12/08/24 12/08/24 History Docusate [Colace] 100 mg PO BID 12/08/24 12/08/24 History Empagliflozin [Jardiance] 10 mg PO DAILY 12/08/24 12/08/24 History Ferrous Sulfate [Feosol] 325 mg PO DAILY 12/08/24 12/08/24 History Furosemide [Lasix] 40 mg PO BID@0800,1400 12/08/24 12/08/24 History Glucagon Emergency Kit 1 mg SQ DIRECTED PRN 12/08/24 12/08/24 History INSULIN LISPRO (humaLOG) [humaLOG] See Protocol SQ ACHS 12/08/24 12/08/24 History Levothyroxine Sodium [Synthroid] 112 mcg PO DAILY 12/08/24 12/08/24 History Losartan Potassium [Cozaar] 100 mg PO DAILY 12/08/24 12/08/24 History Ondansetron [Zofran] 4 mg PO Q6H PRN 12/08/24 12/08/24 History Sennosides [Senokot] 8.6 mg PO DAILY PRN 12/08/24 12/08/24 History polyethylene glycoL 3350 [Miralax] 17 gm PO Q24H PRN 12/08/24 12/08/24 History predniSONE See Taper PO DIRECTED 12/08/24 12/08/24 History Allergies Allergy/AdvReac Type Severity Reaction Status Date / Time Iodinated Contrast Media Allergy Rash/Hives Verified 12/08/24 07:37 lidocaine Allergy Itching Verified 12/08/24 07:37 Penicillins Allergy Rash/Hives Verified 12/08/24 07:37 tramadol AdvReac facial Verified 12/08/24 07:37 drooping Physical Exam Vitals: Vital Signs Temp Pulse Pulse Resp BP BP Pulse Ox 12/08/24 12:07 74 12/08/24 09:26 90 12/08/24 09:15 88 12/08/24 09:02 89 L 12/08/24 08:56 85 12/08/24 07:00 98.9 F 94 18 123/73 92 L 12/08/24 06:17 101 H 20 140/78 90 L 12/08/24 05:34 102 H 18 129/70 99 12/08/24 05:30 95 12/08/24 05:18 103 H 12/08/24 05:09 95 12/08/24 04:55 98.7 F 105 H 22 129/78 75 L Intake and Output 12/07/24 12/08/24 12/08/24 22:59 06:59 14:59 Other: Weight 90.718 kg 90.718 kg Results CBC & Chem 7: 12/08/24 05:08 12/08/24 05:08 Labs: Abnormal Lab Results - Last 24 Hours (Table) 12/08/24 12/08/24 12/08/24 Range/Units 05:07 05:08 05:08 WBC 20.4 H (3.8-10.6) k/uL RBC 3.62 L (3.80-5.40) m/uL Hgb 10.1 L (11.4-16.0) gm/dL MCHC 29.1 L (31.0-37.0) g/dL RDW 17.8 H (11.5-15.5) % Neutrophils # 17.8 H (1.3-7.7) k/uL PT 13.5 H (10.0-12.5) sec INR 1.3 H (<1.2) ABG pCO2 (35-45) mmHg ABG pO2 (83-108) mmHg ABG HCO3 (21-25) mmol/L ABG Total CO2 (19-24) mmol/L ABG O2 Saturation (94-97) % VBG pCO2 83 H* (37-51) mmHg VBG HCO3 46 H (24-28) mmol/L Hemoglobin (11.4-16.0) gm/dL Sodium (137-145) mmol/L Chloride (98-107) mmol/L Carbon Dioxide (22-30) mmol/L BUN (7-17) mg/dL Glucose (74-99) mg/dL Calcium (8.4-10.2) mg/dL Troponin I (0.000-0.034) ng/mL Total Protein (6.3-8.2) g/dL Albumin (3.5-5.0) g/dL 12/08/24 12/08/24 12/08/24 Range/Units 05:08 07:48 08:37 WBC (3.8-10.6) k/uL RBC (3.80-5.40) m/uL Hgb (11.4-16.0) gm/dL MCHC (31.0-37.0) g/dL RDW (11.5-15.5) % Neutrophils # (1.3-7.7) k/uL PT (10.0-12.5) sec INR (<1.2) ABG pCO2 75 H* (35-45) mmHg ABG pO2 49 L* (83-108) mmHg ABG HCO3 44 H* (21-25) mmol/L ABG Total CO2 46 H (19-24) mmol/L ABG O2 Saturation 81.9 L (94-97) % VBG pCO2 (37-51) mmHg VBG HCO3 (24-28) mmol/L Hemoglobin 9.4 L (11.4-16.0) gm/dL Sodium 136 L (137-145) mmol/L Chloride 89 L (98-107) mmol/L Carbon Dioxide 44 H* (22-30) mmol/L BUN 30 H (7-17) mg/dL Glucose 139 H (74-99) mg/dL Calcium 8.3 L (8.4-10.2) mg/dL Troponin I 0.044 H* (0.000-0.034) ng/mL Total Protein 5.3 L (6.3-8.2) g/dL Albumin 3.0 L (3.5-5.0) g/dL Thrombosis Risk Factor Assmnt - Choose All That Apply Any of the Below Risk Factors Present?: Yes Each Factor Represents 1 point: Obesity (BMI >25) Other Risk Factors: Yes Each Risk Factor Represents 3 Points: Age 75 years or older Thrombosis Risk Factor Assessment Total Risk Factor Score: 4 Thrombosis Risk Factor Assessment Level: Moderate Risk
[2024-12-08 12:18] LABS: Glucose,Whole Blood 202 mg/dL (70-110)
[2024-12-08] MEDS: INSULIN LISPRO (HumaLOG) 100 UNIT/ML 10 mL VL SQ SCH (13:04)
[2024-12-08] MEDS: PANTOPRAZOLE 40 MG TABLET PO SCH (13:07)
[2024-12-08 16:49] LABS: Glucose,Whole Blood 161 mg/dL (70-110)
[2024-12-08] MEDS: GABAPENTIN 100 MG CAP PO SCH (17:07)
[2024-12-08] MEDS: methylPREDNISolone SOD SUCCI 40 MG/ML 1 ML VIAL IV SCH (17:08)
[2024-12-08 20:30] LABS: Glucose,Whole Blood 220 mg/dL (70-110)
[2024-12-08] MEDS ORDERED: ATORVASTATIN 80 MG TAB PO SCH (21:00)
[2024-12-08] MEDS: DOCUSATE 100 MG CAP PO SCH (21:06)
[2024-12-08] MEDS: ATORVASTATIN 40 MG TAB PO SCH (21:07)
[2024-12-09 05:33] LABS: ABG Base Excess 19.6 mmol/L; ABG Oxygen Saturation 88.4 % (94-97); ABG PCO2 65 mmHg (35-45); ABG PH 7.46 (7.35-7.45); ABG TCO2 48 mmol/L (19-24); Allen Test Performed? Yes
[2024-12-09 05:37] LABS: ABG HCO3 46 mmol/L (21-25); ABG PO2 52 mmHg (83-108)
[2024-12-09] MEDS: LEVOTHYROXINE 112 MCG TAB PO SCH (05:53)
[2024-12-09 06:33] LABS: Glucose,Whole Blood 265 mg/dL (70-110)
--- NOTE | 2024-12-09 07:01 | XR ---
EXAMINATION TYPE: XR chest 1V DATE OF EXAM: 12/09/2024 CLINICAL INDICATION: Female, 74 years old with history of CHF, progress study. TECHNIQUE: Single AP portable upright view of the chest is obtained. COMPARISON: Chest x-ray from one day earlier FINDINGS: Redemonstration of overlying sternal wires and left atrial appendage clip. Persistent card iomegaly with improved central vascular congestion and persistent bibasilar opacity. Osseous structur es are intact.. IMPRESSION: Improved CHF exacerbation/fluid overload state. [facility], , 12/09/2024 6:59 AM
[2024-12-09 08:03] LABS: Anisocytosis Slight; HCT 30.5 % (34.0-46.0); HGB 9.1 gm/dL (11.4-16.0); Hypochromasia Marked; MCH 29.2 pg (25.0-35.0); MCHC 29.8 g/dL (31.0-37.0); MCV 97.8 fL (80.0-100.0); Macrocytosis Slight; Mean Platelet Volume 7.7; Platelet Count 193 k/uL (150-450); RBC 3.12 m/uL (3.80-5.40); RDW 17.6 % (11.5-15.5); WBC 9.9 k/uL (3.8-10.6)
[2024-12-09 08:18] LABS: African American GFR (CKD) 64 (>60 ml/min/1.73 sqM); Blood Urea Nitrogen 37 mg/dL (7-17); Chloride 89 mmol/L (98-107); Glucose 273 mg/dL (74-99); Magnesium 2.2 mg/dL (1.6-2.3); Non-African American GFR(CKD) 56 (>60 ml/min/1.73 sqM); Sodium 136 mmol/L (137-145)
[2024-12-09 08:24] LABS: Anion Gap 1 mmol/L
[2024-12-09 08:33] LABS: Carbon Dioxide 46 mmol/L (22-30)
[2024-12-09 11:21] LABS: Glucose,Whole Blood 240 mg/dL (70-110)
[2024-12-09] MEDS: INSULIN GLARGINE (LANTUS) 100 UNIT/ML SYR SQ SCH (11:39)
[2024-12-09] MEDS: DAPAGLIFLOZIN PROPANEDIOL 10 MG TABLET PO SCH (11:40)
[2024-12-09] MEDS: CALCIUM CARB-VIT D 500 MG-5 MCG TAB PO SCH (12:47)
[2024-12-09 13:38] VITALS: BMI 33.2
--- NOTE | 2024-12-09 14:52 | P.PN ---
Subjective Progress Note Date: 12/09/24 HISTORY OF PRESENT ILLNESS: This is a 74-year-old female with a past medical history significant for atrial fibrillation, congestive heart failure, hypertension, diabetes, COPD, and thoracic aortic dissection s/p surgical repair at [facility]. Patient follows in the office with Dr. Grady. We have been asked to see the patient in consultation for congestive heart failure. Patient examined at the bedside. Patient's family is at the bedside and providing majority of HPI. Patient was brought from [facility] due to hypoxia with O2 saturations in the 50s. Patient's feeling of her states that she was recently at [facility] and discharged recently secondary to congestive heart failure. Patient is lethargic at the time of examination although she is arousable to verbal stimuli. She currently reports shortness of breath. She denies any chest pain or pressure. DIAGNOSTICS: - EKG reveals sinus tachycardia with left bundle branch block. Baseline artifact. - Chest xray findings consistent with CHF exacerbation/fluid overload state. - Laboratory data: WBC 20.4. Hemoglobin 10.1. Platelet count 260. Sodium 136. Potassium 3.9. BUN 30. Creatinine 0.95. Lactic acid 1.2. Troponin 0.027. - Current home cardiac medications include Lasix 40 mg twice a day, Eliquis 5 mg twice a day, carvedilol 25 mg twice a day, losartan 100 mg daily, Jardiance 10 mg daily, amiodarone 200 mg daily. - Most recent echocardiogram obtained in September 2024 revealed ejection fraction 55 to 60%, no wall motion abnormalities, mild MR, trace pericardial effusion - Patient underwent Lexiscan stress test in June 2024 which was negative for ischemia 12/09 Patient seen and examined. She is now on the cardiac stepdown unit. Patient states her breathing is okay today. She does have home oxygen. She is currently on 4 L nasal cannula with a pulse ox of 95%, heart rate is in the 60s and 70s, blood pressure 132/67. Repeat blood work reveals hemoglobin 9.1, BUN 37 creatinine 1, sodium 136 and potassium 4, CO2 is at 46. Repeat chest x-ray reveals improved CHF exacerbation fluid overload state. Patient has been maintained on IV Lasix 40 mg every 12 hours. Patient has a negative fluid balance. PHYSICAL EXAM: VITAL SIGNS: Reviewed. GENERAL: Well-developed in no acute distress. HEENT: Head is normocephalic. Pupils are equal, round. Sclerae anicteric. Mucous membranes of the mouth are moist. Neck supple. No JVD or thyromegaly LUNGS: Respirations even and unlabored. Lungs with bibasilar crackles and rhonchi HEART: Regular rate and rhythm. S1 and S2 heard. Systolic murmur noted. ABDOMEN: Soft. Nondistended. Nontender. EXTREMITIES: Normal range of motion. No clubbing or cyanosis. Peripheral pulses intact. Trace bilateral lower extremity edema NEUROLOGIC: Lethargic. Awakens to verbal stimulation. ASSESSMENT: Shortness of breath Acute on chronic heart failure with preserved EF, 55 to 60% Acute hypoxic and hypercapnic respiratory failure Altered mental status, likely secondary to hypercapnia, CO2 75 Minimally elevated troponin, likely type II NM secondary to oxygen supply/demand mismatch Paroxysmal atrial fibrillation Hypertension Diabetes COPD PLAN: No need to repeat echocardiogram as this was performed in September 2024 Continue home cardiac medications including Eliquis, carvedilol, losartan, Jardiance, and amiodarone Continue the addition of atorvastatin 40 mg at night Transition IV Lasix to oral 40 mg twice daily Daily weights, accurate intake and output, monitoring of kidney function Further recommendations pending patient course Nurse practitioner note has been reviewed by physician. Signing provider agrees with the documented findings, assessment, and plan of care documented by [employer] as a scribe. Objective - Vital Signs Vital signs: Vital Signs Temp 98.0 F 12/08/24 23:43 Pulse 70 12/09/24 03:27 Resp 23 12/09/24 03:27 BP 136/71 12/09/24 03:27 Pulse Ox 95 12/09/24 05:38 FiO2 35 12/09/24 04:24 Intake & Output 12/08/24 12/09/24 12/09/24 18:59 06:59 18:59 Intake Total 236 240 480 Output Total 950 900 Balance -714 -660 480 Weight 90.718 kg 90.5 kg Intake: Oral 236 240 480 Output: Urine 950 900 Female - External 600 Other: Voiding Method External Catheter Indwelling Catheter # Voids 1 - Labs CBC & Chem 7: 12/09/24 07:40 12/09/24 07:40 Labs: Abnormal Lab Results - Last 24 Hours (Table) 12/08/24 12/08/24 12/08/24 Range/Units 12:16 16:45 20:26 RBC (3.80-5.40) m/uL Hgb (11.4-16.0) gm/dL Hct (34.0-46.0) % MCHC (31.0-37.0) g/dL RDW (11.5-15.5) % ABG pH (7.35-7.45) ABG pCO2 (35-45) mmHg ABG pO2 (83-108) mmHg ABG HCO3 (21-25) mmol/L ABG Total CO2 (19-24) mmol/L ABG O2 Saturation (94-97) % Hemoglobin (11.4-16.0) gm/dL Sodium (137-145) mmol/L Chloride (98-107) mmol/L Carbon Dioxide (22-30) mmol/L BUN (7-17) mg/dL Glucose (74-99) mg/dL POC Glucose (mg/dL) 202 H 161 H 220 H (70-110) mg/dL Calcium (8.4-10.2) mg/dL 12/09/24 12/09/24 12/09/24 Range/Units 05:29 06:32 07:40 RBC (3.80-5.40) m/uL Hgb (11.4-16.0) gm/dL Hct (34.0-46.0) % MCHC (31.0-37.0) g/dL RDW (11.5-15.5) % ABG pH 7.46 H (7.35-7.45) ABG pCO2 65 H (35-45) mmHg ABG pO2 52 L* (83-108) mmHg ABG HCO3 46 H* (21-25) mmol/L ABG Total CO2 48 H (19-24) mmol/L ABG O2 Saturation 88.4 L (94-97) % Hemoglobin 8.4 L (11.4-16.0) gm/dL Sodium 136 L (137-145) mmol/L Chloride 89 L (98-107) mmol/L Carbon Dioxide 46 H* (22-30) mmol/L BUN 37 H (7-17) mg/dL Glucose 273 H (74-99) mg/dL POC Glucose (mg/dL) 265 H (70-110) mg/dL Calcium 8.0 L (8.4-10.2) mg/dL 12/09/24 Range/Units 07:40 RBC 3.12 L (3.80-5.40) m/uL Hgb 9.1 L (11.4-16.0) gm/dL Hct 30.5 L (34.0-46.0) % MCHC 29.8 L (31.0-37.0) g/dL RDW 17.6 H (11.5-15.5) % ABG pH (7.35-7.45) ABG pCO2 (35-45) mmHg ABG pO2 (83-108) mmHg ABG HCO3 (21-25) mmol/L ABG Total CO2 (19-24) mmol/L ABG O2 Saturation (94-97) % Hemoglobin (11.4-16.0) gm/dL Sodium (137-145) mmol/L Chloride (98-107) mmol/L Carbon Dioxide (22-30) mmol/L BUN (7-17) mg/dL Glucose (74-99) mg/dL POC Glucose (mg/dL) (70-110) mg/dL Calcium (8.4-10.2) mg/dL
--- NOTE | 2024-12-09 15:09 | P.PN ---
Subjective Progress Note Date: 12/09/24 Patient is a pleasant 74-year-old female well-known to me from her previous hospitalization does have history of COPD, oxygen dependent about 2 to 3 L was recently discharged from inpatient rehab to subacute rehabilitation. Patient was found to be severely hypoxic was sent in here found to be hypercapnic here patient does have history of COPD and sleep apnea and is is supposed to use CPAP machine at nighttime which has not been wearing and she takes it off often at subacute rehabilitation facility. Patient is presently on 6 L initially when she came in she was on BiPAP patient was started on systemic steroids inhalational treatments chest x-ray showed some pulm edema with BNP of 2200 patient does have history of diastolic dysfunction in the past and does take 40 mg twice a day of oral Lasix. Patient was eval by pulmonary and cardiology patient has mild elevated troponin there is 0.044 which is considered secondary to hypoxemia. 12/09/2024 Patient is evaluated in follow-up on the medical floor. Patient is off the BiPAP currently being weaned back down to her home amount of oxygen at 1-1/2 L. She is currently on 4 with oxygen saturations of 94%. She is not reporting any significant shortness of breath at this time. Patient continues on IV Lasix 40 mg every 12 hours. She does have mild peripheral edema still. She remains on IV Solu-Medrol. Follow-up chest x-ray today reveals improved CHF. Review of Systems Constitutional: Denied any fatigue denied any fever. Cardio vascular: denied any chest pain, palpitations Gastrointestinal: denied any nausea, vomiting, diarrhea Pulmonary: Denied any shortness of breath cough Neurologic denied any new focal deficits All inpatient medications were reviewed and appropriate changes in these medications as dictated in the interval history and assessment and plan. PHYSICAL EXAMINATION: GENERAL: The patient is alert and oriented x3, not in any acute distress. Well developed, well nourished. HEENT: Pupils are round and equally reacting to light. EOMI. No scleral icterus. No conjunctival pallor. Normocephalic, atraumatic. No pharyngeal erythema. No thyromegaly. CARDIOVASCULAR: S1 and S2 present. No murmurs, rubs, or gallops. PULMONARY mild expiratory wheezing and bilateral crackles on exam ABDOMEN: Soft, nontender, nondistended, normoactive bowel sounds. No palpable organomegaly. MUSCULOSKELETAL: No joint swelling or deformity. EXTREMITIES: No cyanosis, clubbing, or significant pedal edema NEUROLOGICAL: Gross neurological examination did not reveal any focal deficits. SKIN: No rashes. Assessment and plan -Acute on chronic hypoxic as well as hypercapnic respiratory failure secondary to congestive heart failure as well as COPD exacerbation respectively. -There is heart failure chronic diastolic function with mild acute exacerbation -COPD with acute exacerbation -Paroxysmal atrial fibrillation patient is on Eliquis, Coreg amiodarone which will be continued -Hypothyroidism -Hypertension -Macular degeneration and patient is legally blind -Leukocytosis reactive without any evidence of pneumonia at this time or any other infection -Generalized deconditioning physical therapy and Occupational Therapy evaluation DVT prophylaxis: On anticoagulation Plan Cardiology following patient has been transition to oral Lasix Pulmonology following Patient remains on IV Solu-Medrol without any significant wheezing today Oxygen is being weaned down and patient is currently off the BiPAP Repeat blood work tomorrow to monitor CO2 level Possible discharge back to the [facility] tomorrow. The impression and plan of care has been dictated by Jennifer Wiggins, Nurse Practitioner as directed. Dr. Tania MD I have performed a history and physical examination and medical decision making of this patient, discussed the same with the dictator, and agree with the dictators assessment and plan as written, documented as a scribe. Based on total visit time, I have performed more than 50% of this visit. Objective - Vital Signs Vital signs: Vital Signs Temp 98.0 F 12/09/24 09:30 Pulse 70 12/09/24 11:30 Resp 16 12/09/24 11:30 BP 132/67 12/09/24 11:30 Pulse Ox 95 12/09/24 11:30 FiO2 35 12/09/24 04:24 Intake & Output 12/08/24 12/09/24 12/09/24 18:59 06:59 18:59 Intake Total 236 240 598 Output Total 950 900 550 Balance -714 -660 48 Weight 90.718 kg 90.5 kg 90.5 kg Intake: Oral 236 240 598 Output: Urine 950 900 550 Female - External 600 Other: Voiding Method External Catheter Indwelling Catheter Indwelling Catheter # Voids 1 - Labs CBC & Chem 7: 12/09/24 07:40 12/09/24 07:40 Labs: Abnormal Lab Results - Last 24 Hours (Table) 0312/08/24 12/09/24 Range/Units 16:45 20:26 05:29 RBC (3.80-5.40) m/uL Hgb (11.4-16.0) gm/dL Hct (34.0-46.0) % MCHC (31.0-37.0) g/dL RDW (11.5-15.5) % ABG pH 7.46 H (7.35-7.45) ABG pCO2 65 H (35-45) mmHg ABG pO2 52 L* (83-108) mmHg ABG HCO3 46 H* (21-25) mmol/L ABG Total CO2 48 H (19-24) mmol/L ABG O2 Saturation 88.4 L (94-97) % Hemoglobin 8.4 L (11.4-16.0) gm/dL Sodium (137-145) mmol/L Chloride (98-107) mmol/L Carbon Dioxide (22-30) mmol/L BUN (7-17) mg/dL Glucose (74-99) mg/dL POC Glucose (mg/dL) 161 H 220 H (70-110) mg/dL Calcium (8.4-10.2) mg/dL 12/09/24 12/09/24 12/09/24 Range/Units 06:32 07:40 07:40 RBC 3.12 L (3.80-5.40) m/uL Hgb 9.1 L (11.4-16.0) gm/dL Hct 30.5 L (34.0-46.0) % MCHC 29.8 L (31.0-37.0) g/dL RDW 17.6 H (11.5-15.5) % ABG pH (7.35-7.45) ABG pCO2 (35-45) mmHg ABG pO2 (83-108) mmHg ABG HCO3 (21-25) mmol/L ABG Total CO2 (19-24) mmol/L ABG O2 Saturation (94-97) % Hemoglobin (11.4-16.0) gm/dL Sodium 136 L (137-145) mmol/L Chloride 89 L (98-107) mmol/L Carbon Dioxide 46 H* (22-30) mmol/L BUN 37 H (7-17) mg/dL Glucose 273 H (74-99) mg/dL POC Glucose (mg/dL) 265 H (70-110) mg/dL Calcium 8.0 L (8.4-10.2) mg/dL 12/09/24 Range/Units 11:19 RBC (3.80-5.40) m/uL Hgb (11.4-16.0) gm/dL Hct (34.0-46.0) % MCHC (31.0-37.0) g/dL RDW (11.5-15.5) % ABG pH (7.35-7.45) ABG pCO2 (35-45) mmHg ABG pO2 (83-108) mmHg ABG HCO3 (21-25) mmol/L ABG Total CO2 (19-24) mmol/L ABG O2 Saturation (94-97) % Hemoglobin (11.4-16.0) gm/dL Sodium (137-145) mmol/L Chloride (98-107) mmol/L Carbon Dioxide (22-30) mmol/L BUN (7-17) mg/dL Glucose (74-99) mg/dL POC Glucose (mg/dL) 240 H (70-110) mg/dL Calcium (8.4-10.2) mg/dL Assessment and Plan Time with Patient: Less than 30
[2024-12-09 16:17] LABS: Glucose,Whole Blood 214 mg/dL (70-110)
[2024-12-09] MEDS: FUROSEMIDE 40 MG TAB PO SCH (17:04)
--- NOTE | 2024-12-09 19:14 | P.PN ---
Subjective Progress Note Date: 12/09/24 Patient is a 74-year-old female with past medical history significant for oxygen dependant COPD, thoracic aortic dissection with repair, atrial fibrillation, hypertension, hypothyroidism, heart failure, pleural effusion with previous thoracentesis. Patient brought in by EMS from [facility] for increased work of breathing over the last 24 to 48 hours. Workup in the emergency department occluding a chest x-ray showing cardiomegaly, with central vascular congestion. NT proBNP elevated 2230. Echocardiogram from 10/26/2024 estimating preserved left ventricular ejection fraction of 55 to 60%. Started on IV Lasix 40 mg twice daily. CBC: WBC count 20.4, hemoglobin 10.1, platelets 260. CMP: Sodium 136, potassium 3.9, chloride 80, serum bicarb 44, BUN 30, creatinine 0.95, glucose 139. Lactic 1.2. Troponin 0.027. Patient currently being evaluated emergency department, currently on 6 L high flow nasal cannula. Breathing is nonlabored. SpO2 reading 99%. VBG done earlier with a pCO2 of 83 and pH of 7.35. Lethargic, but does awaken and answer questions appropriately. She is oriented x 3. She has had increased oxygen demands, with associated lower extremity swelling at the fpc. Denies any chest pain. Denies any infectious symptoms. Her daughter and designated power of research attorney is present at bedside. States that her mother has been in and out of hospitals and nursing homes since June, after having a repair of a thoracic aortic aneurysm dissection at [facility]. Actually, was just recently discharged from [facility] on Friday to [facility]. She was hospitalized for heart failure exacerbation per the daughter. On 12/13/2024, the patient is being seen for a follow-up. The patient is being treated for COPD/CHF exacerbation. The patient is feeling much improved compared to yesterday. The patient has diuresed well over the past 24 hours and she has been in negative fluid balance. Follow-up chest x-ray from today shows improvement in the pulm vessel congestion and clinically the patient is feeling better. Meanwhile, a follow-up blood gas was done today and it showed a pH of 7.46 with a pCO2 of 65 with a pO2 of 52 and this was done FiO2 of 35% and the patient is currently on oxygen and 2 L with a pulse ox of 93%. The white cell count is 9.9 with a hemoglobin 9.1 and platelet count of 193. BUN 37 with a creatinine of 1 and a sodium levels at 136 and a serum bicarb is at 46. The patient remains on oral Lasix 40 mg p.o. twice a day. She will benefit from Diamox. She remains on bronchodilators. She remains on steroids. Objective - Vital Signs Vital signs: Vital Signs Temp 98.0 F 12/09/24 09:30 Pulse 68 12/09/24 10:47 Resp 18 12/09/24 09:30 BP 112/66 12/09/24 09:30 Pulse Ox 99 12/09/24 09:30 FiO2 35 12/09/24 04:24 Intake & Output 12/08/24 12/09/24 12/09/24 18:59 06:59 18:59 Intake Total 236 240 480 Output Total 950 900 Balance -714 -660 480 Weight 90.718 kg 90.5 kg Intake: Oral 236 240 480 Output: Urine 950 900 Female - External 600 Other: Voiding Method External Catheter Indwelling Catheter Indwelling Catheter # Voids 1 - Exam GENERAL EXAM: Lethargic, 74-year-old female, awakens and answers questions appropriately, then falls back asleep. On 2 L of oxygen by nasal cannula HEAD: Normocephalic and atraumatic EYES: Normal reaction of pupils, equal size. NOSE: Clear with pink turbinates. THROAT: No erythema or exudates. NECK: No masses, no JVD. CHEST: No chest wall deformity. Approximated former midline sternotomy incision LUNGS: Equal air entry with inspiratory bibasilar crackles and scattered rhonchi. No conversational dyspnea or accessory muscle use.. CVS: S1 and S2 normal with no audible murmur, regular rhythm. No extra heart sounds ABDOMEN: No hepatosplenomegaly, active bowel sounds, no guarding or rigidity. SPINE: No scoliosis or deformity SKIN: No rashes CENTRAL NERVOUS SYSTEM: No focal deficits, tone is normal in all 4 extremities. EXTREMITIES: There is bilateral lower extremity 2-3+ pitting edema. No clubbing or cyanosis. Peripheral pulses are intact. - Labs CBC & Chem 7: 12/09/24 07:40 12/09/24 07:40 Labs: Abnormal Lab Results - Last 24 Hours (Table) 12/08/24 12/08/24 12/08/24 Range/Units 12:16 16:45 20:26 RBC (3.80-5.40) m/uL Hgb (11.4-16.0) gm/dL Hct (34.0-46.0) % MCHC (31.0-37.0) g/dL RDW (11.5-15.5) % ABG pH (7.35-7.45) ABG pCO2 (35-45) mmHg ABG pO2 (83-108) mmHg ABG HCO3 (21-25) mmol/L ABG Total CO2 (19-24) mmol/L ABG O2 Saturation (94-97) % Hemoglobin (11.4-16.0) gm/dL Sodium (137-145) mmol/L Chloride (98-107) mmol/L Carbon Dioxide (22-30) mmol/L BUN (7-17) mg/dL Glucose (74-99) mg/dL POC Glucose (mg/dL) 202 H 161 H 220 H (70-110) mg/dL Calcium (8.4-10.2) mg/dL 12/09/24 12/09/24 12/09/24 Range/Units 05:29 06:32 07:40 RBC (3.80-5.40) m/uL Hgb (11.4-16.0) gm/dL Hct (34.0-46.0) % MCHC (31.0-37.0) g/dL RDW (11.5-15.5) % ABG pH 7.46 H (7.35-7.45) ABG pCO2 65 H (35-45) mmHg ABG pO2 52 L* (83-108) mmHg ABG HCO3 46 H* (21-25) mmol/L ABG Total CO2 48 H (19-24) mmol/L ABG O2 Saturation 88.4 L (94-97) % Hemoglobin 8.4 L (11.4-16.0) gm/dL Sodium 136 L (137-145) mmol/L Chloride 89 L (98-107) mmol/L Carbon Dioxide 46 H* (22-30) mmol/L BUN 37 H (7-17) mg/dL Glucose 273 H (74-99) mg/dL POC Glucose (mg/dL) 265 H (70-110) mg/dL Calcium 8.0 L (8.4-10.2) mg/dL 12/09/24 12/09/24 Range/Units 07:40 11:19 RBC 3.12 L (3.80-5.40) m/uL Hgb 9.1 L (11.4-16.0) gm/dL Hct 30.5 L (34.0-46.0) % MCHC 29.8 L (31.0-37.0) g/dL RDW 17.6 H (11.5-15.5) % ABG pH (7.35-7.45) ABG pCO2 (35-45) mmHg ABG pO2 (83-108) mmHg ABG HCO3 (21-25) mmol/L ABG Total CO2 (19-24) mmol/L ABG O2 Saturation (94-97) % Hemoglobin (11.4-16.0) gm/dL Sodium (137-145) mmol/L Chloride (98-107) mmol/L Carbon Dioxide (22-30) mmol/L BUN (7-17) mg/dL Glucose (74-99) mg/dL POC Glucose (mg/dL) 240 H (70-110) mg/dL Calcium (8.4-10.2) mg/dL Assessment and Plan Assessment: Acute on chronic hypoxemic and hypercapnic respiratory failure, likely secondary to combination of acute COPD exacerbation and exacerbation of diastolic congestive heart failure. Chest x-ray shows cardiomegaly with central vascular congestion. NT proBNP 2230. Clinically improved and the patient is currently on 2 L of oxygen by nasal cannula. Follow-up blood gas showed a component of m etabolic alkalosis Leukocytosis, improved Chronic obstructive pulmonary disease, normally oxygen dependent on 2 L/min nasal cannula History of aortic dissection involving the thoracic aorta for which the patient has undergone surgical repair at the [facility]. History of paroxysmal atrial fibrillation, maintained on a combination of Coreg, amiodarone and anticoagulation with Eliquis, current rhythm is sinus tachycardia History of heart failure with preserved ejection fraction, recent echocardiogram from on 10/26/2024 estimating preserved left ventricular ejection fraction 55 to 60%. History of hypothyroidism Hypertension Osteoarthritis Obesity with a BMI of 33.3 kg/m Macular degeneration Plan Continue supplemental oxygen maintain oxygen saturation between 88 and 92%, currently on 2 L of oxygen by nasal cannula No signs of any CO2 narcosis BiPAP overnight Continue DuoNebs [id number] Continue IV Solu-Medrol budesonide and formoterol inhalations Obtain viral 4 Plex Continue Lasix 40 mg twice daily Diamox 500 mg IV x 2 doses Monitor electrolytes Cardiology is consulted and the report is appreciated Follow-up blood gas was noted We will continue to follow in a.m. The patient will be transferred to telemetry unit for further monitoring. Will continue to follow. The case was discussed with the daughter at the bedside. The patient will likely need a noninvasive positive pressure ventilation on a permanent basis pending a sleep study. Time with Patient: Greater than 30
[2024-12-09 20:54] LABS: Glucose,Whole Blood 224 mg/dL (70-110)
[2024-12-10 06:13] LABS: Glucose,Whole Blood 217 mg/dL (70-110)
[2024-12-10 07:57] LABS: African American GFR (CKD) 58 (>60 ml/min/1.73 sqM); Blood Urea Nitrogen 35 mg/dL (7-17); Calcium 8.4 mg/dL (8.4-10.2); Chloride 89 mmol/L (98-107); Glucose 206 mg/dL (74-99); Non-African American GFR(CKD) 50 (>60 ml/min/1.73 sqM); Potassium 4.4 mmol/L (3.5-5.1); Sodium 136 mmol/L (137-145)
[2024-12-10 08:06] LABS: Anion Gap 3 mmol/L
[2024-12-10 08:12] LABS: Carbon Dioxide 44 mmol/L (22-30)
[2024-12-10 11:25] LABS: Glucose,Whole Blood 272 mg/dL (70-110)
--- NOTE | 2024-12-10 13:51 | P.PN ---
Subjective Progress Note Date: 12/10/24 HISTORY OF PRESENT ILLNESS: This is a 74-year-old female with a past medical history significant for atrial fibrillation, congestive heart failure, hypertension, diabetes, COPD, and thoracic aortic dissection s/p surgical repair at [facility]. Patient follows in the office with Dr. Grady. We have been asked to see the patient in consultation for congestive heart failure. Patient examined at the bedside. Patient's family is at the bedside and providing majority of HPI. Patient was brought from [employer] due to hypoxia with O2 saturations in the 50s. Patient's feeling of her states that she was recently at [facility] and discharged recently secondary to congestive heart failure. Patient is lethargic at the time of examination although she is arousable to verbal stimuli. She currently reports shortness of breath. She denies any chest pain or pressure. DIAGNOSTICS: - EKG reveals sinus tachycardia with left bundle branch block. Baseline artifact. - Chest xray findings consistent with CHF exacerbation/fluid overload state. - Laboratory data: WBC 20.4. Hemoglobin 10.1. Platelet count 260. Sodium 136. Potassium 3.9. BUN 30. Creatinine 0.95. Lactic acid 1.2. Troponin 0.027. - Current home cardiac medications include Lasix 40 mg twice a day, Eliquis 5 mg twice a day, carvedilol 25 mg twice a day, losartan 100 mg daily, Jardiance 10 mg daily, amiodarone 200 mg daily. - Most recent echocardiogram obtained in September 2024 revealed ejection fraction 55 to 60%, no wall motion abnormalities, mild MR, trace pericardial effusion - Patient underwent Lexiscan stress test in June 2024 which was negative for ischemia 12/09 Patient seen and examined. She is now on the cardiac stepdown unit. Patient states her breathing is okay today. She does have home oxygen. She is currently on 4 L nasal cannula with a pulse ox of 95%, heart rate is in the 60s and 70s, blood pressure 132/67. Repeat blood work reveals hemoglobin 9.1, BUN 37 creatinine 1, sodium 136 and potassium 4, CO2 is at 46. Repeat chest x-ray reveals improved CHF exacerbation fluid overload state. Patient has been maintained on IV Lasix 40 mg every 12 hours. Patient has a negative fluid balance. 12/10 Blood pressure 139/73, heart rate 69, pulse ox 95% on 2 L nasal cannula. Repeat blood work reveals sodium 136, potassium 4.4, CO2 44, BUN 35 creatinine 1.08. Yesterday, IV Lasix was transitioned to oral. Patient states that she does have an appointment with Dr. Saucedo already scheduled. PHYSICAL EXAM: VITAL SIGNS: Reviewed. GENERAL: Well-developed in no acute distress. HEENT: Head is normocephalic. Pupils are equal, round. Sclerae anicteric. Mucous membranes of the mouth are moist. Neck supple. No JVD or thyromegaly LUNGS: Respirations even and unlabored. Lungs with bibasilar crackles and rhonchi HEART: Regular rate and rhythm. S1 and S2 heard. Systolic murmur noted. ABDOMEN: Soft. Nondistended. Nontender. EXTREMITIES: No clubbing or cyanosis. Peripheral pulses intact. Bilateral lower extremity edema NEUROLOGIC: Awake and alert. ASSESSMENT: Shortness of breath Acute on chronic heart failure with preserved EF, 55 to 60% Acute hypoxic and hypercapnic respiratory failure Altered mental status, likely secondary to hypercapnia, CO2 75, improved Minimally elevated troponin, likely type II DC secondary to oxygen supply/demand mismatch Paroxysmal atrial fibrillation Hypertension Diabetes COPD PLAN: No need to repeat echocardiogram as this was performed in September 2024 Continue home cardiac medications including Eliquis, carvedilol, losartan, Jardiance, and amiodarone Continue the addition of atorvastatin 40 mg at night Continue Lasix oral 40 mg twice daily Patient is cleared from cardiology perspective for discharge. Patient will keep her scheduled appointment with Dr. Grady. Nurse practitioner note has been reviewed by physician. Signing provider agrees with the documented findings, assessment, and plan of care documented by [employer] as a scribe. Objective - Vital Signs Vital signs: Vital Signs Temp 97.6 F 12/10/24 08:51 Pulse 69 12/10/24 08:51 Resp 14 12/10/24 08:51 BP 139/73 12/10/24 08:51 Pulse Ox 95 12/10/24 08:51 FiO2 35 12/10/24 03:58 Intake & Output 12/09/24 12/10/24 12/10/24 18:59 06:59 18:59 Intake Total 1078 130 118 Output Total 975 1100 Balance 103 -970 118 Weight 90.5 kg 90.4 kg Intake: IV 10 Invasive Line 1 10 Oral 1078 120 118 Output: Urine 975 1100 Other: Voiding Method Indwelling Catheter Indwelling Catheter # Voids 1 - Labs CBC & Chem 7: 12/09/24 07:40 12/10/24 07:04 Labs: Abnormal Lab Results - Last 24 Hours (Table) 12/09/24 12/09/24 12/09/24 Range/Units 11:19 16:14 20:49 Sodium (137-145) mmol/L Chloride (98-107) mmol/L Carbon Dioxide (22-30) mmol/L BUN (7-17) mg/dL Creatinine (0.52-1.04) mg/dL Glucose (74-99) mg/dL POC Glucose (mg/dL) 240 H 214 H 224 H (70-110) mg/dL 12/10/24 12/10/24 Range/Units 06:12 07:04 Sodium 136 L (137-145) mmol/L Chloride 89 L (98-107) mmol/L Carbon Dioxide 44 H* (22-30) mmol/L BUN 35 H (7-17) mg/dL Creatinine 1.08 H (0.52-1.04) mg/dL Glucose 206 H (74-99) mg/dL POC Glucose (mg/dL) 217 H (70-110) mg/dL
--- NOTE | 2024-12-10 15:15 | P.PN ---
Subjective Progress Note Date: 12/10/24 Patient is a pleasant 74-year-old female well-known to me from her previous hospitalization does have history of COPD, oxygen dependent about 2 to 3 L was recently discharged from inpatient rehab to subacute rehabilitation. Patient was found to be severely hypoxic was sent in here found to be hypercapnic here patient does have history of COPD and sleep apnea and is is supposed to use CPAP machine at nighttime which has not been wearing and she takes it off often at subacute rehabilitation facility. Patient is presently on 6 L initially when she came in she was on BiPAP patient was started on systemic steroids inhalational treatments chest x-ray showed some pulm edema with BNP of 2200 patient does have history of diastolic dysfunction in the past and does take 40 mg twice a day of oral Lasix. Patient was eval by pulmonary and cardiology patient has mild elevated troponin there is 0.044 which is considered secondary to hypoxemia. 12/09/2024 Patient is evaluated in follow-up on the medical floor. Patient is off the BiPAP currently being weaned back down to her home amount of oxygen at 1-1/2 L. She is currently on 4 with oxygen saturations of 94%. She is not reporting any significant shortness of breath at this time. Patient continues on IV Lasix 40 mg every 12 hours. She does have mild peripheral edema still. She remains on IV Solu-Medrol. Follow-up chest x-ray today reveals improved CHF. 12/10/2024 Patient is evaluated in follow-up on the medical floor. Patient is currently on 2 L of oxygen via nasal cannula with saturations of 96%. She has been transitioned to oral lasix. Continues to have scattered wheezing and will continue on IV solumedrol overnight. Recommend to apply KAIT wraps to lower extremities bilaterally. Patient has received 2 doses of IV diamox. CO2 level today 44. Review of Systems Constitutional: Denied any fatigue denied any fever. Cardio vascular: denied any chest pain, palpitations Gastrointestinal: denied any nausea, vomiting, diarrhea Pulmonary: Denied any shortness of breath cough Neurologic denied any new focal deficits All inpatient medications were reviewed and appropriate changes in these medications as dictated in the interval history and assessment and plan. PHYSICAL EXAMINATION: GENERAL: The patient is alert and oriented x3, not in any acute distress. Well developed, well nourished. HEENT: Pupils are round and equally reacting to light. EOMI. No scleral icterus. No conjunctival pallor. Normocephalic, atraumatic. No pharyngeal erythema. No thyromegaly. CARDIOVASCULAR: S1 and S2 present. No murmurs, rubs, or gallops. PULMONARY mild expiratory wheezing and bilateral crackles on exam ABDOMEN: Soft, nontender, nondistended, normoactive bowel sounds. No palpable organomegaly. MUSCULOSKELETAL: No joint swelling or deformity. EXTREMITIES: No cyanosis, clubbing, or significant pedal edema NEUROLOGICAL: Gross neurological examination did not reveal any focal deficits. SKIN: No rashes. Assessment and plan -Acute on chronic hypoxic as well as hypercapnic respiratory failure secondary to congestive heart failure as well as COPD exacerbation respectively. -There is heart failure chronic diastolic function with mild acute exacerbation -COPD with acute exacerbation -Paroxysmal atrial fibrillation patient is on Eliquis, Coreg amiodarone which will be continued -Hypothyroidism -Hypertension -Macular degeneration and patient is legally blind -Leukocytosis reactive without any evidence of pneumonia at this time or any other infection -Generalized deconditioning physical therapy and Occupational Therapy evaluation DVT prophylaxis: On anticoagulation Plan Cardiology following patient has been transition to oral Lasix Pulmonology following Patient remains on IV Solu-Medrol will decreased to BID. Oxygen is being weaned down and patient is currently off the BiPAP Repeat blood work tomorrow Return to [facility] tomorrow. The impression and plan of care has been dictated by Jennifer Wiggins, Nurse Practitioner as directed. Dr. Tania MD I have performed a history and physical examination and medical decision making of this patient, discussed the same with the dictator, and agree with the dictators assessment and plan as written, documented as a scribe. Based on total visit time, I have performed more than 50% of this visit. Objective - Vital Signs Vital signs: Vital Signs Temp 97.8 F 12/10/24 12:22 Pulse 71 12/10/24 12:22 Resp 14 12/10/24 12:22 BP 159/50 12/10/24 12:22 Pulse Ox 96 12/10/24 12:22 FiO2 35 12/10/24 03:58 Intake & Output 12/09/24 12/10/24 12/10/24 18:59 06:59 18:59 Intake Total 1078 130 118 Output Total 975 1100 Balance 103 -970 118 Weight 90.5 kg 90.4 kg Intake: IV 10 Invasive Line 1 10 Oral 1078 120 118 Output: Urine 975 1100 Other: Voiding Method Indwelling Catheter Indwelling Catheter Indwelling Catheter # Voids 1 - Labs CBC & Chem 7: 12/09/24 07:40 12/10/24 07:04 Labs: Abnormal Lab Results - Last 24 Hours (Table) 12/09/24 12/09/24 12/10/24 Range/Units 16:14 20:49 06:12 Sodium (137-145) mmol/L Chloride (98-107) mmol/L Carbon Dioxide (22-30) mmol/L BUN (7-17) mg/dL Creatinine (0.52-1.04) mg/dL Glucose (74-99) mg/dL POC Glucose (mg/dL) 214 H 224 H 217 H (70-110) mg/dL 12/10/24 12/10/24 Range/Units 07:04 11:23 Sodium 136 L (137-145) mmol/L Chloride 89 L (98-107) mmol/L Carbon Dioxide 44 H* (22-30) mmol/L BUN 35 H (7-17) mg/dL Creatinine 1.08 H (0.52-1.04) mg/dL Glucose 206 H (74-99) mg/dL POC Glucose (mg/dL) 272 H (70-110) mg/dL Assessment and Plan Time with Patient: Less than 30
[2024-12-10 16:47] LABS: Glucose,Whole Blood 316 mg/dL (70-110)
--- NOTE | 2024-12-10 17:14 | P.PN ---
Subjective Progress Note Date: 12/10/24 Patient is a 74-year-old female with past medical history significant for oxygen dependant COPD, thoracic aortic dissection with repair, atrial fibrillation, hypertension, hypothyroidism, heart failure, pleural effusion with previous thoracentesis. Patient brought in by EMS from [facility] for increased work of breathing over the last 24 to 48 hours. Workup in the emergency department occluding a chest x-ray showing cardiomegaly, with central vascular congestion. NT proBNP elevated 2230. Echocardiogram from 10/26/2024 estimating preserved left ventricular ejection fraction of 55 to 60%. Started on IV Lasix 40 mg twice daily. CBC: WBC count 20.4, hemoglobin 10.1, platelets 260. CMP: Sodium 136, potassium 3.9, chloride 80, serum bicarb 44, BUN 30, creatinine 0.95, glucose 139. Lactic 1.2. Troponin 0.027. Patient currently being evaluated emergency department, currently on 6 L high flow nasal cannula. Breathing is nonlabored. SpO2 reading 99%. VBG done earlier with a pCO2 of 83 and pH of 7.35. Lethargic, but does awaken and answer questions appropriately. She is oriented x 3. She has had increased oxygen demands, with associated lower extremity swelling at the usp. Denies any chest pain. Denies any infectious symptoms. Her daughter and designated power of bridge tender is present at bedside. States that her mother has been in and out of hospitals and nursing homes since June, after having a repair of a thoracic aortic aneurysm dissection at [facility]. Actually, was just recently discharged from [facility] on Friday to [facility]. She was hospitalized for heart failure exacerbation per the daughter. On 12/13/2024, the patient is being seen for a follow-up. The patient is being treated for COPD/CHF exacerbation. The patient is feeling much improved compared to yesterday. The patient has diuresed well over the past 24 hours and she has been in negative fluid balance. Follow-up chest x-ray from today shows improvement in the pulm vessel congestion and clinically the patient is feeling better. Meanwhile, a follow-up blood gas was done today and it showed a pH of 7.46 with a pCO2 of 65 with a pO2 of 52 and this was done FiO2 of 35% and the patient is currently on oxygen and 2 L with a pulse ox of 93%. The white cell count is 9.9 with a hemoglobin 9.1 and platelet count of 193. BUN 37 with a creatinine of 1 and a sodium levels at 136 and a serum bicarb is at 46. The patient remains on oral Lasix 40 mg p.o. twice a day. She will benefit from Diamox. She remains on bronchodilators. She remains on steroids. 12/10/2024, patient is being seen for a follow-up. The patient is awake and alert and she shows no signs of any CO2 narcosis. She is calm and comfortable. She is well diuresed. Blood work from today shows a BUN of 35 and a creatinine of 1.08 and a serum bicarbonate 44 and a sodium levels at 136. Most recent blood gas from yesterday showed a pH of 7.46 with a pCO2 of 65 and pO2 of 52. The patient is currently on Lasix 40 mg p.o. twice a day. The patient is also on DuoNeb treatments [id number], Perforomist and Pulmicort neb treatments twice a day, IV Solu-Medrol 40 mg every 12 hours. The patient remains on Coreg 25 mg p.o. twice daily, amiodarone 200 mg p.o. daily and anticoagulation with Eliquis. Rest of the medications remain unchanged. Chest x-ray from yesterday showed improvement in the volume status. Lysing the BiPAP overnight. Objective - Vital Signs Vital signs: Vital Signs Temp 97.8 F 12/10/24 12:22 Pulse 71 12/10/24 12:22 Resp 14 12/10/24 12:22 BP 159/50 12/10/24 12:22 Pulse Ox 96 12/10/24 12:22 FiO2 35 12/10/24 03:58 Intake & Output 12/09/24 12/10/24 12/10/24 18:59 06:59 18:59 Intake Total 1078 130 118 Output Total 975 1100 Balance 103 -970 118 Weight 90.5 kg 90.4 kg Intake: IV 10 Invasive Line 1 10 Oral 1078 120 118 Output: Urine 975 1100 Other: Voiding Method Indwelling Catheter Indwelling Catheter # Voids 1 - Exam GENERAL EXAM: Lethargic, 74-year-old female, awakens and answers questions appropriately, then falls back asleep. On 2 L of oxygen by nasal cannula HEAD: Normocephalic and atraumatic EYES: Normal reaction of pupils, equal size. NOSE: Clear with pink turbinates. THROAT: No erythema or exudates. NECK: No masses, no JVD. CHEST: No chest wall deformity. Approximated former midline sternotomy incision LUNGS: Equal air entry with inspiratory bibasilar crackles and scattered rhonchi. No conversational dyspnea or accessory muscle use.. CVS: S1 and S2 normal with no audible murmur, regular rhythm. No extra heart sounds ABDOMEN: No hepatosplenomegaly, active bowel sounds, no guarding or rigidity. SPINE: No scoliosis or deformity SKIN: No rashes CENTRAL NERVOUS SYSTEM: No focal deficits, tone is normal in all 4 extremities. EXTREMITIES: There is bilateral lower extremity 2-3+ pitting edema. No clubbing or cyanosis. Peripheral pulses are intact. - Labs CBC & Chem 7: 12/09/24 07:40 12/10/24 07:04 Labs: Abnormal Lab Results - Last 24 Hours (Table) 12/09/24 12/09/24 12/10/24 Range/Units 16:14 20:49 06:12 Sodium (137-145) mmol/L Chloride (98-107) mmol/L Carbon Dioxide (22-30) mmol/L BUN (7-17) mg/dL Creatinine (0.52-1.04) mg/dL Glucose (74-99) mg/dL POC Glucose (mg/dL) 214 H 224 H 217 H (70-110) mg/dL 12/10/24 12/10/24 Range/Units 07:04 11:23 Sodium 136 L (137-145) mmol/L Chloride 89 L (98-107) mmol/L Carbon Dioxide 44 H* (22-30) mmol/L BUN 35 H (7-17) mg/dL Creatinine 1.08 H (0.52-1.04) mg/dL Glucose 206 H (74-99) mg/dL POC Glucose (mg/dL) 272 H (70-110) mg/dL Assessment and Plan Assessment: Acute on chronic hypoxemic and hypercapnic respiratory failure, likely secondary to combination of acute COPD exacerbation and exacerbation of diastolic congestive heart failure. Chest x-ray shows cardiomegaly with central vascular congestion. NT proBNP 2230. Clinically improved and the patient is currently on 2 L of oxygen by nasal cannula. Follow-up blood gas from yesterday showed a component of metabolic alkalosis. The patient has no signs of any CO2 narcosis Leukocytosis, improved Chronic obstructive pulmonary disease, normally oxygen dependent on 2 L/min nasal cannula History of aortic dissection involving the thoracic aorta for which the patient has undergone surgical repair at the [facility]. History of paroxysmal atrial fibrillation, maintained on a combination of Coreg, amiodarone and anticoagulation with Eliquis, current rhythm is sinus tachycardia History of heart failure with preserved ejection fraction, recent echocardiogram from on 10/26/2024 estimating preserved left ventricular ejection fraction 55 to 60%. History of hypothyroidism Hypertension Osteoarthritis Obesity with a BMI of 33.3 kg/m Macular degeneration Plan Continue supplemental oxygen maintain oxygen saturation between 88 and 92%, currently on 2 L of oxygen by nasal cannula No signs of any CO2 narcosis BiPAP overnight Continue DuoNebs [id number] Continue IV Solu-Medrol, taper to prednisone burst taper as of tomorrow budesonide and formoterol inhalations Obtain viral 4 Plex Continue Lasix 40 mg twice daily Diamox 500 mg IV x 2 doses given yesterday. Obtain a follow-up blood gas in the morning Monitor electrolytes Cardiology is consulted and the report is appreciated We will continue to follow in a.m. The patient will be transferred to telemetry unit for further monitoring. Will continue to follow. The case was discussed with the daughter at the bedside. The patient will likely need a noninvasive positive pressure ventilation on a permanent basis pending a sleep study. Time with Patient: Greater than 30
[2024-12-10 20:52] LABS: Glucose,Whole Blood 289 mg/dL (70-110)
[2024-12-10] MEDS: methylPREDNISolone SOD SUCCI 40 MG/ML 1 ML VIAL IV SCH (21:30)
[2024-12-11 06:07] LABS: Glucose,Whole Blood 256 mg/dL (70-110)
[2024-12-11 07:48] LABS: ABG Base Excess 14.3 mmol/L; ABG Oxygen Saturation 92.1 % (94-97); ABG PCO2 64 mmHg (35-45); ABG PH 7.42 (7.35-7.45); ABG PO2 62 mmHg (83-108); ABG TCO2 43 mmol/L (19-24); Allen Test Performed? Yes
[2024-12-11 07:54] LABS: ABG HCO3 41 mmol/L (21-25)
[2024-12-11 09:29] LABS: BUN/Creat Ratio 34.56 Ratio (12.00-20.00); Blood Urea Nitrogen 31.1 mg/dL (9.0-27.0); Calcium 8.7 mg/dL (8.7-10.3); Carbon Dioxide 38.4 mmol/L (21.6-31.8); Chloride 94 mmol/L (96-109); Glucose 159 mg/dL (70-110); Potassium 4.1 mmol/L (3.5-5.5); Sodium 141 mmol/L (135-145)
--- NOTE | 2024-12-11 09:43 | P.PN ---
Subjective HISTORY OF PRESENT ILLNESS: This is a 74-year-old female with a past medical history significant for atrial fibrillation, congestive heart failure, hypertension, diabetes, COPD, and thoracic aortic dissection s/p surgical repair at [facility]. Patient follows in the office with Dr. Grady. We have been asked to see the patient in consultation for congestive heart failure. Patient examined at the bedside. Patient's family is at the bedside and providing majority of HPI. Patient was brought from [facility] due to hypoxia with O2 saturations in the 50s. Patient's feeling of her states that she was recently at [facility] and discharged recently secondary to congestive heart failure. Patient is lethargic at the time of examination although she is arousable to verbal stimuli. She currently reports shortness of breath. She denies any chest pain or pressure. DIAGNOSTICS: - EKG reveals sinus tachycardia with left bundle branch block. Baseline artifact. - Chest xray findings consistent with CHF exacerbation/fluid overload state. - Laboratory data: WBC 20.4. Hemoglobin 10.1. Platelet count 260. Sodium 136. Potassium 3.9. BUN 30. Creatinine 0.95. Lactic acid 1.2. Troponin 0.027. - Current home cardiac medications include Lasix 40 mg twice a day, Eliquis 5 mg twice a day, carvedilol 25 mg twice a day, losartan 100 mg daily, Jardiance 10 mg daily, amiodarone 200 mg daily. - Most recent echocardiogram obtained in September 2024 revealed ejection fraction 55 to 60%, no wall motion abnormalities, mild MR, trace pericardial effusion - Patient underwent Lexiscan stress test in June 2024 which was negative for ischemia 12/09 Patient seen and examined. She is now on the cardiac stepdown unit. Patient states her breathing is okay today. She does have home oxygen. She is currently on 4 L nasal cannula with a pulse ox of 95%, heart rate is in the 60s and 70s, blood pressure 132/67. Repeat blood work reveals hemoglobin 9.1, BUN 37 creatinine 1, sodium 136 and potassium 4, CO2 is at 46. Repeat chest x-ray reveals improved CHF exacerbation fluid overload state. Patient has been maintained on IV Lasix 40 mg every 12 hours. Patient has a negative fluid balance. 12/10 Blood pressure 139/73, heart rate 69, pulse ox 95% on 2 L nasal cannula. Repeat blood work reveals sodium 136, potassium 4.4, CO2 44, BUN 35 creatinine 1.08. Yesterday, IV Lasix was transitioned to oral. Patient states that she does have an appointment with Dr. Saucedo already scheduled. 12/11/2024 Patient examined this morning at the bedside. Patient currently denies chest pain or pressure. She denies shortness of breath. Vital signs are stable. She is hoping to be discharged to ECF today. PHYSICAL EXAM: VITAL SIGNS: Reviewed. GENERAL: Well-developed in no acute distress. HEENT: Head is normocephalic. Pupils are equal, round. Sclerae anicteric. Mucous membranes of the mouth are moist. Neck supple. No JVD or thyromegaly LUNGS: Respirations even and unlabored. Lungs are to auscultation HEART: Regular rate and rhythm. S1 and S2 heard. Systolic murmur noted. ABDOMEN: Soft. Nondistended. Nontender. EXTREMITIES: Normal range of motion. No clubbing or cyanosis. Peripheral pulses intact. Trace bilateral lower extremity edema NEUROLOGIC: Awake and alert ASSESSMENT: Shortness of breath Acute on chronic heart failure with preserved EF, 55 to 60% Acute hypoxic and hypercapnic respiratory failure Altered mental status, likely secondary to hypercapnia, CO2 75, improved Minimally elevated troponin, likely type II LA secondary to oxygen supply/demand mismatch Paroxysmal atrial fibrillation Hypertension Diabetes COPD PLAN: No need to repeat echocardiogram as this was performed in September 2024 Continue current cardiac medications including amiodarone, Eliquis, atorvastatin, carvedilol, Farxiga, Lasix, and losartan Patient is stable for discharge today to ECF from a cardiac standpoint Patient to follow-up postdischarge with Dr. Grady Further recommendations pending patient course Nurse practitioner note has been reviewed by physician. Signing provider agrees with the documented findings, assessment, and plan of care documented by [employer]ICER as a scribe. Objective - Vital Signs Vital signs: Vital Signs Temp 97.7 F 12/11/24 01:35 Pulse 80 12/11/24 08:08 Resp 16 12/11/24 01:35 BP 136/75 12/11/24 01:35 Pulse Ox 94 L 12/11/24 07:44 FiO2 35 12/10/24 23:36 Intake & Output 12/10/24 12/11/24 12/11/24 18:59 06:59 18:59 Intake Total 118 Output Total 900 750 Balance -782 -750 Weight 89.5 kg Intake: Oral 118 Output: Urine 900 750 Other: Voiding Method Indwelling Catheter Indwelling Catheter - Labs CBC & Chem 7: 12/09/24 07:40 12/11/24 03:21 Labs: Abnormal Lab Results - Last 24 Hours (Table) 12/10/24 12/10/24 12/10/24 Range/Units 11:23 16:45 20:50 ABG pCO2 (35-45) mmHg ABG pO2 (83-108) mmHg ABG HCO3 (21-25) mmol/L ABG Total CO2 (19-24) mmol/L ABG O2 Saturation (94-97) % Hemoglobin (11.4-16.0) gm/dL Chloride (96-109) mmol/L Carbon Dioxide (21.6-31.8) mmol/L BUN (9.0-27.0) mg/dL BUN/Creatinine Ratio (12.00-20.00) Ratio Glucose (70-110) mg/dL POC Glucose (mg/dL) 272 H 316 H 289 H (70-110) mg/dL 12/11/24 12/11/24 12/11/24 Range/Units 03:21 06:05 07:44 ABG pCO2 64 H (35-45) mmHg ABG pO2 62 L (83-108) mmHg ABG HCO3 41 H* (21-25) mmol/L ABG Total CO2 43 H (19-24) mmol/L ABG O2 Saturation 92.1 L (94-97) % Hemoglobin 9.2 L (11.4-16.0) gm/dL Chloride 94 L (96-109) mmol/L Carbon Dioxide 38.4 H (21.6-31.8) mmol/L BUN 31.1 H (9.0-27.0) mg/dL BUN/Creatinine Ratio 34.56 H (12.00-20.00) Ratio Glucose 159 H (70-110) mg/dL POC Glucose (mg/dL) 256 H (70-110) mg/dL
[2024-12-11 09:52] VITALS: RESP 17
[2024-12-11 12:08] LABS: Glucose,Whole Blood 288 mg/dL (70-110)
--- NOTE | 2024-12-11 13:05 | P.DS ---
Providers Date of admission: 12/10/24 08:27 Attending physician: William Gates Consults: 12/08/24 05:53 Consult Physician Routine Consulting Provider: Ari Verdugo Consult Reason/Comments: COPD Do you want consulting provider notified?: Yes Consult Physician Routine Consulting Provider: Marco Morris Consult Reason/Comments: chf Do you want consulting provider notified?: Yes Primary care physician: [facility] Course: Final Diagnosis -Acute on chronic hypoxic as well as hypercapnic respiratory failure secondary to congestive heart failure as well as COPD exacerbation respectively. -There is heart failure chronic diastolic function with mild acute exacerbation -COPD with acute exacerbation -Paroxysmal atrial fibrillation patient is on Eliquis, Coreg amiodarone which will be continued -Hypothyroidism -Hypertension -Macular degeneration and patient is legally blind -Leukocytosis reactive without any evidence of pneumonia at this time or any other infection -Generalized deconditioning physical therapy and Occupational Therapy evaluation Discharge Disposition Patient is stable for return to [facility]. Continue oral lasix 40 mg twice daily. Continue prednisone taper. Continue BiPAP support at . Follow up with pulmonology and cardiology in the office on discharge. Hospital Course Patient is a pleasant 74-year-old female with history of COPD, oxygen dependent about 2 to 3 L was recently discharged from inpatient rehab to subacute rehabilitation. Patient was found to be severely hypoxic at the [facility] and was sent in here. She was hypercapnic on admission with Blood gases revealing a PCO2 of 77 and bicarb of 44. Patient does have history of COPD and sleep apnea and is is supposed to use BiPAP machine at nighttime which has not been compliant at the subacute rehabilitation facility. Patient is presently on 6 L initially when she came in she was on BiPAP. Patient was started on systemic steroids, inhalational treatments, chest x-ray showed some pulm edema with BNP of 2200. Patient does have history of diastolic dysfunction in the past and does take 40 mg twice a day of oral Lasix. Patient was eval by pulmonary and cardiology patient has mild elevated troponin there is 0.044 which is considered secondary to hypoxemia. Patient was treated with IV lasix and transitioned back to oral lasix. She continues to have some mild peripheral edema and recommend to continue with compression stockings and patient states she usually dose wear them. Patients blood gases and CO2 level are significantly improved and treated with BiPAP and received 2 doses of IV diamox. Patient today is sitting up in the chair. She is awake alert oriented. Lungs are clear. Patient has been cleared by pulmonology and cardiology and will return to [facility] today. Patient will require a BiPAP for home use once she is discharged from the [facility]. Please see medication reconciliation for a list of current medications. Thank you for allowing us to participate in the care of this patient. The impression and plan of care has been dictated by Jennifer Wiggins, Nurse Practitioner as directed. Dr. Tania MD I have performed a history and physical examination and medical decision making of this patient, discussed the same with the dictator, and agree with the dictators assessment and plan as written, documented as a scribe. Based on total visit time, I have performed more than 50% of this visit. Patient Condition at Discharge: Stable Plan - Discharge Summary Discharge Rx Participant: No New Discharge Prescriptions: New Atorvastatin [Lipitor] 40 mg PO HS tab predniSONE 10 mg PO DIRECTED 6 Days #18 tab Budesonide [Pulmicort] 1 mg INHALATION RT-BID ml Formoterol Fumarate [Perforomist] 20 mcg INHALATION RT-BID ml Continue Amiodarone [Cordarone] 200 mg PO DAILY Apixaban [Eliquis] 5 mg PO BID Gabapentin [Neurontin] 100 mg PO TID Multivitamins, Thera [Multivitamin (formulary)] 1 tab PO DAILY Pantoprazole Sodium [Protonix] 40 mg PO DAILY Thiamine [Vitamin B-1] 100 mg PO DAILY Sennosides [Senokot] 8.6 mg PO DAILY PRN PRN Reason: Constipation Dextrose Gel [Glucose Gel] 13 ml PO Q15M PRN PRN Reason: Hypoglycemia Glucagon Emergency Kit 1 mg SQ DIRECTED PRN PRN Reason: Hypoglycemia Calcium Carbonate [Tums] 500 mg PO Q6H PRN PRN Reason: HEARTBURN/INDIGESTION INSULIN LISPRO (humaLOG) [humaLOG] See Protocol SQ ACHS Furosemide [Lasix] 40 mg PO BID@0800,1400 Docusate [Colace] 100 mg PO BID Losartan Potassium [Cozaar] 100 mg PO DAILY carvediloL [Coreg] 25 mg PO BID Ipratropium-Albuterol Nebulize [Duoneb 0.5 mg-3 mg/3 ml Soln] 3 ml INHALATION RT-Q6H PRN PRN Reason: Shortness Of Breath Folic Acid 1 mg PO DAILY Acetaminophen Tab [Tylenol] 650 mg PO Q6HR PRN tab PRN Reason: Mild Pain Or Fever > 100.5 polyethylene glycoL 3350 [Miralax] 17 gm PO Q24H PRN PRN Reason: Constipation Ondansetron [Zofran] 4 mg PO Q6H PRN PRN Reason: Nausea And Vomiting Levothyroxine Sodium [Synthroid] 112 mcg PO DAILY Empagliflozin [Jardiance] 10 mg PO DAILY Ferrous Sulfate [Iron (65 MG Elemental)] 325 mg PO DAILY Calcium Carbonate/Vitamin D3 [Calcium 600 mg-Vit D3 10 mcg (400 Unit)] 1 tab PO DAILY Discontinued predniSONE See Taper PO DIRECTED Budesonide [Pulmicort] 0.5 mg INHALATION RT-BID Discharge Medication List Amiodarone [Cordarone] 200 mg PO DAILY 10/26/24 [History] Apixaban [Eliquis] 5 mg PO BID 10/26/24 [History] Folic Acid 1 mg PO DAILY 10/26/24 [History] Gabapentin [Neurontin] 100 mg PO TID 10/26/24 [History] Ipratropium-Albuterol Nebulize [Duoneb 0.5 mg-3 mg/3 ml Soln] 3 ml INHALATION RT-Q6H PRN 10/26/24 [History] Multivitamins, Thera [Multivitamin (formulary)] 1 tab PO DAILY 10/26/24 [Histor y] Pantoprazole Sodium [Protonix] 40 mg PO DAILY 10/26/24 [History] Thiamine [Vitamin B-1] 100 mg PO DAILY 10/26/24 [History] carvediloL [Coreg] 25 mg PO BID 10/26/24 [History] Acetaminophen Tab [Tylenol] 650 mg PO Q6HR PRN tab 10/28/24 [Rx] Calcium Carbonate [Tums] 500 mg PO Q6H PRN 12/08/24 [History] Calcium Carbonate/Vitamin D3 [Calcium 600 mg-Vit D3 10 mcg (400 Unit)] 1 tab PO DAILY 12/08/24 [History] Dextrose Gel [Glucose Gel] 13 ml PO Q15M PRN 12/08/24 [History] Docusate [Colace] 100 mg PO BID 12/08/24 [History] Empagliflozin [Jardiance] 10 mg PO DAILY 12/08/24 [History] Ferrous Sulfate [Iron (65 MG Elemental)] 325 mg PO DAILY 12/08/24 [History] Furosemide [Lasix] 40 mg PO BID@0800,1400 12/08/24 [History] Glucagon Emergency Kit 1 mg SQ DIRECTED PRN 12/08/24 [History] INSULIN LISPRO (humaLOG) [humaLOG] See Protocol SQ ACHS 12/08/24 [History] Levothyroxine Sodium [Synthroid] 112 mcg PO DAILY 12/08/24 [History] Losartan Potassium [Cozaar] 100 mg PO DAILY 12/08/24 [History] Ondansetron [Zofran] 4 mg PO Q6H PRN 12/08/24 [History] Sennosides [Senokot] 8.6 mg PO DAILY PRN 12/08/24 [History] polyethylene glycoL 3350 [Miralax] 17 gm PO Q24H PRN 12/08/24 [History] Atorvastatin [Lipitor] 40 mg PO HS tab 12/11/24 [Rx] Budesonide [Pulmicort] 1 mg INHALATION RT-BID ml 12/11/24 [Rx] Formoterol Fumarate [Perforomist] 20 mcg INHALATION RT-BID ml 12/11/24 [Rx] predniSONE 10 mg PO DIRECTED 6 Days #18 tab 12/11/24 [Rx] Follow up Appointment(s)/Referral(s): Shima Sapp MD [STAFF PHYSICIAN] - 1 Week Saeid Beaver DO [Primary Care Provider] - 1-2 days Skyler Grady MD [STAFF PHYSICIAN] - 3 Weeks Ari Verdugo MD [STAFF PHYSICIAN] - 1 Week Ambulatory/Diagnostic Orders: Basic Metabolic Panel [LAB.AMB] Location: None Selected Complete Blood Count w/diff [LAB.AMB] Time Frame: 3 Days, Location: None Selected Activity/Diet/Wound Care/Special Instructions: Patient to continue on BiPAP oxygen support at bedtime this was communicated with the patient and family. Additionally, when patient is discharged from [facility] home she needs to continue with BiPAP and will need to have one ordered for home. Discharge Disposition: TRANSFER TO SNF/ECF
[2024-12-11 14:26] VITALS: BP 133/60; TEMP 98.1
--- NOTE | 2024-12-11 14:49 | P.PN ---
Subjective Progress Note Date: 12/11/24 Patient is a 74-year-old female with past medical history significant for oxygen dependant COPD, thoracic aortic dissection with repair, atrial fibrillation, hypertension, hypothyroidism, heart failure, pleural effusion with previous thoracentesis. Patient brought in by EMS from [facility] for increased work of breathing over the last 24 to 48 hours. Workup in the emergency department occluding a chest x-ray showing cardiomegaly, with central vascular congestion. NT proBNP elevated 2230. Echocardiogram from 10/26/2024 estimating preserved left ventricular ejection fraction of 55 to 60%. Started on IV Lasix 40 mg twice daily. CBC: WBC count 20.4, hemoglobin 10.1, platelets 260. CMP: Sodium 136, potassium 3.9, chloride 80, serum bicarb 44, BUN 30, creatinine 0.95, glucose 139. Lactic 1.2. Troponin 0.027. Patient currently being evaluated emergency department, currently on 6 L high flow nasal cannula. Breathing is nonlabored. SpO2 reading 99%. VBG done earlier with a pCO2 of 83 and pH of 7.35. Lethargic, but does awaken and answer questions appropriately. She is oriented x 3. She has had increased oxygen demands, with associated lower extremity swelling at the snf. Denies any chest pain. Denies any infectious symptoms. Her daughter and designated power of tax attorney is present at bedside. States that her mother has been in and out of hospitals and nursing homes since June, after having a repair of a thoracic aortic aneurysm dissection at [facility]. Actually, was just recently discharged from [facility] on Friday to [facility]. She was hospitalized for heart failure exacerbation per the daughter. On 12/13/2024, the patient is being seen for a follow-up. The patient is being treated for COPD/CHF exacerbation. The patient is feeling much improved compared to yesterday. The patient has diuresed well over the past 24 hours and she has been in negative fluid balance. Follow-up chest x-ray from today shows improvement in the pulm vessel congestion and clinically the patient is feeling better. Meanwhile, a follow-up blood gas was done today and it showed a pH of 7.46 with a pCO2 of 65 with a pO2 of 52 and this was done FiO2 of 35% and the patient is currently on oxygen and 2 L with a pulse ox of 93%. The white cell count is 9.9 with a hemoglobin 9.1 and platelet count of 193. BUN 37 with a creatinine of 1 and a sodium levels at 136 and a serum bicarb is at 46. The patient remains on oral Lasix 40 mg p.o. twice a day. She will benefit from Diamox. She remains on bronchodilators. She remains on steroids. 12/10/2024, patient is being seen for a follow-up. The patient is awake and alert and she shows no signs of any CO2 narcosis. She is calm and comfortable. She is well diuresed. Blood work from today shows a BUN of 35 and a creatinine of 1.08 and a serum bicarbonate 44 and a sodium levels at 136. Most recent blood gas from yesterday showed a pH of 7.46 with a pCO2 of 65 and pO2 of 52. The patient is currently on Lasix 40 mg p.o. twice a day. The patient is also on DuoNeb treatments [id number], Perforomist and Pulmicort neb treatments twice a day, IV Solu-Medrol 40 mg every 12 hours. The patient remains on Coreg 25 mg p.o. twice daily, amiodarone 200 mg p.o. daily and anticoagulation with Eliquis. Rest of the medications remain unchanged. Chest x-ray from yesterday showed improvement in the volume status. Lysing the BiPAP overnight. On 12/11/2024, patient being seen for a follow-up., Comfortable. No new complaints. Follow-up blood gas from today showed a pH of 7.42 with a pCO2 of 64 pO2 of 62 and there has been improvement in acid-base status. Serum bicarb is at 38 post Diamox treatment and sodium levels at 141. Potassium level is at 4.1. The patient is alert and awake. Denies having any respiratory difficulties. She is on 2 L of oxygen by nasal cannula with a pulse ox of 98%. She remains on DuoNeb updrafts. She remains on anticoagulation with Eliquis. She remains on IV Solu-Medrol 40 mg every 12 hours. She is also on Lasix 40 mg p.o. twice a day. Rest of the medications are essentially unchanged. Objective - Vital Signs Vital signs: Vital Signs Temp 97.4 F L 12/11/24 08:00 Pulse 72 12/11/24 11:30 Resp 17 12/11/24 08:00 BP 159/72 12/11/24 08:00 Pulse Ox 95 12/11/24 08:00 FiO2 35 12/10/24 23:36 Intake & Output 12/10/24 12/11/24 12/11/24 18:59 06:59 18:59 Intake Total 118 Output Total 900 750 Balance -782 -750 Weight 89.5 kg Intake: Oral 118 Output: Urine 900 750 Other: Voiding Method Indwelling Catheter Indwelling Catheter - Exam GENERAL EXAM: Lethargic, 74-year-old female, awakens and answers questions appropriately, then falls back asleep. On 2 L of oxygen by nasal cannula HEAD: Normocephalic and atraumatic EYES: Normal reaction of pupils, equal size. NOSE: Clear with pink turbinates. THROAT: No erythema or exudates. NECK: No masses, no JVD. CHEST: No chest wall deformity. Approximated former midline sternotomy incision LUNGS: Equal air entry with inspiratory bibasilar crackles and scattered rhonchi. No conversational dyspnea or accessory muscle use.. CVS: S1 and S2 normal with no audible murmur, regular rhythm. No extra heart sounds ABDOMEN: No hepatosplenomegaly, active bowel sounds, no guarding or rigidity. SPINE: No scoliosis or deformity SKIN: No rashes CENTRAL NERVOUS SYSTEM: No focal deficits, tone is normal in all 4 extremities. EXTREMITIES: There is bilateral lower extremity 2-3+ pitting edema. No clubbing or cyanosis. Peripheral pulses are intact. - Labs CBC & Chem 7: 12/09/24 07:40 12/11/24 03:21 Labs: Abnormal Lab Results - Last 24 Hours (Table) 12/10/24 12/10/24 12/11/24 Range/Units 16:45 20:50 03:21 ABG pCO2 (35-45) mmHg ABG pO2 (83-108) mmHg ABG HCO3 (21-25) mmol/L ABG Total CO2 (19-24) mmol/L ABG O2 Saturation (94-97) % Hemoglobin (11.4-16.0) gm/dL Chloride 94 L (96-109) mmol/L Carbon Dioxide 38.4 H (21.6-31.8) mmol/L BUN 31.1 H (9.0-27.0) mg/dL BUN/Creatinine Ratio 34.56 H (12.00-20.00) Ratio Glucose 159 H (70-110) mg/dL POC Glucose (mg/dL) 316 H 289 H (70-110) mg/dL 12/11/24 12/11/24 Range/Units 06:05 07:44 ABG pCO2 64 H (35-45) mmHg ABG pO2 62 L (83-108) mmHg ABG HCO3 41 H* (21-25) mmol/L ABG Total CO2 43 H (19-24) mmol/L ABG O2 Saturation 92.1 L (94-97) % Hemoglobin 9.2 L (11.4-16.0) gm/dL Chloride (96-109) mmol/L Carbon Dioxide (21.6-31.8) mmol/L BUN (9.0-27.0) mg/dL BUN/Creatinine Ratio (12.00-20.00) Ratio Glucose (70-110) mg/dL POC Glucose (mg/dL) 256 H (70-110) mg/dL Assessment and Plan Assessment: Acute on chronic hypoxemic and hypercapnic respiratory failure, likely secondary to combination of acute COPD exacerbation and exacerbation of diastolic congestive heart failure. Chest x-ray shows cardiomegaly with central vascular congestion. NT proBNP 2230. Clinically improved and the patient is currently on 2 L of oxygen by nasal cannula. Follow-up blood gas from yesterday showed a component of metabolic alkalosis. The patient has no signs of any CO2 narcosis Leukocytosis, improved Chronic obstructive pulmonary disease, normally oxygen dependent on 2 L/min nasal cannula History of aortic dissection involving the thoracic aorta for which the patient has undergone surgical repair at the [facility]. History of paroxysmal atrial fibrillation, maintained on a combination of Coreg, amiodarone and anticoagulation with Eliquis, current rhythm is sinus tachycardia History of heart failure with preserved ejection fraction, recent echocardiogram from on 10/26/2024 estimating preserved left ventricular ejection fraction 55 to 60%. History of hypothyroidism Hypertension Osteoarthritis Obesity with a BMI of 33.3 kg/m Macular degeneration Plan Improving respiratory status Improvement in acid-base status, please refer to the most recent blood gas Continue supplemental oxygen maintain oxygen saturation between 88 and 92%, cur rently on 2 L of oxygen by nasal cannula No signs of any CO2 narcosis BiPAP overnight Continue DuoNebs [id number] Continue IV Solu-Medrol, taper to prednisone burst taper at the time of discharg e budesonide and formoterol inhalations Obtain viral 4 Plex Continue Lasix 40 mg twice daily May discharge back to [facility].
[2024-12-11 15:11] VITALS: PULSE 72
== END 2024-12-11 16:28 | DRG 280 ==
LOC: EC 04:52 → 6NMEDSUR 05:53 → 3SCARD 14:16 → OBSVTOIN 12-10 08:27 → 4SSUR 12-10 17:07
PROVIDERS: ADMIT Hospitalist; ATTEND Hospitalist
PROC: 5A09357 Assistance with Respiratory Ventilation, Less than 24 Consecutive Hours, Continuous Positive Airway Pressure (ICD-10-PCS; principal; 2024-12-08)
DX: I11.0 Hypertensive heart disease with heart failure (principal); I50.33 Acute on chronic diastolic (congestive) heart failure; I21.A1 Myocardial infarction type 2; J96.22 Acute and chronic respiratory failure with hypercapnia; J96.21 Acute and chronic respiratory failure with hypoxia; E87.3 Alkalosis; E11.9 Type 2 diabetes mellitus without complications; D72.829 Elevated white blood cell count, unspecified; J44.1 Chronic obstructive pulmonary disease with (acute) exacerbation; E03.9 Hypothyroidism, unspecified; I34.0 Nonrheumatic mitral (valve) insufficiency; E66.9 Obesity, unspecified; I48.0 Paroxysmal atrial fibrillation; Z79.4 Long term (current) use of insulin; Z68.33 Body mass index [BMI] 33.0-33.9, adult; G47.30 Sleep apnea, unspecified; H35.30 Unspecified macular degeneration; L57.0 Actinic keratosis; H54.8 Legal blindness, as defined in USA; Z79.01 Long term (current) use of anticoagulants; Z99.81 Dependence on supplemental oxygen; Z91.199 Patient's noncompliance with other medical treatment and regimen due to unspecified reason; Z79.84 Long term (current) use of oral hypoglycemic drugs; Z79.51 Long term (current) use of inhaled steroids; Z79.890 Hormone replacement therapy; Z79.899 Other long term (current) drug therapy; Z87.891 Personal history of nicotine dependence; Z96.643 Presence of artificial hip joint, bilateral; Z88.0 Allergy status to penicillin; Z88.4 Allergy status to anesthetic agent; Z91.041 Radiographic dye allergy status; Z88.5 Allergy status to narcotic agent
CPT/HCPCS: 36415; 36600; 71045; 80048; 80053; 82803; 82805; 83605; 83735; 83880; 84484; 85025; 85027; 85610; 85730; 87636; 93005; 94640; 94660; 94760; 96374; 96375; 99291